=== PATIENT | male | born 1970 | race Caucasian/White ===

== ENCOUNTER 2020-08-20 01:15 | Inpatient (IN) | payer MEDICARE, MEDICAID ==
[2020-08-20] VITALS (7 sets, daily range): BP systolic 116–167; BP diastolic 53–87
[~2020-08-20] VITALS: Ht 182.9 cm; Wt 146.8 kg
[2020-08-20] MEDS ORDERED: ACETAMINOPHEN TAB 650MG DOSE (2X325MG) PO PRN (02:00)
[2020-08-20 04:33] LABS: BASO % 0.2 % (0.0-1.0); EOS # 0.2 10^3/uL (0.0-0.5); HEMATOCRIT 29.3 % (42.0-52.0); HEMOGLOBIN 9.5 g/dl (13.5-17.5); LYMPH % 5.8 % (24.0-44.0); MEAN CORPUSCULAR HGB CONC 32.4 g/dl (32.0-36.5); MEAN CORPUSCULAR VOLUME 98.7 fl (80.0-96.0); MONO # 1.9 10^3/uL (0.0-0.8); NEUTROPHILS # 13.9 10^3/uL (1.5-8.5); NEUTROPHILS % 81.4 % (36.0-66.0); PLATELET COUNT, AUTOMATED 148 10^3/uL (150-450); RED BLOOD COUNT 2.97 10^6/uL (4.30-6.10); WHITE BLOOD COUNT 17.1 10^3/uL (4.0-10.0)
[2020-08-20 04:45] LABS: TOTAL PROTEIN,RANDOM URINE 144.2 MG/DL (0.0-12.0)
[2020-08-20 04:48] LABS: INR 1.23; PROTHROMBIN TIME 15.8 SECONDS (12.5-14.3)
[2020-08-20 04:54] LABS: OSMOLALITY SERUM 296 MOSM/KG (275-295)
[2020-08-20] MEDS ORDERED: FERR32TA PO (05:20)
[2020-08-20] MEDS ORDERED: LISI-542 PO (05:20)
[2020-08-20] MEDS ORDERED: ZINC1TAB2 PO (05:20)
[2020-08-20] MEDS ORDERED: METF-954 PO (05:20)
[2020-08-20] MEDS ORDERED: SM P99TA PO (05:20)
[2020-08-20] MEDS ORDERED: TERA5CAP3 PO (05:20)
[2020-08-20 06:01] LABS: ALBUMIN 2.4 GM/DL (3.2-5.2); ALT/SGPT 20 U/L (12-78); BILIRUBIN,TOTAL 1.9 MG/DL (0.2-1.0); BLOOD UREA NITROGEN 41 MG/DL (7-18); CALCIUM LEVEL 7.6 MG/DL (8.5-10.1); CARBON DIOXIDE LEVEL 21 MEQ/L (21-32); CHLORIDE LEVEL 104 MEQ/L (98-107); CK-MB VALUE MASS 1.3 NG/ML (<3.6); CPK CREATINE PHOSPHOKINASE 56 U/L (39-308); CREATININE FOR GFR 2.39 MG/DL (0.70-1.30); GLOMERULAR FILTRATION RATE 30.7 (>56); GLUCOSE, FASTING 168 MG/DL (70-100); MB/CK RELATIVE INDEX 2.32 (< OR =4); NT-PRO BNP 405 PG/ML (<125); POTASSIUM SERUM 3.8 MEQ/L (3.5-5.1); SODIUM LEVEL 135 MEQ/L (136-145); TOTAL PROTEIN 6.2 GM/DL (6.4-8.2); TROPONIN I < 0.02 NG/ML (< 0.10)
--- NOTE | 2020-08-20 06:47 | REPVR ---
PROCEDURE INFORMATION: Exam: XR Chest, 1 View Exam date and time: 08/20/2020 5:41 AM Age: 50 years old Clinical indication: Other: Edema TECHNIQUE: Imaging protocol: XR of the chest Views: 1 view. COMPARISON: No relevant prior studies available. FINDINGS: Lungs: Mild bilateral perihilar reticulonodular opacities. Pleural space: Unremarkable. No pleural effusion. No pneumothorax. Heart/Mediastinum: Unremarkable. No cardiomegaly. Bones/joints: Degenerative changes right shoulder. IMPRESSION: Mild bilateral perihilar reticulonodular opacities. Electronically signed by: Bernard Marin On 08/20/2020 06:47:46 AM
--- NOTE | 2020-08-20 06:51 | REPVR ---
PROCEDURE INFORMATION: Exam: CT Abdomen And Pelvis Without Contrast Exam date and time: 08/20/2020 3:58 AM Age: 50 years old Clinical indication: Abdominal pain; Localized; Left; Additional info: Luq pain, ? L kidney hematoma TECHNIQUE: Imaging protocol: Computed tomography of the abdomen and pelvis without contrast. Radiation optimization: All CT scans at this facility use at least one of these dose optimization techniques: automated exposure control; mA and/or kV adjustment per patient size (includes targeted exams where dose is matched to clinical indication); or iterative reconstruction. COMPARISON: No relevant prior studies available. FINDINGS: Pleural space: Small left pleural effusion with adjacent compressive atelectasis. Liver: Cirrhosis and evidence of portal venous hypertension. Gallbladder and bile ducts: Normal. No calcified stones. No ductal dilation. Pancreas: Normal. No ductal dilation. Spleen: Mild splenomegaly. Adrenal glands: Normal. No mass. Kidneys and ureters: Large left subcapsular renal hematoma with blood extending into the perinephric fat. Stomach and bowel: Unremarkable. No obstruction. No mucosal thickening. Appendix: No evidence of appendicitis. Intraperitoneal space: Unremarkable. No free air. No significant fluid collection. Vasculature: Unremarkable. No abdominal aortic aneurysm. Lymph nodes: Unremarkable. No enlarged lymph nodes. Urinary bladder: Unremarkable as visualized. Reproductive: Unremarkable as visualized. Bones/joints: Severe osteoarthritis in the bilateral hips. Mild anterolisthesis L5 on S1 secondary to bilateral L5 pars interarticularis defects. Bilateral L4 pars interarticularis defects are also noted. Severe multilevel degenerative disease facet hypertrophy of the thoracolumbar spine. Stenosis of the spinal canal and neural foramina multiple levels most pronounced at L1-L2. Soft tissues: Unremarkable. IMPRESSION: Large left subcapsular renal hematoma with blood extending into the perinephric fat. Small left pleural effusion with adjacent compressive atelectasis. Cirrhosis and evidence of portal venous hypertension. Electronically signed by: Bernard Marin On 08/20/2020 06:52:25 AM
--- NOTE | 2020-08-20 06:59 | HPEPDOC ---
[facility] Medical History & Physical Date of Admission Aug 20, 2020 Date of Service: Aug 20, 2020 Attending Physician: FRANKI BONILLA MD History and Physical CHIEF COMPLAINT: Transfer from [facility] HISTORY OF PRESENT ILLNESS: Hilario Higuera is a 50 YO M with history of iron defi ciency anemia, T2DM who presented to [facility] this evening with abdominal pain, subjective fevers and fatigue. The patient states that his pain last Wednesday with chills and dry heaving. 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 He reports that he has had severe pain in his left flank radiating to his left upper quadrant just below his ribs. The pain has since subsided but he still feels fatigued and has chills. In addition, he has noticed increased lower extremity edema for several months now. The patient's workup at [facility] was concerning for leukocytosis at 17.9, hgb 9.6, hct 29.0. BUN/Cr 15/2.5 with unknown baseline D-dimer 3.56 Lactic acid 5.0 Troponins negative UA: positive nitrites, 500 protein, +leuk esterase Rapid strep positive At [facility] he was given IV Rocephin, 2L fluid bolus. A CT abd/pelvis was performed and was concerning for a subcapsular hematoma in the left kidney measuring 9.3 x 3 cm. He was transferred to [facility] for further workup. PAST MEDICAL HISTORY: 1. Iron deficiency anemia 2. Type 2 DM 3. BPH 4. Hypertension 5. Osteoarthritis PAST SURGICAL HISTORY: none SOCIAL HISTORY: Never smoker. Occasional alcohol use. No drug use. No recent travel FAMILY HISTORY: Mother had to have kidney removed for unspecified reasons, patient thinks it was due to cancer Sister with unspecified cancer ALLERGIES: Please see below. REVIEW OF SYSTEMS: CONSTITUTIONAL: + subjective fevers, chills, +fatigue HEENT: -vision/hearing changes CARDIOVASCULAR: - chest pain/palpitations RESPIRATORY: -SOB, -CONNORS GASTROINTESTINAL: +nausea, -vomiting, reports left upper quadrant and flank pain GENITOURINARY: -dysuria SKIN: -rashes MUSCULOSKELETAL: -+low back pain NEUROLOGICAL: -loss of sensation, numbness PSYCHIATRIC: -depression/anxiety ENDOCRINE: -hot/cold intolerance HEMATOLOGIC/LYMPHATIC: -no easy bruising HOME MEDICATIONS: Please see below. PHYSICAL EXAMINATION: PE: 167/87, HR 117, RR 22, Sat 97%RA, Temp 97.8F GENERAL APPEARANCE: morbidly obese, calm/cooperative, no acute distress, speaks in full sentences HEENT: moist mucus membranes, EOMI, PERRL, no thyromegaly CARDIOVASCULAR: 3/6 KASSANDRA in RUSB, radiates to apex. RRR, peripheral pulses intact, faint LUNGS: clear to auscultation bilaterally without any adventitious breath sounds appreciated ABDOMEN: obese, +BS, tender to deep palpation left upper quadrant below ribs, no masses/organomegaly MUSCULOSKELETAL: no joint swelling/effusions noted EXTREMITIES: 2+ pitting edema up to thighs bilaterally NEUROLOGICAL: no obvious focal deficits PSYCHIATRIC: AAOx3, normal mood/affect LABORATORY DATA: See below. IMAGING: (READ from [facility]) CT ABD/PELVIS: FINDINGS: The left kidney demonstrates a subcapsular hematoma measuring at least 9.3X3 centimeters. There is mild perinephric stranding CT ABD/PEL ordered and pending MICROBIOLOGY: Please see below. ASSESSMENT: This is a 50 YO M with history of HTN, T2DM who presented to [facility] with left upper quadrant and flank pain, subjective fevers, chills found to have acute kidney injury and hematoma on left kidney. He was transferred to [facility] for higher level of care. PLAN: 1. Sepsis: likely 2/2 urinary source concerning for pyelonephritis. - Perinephric stranding on CT abd/pelvis from [place] - Will start Zosyn for broad spectrum coverage (intra-abdominal) - Lactic acid 3.7, WBC 17.1 2. Subcapsular hematoma on left kidney: -CT abd/pel ordered and pending - Will trend H&H -Urology consulted; case discussed - will continue to follow hemoglobin trend Acute kidney injury: - Creatinine found to be 2.39. Unsure of his baseline -Patient received 2 L fluid boluses at outside hospital currently edematous up to the thighs will hold off on fluids at this time -Urine labs pending -Nephrology consulted; Appreciate recommendations Fluid overload - Possibly 2/2 CHF, Nephrotic syndrome? - Physical reveals gross fluid overload and prior imaging consistent with L pleural effusion; patient will likely need diuresis - BNP elevated - Will get CXR - Will get ECHO stat (Murmur appreciated) - Will likely need to provide diuresis; will discuss with nephrology Suspected Pyelonephritis: -Empiric antibiotics (see above) DM2: -HbA1c pending -Holding home Metformin, Lisinopril -SSI with hypoglycemic protocol for now BPH: -Continue home meds DVT: TEDS/SCDs, holding chemical ppx due to hematoma on kidney Laboratory Data Labs 24H Laboratory Tests 2 08/20/20 03:45: Home Medications Scheduled Ferrous Gluconate (Ferrous Gluconate) 324 Mg Tablet, 324 MG PO DAILY Lisinopril (Lisinopril) 5 Mg Tablet, 5 MG PO DAILY Metformin HCl (Metformin HCl) 850 Mg Tablet, 850 MG PO BID Potassium Gluconate (Potassium) 99 Mg Tablet, 595 MG PO DAILY Terazosin HCl (Terazosin HCl) 5 Mg Capsule, 5 MG PO QHS Zinc (Zinc) 50 Mg Tablet, 50 MG PO DAILY Allergies Coded Allergies: No Known Allergies (Verified Allergy, Unknown, 08/20/20) A-FIB/CHADSVASC A-FIB History Current/History of A-Fib/PAF?: No Current PO Anticoag Therapy: No GME ATTESTATION GME ATTESTATION My faculty preceptor for this patient encounter was physically present during the encounter and was fully available. All aspects of the patient interview, examination, medical decision making process, and medical care plan development were reviewed and approved by the faculty preceptor. The faculty preceptor is aware and concurs with the plan as stated in the body of this note and will attest to such by his/her cosignature. ATTENDING NOTE I, Franki Bonilla, have independently examined this patient and performed my own physical exam, as well as reviewed the documentation and edited where necessary. I have discussed in detail with the resident / student the findings and plan of treatment as documented by the resident / student and edited their note. I agree with their findings and treatment plan and have edited their documentation. I will continue to follow the patient during this hospital stay. CAITIE LUGO MD Aug 20, 2020 04:10 FRANKI BONILLA MD Aug 20, 2020 07:41
[2020-08-20] MEDS ORDERED: DEXTROSE 50% 50 ML SYRINGE IV PRN (07:00)
[2020-08-20] MEDS ORDERED: GLUCOSE 4GM CHEW TABLET PO PRN (07:00)
[2020-08-20] MEDS ORDERED: GLUCAGON INJ 1MG VIAL SC PRN (07:00)
--- NOTE | 2020-08-20 08:07 | SMCUROLCON ---
Urology Consultation General Date of Consultation 08/20/20 Reason For Consultation This patient is seen for Sepsis, Pyelonephritis. History of Present Illness The patient is a 50-year-old male with a past medical history for hypertension and diabetes. He states that he began having some abdominal pain fever and difficulty breathing about a week ago. When this became severe he presented to the [facility] and found to have a left subcapsular hematoma atelectasis hypertension which appears uncontrolled and diabetes. He was transferred to the medical service at [facility] and urology consult was called for assistance with the perinephric hematoma. Patient denies any trauma, falls, injuries or previous renal abnormalities. He says state that he was diagnosed with diabetes and hypertension about a month ago and started on medications. Before the medications, he was urinating hourly both day and night he states that he was voiding large amounts. After he was started on medications his urination improved and he now gets up twice a night and only voids a few times during the day. His medications apparently include terazosin and metformin. There is no family history of prostate or renal disease. Past Medical History Medical History Hypertension Diabetes Iron deficiency anemia BPH osteoarthritis Surgical Hstory No previous surgeries Social History Social History Patient has been on on disability for many years. He states his qualifying disability is slow learning. 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 * Smoker: non-smoker Alcohol: occationally Drugs: denies Medications Current Medications Current Medications Medications (Trade) Dose Ordered Sig/Mayelin Route PRN Reason Start Time Stop Time Status Last Admin Dose Admin Acetaminophen (Tylenol Tab) 650 mg Q4H PRN PO PAIN OR FEVER 08/20/20 02:00 Ceftriaxone Sodium 2 gm/ Dextrose 50 ml @ 100 mls/hr Q24H IV 08/20/20 09:00 08/20/20 07:21 DC Dextrose (Dextrose 50%) 25 ml ASDIRECTED PRN IV SEE LABEL COMMENTS 08/20/20 07:00 Ferrous Gluconate (Fergon) 324 mg DAILY PO 08/20/20 09:00 Furosemide (LASIX injection) 40 mg BID@09,17 IV 08/20/20 09:00 08/20/20 07:36 DC Glucagon (Glucagon) 1 mg ASDIRECTED PRN SC SEE LABEL COMMENTS 08/20/20 07:00 Glucose (Glucose) 16 GM ASDIRECTED PRN PO SEE LABEL COMMENTS 08/20/20 07:00 Home Med (Med Rec Complete!) ASDIRECTED XX 08/20/20 05:30 08/20/20 05:36 DC Insulin Human Lispro (HumaLOG INSULIN) SEE PROTOCOL TABLE AC SC 08/20/20 07:30 Insulin Human Lispro (HumaLOG INSULIN) SEE PROTOCOL TABLE QHS SC 08/20/20 21:00 Piperacillin Sod/ Tazobactam Sod 3.375 gm/Dextrose 50 ml @ 50 mls/hr Q6H IV 08/20/20 08:00 Terazosin HCl (Hytrin) 5 mg QHS PO 08/20/20 21:00 Allergies Allergies: Coded Allergies: No Known Allergies (Verified Allergy, Unknown, 08/20/20) Review of Systems General: Reports: Normal Appetite; Denies: Fatigue, Malaise Constitutional: Reports: Fever, Chills Eyes: Denies: Pain, Vision change ENT: Denies: Head Aches, Sore Throat, Epistaxis Skin: Denies: Rash, Lesions, Breakdown, Nail Changes Pulmonary: Denies: Dyspnea, Cough Genitourinary: Reports: Frequency, Other Symptoms (nocturia); Denies: Dysuria, Incontinence, Hematuria Hematologic: Denies: Bruising, Bleeding Excessively Musculoskeletal: Denies: Neck Pain, Back Pain Physical Examination General Exam: Cooperative, Mild Distress, Other (morbid obesity) EYE EXAM: PERRLA, Conjunctiva & lids normal, EOMI; No: Sclera icteric ENT EXAM: Atraumatic, Mucous membr. moist/pink, Pharynx Normal Neck Exam: Supple; No: JVD, thyromegaly Abdomen Exam: Normal Bowel Sounds, Soft; No: Tenderness, Hepatospenomegaly Male Exam exam cannot be performed at this time because the patient was having bedside ultrasound study performed. Vital Signs/I&O Vital Signs Date Time Temp Pulse Resp B/P (MAP) Pulse Ox O2 Delivery O2 Flow Rate FiO2 08/20/20 06:15 99.4 111 20 136/62 (86) 100 Room Air I&O- Last 24 Hours up to 6 AM 08/20/20 06:00 Intake Total 0 ml Output Total 0 ml Balance 0 ml Laboratory Data 24H Labs Laboratory Tests 2 08/20/20 03:45: Coronavirus (COVID-19)(PCR) NEGATIVE, Influenza Type A (RT-PCR) NEGATIVE, Influenza Type B (RT-PCR) NEGATIVE, Respiratory Syncytial Virus (PCR) NEGATIVE 08/20/20 04:02: Urine Random Osmolality 443L, Urine Random Creatinine 249.0, Urine Random Total Protein 144.2H, Urine Random Sodium 20 08/20/20 04:12: Immature Granulocyte % (Auto) 0.6, Neutrophils (%) (Auto) 81.4H, Lymphocytes (%) (Auto) 5.8L, Monocytes (%) (Auto) 11.0H, Eosinophils (%) (Auto) 1.0, Basophils (%) (Auto) 0.2, Neutrophils # (Auto) 13.9H, Lymphocytes # (Auto) 1.0L, Monocytes # (Auto) 1.9H, Eosinophils # (Auto) 0.2, Basophils # (Auto) 0.0, Nucleated Red Blood Cells % (auto) 0.0, Prothrombin Time 15.8H, Prothromb Time International Ratio 1.23, Anion Gap 10, Glomerular Filtration Rate 30.7L, Osmolality 296H, Lactic Acid Level 3.7*H, Calcium Level 7.6L, Magnesium Level 1.8, Total Bilirubin 1.9H, Aspartate Amino Transf (AST/SGOT) 20, Alanine Aminotransferase (ALT/SGPT) 20, Alkaline Phosphatase 111, Total Creatine Kinase 56, Creatine Kinase MB 1.3, Creatine Kinase MB Relative Index 2.32, Troponin I < 0.02, PD-Vpx-B-Type Natriuretic Peptide 405H, Total Protein 6.2L, Albumin 2.4L, Albumin/Globulin Ratio 0.6, Thyroid Stimulating Hormone (TSH) 1.200 CBC/BMP Laboratory Tests 08/20/20 04:12 Microbiology Microbiology 08/20/20 Blood Culture, Received Pending 08/20/20 Blood Culture, Received Pending Assessment 1. Subcapsular hematoma. By CT report this hematoma is 9 x 3 cm 2. BPH with nocturia 3. Uncontrolled hypertension Plan 1. Subcapsular hematoma will be monitored for now with periodic H&H and follow- up CT scans. It of course will be necessary to control his hypertension. Most of the time, subcapsular hematomas or trauma related which the patient denies. This leaves his uncontrolled hypertension is most likely factor. He does not appear to have any stones or other renal issues that may have contributed to his condition. Phimosis time, the subcapsular hematomas were resolved spontaneously. Blood will be transfused as necessary should the hematoma continued to expand. 2. BPH continue terazosin. PSA will be ordered and the area will be performed at a later visit. Time Spent on Consult: Time Spent / Consult (Minutes): 60 KAYLEIGH MARINO MD Aug 20, 2020 08:07
[2020-08-20 08:23] LABS: CORTISOL BASELINE 25.4 UG/DL (4.3-22.4)
[2020-08-20] MEDS: PIPERACILLIN/TAZOBACTAM SOD 3.375 GM in D5W MINI-BAG PLUS 50 ML IV SCH ×3 (08:32→19:46)
[2020-08-20] MEDS: HumaLOG INSULIN (NovoLOG) PER UNIT SC SCH ×4 (08:32→20:44)
[2020-08-20] MEDS: FERROUS GLUCONATE 324 MG TAB PO SCH (08:33)
[2020-08-20] MEDS ORDERED: FUROSEMIDE 40MG/4ML VIAL (J1940) IV SCH (09:00)
[2020-08-20] MEDS ORDERED: cefTRIAXone SOD 2 GM in D5W MINI-BAG PLUS 50 ML IV SCH (09:00)
[2020-08-20 09:57] LABS: HEMOGLOBIN A1c 7.9 %
[2020-08-20 12:28] LABS: BILIRUBIN,DIRECT 1.3 MG/DL (0.0-0.2)
[2020-08-20] MEDS: TERAZOSIN 5 MG CAP PO SCH (21:04)
[2020-08-21] VITALS (12 sets, daily range): BP systolic 132–179; BP diastolic 63–81
[2020-08-21 00:08] LABS: HEMATOCRIT 26.8 % (42.0-52.0); HEMOGLOBIN 8.6 g/dl (13.5-17.5)
[2020-08-21] MEDS: PIPERACILLIN/TAZOBACTAM SOD 3.375 GM in D5W MINI-BAG PLUS 50 ML IV SCH ×4 (01:27→20:48)
[2020-08-21 07:08] LABS: BASO % 0.3 % (0.0-1.0); EOS # 0.1 10^3/uL (0.0-0.5); HEMOGLOBIN 9.3 g/dl (13.5-17.5); LYMPH % 6.7 % (24.0-44.0); MEAN CORPUSCULAR HEMOGLOBIN 30.4 pg (27.0-33.0); MEAN CORPUSCULAR HGB CONC 32.1 g/dl (32.0-36.5); MEAN CORPUSCULAR VOLUME 94.8 fl (80.0-96.0); MONO # 1.9 10^3/uL (0.0-0.8); MONO % 13.2 % (0.0-5.0); NEUTROPHILS # 11.1 10^3/uL (1.5-8.5); NEUTROPHILS % 77.4 % (36.0-66.0); PLATELET COUNT, AUTOMATED 134 10^3/uL (150-450); RED BLOOD COUNT 3.06 10^6/uL (4.30-6.10); WHITE BLOOD COUNT 14.3 10^3/uL (4.0-10.0)
--- NOTE | 2020-08-21 07:19 | CR ---
CONSULTATION REQUESTING PHYSICIAN: Franki Bonilla MD REASON FOR CONSULTATION: Acute kidney injury. HISTORY OF PRESENT ILLNESS: The patient is previously unknown to me. He is a 50-year-old male with a past medical history of poor medical care. The patient tells me that he used to see Dr. Hawk for primary care but had not seen him in more than a decade. He recently established medical care with Dr. Olmedo because he was having frequency of urination. He was diagnosed both with type 2 diabetes and also with hypertension and he was started on lisinopril and metformin. He reports that he was feeling fine until this weekend when he developed pelvic pain with urination and also felt feverish and fatigued and nauseous. He went to his local emergency room in [place] where he was found to have leukocytosis, anemia, creatinine of 2.5 with baseline renal function that is unknown to me but I suspect his creatinine is likely better than 1.5 given the primary care recently started him on metformin within the past couple of months. He additionally had CT of the abdomen and pelvis that showed a subcapsular hematoma of the left kidney and the patient was transferred to [facility] for further evaluation. The patient seen and examined at the bedside. He reports his pain is presently well controlled and he denies any shortness of breath or persistent nausea or vomiting. PAST MEDICAL HISTORY: 1. Recently diagnosed with type 2 diabetes mellitus and hypertension. 2. BPH, 3. Osteoarthritis. 4. Iron deficiency anemia. 5. Imaging on this admission shows liver cirrhosis although the patient denies a known history of the same. 6. Degenerative disc disease. PAST SURGICAL HISTORY: None reported. SOCIAL HISTORY: He is a never smoker, reports occasional alcohol use, no drug use. He is disabled. ALLERGIES: No known drug allergies. HOME MEDICATIONS: 1. Metformin. 2. Lisinopril. 3. Ferrous gluconate. 4. Potassium gluconate. 5. Terazosin. 6. Zinc. FAMILY HISTORY: Reports a family history of malignancy. REVIEW OF SYSTEMS: Constitutional: Reports subjective fevers and fatigue. Eyes: Denies visual changes or tearing. ENT: Denies odynophagia or rhinorrhea. Cardiac: Denies chest pain or palpitations. Respiratory: Denies shortness of breath or cough. Gastrointestinal: Denies nausea, vomiting or diarrhea. Genitourinary: Reports dysuria. Reports BPH. Endocrine: Reports diabetes mellitus and denies thyroid disease. Abdomen: Reports iron deficiency anemia. Denies anticoagulant use. Musculoskeletal: Reports osteoarthritis. Denies gout. Neurologic: Denies seizure or syncope. Psychiatric: Denies a history of anxiety or depression. Skin: Denies any new rashes or ulcers. Remainder of review of systems is negative or as per HPI. PHYSICAL EXAMINATION: Vital signs: Temperature 99.7, pulse 104, respiratory rate 22, blood pressure 141/61, saturating 94% on room air. General: Patient is seen lying in bed, middle-aged male, well built in no apparent distress. HEENT: Extraocular muscles are intact. Pupils are round and reactive to light. Tongue is moist. Neck is supple. Jugular veins are not elevated. Heart sounds are tachycardic, S1, S2 and regular. There is 1+ leg edema. Lungs: Show symmetric air entry, no crackle or rale. Abdomen: Soft and obese and nontender to palpation. Extremities show no clubbing or cyanosis. There is 1+ leg edema. Neurologic: He is oriented x3, interactive and conversational. Psychiatric: Appropriate mood and affect. LABORATORY DATA: Sodium 135, potassium 3.8, bicarbonate 21, BUN 41, creatinine 2.3, A1c 7.9, hemoglobin 9.5, white count 17.1, platelets 148. Blood and urine cultures are pending. IMAGING STUDIES: CT, abdomen and pelvis shows large left subcapsular renal hematoma with blood extending intro the perinephric fat, small left pleural effusion, cirrhosis and evidence of portal venous hypertension. INPATIENT MEDICATIONS: 1. Zosyn 3.375 gm IV q.6 hourly. 2. Tylenol p.r.n. 3. Ferrous gluconate 324 mg p.o. daily. 4. Insulin. 5. Terazosin 5 mg p.o. q.h.s. PROBLEMS: 1. ANNABEL most likely superimposed on CKD stage 3. The patient's exact baseline renal function is not known to me. However, given that he was started on metformin and lisinopril as new prescriptions within the past couple of months, I feel his creatinine at baseline is probably is probably less than 1.5. Presently he has an acute kidney injury related to large left renal subcapsular hematoma with concomitant use of lisinopril and metformin. His nephrotoxics have been discontinued. His renal imaging is negative for any obstruction. I would not give him IV fluids at this as it may contribute to increase in blood pressures. However, he can have liberal oral hydration. Urology has already evaluated him for the subcapsular hematoma. 2. Large left renal subcapsular hematoma. The patient should have type and screen done and he should be on close hemoglobin and hematocrit monitoring. His blood pressures presently adequately controlled with systolic in the 110s to 130s. He is tolerating oral diet. He does not need IV fluids as it may cause rise in blood pressure which would be detrimental given his hematoma. 3. Proteinuria. I was asked to comment on the patient's proteinuria. At present with his acute hematoma and hematuria, now is not the best time for a proteinuria workup. He likely has some diabetic nephropathy underlying. He did not see a physician in more than ten years when he was subsequently diagnosed with diabetes. Further proteinuria workup can be done in the outpatient setting or once acute issues resolve. 4. UTI. The patient is on empiric broad-spectrum coverage per the primary team. He has leukocytosis. His urinalysis is suspicious. His blood and urine cultures are pending. 5. Hypervolemia. The patient has leg edema. An echo is pending. I would hold off on diuretic at present time in view of acute kidney injury related to large subcapsular hematoma of the left kidney along with lisinopril and metformin. Gentle diuretic can be started once renal function shows improvement. We will follow up echo results. Thank you for involving me in the care of Mr. Higuera. I will be happy to follow him along with you.
[2020-08-21 07:27] LABS: CALCIUM LEVEL 7.6 MG/DL (8.5-10.1); CREATININE FOR GFR 1.59 MG/DL (0.70-1.30); GLOMERULAR FILTRATION RATE 49.1 (>56); MAGNESIUM LEVEL 2.1 MG/DL (1.8-2.4); POTASSIUM SERUM 3.8 MEQ/L (3.5-5.1)
[2020-08-21 07:37] LABS: ALBUMIN 2.1 GM/DL (3.2-5.2); BILIRUBIN,DIRECT 1.3 MG/DL (0.0-0.2); TOTAL PROTEIN 6.3 GM/DL (6.4-8.2)
[2020-08-21] MEDS: HumaLOG INSULIN (NovoLOG) PER UNIT SC SCH ×4 (08:34→20:51)
[2020-08-21] MEDS: FERROUS GLUCONATE 324 MG TAB PO SCH (08:34)
--- NOTE | 2020-08-21 09:39 | ECHO ---
DATE OF PROCEDURE: 08/20/2020 Age: 50 Gender: Male Height: 182 cm Weight: 150 kg REFERRING PHYSICIAN: Sridevi Matias MD INDICATION: Sepsis. MEASUREMENTS: 2D Measurements: Left atrium 4.2 cm Left ventricle diastole 6.5 cm Intraventricular septum 1.28 cm Posterior wall 1.05 cm Aortic root 3.5 cm Proximal ascending aorta 3.7 cm Inferior vena cava 1.7 cm Doppler Measurements: No aortic stenosis No aortic regurgitation No mitral stenosis No mitral regurgitation No tricuspid regurgitation No pulmonic regurgitation Aortic valve velocity 218 cm/s LVOT velocity 159 cm/s LVOT VTI 29.6 cm Mitral E velocity 126 cm/s Mitral A velocity 113 cm/s Mitral deceleration time 180 msec Pulmonary artery acceleration time 120 msec MITRAL ANNULAR TISSUE DOPPLER E prime septal 11.4 cm/s, E prime lateral 13.2 cm/s DESCRIPTION: Rhythm was sinus tachycardia. This was a moderately technically difficult echocardiogram. This was a 2D, M-mode, color flow Doppler, and pulsed wave Doppler examination including mitral annular tissue Doppler. CONCLUSIONS: 1. No vegetations identified on any of the cardiac valves. 2. Mildly dilated left ventricle with mild eccentric left ventricular hypertrophy. Normal regional left ventricular (LV) wall motion and wall thickening. Normal left ventricular (LV) systolic function. Left ventricular ejection fraction (LVEF) of 70% by visual estimate. Normal left ventricular (LV) diastolic function. 3. Mild mitral annular calcification. No mitral regurgitation. 4. No pericardial effusion. 5. Moderately technically difficult echocardiogram. [facility]
--- NOTE | 2020-08-21 14:54 | IPNPDOC ---
Text Note Date of Service The patient was seen on 08/21/20. NOTE SUBJECTIVE: Patient was seen and examined this morning at bedside. He denies any back pain or trauma to his back. He states his legs have been swelling over the past few months, ever since he was recently diagnosed with diabetes mellitus. OBJECTIVE: VITAL SIGNS: See below GENERAL: Alert, comfortable, in no acute distress HEENT: Normocephalic, atraumatic, PERRLA, EOMI, moist mucous membranes NECK: Supple, trachea midline CARDIOVASCULAR: Regular rate and rhythm, normal S1 and S2. III/ systolic ejection murmur auscultated over the right upper sternal border. RESPIRATORY: Clear to auscultation bilaterally with equal air entry bilaterally. No wheezing, rhonchi, or rales. ABDOMEN: Soft, nontender, nondistended, bowel sounds present, no masses or hepatosplenomegaly appreciated EXTREMITIES: Bilateral lower extremity 2+ pitting edema up to the knees. Pulses 2+/4 in bilateral upper and lower extremities SKIN: [place], warm, dry NEUROLOGIC: Alert and oriented x3 to person, place and time. No focal deficits appreciated PSYCHIATRIC: Mood and affect appropriate ASSESSMENT/PLAN: 50 YO M with history of HTN, T2DM who presented to [facility] with left upper quadrant and flank pain, subjective fevers, chills found to have acute kidney injury and hematoma on left kidney transferred to [facility] for higher level of care with nephrology and urology consultations. # Subcapsular hematoma on left kidney -CT abd/pel ordered and pending - Will trend H&H -Urology consulted; case discussed - will continue to follow hemoglobin trend # Acute kidney injury -Creatinine trending down to 1.59 -FENa = 0.1%, likely prerenal etiology -Patient received 2 L fluid boluses at outside hospital currently edematous up to the thighs will hold off on fluids at this time -Nephrology consulted, appreciate recommendations # Sepsis likely 2/2 urinary source concerning for pyelonephritis - Perinephric stranding on CT abd/pelvis from [facility] - Continue abx coverage with IV zosyn day #2 - Lactic acid trended down to 1.7, WBC trending down - blood cultures x2 pending. urine culture pending # Lower extremity edema - Possibly 2/2 CHF vs nephrotic syndrome - Physical reveals gross fluid overload and prior imaging consistent with L pleural effusion; patient may need diuresis - BNP elevated - Obtain echocardiogram # New onset heart murmur - obtain echocardiogram as noted above # DM2 -HbA1c elevated at 7.9% -Holding home Metformin, Lisinopril due to ANNABEL -SSI with hypoglycemic protocol while inpatient # BPH - Continue home terazosin DVT: TEDS/SCDs, holding chemical ppx due to hematoma on kidney Disposition: pending clinical improvement, stabilization of H/H Attending attestation: Patient seen and examined independently. Agree with resident's note. VS,Fishbone, I+O VS, Fishbone, I+O Laboratory Tests 08/20/20 23:46 08/21/20 06:53 Vital Signs Date Time Temp Pulse Resp B/P (MAP) Pulse Ox O2 Delivery O2 Flow Rate FiO2 08/21/20 07:38 99.4 95 18 139/64 (89) 95 Room Air I&O- Last 24 Hours up to 6 AM 08/21/20 06:00 Intake Total 1698 ml Output Total 1300 ml Balance 398 ml TANJA BOND D.O. Aug 21, 2020 11:47 MARCIAL HATCH MD Aug 22, 2020 07:09
[2020-08-21 20:41] LABS: HEMATOCRIT 29.2 % (42.0-52.0); HEMOGLOBIN 9.7 g/dl (13.5-17.5); MEAN CORPUSCULAR HEMOGLOBIN 31.1 pg (27.0-33.0); MEAN CORPUSCULAR HGB CONC 33.2 g/dl (32.0-36.5); MEAN CORPUSCULAR VOLUME 93.6 fl (80.0-96.0); PLATELET COUNT, AUTOMATED 144 10^3/uL (150-450); RED BLOOD COUNT 3.12 10^6/uL (4.30-6.10)
[2020-08-21] MEDS: TERAZOSIN 5 MG CAP PO SCH (20:51)
--- NOTE | 2020-08-21 23:10 | IPN ---
NEPHROLOGY PROGRESS NOTE DATE: 08/21/2020 SUBJECTIVE: The patient is seen and examined this morning at the bedside. He feels great. He offers no complaints. He is not having any dysuria. He denies any hematuria. He denies any abdominal, pelvic or flank pain. He wants to go home. His hemoglobin dipped down to 8.6 and he received one unit of packed red blood cells overnight. His blood pressure remains well controlled. PHYSICAL EXAMINATION: VITAL SIGNS: Temperature 99.3, pulse 100, respiratory rate 18, blood pressure 143/71, saturating 96% on room air. INTAKE AND OUTPUT: Intake yesterday was 1640. Urine output was 1300. Weight in the bed scale today is not recorded. GENERAL APPEARANCE: The patient is seen lying in bed, obese male, awake, alert, oriented x3, in no apparent distress. HEENT: The extraocular muscles are intact. Tongue is moist. NECK: Supple. HEART: Regular, S1, S2. There is 1+ leg edema. LUNGS: Breath sounds are symmetric bilaterally. No crackle or rales. ABDOMEN: Obese, soft and nontender. There is no flank tenderness. NEUROLOGICAL: Oriented x3, interactive and conversational. MUSCULOSKELETAL: Power is 5/5 in all extremities. SKIN: Normal temperature and dry. LABORATORY STUDIES: White count 13.0, hemoglobin 9.7, platelet 144, sodium 135, potassium 3.8, BUN 33, creatinine 1.5, magnesium 2.1, albumin 2.1. Urine protein 2, creatinine ratio was about 0.6 grams. IMAGING: Echocardiogram done yesterday showed normal left ventricular systolic and diastolic function. INPATIENT MEDICATIONS: The patient continues on IV Zosyn, insulin, Terazosin and Ferrous Gluconate and Tylenol p.r.n. PROBLEMS: 1. Acute kidney injury, non oliguric, related to dante inhibitor and acute left renal subcapsular large hematoma and possibly also pyelonephritis - renal function is improving and he is not on any nephrotoxics. He has leg edema, and we are holding off on IV fluids for the same reason. He is tolerating oral intake without any issues. 2. UTI/pyelonephritis had perinephric stranding on outside CT abdomen and pelvis. Blood cultures were no growth for 24 hours. Urine culture is pending. He is on empiric Zosyn. His white count is downtrending and he is afebrile. 3. Leg edema echocardiogram showed normal left ventricular systolic and diastolic dysfunction. His spot urine protein creatinine ratio is very mild at only 0.6 grams which is far below the threshold for nephrotic range proteinuria. He likely has some degree of diabetic nephropathy underlying. I will start him on gentle diuretic for his edema. 4. Hypertension he is off of Lisinopril due to recent acute kidney injury we will start him on Hydrochlorothiazide. 5. Non insulin dependent diabetes mellitus would keep him off of Metformin at this time until renal function further recovers. 6. Subcapsular hematoma, large, on left kidney - received one unit packed red blood cells. Denies any pain. Hemoglobin and hematocrit are stable. Blood pressure is controlled.
[2020-08-22] VITALS: BP 137/63
[2020-08-22 02:02] LABS: HEMATOCRIT 29.2 % (42.0-52.0); HEMOGLOBIN 9.6 g/dl (13.5-17.5)
[2020-08-22] MEDS: PIPERACILLIN/TAZOBACTAM SOD 3.375 GM in D5W MINI-BAG PLUS 50 ML IV SCH ×3 (02:03→12:42)
[2020-08-22 04:00] VITALS: BP 144/81
[2020-08-22 06:12] LABS: BASO # 0.1 10^3/uL (0.0-0.2); BASO % 0.4 % (0.0-1.0); EOS # 0.2 10^3/uL (0.0-0.5); EOS % 1.3 % (0.0-3.0); HEMATOCRIT 29.2 % (42.0-52.0); HEMOGLOBIN 9.3 g/dl (13.5-17.5); LYMPH % 8.9 % (24.0-44.0); MEAN CORPUSCULAR HEMOGLOBIN 30.1 pg (27.0-33.0); MEAN CORPUSCULAR HGB CONC 31.8 g/dl (32.0-36.5); MEAN CORPUSCULAR VOLUME 94.5 fl (80.0-96.0); MONO # 1.9 10^3/uL (0.0-0.8); MONO % 16.7 % (0.0-5.0); NEUTROPHILS # 8.1 10^3/uL (1.5-8.5); NEUTROPHILS % 70.1 % (36.0-66.0); PLATELET COUNT, AUTOMATED 140 10^3/uL (150-450); RED BLOOD COUNT 3.09 10^6/uL (4.30-6.10); WHITE BLOOD COUNT 11.5 10^3/uL (4.0-10.0)
[2020-08-22 06:37] LABS: BLOOD UREA NITROGEN 23 MG/DL (7-18); CALCIUM LEVEL 7.8 MG/DL (8.5-10.1); CARBON DIOXIDE LEVEL 24 MEQ/L (21-32); CHLORIDE LEVEL 103 MEQ/L (98-107); CREATININE FOR GFR 1.21 MG/DL (0.70-1.30); GLOMERULAR FILTRATION RATE > 60.0 (>56); GLUCOSE, FASTING 186 MG/DL (70-100); MAGNESIUM LEVEL 2.3 MG/DL (1.8-2.4); POTASSIUM SERUM 3.7 MEQ/L (3.5-5.1); SODIUM LEVEL 135 MEQ/L (136-145)
[2020-08-22 07:57] VITALS: BP 148/68
[2020-08-22 08:24] LABS: ALT/SGPT 16 U/L (12-78); BILIRUBIN,DIRECT 1.3 MG/DL (0.0-0.2); BILIRUBIN,TOTAL 1.9 MG/DL (0.2-1.0); TOTAL PROTEIN 5.9 GM/DL (6.4-8.2)
[2020-08-22] MEDS ORDERED: hydroCHLOROthiazide 25 MG TAB PO SCH (09:00)
[2020-08-22] MEDS: HumaLOG INSULIN (NovoLOG) PER UNIT SC SCH ×2 (09:09→12:42)
[2020-08-22] MEDS: FERROUS GLUCONATE 324 MG TAB PO SCH (09:09)
[2020-08-22] MEDS ORDERED: HYDR25TAB PO (12:29)
[2020-08-22] MEDS ORDERED: SULF1TAB23 PO (13:05)
[2020-08-22 14:08] LABS: HEMATOCRIT 30.2 % (42.0-52.0)
--- NOTE | 2020-08-22 14:25 | DS.PDOC ---
Discharge Summary General Date of Admission Aug 20, 2020 at 03:23 Date of Discharge 08/22/2020 Attending Physician: MARCIAL HATCH MD Discharge Summary PROCEDURES PERFORMED DURING STAY: None. ADMITTING DIAGNOSES: 1. Subcapsular hematoma left kidney 2. Acute kidney injury 3. Sepsis 2/2 pyelonephritis 4. Lower extremity edema 5. New onset heart murmur 6. Diabetes mellitus type 2 7. BPH DISCHARGE DIAGNOSES: 1. Subcapsular hematoma left kidney 2. Acute kidney injury, resolved 3. UTI/pyelonephritis 4. Lower extremity edema 5. New onset heart murmur 6. Diabetes mellitus type 2 7. BPH COMPLICATIONS/CHIEF COMPLAINT: Sepsis, Pyelonephritis. HISTORY OF PRESENT ILLNESS: 50 year old male with history of iron deficiency anemia, T2DM who presented to [facility] with abdominal pain, subjective fevers and fatigue. The patient stated that his pain began last Wednesday, along with chills and dry heaving. 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 He reports that he has had severe pain in his left flank radiating to his left upper quadrant just below his ribs. The pain has since subsided but he still feels fatigued and has chills . In addition, he has noticed increased lower extremity edema for several months now. CT of the abdomen and pelvis revealed and subcapsular hematoma on the left kidney and the patient was transferred to [facility] for admission and evaluation by urology and nephrology. HOSPITAL COURSE: The patient was admitted to the hospital and will service. He was noted to have elevated white blood cell count and elevated lactic acid, turning for sepsis secondary to possible pyelonephritis with perinephric strandi ng seen on the ET abdomen and pelvis. He was started on IV Zosyn for broad- spectrum antibiotic coverage. Hemoglobin and hematocrit were trended during his admission. Subcapsular hematoma. In the evening on 08/20/2020, he required 1 unit blood transfusion due to a drop in his hemoglobin. After that point, his hemoglobin remained stable above 9.0. Urology was consulted for his subcapsular hematoma. They suggested conservative management as this will likely resolve on its own. He will follow up outpatient with urology after discharge. Nephrology was consulted for his acute kidney injury. His home nephrotoxic agents including metformin and lisinopril were held during his admission. He did require some additional medication for blood pressure control and was started on hydrochlorothiazide. During his admission, his kidney function improved and returned close to baseline prior to discharge. He was restarted on his home metformin at discharge but continued on the hydrochlorothiazide for blood pressure control instead of lisinopril. The patient's urine culture came back positive for staphylococcus aureus. He was discontinued from IV Zosyn to PO Bactrim for antibiotic coverage and discharged home to complete full antibiotic course. On admission to the hospital, the patient was also noted to have a heart murmur which he was apparently not aware of. An echocardiogram was ordered and the results are detailed below. He should follow-up with his primary care physician for any further workup or treatment. The patient was evaluated by physical therapy and occupational therapy prior to discharge home from the hospital. DISCHARGE MEDICATIONS: Please see below. ALLERGIES: Please see below. PHYSICAL EXAMINATION ON DISCHARGE: VITAL SIGNS: Please see below. GENERAL: Alert, comfortable, in no acute distress HEENT: Normocephalic, atraumatic, PERRLA, EOMI, moist mucous membranes NECK: Supple, trachea midline CARDIOVASCULAR: Regular rate and rhythm, normal S1 and S2. III/ systolic eject ion murmur auscultated over the right upper sternal border. RESPIRATORY: Clear to auscultation bilaterally with equal air entry bilaterally. No wheezing, rhonchi, or rales. ABDOMEN: Soft, nontender, nondistended, bowel sounds present, no masses or hepatosplenomegaly appreciated EXTREMITIES: Bilateral lower extremity 2+ pitting edema up to the knees. Pulses 2+/4 in bilateral upper and lower extremities SKIN: [place], warm, dry NEUROLOGIC: Alert and oriented x3 to person, place and time. No focal deficits appreciated PSYCHIATRIC: Mood and affect appropriate LABORATORY DATA: Please see below. IMAGING: (impressions per radiologist report) 1. CT abdomen/pelvis Large left subcapsular renal hematoma with blood extending into the perinephric fat. Small left pleural effusion with adjacent compressive atelectasis. Cirrhosis and evidence of portal venous hypertension. 2. CXR Mild bilateral perihilar reticulonodular opacities. ECHOCARDIOGRAM RESULTS: (per Dr. Gomez's report) 1. No vegetations identified on any of the cardiac valves. 2. Mildly dilated left ventricle with mild eccentric left ventricular hypertrophy. Normal regional left ventricular (LV) wall motion and wall thicken ing. Left ventricular ejection fraction (LVEF) of 70% by visual estimate. Normal left ventricular (LV)diastolic function. 3. Mild mitral annular calcification. No mitral regurgitation. 4. No pericardial effusion. 5. Moderately technically difficult echocardiogram. PROGNOSIS: Fair ACTIVITY: As tolerated DIET: Consistent carbohydrate DISCHARGE PLAN: Oral antibiotics for UTI, outpatient follow up for subcapsular hematoma and medical management of chronic conditions DISPOSITION: HOME DISCHARGE INSTRUCTIONS: 1. Follow-up with your PCP in 7-10 days 2. Follow up with urology and nephrology 3. Please take all medications as prescribed 4. Complete full course of antibiotics 5. If your symptoms return or your condition worsens, please call your PCP or return to the ED for further evaluation. ITEMS TO FOLLOWUP ON ON OUTPATIENT: 1. Subcapsular hematoma 2. Treatment of hypertension and diabetes mellitus 3. Echocardiogram results concerning your heart murmur DISCHARGE CONDITION: Stable. TIME SPENT ON DISCHARGE: Greater than 35 minutes. Vital Signs/I&Os Vital Signs Date Time Temp Pulse Resp B/P (MAP) Pulse Ox O2 Delivery O2 Flow Rate FiO2 08/22/20 07:57 98.9 96 20 148/68 (94) 93 Room Air I&O- Last 24 Hours up to 6 AM 08/22/20 06:00 Intake Total 980 ml Output Total 975 ml Balance 5 ml Laboratory Data Labs 24H Laboratory Tests 2 08/21/20 17:14: Bedside Glucose (Misc Panel) 177H 08/21/20 20:19: Nucleated Red Blood Cells % (auto) 0.0 08/21/20 20:37: Bedside Glucose (Misc Panel) 155H 08/22/20 05:33: Nucleated Red Blood Cells % (auto) 0.0, Immature Granulocyte % (Auto) 2.6, Neutrophils (%) (Auto) 70.1H, Lymphocytes (%) (Auto) 8.9L, Monocytes (%) (Auto) 16.7H, Eosinophils (%) (Auto) 1.3, Basophils (%) (Auto) 0.4, Neutrophils # (Auto) 8.1, Lymphocytes # (Auto) 1.0L, Monocytes # (Auto) 1.9H, Eosinophils # (Auto) 0.2, Basophils # (Auto) 0.1, Anion Gap 8, Glomerular Filtration Rate > 60.0, Calcium Level 7.8L, Magnesium Level 2.3, Total Bilirubin 1.9H, Direct B ilirubin 1.3H, Aspartate Amino Transf (AST/SGOT) 19, Alanine Aminotransferase (ALT/SGPT) 16, Alkaline Phosphatase 129H, Total Protein 5.9L, Albumin 2.0L, Albumin/Globulin Ratio 0.5 08/22/20 12:24: Bedside Glucose (Misc Panel) 160H CBC/BMP Laboratory Tests 08/21/20 20:19 08/22/20 01:54 08/22/20 05:33 FSBS Laboratory Tests Test 08/21/20 17:14 08/21/20 20:37 08/22/20 12:24 Range/Units Bedside Glucose (Misc Panel) 177 155 160 70-105 MG/DL Microbiology Microbiology 08/20/20 Blood Culture - Preliminary, Resulted No Growth after 48 hours. All Specime... 08/20/20 Blood Culture - Preliminary, Resulted No Growth after 48 hours. All Specime... 08/20/20 Urine Culture - Final, Complete Staphylococcus Aureus Discharge Medications Scheduled Ferrous Gluconate (Ferrous Gluconate) 324 Mg Tablet, 324 MG PO DAILY, (Reported) Hydrochlorothiazide (Hydrochlorothiazide) 25 Mg Tablet, 25 MG PO DAILY Metformin HCl (Metformin HCl) 850 Mg Tablet, 850 MG PO BID, (Reported) Sulfamethoxazole/Trimethoprim (Sulfamethoxazole-Tmp Ds Tablet) 800 Mg-160 Mg Tablet, 1 TAB PO BID Terazosin HCl (Terazosin HCl) 5 Mg Capsule, 5 MG PO QHS, (Reported) Zinc (Zinc) 50 Mg Tablet, 50 MG PO DAILY, (Reported) Allergies Coded Allergies: No Known Allergies (Verified Allergy, Unknown, 08/20/20) TANJA BOND D.O. Aug 22, 2020 14:24
--- NOTE | 2020-08-22 20:27 | IPN ---
PROGRESS NOTE DATE: 08/22/2020 SUBJECTIVE: Patient seen and examined today at the bedside. He denies any overnight events or complaints. Specifically denies any shortness of breath, dysuria, flank pain, or hematuria. His hemoglobin and hematocrit have been stable. His renal function has improved back toward baseline. He has not required any further blood transfusion. Temperature 98.9, pulse 96, respiratory rate 20, blood pressure 148/68, saturating 93%-96% on room air. Intake yesterday was 980. Urine output so far today was 2.1 liters. Weight in the bed scale today is 146.8 kg. GENERAL: Patient is seen lying in bed, middle-age male, obese in no apparent distress. Extraocular muscles are intact. Tongue is moist. Neck is supple. Jugular veins are not elevated. HEART: Sounds are regular, S1, S2. LUNGS: Clear to auscultation bilaterally. No crackle or rale. ABDOMEN: Soft, obese, and nontender. There is no flank tenderness. EXTREMITIES: Show 1+ edema bilaterally that comes up to the mid thigh. There is no clubbing or cyanosis. NEUROLOGIC: Oriented times three, interactive and conversational. LABORATORY DATA: White count 11.5, hemoglobin 10.0, platelets 140. Sodium 135, potassium 3.7, bicarbonate 24, BUN 23, creatinine 1.2, magnesium 2.3. Urine culture grew Staphylococcus aureus. INPATIENT MEDICATIONS: Reviewed by myself, and no changes as compared to yesterday. PROBLEMS: 1. Acute kidney injury (ANNABEL), superimposed on chronic kidney disease (CKD), stage III. Baseline renal function is likely creatinine in the low 1's, His renal function has recovered toward baseline. I would keep him off of angiotensin-converting enzyme (PRINCESS) inhibitor at present. He has leg edema, and I have switched him to hydrochlorothiazide 25 mg daily. He can followup in the nephrology office for further evaluation. 2. Left renal subcapsular large hematoma. His hemoglobin and hematocrit remain stable. He received 1 unit packed red blood cells the night of his admission. He has not required any further transfusion. He is not having any gross hematuria. His blood pressure is controlled. 3. Leg edema. His echocardiogram on this admission showed normal left ventricular systolic and diastolic function. I started him on hydrochlorothiazide in view of hypertension and leg edema. We will follow him outpatient for workup of the proteinuria and for fluid and diuretic management. 4. Proteinuria. Most likely it is related to diabetic nephropathy. His spot ratio was about 0.6 grams, which is mild. He will have further workup in the outpatient unit once these acute issues have resolved. His urine studies right now are also complicated by the presence of urinary tract infection (UTI). 5. Pyelonephritis. Urine culture with Staphylococcus aureus. He has received IV Zosyn inpatient, and he will be discharged to complete a course of oral antibiotics. DISPOSITION: Patient is stable for discharge from a nephrology point of view and needs to followup in the office.
== END 2020-08-22 16:06 | disposition home or self-care (01) | DRG 872 ==
LOC: M PCU 03:23
PROVIDERS: ADMIT Internal Medicine; ATTEND Internal Medicine
PROC: 30233N1 Transfusion of Nonautologous Red Blood Cells into Peripheral Vein, Percutaneous Approach (ICD-10-PCS; principal; 2020-08-21)
DX: A41.9 Sepsis, unspecified organism (principal); N10 Acute pyelonephritis; N17.9 Acute kidney failure, unspecified; D50.9 Iron deficiency anemia, unspecified; E11.22 Type 2 diabetes mellitus with diabetic chronic kidney disease; N40.1 Benign prostatic hyperplasia with lower urinary tract symptoms; I10 Essential (primary) hypertension; R01.1 Cardiac murmur, unspecified; N28.89 Other specified disorders of kidney and ureter; M79.81 Nontraumatic hematoma of soft tissue; B95.61 Methicillin susceptible Staphylococcus aureus infection as the cause of diseases classified elsewhere; N18.30 Chronic kidney disease, stage 3 unspecified; R35.1 Nocturia; M19.90 Unspecified osteoarthritis, unspecified site; E87.70 Fluid overload, unspecified; Z79.84 Long term (current) use of oral hypoglycemic drugs; Z79.899 Other long term (current) drug therapy; R60.0 Localized edema; Z20.828 Contact with and (suspected) exposure to other viral communicable diseases

== ENCOUNTER → 2020-09-02 | Outpatient (REF) | payer MEDICARE, MEDICAID ==
[~2020-09-02] MED LIST: FERR32TA PO; HYDR25TAB PO; LISI-542 PO; METF-954 PO; SM P99TA PO; SULF1TAB23 PO; TERA5CAP3 PO; ZINC1TAB2 PO
[2020-09-02 17:55] LABS: FREE T4 1.59 NG/DL (0.76-1.46); THYROID STIMULATING HORMONE 2.81 uIU/ML (0.358-3.740)
== END ==
LOC: M LAB REF 16:58
PROVIDERS: ATTEND Internal Medicine Nephrology
DX: R00.0 Tachycardia, unspecified (principal)

== ENCOUNTER 2020-09-20 23:35 | Inpatient (IN) | payer MEDICARE, MEDICAID ==
[~2020-09-20] VITALS: Ht 182.9 cm; Wt 126.9 kg
[~2020-09-20 23:35] MED LIST changes: +HYDR-3490 PO; -HYDR25TAB PO; -LISI-542 PO; +LISI-898 PO
[2020-09-21] VITALS (38 sets, daily range): BP systolic 99–131; BP diastolic 50–80
[2020-09-21 00:17] LABS: BASO # 0.1 10^3/uL (0.0-0.2); BASO % 0.3 % (0.0-1.0); EOS % 0.1 % (0.0-3.0); HEMATOCRIT 34.6 % (42.0-52.0); HEMOGLOBIN 10.5 g/dl (13.5-17.5); LYMPH # 1.6 10^3/uL (1.5-5.0); LYMPH % 5.2 % (24.0-44.0); MEAN CORPUSCULAR HEMOGLOBIN 30.1 pg (27.0-33.0); MEAN CORPUSCULAR HGB CONC 30.3 g/dl (32.0-36.5); MEAN CORPUSCULAR VOLUME 99.1 fl (80.0-96.0); MONO % 9.8 % (0.0-5.0); NEUTROPHILS # 25.8 10^3/uL (1.5-8.5); NEUTROPHILS % 82.5 % (36.0-66.0); PLATELET COUNT, AUTOMATED 243 10^3/uL (150-450); RED BLOOD COUNT 3.49 10^6/uL (4.30-6.10)
[2020-09-21 00:22] LABS: WHITE BLOOD COUNT 31.2 10^3/uL (4.0-10.0)
[2020-09-21 00:27] LABS: BLOOD UREA NITROGEN 22 MG/DL (7-18); CALCIUM LEVEL 8.9 MG/DL (8.5-10.1); CARBON DIOXIDE LEVEL 18 MEQ/L (21-32); CHLORIDE LEVEL 93 MEQ/L (98-107); CK-MB VALUE MASS < 1.0 NG/ML (<3.6); CPK CREATINE PHOSPHOKINASE 89 U/L (39-308); CREATININE FOR GFR 1.64 MG/DL (0.70-1.30); GLOMERULAR FILTRATION RATE 47.4 (>56); GLUCOSE, FASTING 376 MG/DL (70-100); MB/CK RELATIVE INDEX 1.12 (< OR =4); NT-PRO BNP 410 PG/ML (<125); POTASSIUM SERUM 4.8 MEQ/L (3.5-5.1); SODIUM LEVEL 126 MEQ/L (136-145); TROPONIN I < 0.02 NG/ML (< 0.10)
--- NOTE | 2020-09-21 00:38 | REPVR ---
PROCEDURE INFORMATION: Exam: XR Chest, 1 View Exam date and time: 09/21/2020 (12:16am) Age: 50 years old Clinical indication: SOB TECHNIQUE: Imaging protocol: XR of the chest Views: 1 view. COMPARISON: Portable CXR of 08/20/20 FINDINGS: Comparison is made with a portable CXR done on 08/20/20. Mediastinal shift to the left. Significant opacification of the left hemithorax -- probable large left pleural effusion and associated left lung atelectasis. Left-sided air bronchograms are seen. Some remaining aerated lung in the [place] area. The right lung remains clear. No pneumothorax is seen. IMPRESSION: Significant left lung opacification, with some aerated lung remaining in the [place] area, and some air bronchograms are present. Mediastinal shift to the left. The right lung remains clear. The left lung was well aerated 4 weeks ago. Electronically signed by: Grisel Huff On 09/21/2020 00:37:59 AM
[2020-09-21] MEDS ORDERED: POTA10CA32 PO (00:41)
[2020-09-21] MEDS ORDERED: FURO20TA2 PO (00:41)
[2020-09-21] MEDS ORDERED: METO1TAB32 PO (00:41)
[2020-09-21] MEDS ORDERED: KCL 20MEQ IN D5/NS 1000ML 1,000 ML IV SCH (01:11)
[2020-09-21] MEDS ORDERED: BISACODYL 10 MG SUPP PR PRN (01:15)
[2020-09-21] MEDS ORDERED: PERCOCET 5MG/325MG TAB PO PRN ×2 (01:15)
[2020-09-21] MEDS ORDERED: ONDANSETRON 4MG/2ML VIAL IV PRN (01:15)
[2020-09-21] MEDS ORDERED: ACETAMINOPHEN TAB 650MG DOSE (2X325MG) PO PRN (01:15)
[2020-09-21] MEDS ORDERED: NORCO, ANEXSIA 5/325MG TABLET (HYDROcodone/ACETAMINOPHEN) PO PRN (01:15)
[2020-09-21] MEDS ORDERED: CEFEPIME HCL 2 GM in D5W MINI-BAG PLUS 50 ML IV ONE (01:30)
[2020-09-21] MEDS ORDERED: NS 3,690 ML in IV 1 EA IV ONE (01:30)
[2020-09-21] MEDS ORDERED: LIDOCAINE 1% MDV 20ML VIAL As Ordered ONE ×2 (01:35→02:11)
[2020-09-21] MEDS ORDERED: MIDAZOLAM INJ 2MG/2ML VIAL (J2250 PER 1MG) As Ordered ONE (01:35)
[2020-09-21] MEDS ORDERED: SODIUM CHLORIDE HYPERTONIC 3% 15ML NEB SOL INH ONE (01:45)
--- NOTE | 2020-09-21 01:45 | REPVR ---
PROCEDURE INFORMATION: Exam: CT Chest Without Contrast; Diagnostic Exam date and time: 09/21/2020 12:35 AM Age: 50 years old Clinical indication: Condition or disease; Other: Effusion; Additional info: Left pleural effusion TECHNIQUE: Imaging protocol: Diagnostic computed tomography of the chest without contrast. Radiation optimization: All CT scans at this facility use at least one of these dose optimization techniques: automated exposure control; mA and/or kV adjustment per patient size (includes targeted exams where dose is matched to clinical indication); or iterative reconstruction. COMPARISON: CR Chest, 1 view 09/21/2020 12:15 AM FINDINGS: Mildly degraded by motion. Lungs: Mild dependent atelectasis at the right base. Pleural space: Very large left pleural effusion with compressive atelectasis of nearly entire left lung. Mild residual aeration in anterior left frontal lobe. Heart: Mild atherosclerotic disease of the coronary arteries. Aorta: Mild atherosclerotic disease of the thoracic aorta. Lymph nodes: Unremarkable. No enlarged lymph nodes. Bones/joints: Degenerative changes in the bilateral shoulders. Severe multilevel degenerative disease of the thoracic spine. Soft tissues: Unremarkable. IMPRESSION: Mildly degraded by motion. Very large left pleural effusion with compressive atelectasis of nearly entire left lung. Mild residual aeration in anterior left frontal lobe. Electronically signed by: Bernard aMrin On 09/21/2020 01:46:27 AM
--- NOTE | 2020-09-21 01:49 | REPVR ---
PROCEDURE INFORMATION: Exam: CT Abdomen And Pelvis Without Contrast Exam date and time: 09/21/2020 12:35 AM Age: 50 years old Clinical indication: Abdominal pain; Flank; Left; Additional info: Recent left renal hematoma TECHNIQUE: Imaging protocol: Computed tomography of the abdomen and pelvis without contrast. Radiation optimization: All CT scans at this facility use at least one of these dose optimization techniques: automated exposure control; mA and/or kV adjustment per patient size (includes targeted exams where dose is matched to clinical indication); or iterative reconstruction. COMPARISON: CT ABD PELVIS W/O CONTRAST 08/20/2020 6:00 AM FINDINGS: Liver: Liver contour nodularity with hypertrophy of the left hepatic lobe compatible with cirrhosis. Gallbladder and bile ducts: Normal. No calcified stones. No ductal dilation. Pancreas: Normal. No ductal dilation. Spleen: Mild splenomegaly. Adrenal glands: Normal. No mass. Kidneys and ureters: Evolving left subcapsular and perinephric hematoma. Stomach and bowel: Diverticulosis of colon. No evidence of acute diverticulitis. Appendix: No evidence of appendicitis. Intraperitoneal space: Small free fluid in the pelvis. Vasculature: Suggestion of gastrohepatic ligament and periesophageal varices. No abdominal aortic aneurysm. Lymph nodes: Unremarkable. No enlarged lymph nodes. Urinary bladder: Unremarkable as visualized. Reproductive: Unremarkable as visualized. 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 Multilevel degenerative disease and facet hypertrophy in the lower lumbar spine. Soft tissues: Fat containing left inguinal hernia. IMPRESSION: Evolving left subcapsular and perinephric hematoma. Cirrhosis and evidence of portal venous hypertension. Electronically signed by: Bernard Marin On 09/21/2020 01:50:08 AM
--- NOTE | 2020-09-21 02:20 | HPEPDOC ---
[facility] [place] Medical History & Physical Date of Admission Sep 21, 2020 Date of Service: Sep 21, 2020 History and Physical CHIEF COMPLAINT: diaphoresis, cough HISTORY OF PRESENT ILLNESS: 50-year-old male with history of HTN, DM2, CKD 3, cirrhosis? (patient denies excess drinking, possibly 2/2 ZIMMERMAN) and recently admitted for sepsis secondary to pyelonephritis and he was discharged on 08/22/20. Prior admission was complicated by a large left renal subcapsular hematoma which required 1 unit of packed red blood cells and was treated with conservative management. Today, the patient returns to the ED with a week-long complaint of diaphoresis, fevers, chills, shortness of breath and cough productive of clear sputum. On arrival, the patient was afebrile with a pulse 117, blood pressure 167/87 and pulse oximetry 97% on room air. CXR showed very large L lung opacification with minimal lung aeration and mediastinal shift to the L. CT chest showed a large L pleural effusion with compressive atelectasis. Pertinent labs: WBC 31.2. Hgb 10.5. Na 126. CO2 18. AG 15. Cr. 1.64. LA 10.4. Initial ABG ph 7.3, -9 base excess CO2 34.5. O2 120. Dr. Lynn was consulted from ER, with decision to place chest tube. ~2.5. L purulent fluid was drained. ABG improved 1 hour after chest tube placement, pH 7.36. pO2 9.5. bicard 21.2. CO2 38.1. Patient will be admitted for management of sepsis 2/2 nosocomial pneumonia with empyema. PAST MEDICAL HISTORY: Iron deficiency anemia Type 2 DM Liver Cirrhosis CKD 3 Portal hypertension BPH Hypertension Osteoarthritis SOCIAL HISTORY: Patient denies smoking Occasional alcohol use Patient denies illicit drug use FAMILY HISTORY: unspecified history of cancer in family ALLERGIES: Please see below. REVIEW OF SYSTEMS: CONSTITUTIONAL: Patient reports malaise, diaphoresis. HEENT: patient denies blurred vision, loss of vision, headache,. CARDIOVASCULAR: patient denies chest pain, palpitations. RESPIRATORY: Shortness of breath, cough productive of clear sputum GASTROINTESTINAL: patient denies abdominal pain, n/v/d, blood in stool. GENITOURINARY: patient denies dysuria, discharge. SKIN: patient denies rashes. MUSCULOSKELETAL: patient denies joint pain, neck pain. NEUROLOGICAL: patient denies focal weakness, numbness, seizures. PSYCHIATRIC: patient denies SI/HI. ENDOCRINE: patient denies polyuria, heat intolerance, cold intolerance. HEMATOLOGIC/LYMPHATIC: patient denies easy bruising. HOME MEDICATIONS: Please see below. PHYSICAL EXAMINATION: VITAL SIGNS: please see below General: NAD, comfortable HEENT: PERRLA, EOMI, sclerae clear Neck: supple, normal ROM, no JVD Respiratory: Absent breath sounds on the left chest. CVS: RRR, normal S1, S2, no murmurs Abdo: soft, no masses, no hepatosplenomegaly, BS+, no rebound tenderness Extremities: 1+ edema bilateral lower extremities MSK: no joint deformities, normal ROM Neuro: no focal neuro deficits, moving all 4 extremities, CN2-12 intact. Strength 5/5 in all 4 extremities. No nystagmus. Psych: calm, cooperative, AAO x 3 LABORATORY DATA: See below. IMAGING: CT abdo pelvis (09/21/20): Evolving left subcapsular and perinephric hematoma. Cirrhosis and evidence of portal venous hypertension. CT chest wo contrast (09/21/20): IMPRESSION: Mildly degraded by motion. Very large left pleural effusion with compressive atelectasis of nearly entire left lung. Mild residual aeration in anterior left frontal lobe. CXR (09/21/20): Significant left lung opacification, with some aerated lung remaining in the B[place] area, and some air bronchograms are present. Mediastinal shift to the left. The right lung remains clear. The left lung was well aerated 4 weeks ago. MICROBIOLOGY: Please see below. ASSESSMENT: 50-year-old male with history of HTN, DM2, CKD 3, liver cirrhosis and portal HTN, recently admitted for pyelonephritis with subcapsular hematoma, returns to ED with sepsis 2/2 likely hospital acquired L sided pneumonia with empyema. S/p l chest tube placement by Dr. Lynn, will be treated with broad spectrum antibiotics. Pending infectious workup. Hemodynamically stable. PLAN: # Severe Sepsis 2/2 L HAP pneumonia - WBC 31.2. RR 25. HR 125. - chest imaging showing large L lung empyema - s/p chest tube placement by Dr. Lynn - ABG improved, saturating > 95% on 4L NC - pleural fluid/empyema as well as blood cultures sent - follow up legionella, strep ag - given recent hospitalization, empiric treatment for HAP - vancomycin, cefepime - daily chest xrays #Lactic acidosis 2/2 severe sepsis - LA 10.8 - sepsis resuscitation protocol - s/p 2L NS - repeat LA pending #ANNABEL on CKD - baseline Cr ~1.2, now elevated to 1.64 in setting of sepsis, lactic acidosis - hx of recent L renal subcapsular large hematoma and pyelonephritis - IV NS resuscitation as part of sepsis protocol - monitor renal function - avoid nephrotoxins #Macrocytic anemia - Hgb 10.5, impropved from last admission in 08/22 - monitor for bleeding s/p chest tube #Leg edema - mild, 1+ - recent echo showed normal LV function - will hold off on diuresis in setting of septic shock #L renal subcapsular hematoma - evolving on CT 09/21/20 - seen by urology on 08/20/20 inpatient - thought to be likely 2/2 HTN, as no hx of trauma - conservative management, BP control - Hgb remains stable #HTN - hold home HCTZ, lasix due to ANNABEL, sepsis - takes metoprolol 25 mg daily, holding as labile BP #Liver cirrhosis with portal HTN - seen on CT imaging, patient denies hx of etoh abuse - ZIMMERMAN? - check liver US - INR 1.54 (previously 1.23 on 08/20) - check liver enzymes DVT ppx: SCDs, TEDs, heparin 12h Dispo: admission expected to last >2 midnights. Admitted to ICU. Vital Signs Vital Signs Date Time Temp Pulse Resp B/P (MAP) Pulse Ox O2 Delivery O2 Flow Rate FiO2 09/21/20 01:41 123 93 09/21/20 01:30 151/63 (92) 09/21/20 01:16 30 Room Air 09/20/20 23:53 4.0 09/20/20 23:48 99.9 Laboratory Data Labs 24H Laboratory Tests 2 09/20/20 23:47: Immature Granulocyte % (Auto) 2.1, Neutrophils (%) (Auto) 82.5H, Lymphocytes (%) (Auto) 5.2L, Monocytes (%) (Auto) 9.8H, Eosinophils (%) (Auto) 0.1, Basophils (%) (Auto) 0.3, Neutrophils # (Auto) 25.8H, Lymphocytes # (Auto) 1.6, Monocytes # (Auto) 3.0H, Eosinophils # (Auto) 0.0, Basophils # (Auto) 0.1, Nucleated Red Blood Cells % (auto) 0.0, Anion Gap 15, Glomerular Filtration Rate 47.4L, Calcium Level 8.9, Total Creatine Kinase 89, Creatine Kinase MB < 1.0, Creatine Kinase MB Relative Index 1.12, Troponin I < 0.02, WO-Bcj-[id number]-Type Natriuretic Peptide 410H 09/20/20 23:48: Lactic Acid Level 10.4*H 09/21/20 00:29: POC pH (Misc Panel) 7.314L, POC Base Excess (Misc Panel) -9.0L, POC Saturated Percent O2 (Misc) 98, POC pO2 (Misc Panel) 120.0H, POC pCO2 (Misc Panel) 34.5L, POC HCO3 (Misc Panel) 17.5L, POC Total CO2 (Misc Panel) 19.0L CBC/BMP Laboratory Tests 09/20/20 23:47 Microbiology Microbiology 09/21/20 Gram Stain, Received Pending 09/21/20 Sputum Culture, Received Pending 09/20/20 Respiratory Virus Panel (PCR) (JASKARAN) - Final, Complete 09/20/20 Blood Culture, Received Pending Home Medications Scheduled Dicloxacillin Sodium (Dicloxacillin Sodium) 250 Mg Capsule, 500 MG PO Q6H Docusate Sodium (Dok) 100 Mg Capsule, 100 MG PO BID Ferrous Gluconate (Ferrous Gluconate) 324 Mg Tablet, 324 MG PO DAILY Folic Acid (Folic Acid) 1 Mg Tablet, 1 MG PO DAILY Metformin HCl (Metformin HCl) 850 Mg Tablet, 850 MG PO BID Metoprolol Succinate (Metoprolol Succinate) 25 Mg Tab.er.24h, 25 MG PO DAILY Metoprolol Succinate (Metoprolol Succinate) 50 Mg Tab.er.24h, 50 MG PO DAILY Pantoprazole Sodium (Pantoprazole Sodium) 40 Mg Tablet.dr, 40 MG PO DAILY Potassium Chloride (Klor-Con M10) 10 Meq Tab.er.prt, 40 MEQ PO DAILY Spironolactone (Aldactone) 25 Mg Tablet, 25 MG PO QAM Terazosin HCl (Terazosin HCl) 5 Mg Capsule, 5 MG PO QHS Torsemide (Torsemide) 20 Mg Tablet, 20 MG PO DAILY Zinc (Zinc) 50 Mg Tablet, 50 MG PO DAILY Scheduled PRN Acetaminophen (Acetaminophen) 325 Mg Tablet, 650 MG PO Q6HP PRN for T > 101.5 or REA Bisacodyl (Bisacodyl) 10 Mg Supp.rect, 10 MG NM Q4HP PRN for CONSTIPATION Allergies Coded Allergies: No Known Allergies (Verified Allergy, Unknown, 09/21/20) A-FIB/CHADSVASC A-FIB History Current/History of A-Fib/PAF?: No Current PO Anticoag Therapy: No MAHIN VALENCIA MD Sep 21, 2020 02:20
--- NOTE | 2020-09-21 02:59 | REPVR ---
PROCEDURE INFORMATION: Exam: XR Chest, 1 View Exam date and time: 09/21/2020 2:41 AM Age: 50 years old Clinical indication: Device placement; Chest tube; Additional info: Post chest tube placement TECHNIQUE: Imaging protocol: XR of the chest Views: 1 view. COMPARISON: CT Chest without contrast 09/21/2020 1:03 AM FINDINGS: Tubes, catheters and devices: Interval placement left base chest tube with markedly decreased size of left pleural effusion and left lung re-expansion. Lungs: Bilateral perihilar opacities. Pleural space: Unremarkable. No pleural effusion. No pneumothorax. Heart/Mediastinum: Unremarkable. No cardiomegaly. Bones/joints: Degenerative changes in the right shoulder. IMPRESSION: Interval placement left base chest tube with markedly decreased size of left pleural effusion and left lung re-expansion. Electronically signed by: Bernard Marin On 09/21/2020 02:59:19 AM
[2020-09-21 03:05] LABS: PH BODY FLUID 7.515 UNITS (NOT ESTABLISHED); SOURCE, BODY FLUID pH PLEURAL
[2020-09-21 03:10] LABS: APPEARANCE, BODY FLUID CLOUDY (CLEAR); PLEURAL FL COLOR AMBER (COLORLESS); SOURCE, BODY FLUID PLEURAL
[2020-09-21] MEDS ORDERED: D5W/0.9% SODIUM CHLORIDE 1,000 ML IV SCH (03:15)
[2020-09-21] MEDS ORDERED: NS 1,000 ML IV ONE ×3 (03:15→06:30)
[2020-09-21 03:26] LABS: AMYLASE, BODY FLUID 31 U/L (NOT ESTABLISHED); CHOLESTEROL, BODY FLUID < 50 MG/DL (NOT ESTABLISHED); LDH, BODY FLUID 207 U/L (NOT ESTABLISHED); SOURCE, BODY FLUID ALBUMIN PLEURAL; SOURCE, BODY FLUID AMYLASE PLEURAL; SOURCE, BODY FLUID CHOL PLEURAL; SOURCE, BODY FLUID GLUCOSE PLEURAL; SOURCE, BODY FLUID LDH PLEURAL; SOURCE, BODY FLUID TOT PROTEIN PLEURAL; SOURCE, BODY FLUID TRIG PLEURAL; TOTAL PROTEIN, BODY FLUID 4.6 G/DL (NOT ESTABLISHED); TRIGLYCERIDE, BODY FLUID 46 MG/DL (NOT ESTABLISHED)
[2020-09-21] MEDS: CEFEPIME HCL 2 GM in D5W MINI-BAG PLUS 50 ML IV SCH ×3 (03:37→20:32)
[2020-09-21 03:44] LABS: ABG BASE EXCESS -3.8 (-2.0-2.0); ABG HCO3 21.2 MEQ/L (22.0-26.0); ABG O2 SATURATION 96.8 % (95.0-99.0); ABG PARTIAL PRESSURE CO2 38.1 mmHg (35.0-45.0); ABG PARTIAL PRESSURE O2 95.5 mmHg (75.0-100.0); ABG STANDARD HCO3 21.3 MEQ/L (22.0-26.0); ABG TOTAL CO2 22.4 MEQ/L (22.0-29.0); ABG pH (ARTERIAL) 7.363 UNITS (7.350-7.450)
[2020-09-21 03:47] LABS: INR 1.54; PROTHROMBIN TIME 18.8 SECONDS (12.5-14.3)
[2020-09-21 03:48] LABS: PARTIAL THROMBOPLASTIN TIME 35.5 SECONDS (24.2-38.5)
[2020-09-21] MEDS ORDERED: MIDAZOLAM INJ 2MG/2ML VIAL (J2250 PER 1MG) IV STA (03:51)
[2020-09-21] MEDS ORDERED: LIDOCAINE 1% MDV 20ML VIAL SC ONE (04:00)
[2020-09-21 04:04] LABS: ALBUMIN 1.6 GM/DL (3.2-5.2); ALT/SGPT 10 U/L (12-78); BILIRUBIN,TOTAL 1.4 MG/DL (0.2-1.0); BLOOD UREA NITROGEN 22 MG/DL (7-18); CALCIUM LEVEL 7.5 MG/DL (8.5-10.1); CARBON DIOXIDE LEVEL 24 MEQ/L (21-32); CHLORIDE LEVEL 98 MEQ/L (98-107); CREATININE FOR GFR 1.33 MG/DL (0.70-1.30); GLOMERULAR FILTRATION RATE > 60.0 (>56); GLUCOSE, FASTING 350 MG/DL (70-100); LDH LACTATE DEHYDROGENASE 184 U/L (87-241); POTASSIUM SERUM 4.4 MEQ/L (3.5-5.1); SODIUM LEVEL 131 MEQ/L (136-145); TOTAL PROTEIN 6.6 GM/DL (6.4-8.2)
[2020-09-21] MEDS ORDERED: GLUCOSE 4GM CHEW TABLET PO PRN (04:45)
[2020-09-21] MEDS ORDERED: GLUCAGON INJ 1MG VIAL SC PRN (04:45)
[2020-09-21] MEDS ORDERED: DEXTROSE 50% 50 ML SYRINGE IV PRN (04:45)
[2020-09-21] MEDS ORDERED: VANCOMYCIN HCL 1,000 MG, VIAL MATE ADAPTER 1 EACH in D5W 250 ML IV ONE (05:00)
[2020-09-21 05:39] LABS: HEMATOCRIT 28.9 % (42.0-52.0); LYMPH % 4.2 % (24.0-44.0); MEAN CORPUSCULAR HEMOGLOBIN 30.7 pg (27.0-33.0); MEAN CORPUSCULAR HGB CONC 31.1 g/dl (32.0-36.5); MEAN CORPUSCULAR VOLUME 98.6 fl (80.0-96.0); MONO # 1.4 10^3/uL (0.0-0.8); MONO % 6.3 % (0.0-5.0); NEUTROPHILS # 20.2 10^3/uL (1.5-8.5); NEUTROPHILS % 88.5 % (36.0-66.0); PLATELET COUNT, AUTOMATED 138 10^3/uL (150-450); RED BLOOD COUNT 2.93 10^6/uL (4.30-6.10); WHITE BLOOD COUNT 22.8 10^3/uL (4.0-10.0)
[2020-09-21 05:58] LABS: BLOOD UREA NITROGEN 21 MG/DL (7-18); CALCIUM LEVEL 7.4 MG/DL (8.5-10.1); CARBON DIOXIDE LEVEL 22 MEQ/L (21-32); CHLORIDE LEVEL 100 MEQ/L (98-107); CREATININE FOR GFR 1.27 MG/DL (0.70-1.30); GLOMERULAR FILTRATION RATE > 60.0 (>56); GLUCOSE, FASTING 346 MG/DL (70-100); POTASSIUM SERUM 4.6 MEQ/L (3.5-5.1); SODIUM LEVEL 132 MEQ/L (136-145)
--- NOTE | 2020-09-21 07:46 | ECGEPIP ---
[facility] - ED Test Date: 2020-09-20 Pat Name: BUFFY MCCAIN Department: Room: [place] [address] Gender: Male [employer] Operator: KARINA : 1970 Requested By: Xu Joseph Order Number: [id number] Reading MD: Xu Berrios Measurements Intervals [place] Rate: 137 P: 42 TN: 146 QRS: 13 QRSD: 94 T: 69 QT: 291 QTc: 440 Interpretive Statements SINUS TACHYCARDIA NONSPECIFIC ST & T-WAVE ABNORMALITY NO PRIORS FOR COMPARISON Electronically Signed on 09-21-2020 7:46:16 EST by Xu Berrios
[2020-09-21] MEDS: LEVALBUTEROL 1.25 MG/0.5 ML CONCENTRATE NEB NEB SCH ×2 (08:34→14:00)
[2020-09-21] MEDS: VANCOMYCIN HCL 1,000 MG, VIAL MATE ADAPTER 1 EACH in D5W 250 ML IV SCH ×2 (08:40→18:10)
[2020-09-21] MEDS: MOM 30ML SUSPENSION UDC PO SCH (08:43)
[2020-09-21] MEDS: PANTOPRAZOLE 40MG TAB (PROTONIX) PO SCH (08:43)
[2020-09-21] MEDS: HEPARIN SOD (PORCINE) 5000UNITS/ML 1ML VIAL/SYRINGE SC SCH ×2 (08:43→20:33)
[2020-09-21] MEDS: POTASSIUM CHLORIDE 10 MEQ SR TABLET PO SCH (08:43)
[2020-09-21] MEDS: DOCUSATE SODIUM 100MG CAPSULE PO SCH ×2 (08:43→20:32)
[2020-09-21] MEDS: HumaLOG INSULIN (NovoLOG) PER UNIT SC SCH ×4 (08:44→20:26)
[2020-09-21] MEDS ORDERED: LEVEMIR (INSULIN DETEMIR) 1 UNITS/0.01ML SC SCH (09:00)
[2020-09-21 09:41] LABS: BLOOD UREA NITROGEN 22 MG/DL (7-18); CARBON DIOXIDE LEVEL 26 MEQ/L (21-32); CHLORIDE LEVEL 99 MEQ/L (98-107); CREATININE FOR GFR 1.19 MG/DL (0.70-1.30); GLOMERULAR FILTRATION RATE > 60.0 (>56); GLUCOSE, FASTING 377 MG/DL (70-100); POTASSIUM SERUM 4.4 MEQ/L (3.5-5.1); SODIUM LEVEL 129 MEQ/L (136-145)
--- NOTE | 2020-09-21 11:18 | REP ---
INDICATION: pleural effusion COMPARISON: 09/21/2020 at 2:31 a.m. TECHNIQUE: PA and lateral. FINDINGS: Increasing opacities involving the left hemithorax in comparison with most recent prior examination. Chest tube at the left base remains stable and underlying pleural fluid is noted. Right hemithorax is clear. IMPRESSION: Increasing areas of opacity involving the left hemithorax as compared with most recent prior examination. Findings are suspicious for re-expansion pulmonary edema. <Electronically signed by Black Johns > 09/21/20 [id number]
--- NOTE | 2020-09-21 12:08 | RO ---
OPERATIVE NOTE DATE OF OPERATION: 09/21/2020 PREOPERATIVE DIAGNOSIS: Left pleural effusion. POSTOPERATIVE DIAGNOSIS: Left pleural effusion. SURGEON: Toño Lynn M.D. PROCEDURE: Insertion of left lateral chest tube with moderate sedation. DESCRIPTION OF PROCEDURE: Under satisfactory monitored sedation eventually achieved with 4 mg of Versed, the patient was prepped and draped in the usual sterile fashion. The patient is quite obese. The skin, subcutaneous tissue, and intercostal muscles were infiltrated with 1% Lidocaine. Incision was made and tunnel was created to the chest. A #24 chest tube was placed and 2400 mL of cloudy fluid was eluded from the chest. This was sent for the requisite studies of cytologies, hematologies, chemistries, and bacteriologies. Chest tube was secured to the chest wall with a #2 Tevdek suture and connected to the Pleur-Evac. The patient tolerated the procedure well and a chest x-ray is pending.
--- NOTE | 2020-09-21 17:19 | IPNPDOC ---
Text Note Date of Service The patient was seen on 09/21/20. NOTE Subjective: Patient stated that he feels better today, his breathing markedly improved. Objective: GENERAL APPEARANCE: Obese male HEENT: no scleral icterus, no JVD, EOMI CARDIOVASCULAR: S1S2 LUNGS: Chest place in place, coarse lung sounds at the left lung base ABDOMEN: soft & not tender w palpitation MUSCULOSKELETAL: +2 edema bilaterally lower extremities INTEGUMENT: no generalized pallor NEUROLOGICAL: cranial nerve function from 2-12 intact intact, follows commands, speech not dysarthric ASSESSMENT: 50-year-old male with history of HTN, DM2, CKD 3, liver cirrhosis and portal HTN, recently admitted for pyelonephritis with subcapsular hematoma, returns to ED with sepsis 2/2 likely hospital acquired L sided pneumonia with empyema. S/p l chest tube placement by thoracic surgeon. Sepsis Secondary to secondary to HAP Pleural fluid showed 6500 leukocytes, according to Light's criteria pleural fluid positive for exudate Continue broad-spectrum antibiotics with vancomycin IV, and cefepime IV Await pleural culture, sputum culture Patient has increased lower extremity edema. IV fluids stopped Chest x-ray showed Increasing areas of opacity involving the left hemithorax as compared with most recent prior examination. Findings are suspicious for re-expansion pulmonary edema. Chest tube was placed on 09/21/19 HAP Await pleural culture, sputum culture Continue incentive spirometry PT/OT Lactic acidosis Repeated lactic acid 3.8 Secondary to sepsis and hypoperfusion Continue to monitor ANNABEL Resolved Normocytic anemia Multifactorial. Patient has liver cirrhosis and anemia of chronic diseases We'll check iron study B12 and folate and stool for occult blood L renal subcapsular hematoma evolving on CT 09/21/20 seen by urology on 08/20/20 inpatient thought to be likely 2/2 HTN, as no hx of trauma Hypertension Patient hypotensive secondary to sepsis Antihypertensive medications on hold Liver cirrhosis with portal HTN Most likely secondary to hepatic steatosis Follow-up with GI team in the outpatient settings Type 2 diabetes Diabetes diet Insulin sliding scale Detemir 5mg BID I stopped D5 fluid which was running overnight VS,Fishbone, I+O VS, Fishbone, I+O Laboratory Tests 09/20/20 23:47 09/21/20 03:28 09/21/20 05:07 09/21/20 09:06 Vital Signs Date Time Temp Pulse Resp B/P (MAP) Pulse Ox O2 Delivery O2 Flow Rate FiO2 09/21/20 13:00 101 102/63 (76) 92 Room Air 09/21/20 12:00 96.3 22 09/21/20 10:00 2.0 I&O- Last 24 Hours up to 6 AM 09/21/20 06:00 Intake Total 2770 ml Output Total 740 ml Balance 2030 ml ANNIE LAGUERRE DO Sep 21, 2020 17:19
[2020-09-21] MEDS: LEVALBUTEROL 1.25 MG/0.5 ML CONCENTRATE NEB NEB PRN (20:11)
[2020-09-21] MEDS: TERAZOSIN 5 MG CAP PO SCH (20:32)
[2020-09-21] MEDS: LEVEMIR (INSULIN DETEMIR) 1 UNITS/0.01ML SC SCH (20:33)
[2020-09-22] VITALS (17 sets, daily range): BP systolic 99–127; BP diastolic 50–61
[2020-09-22] MEDS: VANCOMYCIN HCL 1,000 MG, VIAL MATE ADAPTER 1 EACH in D5W 250 ML IV SCH ×4 (00:14→18:10)
[2020-09-22] MEDS: CEFEPIME HCL 2 GM in D5W MINI-BAG PLUS 50 ML IV SCH ×3 (03:36→21:09)
[2020-09-22 06:12] LABS: ABG HCO3 21.7 MEQ/L (22.0-26.0); ABG O2 SATURATION 96.7 % (95.0-99.0); ABG PARTIAL PRESSURE O2 85.8 mmHg (75.0-100.0); ABG STANDARD HCO3 22.8 MEQ/L (22.0-26.0); ABG TOTAL CO2 22.7 MEQ/L (22.0-29.0); ABG pH (ARTERIAL) 7.435 UNITS (7.350-7.450)
[2020-09-22] MEDS: LEVALBUTEROL 1.25 MG/0.5 ML CONCENTRATE NEB NEB PRN (07:16)
[2020-09-22 07:21] LABS: BASO % 0.2 % (0.0-1.0); EOS % 0.1 % (0.0-3.0); HEMATOCRIT 29.6 % (42.0-52.0); HEMOGLOBIN 9.2 g/dl (13.5-17.5); LYMPH # 1.1 10^3/uL (1.5-5.0); LYMPH % 6.3 % (24.0-44.0); MEAN CORPUSCULAR HEMOGLOBIN 30.2 pg (27.0-33.0); MEAN CORPUSCULAR HGB CONC 31.1 g/dl (32.0-36.5); MONO # 1.3 10^3/uL (0.0-0.8); MONO % 7.6 % (0.0-5.0); NEUTROPHILS # 14.4 10^3/uL (1.5-8.5); NEUTROPHILS % 85.2 % (36.0-66.0); PLATELET COUNT, AUTOMATED 130 10^3/uL (150-450); RED BLOOD COUNT 3.05 10^6/uL (4.30-6.10); WHITE BLOOD COUNT 16.9 10^3/uL (4.0-10.0)
[2020-09-22] MEDS: HumaLOG INSULIN (NovoLOG) PER UNIT SC SCH ×4 (07:30→21:00)
[2020-09-22 07:51] LABS: BLOOD UREA NITROGEN 18 MG/DL (7-18); CALCIUM LEVEL 7.7 MG/DL (8.5-10.1); CARBON DIOXIDE LEVEL 25 MEQ/L (21-32); CHLORIDE LEVEL 100 MEQ/L (98-107); CREATININE FOR GFR 1.03 MG/DL (0.70-1.30); GLOMERULAR FILTRATION RATE > 60.0 (>56); GLUCOSE, FASTING 194 MG/DL (70-100); POTASSIUM SERUM 4.3 MEQ/L (3.5-5.1); SODIUM LEVEL 131 MEQ/L (136-145)
--- NOTE | 2020-09-22 08:47 | REP ---
INDICATION: pleural effusion COMPARISON: 09/21/2020 TECHNIQUE: AP and lateral FINDINGS: Chest tube at the left base remains stable position. Diffuse opacities throughout the left hemithorax with small amount of residual pleural fluid again noted and similar to prior examination. The right hemithorax is clear. Mediastinum and cardiac silhouette are normal position and appearance. Skeletal structures are intact. IMPRESSION: Diffuse opacities and small amount of residual pleural fluid involving the left hemithorax. <Electronically signed by Black Johns > 09/22/20 [id number]
[2020-09-22] MEDS: POTASSIUM CHLORIDE 10 MEQ SR TABLET PO SCH (08:56)
[2020-09-22] MEDS: HEPARIN SOD (PORCINE) 5000UNITS/ML 1ML VIAL/SYRINGE SC SCH (08:56)
[2020-09-22] MEDS: PANTOPRAZOLE 40MG TAB (PROTONIX) PO SCH (08:56)
[2020-09-22] MEDS: LEVEMIR (INSULIN DETEMIR) 1 UNITS/0.01ML SC SCH ×2 (08:56→21:22)
[2020-09-22] MEDS: DOCUSATE SODIUM 100MG CAPSULE PO SCH ×2 (08:56→21:09)
[2020-09-22] MEDS: MOM 30ML SUSPENSION UDC PO SCH (08:56)
[2020-09-22] MEDS ORDERED: METOPROLOL TART 25 MG TABLET PO SCH (09:00)
[2020-09-22] MEDS ORDERED: LORazepam 2 MG TAB PO PRN (09:45)
[2020-09-22] MEDS: THIAMINE 100 MG TAB PO SCH ×2 (10:09→21:09)
[2020-09-22] MEDS: FOLIC ACID 1 MG TAB PO SCH (10:09)
[2020-09-22] MEDS: MULTIVITAMINS/MINERALS THERAP 1 TAB PO SCH (10:11)
--- NOTE | 2020-09-22 11:41 | REP ---
INDICATION: ?DVT COMPARISON: None. TECHNIQUE: Looney scale and color Doppler evaluation bilateral lower extremities using linear high frequency transducer. FINDINGS: Ultrasound examination of the right and left lower extremity deep venous structures from the common femoral vein to the popliteal vein demonstrates normal compressibility flow and wave patterns in response to respiration and augmentation. There is no evidence for deep venous thrombosis. IMPRESSION: No evidence for deep venous thrombosis. <Electronically signed by Black Johns > 09/22/20 [id number]
--- NOTE | 2020-09-22 11:55 | REP ---
INDICATION: status of pleural effusion, underlying lung COMPARISON: None TECHNIQUE: Axial noncontrast images from the thoracic inlet to the upper abdomen with coronal and sagittal reformations. This CT examination was performed using the following dose reduction techniques: Automated exposure control, adjustment of mA and/or kv according to the patient's size, and use of iterative reconstruction technique. FINDINGS: Chest tube in stable position extends to the posterobasilar pleural space and there is relatively small amount of residual scattered fluid and gas along with moderate atelectasis and consolidations involving the aerated left lobes. Right hemithorax is essentially clear. Mediastinum is stable. No pericardial effusion. IMPRESSION: 1. Left-sided pleural effusion considerably decreased with only small amount of residual pleural fluid and scattered gas. Diffuse atelectasis and parenchymal opacities involving the aerated left lung kumar. <Electronically signed by Black Johns > 09/22/20 [id number]
[2020-09-22] MEDS: NYSTATIN 500,000 U/5 ML SUSP UDC SS SCH ×4 (12:37→21:09)
--- NOTE | 2020-09-22 13:54 | IPNPDOC ---
Text Note Date of Service The patient was seen on 09/22/20. NOTE Subjective: No any acute events overnight. Patient was tachycardic in the mor odalis with heart rate around 120, sinus rhythm Objective: GENERAL APPEARANCE: Obese male HEENT: no scleral icterus, no JVD, EOMI CARDIOVASCULAR: S1S2 LUNGS: Chest place in place, coarse lung sounds at the left lung base ABDOMEN: soft & not tender w palpitation MUSCULOSKELETAL: +2 edema bilaterally lower extremities INTEGUMENT: no generalized pallor NEUROLOGICAL: cranial nerve function from 2-12 intact intact, follows commands, speech not dysarthric ASSESSMENT: 50-year-old male with history of HTN, DM2, CKD 3, liver cirrhosis and portal HTN, recently admitted for pyelonephritis with subcapsular hematoma, returns to ED with sepsis 2/2 likely hospital acquired L sided pneumonia with empyema. S/p l chest tube placement by thoracic surgeon. Sepsis Secondary to secondary to HAP Pleural fluid showed 6500 leukocytes, according to Light's criteria pleural fluid positive for exudate Continue broad-spectrum antibiotics with vancomycin IV, and cefepime IV pleural culture positive for staph aureus, sputum culture Patient has increased lower extremity edema. IV fluids stopped on 1 Chest x-ray showed Increasing areas of opacity involving the left hemithorax as compared with most recent prior examination. Findings are suspicious for re-expansion pulmonary edema. Chest tube was placed on 09/21/[address] on 09/22/20 showed left-sided pleural effusion considerably decreased with only small amount of residual pleural fluid and scattered gas. Diffuse atelectasis and parenchymal opacities involving the aerated left lung kumar Tachycardia Most likely secondary continue to sepsis. There is possibility for alcohol withdrawal, patient refused Hx of daily drinking but he had slight macrocytosis. AST/ALT ratio 2:1 suspicion for ETOH abuse There is also possibility for rebound tachycardia patient was not on the beta blockers for 48 hours due to hypotension CIWA Continue to monitor Doppler ultrasound negative for DVT HAP Await sputum culture Continue incentive spirometry PT/OT Lactic acidosis Continue to monitor ANNABEL Resolved Normocytic anemia Multifactorial. Patient has liver cirrhosis and anemia of chronic diseases We'll check iron study B12 and folate and stool for occult blood L renal subcapsular hematoma evolving on CT 09/21/20 seen by urology on 08/20/20 inpatient thought to be likely 2/2 HTN, as no hx of trauma Hypertension Blood pressures under control Continue home cardioprotective medications Liver cirrhosis with portal HTN Most likely secondary to hepatic steatosis or ETOH abuse Follow-up with GI team in the outpatient settings Type 2 diabetes Diabetes diet Insulin sliding scale Detemir 7 mg BID VS,Fishbone, I+O VS, Fishbone, I+O Laboratory Tests 09/22/20 07:13 Vital Signs Date Time Temp Pulse Resp B/P (MAP) Pulse Ox O2 Delivery O2 Flow Rate FiO2 09/22/20 12:00 99.3 99 22 115/56 (75) 94 Room Air 09/22/20 08:00 2.0 I&O- Last 24 Hours up to 6 AM 09/22/20 06:00 Intake Total 4430 ml Output Total 4715 ml Balance -285 ml ANNIE LAGUERRE DO Sep 22, 2020 13:54
[2020-09-22] MEDS ORDERED: ALTEPLASE 2MG/2ML VIAL XX ONE (14:15)
[2020-09-22] MEDS: METOPROLOL TART 25 MG TABLET PO SCH ×2 (16:00→21:09)
--- NOTE | 2020-09-22 16:15 | CR ---
CONSULTATION DATE: 09/21/2020 Patient seen at the request of the emergency room and the hospitalist service for shortness of breath and a pleural effusion and leukocytosis. HISTORY OF PRESENT ILLNESS: Patient is a 50-year-old white male who was recently admitted to this hospital the beginning of August with a subcapsular hematoma of the left kidney of unknown cause. He denied trauma at the time. He was eventually discharged after transfusion of 1 unit of cells. His present story starts about a week ago, when he started to feel increasingly short of breath. Accompanying that shortness of breath was the inability to lie flat in his bed. The shortness of breath has become worse and worse until tonight. He could hardly breathe, even at rest, and so he could not lie down. He has had a cough with white sputum production. He denies fever or chills, but he has had sweats. He does feel hot, however. He does not complain of any chest pain and certainly no pleuritic chest pain and no anginal-type chest pain. There is no dysphagia, although his appetite is markedly decreased, and he states that he has lost 41 pounds since his discharge from the hospital last month because of lack of appetite. MEDICAL HISTORY: 1. Diabetes. 2. Benign prostatic hypertrophy. 3. Hypertension. 4. Osteoarthritis. SURGICAL HISTORY: None. HOME MEDICATIONS: - ferrous gluconate 324 mg daily - Lasix 20 mg daily - hydrochlorothiazide 25 mg daily - metformin 850 mg twice a day - metoprolol 25 mg daily - potassium chloride 10 mg daily - Bactrim 800/160 mg twice a day - terazosin 5 mg every night - zinc 50 mg daily TRAVEL HISTORY: No travel outside [facility]. OCCUPATIONAL HISTORY: Has never worked. Has been disabled since his teenage years, when he states for the reason that he was "slow at school." EXPOSURES: No exposures to tuberculosis. He has two dogs at home, miniature [place] poodles. FAMILY HISTORY: Mother of a stroke. Father of some type of cancer. HABITS: Does not smoke. Drinks about 12 beers a month, sometimes in spurts when he visits his friend. No illicit drugs. ALLERGIES: None. REVIEW OF SYSTEMS: CONSTITUTIONAL: See history of present illness (HPI). With sweats without fever or chills. He has the above 41-pound weight over the last month. EYES: Without diplopia. Without prior jaundice. Without transient monocular blindness. MOUTH: Has his own teeth. RESPIRATORY: See HPI. CARDIAC: Without myocardial infarctions. Without intermittent claudication. Does have leg edema, which has been supposedly a longstanding problem and is not a new problem over the last week. He states he does have a heart murmur since a child. GASTROINTESTINAL: Without nausea, vomiting, diarrhea, or constipation. No hematochezia, abdominal pain, hematemesis, or prior jaundice. GENITOURINARY: Without hematuria or dysuria. Has the above history of a subcapsular hematoma of unknown origin since last August. ENDOCRINE: With diabetes. Without thyroid disease. NEUROLOGIC: Without paresthesias, paralyses, prior seizures, or strokes. PSYCHIATRIC: Without pathological anxiety, depression, or psychoses. PHYSICAL EXAMINATION: An obese, well-developed white male in moderate distress with shortness of breath at rest. Vital signs: Temperature is 99.9 with a heart rate of 124 in a sinus rhythm, respiratory rate of 22-28 without the use of accessory muscles, who is 94% saturated on 4 liters nasal cannula and whose blood pressure is 151/63. Head normocephalic. Eyes: Pupils equal, round, and reactive to light. Extraocular movements are intact. Sclerae are anicteric. Nose without deformity. Mouth shows the mucous membranes to be pink and dry. Teeth are in fairly good repair. There is no thrush. Lips and commissures are without lesions. Neck is supple. There is no jugular venous distention. No subcutaneous emphysema. Trachea is midline. There is no lymphadenopathy or thyromegaly that I can appreciate through his obesity. He has 2+ carotid upstrokes. No bruits. Lungs show markedly decreased breath sounds on the left side with E-to-A egophony and bronchophony in the mid and lower lung kumar. Percussion note is dull throughout the left chest. Right side shows normal vesicular sounds without wheezes, rhonchi, or rales with a full percussion note. Cardiac shows normal S1, S2. I cannot feel his point of maximal impulse (PMI). He is going so fast that I really do not appreciate a murmur at this point in time. I cannot feel his PMI through his obesity. Abdomen is soft and nontender. Bowel sounds are positive. There is no hepatomegaly that I can appreciate. There is no costovertebral angle (CVA) tenderness. Bowel sounds are positive. Extremities show 2+ pretibial edema. No calf tenderness. No differential swelling of the upper extremities. Skin is warm, dry, and perfused without cyanosis or mottling, including that of the nailbeds. He does look pale. Neurologic shows II-XII intact. Normal gross motor, gross sensation intact. Gait is not tested. Psychiatric shows him to be awake, alert, and oriented times three with appropriate mood and affect and conversational. His white count is 31.2 thousand with a hemoglobin and hematocrit of 10.5 and 34.6. Platelet count is 243. Differential shows 82% neutrophils, 5% lymphocytes, 9% monocytes. There are no immature forms. No toxic granulations. Chemistries show a sodium 126 with a chloride of 93 and a total CO2 of 18. BUN and creatinine are 22 and 1.64. It should be noted that on discharge on August 22, his creatinine had normalized to 1.21. Glucose is 376. There is no total protein or albumin. Troponin is less than 0.02. His blood gases show a pH of 7.31, a pO2 of 120, and a pCO2 of 34 but with a base excess of -9. His lactic acid is 10.4. He is COVID negative. The blood gases in some ways do not make a lot of sense. My initial impression was this could be a compensated metabolic acidosis, but his CO2 should be lower for his measures pH. I will repeat the blood gases. His chest x-ray shows complete opacification of the left hemithorax. There is no volume loss on the left side. I suspect it represents a pleural effusion. Chest CT confirms that he has a large pleural effusion with diffuse compression of the entire left lung. I do not see any mediastinal lymphadenopathy. Notable that his right lung shows some emphysematous changes, even in the presence of not having been a smoker. His adrenals have a normal configuration,. The left kidney still shows the hematoma and also obliteration of the arturo, but it is better than it was in August. Pancreas is in normal configuration, and I see no liver lesions. There does look to be a small amount of ascites underneath the diaphragm. I may be seeing motion artifact in and around the spleen, however. IMPRESSION: 1. Large pleural effusion, probably at least a parapneumonic effusion, if not an empyema. 2. Left-sided pneumonia. 3. Sepsis. 4. Renal insufficiency. 5. Renal subcapsular hematoma. 6. Diabetes. 7. Hypertension. PLAN AND DISCUSSION: I have discussed his blood gases as above. I will repeat them. If the base excess is correct, he has a metabolic acidosis, which is compensated. It may be secondary to his renal failure or sepsis. Certainly his lactic acid is increased. I suspect the pleural effusion is an empyema or at least a parapneumonic effusion. I will place a chest tube and watch him very carefully for postexpansion pulmonary edema, as his entire left lung is pancaked against the mediastinum. I will send the specimens for all the requisite studies, including hematology, cytologies, bacteriology, and chemistries. I will obtain a critical care panel to measure his liver functions and albumin along with total protein. He will need continued hydration. I will take the potassium out of the intravenous (IV) for now. I have discussed the case with the hospitalist, Dr. Crowell.
[2020-09-22] MEDS: TERAZOSIN 5 MG CAP PO SCH (21:10)
--- NOTE | 2020-09-22 23:25 | ECGEPIP ---
[facility] Test Date: 2020-09-22 Pat Name: BUFFY MCCAIN Department: Room: [place] [address] Gender: Male City [employer]rier: SYBIL : 1970 Requested By: ANNIE LAGUERRE Order Number: [id number] Reading MD: Aman Ko Measurements Intervals [place] Rate: 122 P: 42 VT: 160 QRS: 3 QRSD: 93 T: -3 QT: 288 QTc: 411 Interpretive Statements SINUS TACHYCARDIA NONSPECIFIC T-WAVE ABNORMALITY ABNORMAL RHYTHM ECG Last tracing on 09/20/20, 23:42. Heart rate is now faster Electronically Signed on 09-22-2020 23:25:32 EST by Aman Ko
[2020-09-23] VITALS (15 sets, daily range): BP systolic 94–142; BP diastolic 46–65
[2020-09-23] MEDS: VANCOMYCIN HCL 1,000 MG, VIAL MATE ADAPTER 1 EACH in D5W 250 ML IV SCH (02:12)
[2020-09-23] MEDS: CEFEPIME HCL 2 GM in D5W MINI-BAG PLUS 50 ML IV SCH ×2 (03:47→12:21)
[2020-09-23 06:46] LABS: BASO % 0.2 % (0.0-1.0); EOS # 0.1 10^3/uL (0.0-0.5); EOS % 0.5 % (0.0-3.0); HEMATOCRIT 28.4 % (42.0-52.0); HEMOGLOBIN 8.9 g/dl (13.5-17.5); LYMPH # 1.4 10^3/uL (1.5-5.0); LYMPH % 8.8 % (24.0-44.0); MEAN CORPUSCULAR HEMOGLOBIN 30.7 pg (27.0-33.0); MEAN CORPUSCULAR HGB CONC 31.3 g/dl (32.0-36.5); MEAN CORPUSCULAR VOLUME 97.9 fl (80.0-96.0); MONO # 1.4 10^3/uL (0.0-0.8); MONO % 9.2 % (0.0-5.0); NEUTROPHILS # 12.3 10^3/uL (1.5-8.5); NEUTROPHILS % 80.6 % (36.0-66.0); PLATELET COUNT, AUTOMATED 135 10^3/uL (150-450); WHITE BLOOD COUNT 15.3 10^3/uL (4.0-10.0)
[2020-09-23 07:13] LABS: BLOOD UREA NITROGEN 21 MG/DL (7-18); CARBON DIOXIDE LEVEL 24 MEQ/L (21-32); CHLORIDE LEVEL 98 MEQ/L (98-107); CREATININE FOR GFR 1.05 MG/DL (0.70-1.30); GLOMERULAR FILTRATION RATE > 60.0 (>56); GLUCOSE, FASTING 178 MG/DL (70-100); POTASSIUM SERUM 4.2 MEQ/L (3.5-5.1); SODIUM LEVEL 129 MEQ/L (136-145)
[2020-09-23] MEDS: HumaLOG INSULIN (NovoLOG) PER UNIT SC SCH ×4 (07:30→21:00)
--- NOTE | 2020-09-23 07:33 | IPN ---
PROGRESS NOTE DATE: 09/22/2020 SUBJECTIVE: Mr. Higuera is sitting up comfortably and breathing a lot better than he was compared to when he was admitted to the hospital. His pain is being well-controlled at the chest tube insertion site. OBJECTIVE: VITAL SIGNS: Show a T-max of 99.8 with a heart rate that ranges between 99 and 126 in sinus rhythm. Respiratory rate of 18 to 24 without the use of accessory muscles who is 92% to 96% saturated 2 liters nasal cannula and whose blood pressure is ranging between 115/56 to 127/60. INTAKE AND OUTPUT: Over the past 24 hours has been recorded as 6340 in and 5020 out for a positivity of 1320 mL. He has put out 3695 mL in the chest tube, including the initial drainage of 2400 mL. In the past 12 hours, he has only put out 85 mL. His weight today is 125.2 kg compared to 124.6 kg yesterday. RESPIRATORY: His lungs show rales and rhonchi with decreased sounds in the left lower hemithorax. Percussion note is dull in the left hemithorax as far as I can tell through his obesity. The left lung shows scattered rales and rhonchi, which clear with coughing. Percussion note is full the diaphragm on the right side. CARDIAC: Without murmurs, clicks, gallops, or rubs. I cannot feel his PMI. S1 and S2 are normal. ABDOMEN: Soft and nontender, but obese. Bowel sounds are positive. EXTREMITIES: Show 1 to 2+ pretibial edema, more on the left than on the right. No calf tenderness. No differential swelling of the upper extremities. SKIN: Warm, dry, and perfused without cyanosis or mottling, including that of the nail beds and knees. NECK: Supple. There is no jugular venous distention. No subcutaneous emphysema. Trachea is midline. MOUTH: Shows the mucous membranes to be pink and moist. Lips and gums without lesions. There is thrush. EYES: Show his pupils equal and reactive. Extraocular movements are intact. Sclerae nonicteric. NEUROLOGIC: Shows II through XII intact. Normal gross motor, gross sensation intact. Gait is not tested. PSYCHIATRIC: Shows him to be awake, alert, and oriented x3 with appropriate mood and affect and conversational. DIAGNOSTIC STUDIES: His white count is 16.9 down from 31.2 on admission. Hemoglobin and hematocrit is 9.2 and 29.6 respectively. Platelet count is 130,000 and stable. Differential shows 85% neutrophils, 6% lymphocytes, and 7% monocytes. There are no immature forms and no toxic granulations. His electrolytes show a sodium of 131 with potassium of 4.3. BUN and creatinine are 8 and 1.03 with a glucose of 194 and a calcium of 7.7. His pleural fluid was returned with a pH of 7.51, glucose of 272, and LDH of 207 with 6400 white cells 80% of which were neutrophils and 20% were mononuclears. His corresponding LDH in his serum was 184. This, therefore, looks to be an exudative neutrophilic pleural effusion most likely at least a parapneumonic effusion. Microbiology shows him to be growing Staph aureus in the pleural fluid. Many gram positive gram-positive cocci, gram-positive rods, and gram-negative rods in his sputum. This is felt to be a poor specimen and culture was not undertaken. We can only assume, therefore, that the pleural fluid is consistent with a Staph aureus pneumonia. He continues on vancomycin and Cefepime as his antibiotics. I do think we have to assume that this was a nosocomial pneumonia as he was in the hospital within the month prior to this admission. I do not see a urinalysis undertaken and I will order that, as he had a subcapsular hematoma and his left kidney looks to be edematous with a very compressed calyx. His chest x-ray shows diffuse infiltrative process throughout the left lung. His costophrenic angle is obscured. I did obtain a CT scan of his chest. He still has residual fluid within the chest for which he will need a tPA pleurolysis. There is a space where his lung may be entrapped at the upper extent of the hemithorax. Chest tube was inferior and in good position for an inferior pleural effusion. IMPRESSION: 1. Left-sided pneumonia. 2. Parapneumonic effusion/empyema left side. 3. Sepsis, improving. 4. Renal insufficiency, improved and now normalized. 5. Subcapsular renal hematoma with compressed calyx. PLAN AND DISCUSSION: I will undertake a tPA pleurolysis of him in order to clear out the remainder of his fluid. His lung may be entrapped in the upper extent of the hemithorax. He is now on vancomycin and Cefepime as his antibiotics. As noted before, I think that we need to consider this nosocomial pneumonia.
--- NOTE | 2020-09-23 07:39 | RO ---
OPERATIVE NOTE DATE OF OPERATION: 09/22/2020 PREPROCEDURE DIAGNOSIS: Loculated pleural effusion, left side. PREPROCEDURE DIAGNOSIS: Loculated pleural effusion, left side. SURGEON: Toño Lynn M.D. PROCEDURE: TPA pleurolysis. DESCRIPTION OF PROCEDURE: Chest tube was disconnected from the Pleur-Evac and clamped. The end was prepped with Betadine and 6 mg of tPA in 100 mL of normal saline was instilled into the chest. The chest tube was reclamped. The patient was then turned from side to side to distribute the tPA and then placed in Trendelenburg for 15 minutes to further distribute the tPA superiorly. The patient tolerated the procedure well, and the tube will be unclamped in four hours.
--- NOTE | 2020-09-23 08:25 | REP ---
INDICATION: pleural effusion COMPARISON: 09/22/2020 TECHNIQUE: PA and lateral. FINDINGS: Chest tube at the left base remains stable. Mild pleural thickening possibly representing small amount of residual pleural fluid remains unchanged. Opacities involving the left hemithorax are again noted and unchanged although lung volumes are increased suggesting improved aeration. No new acute process appreciated. Right hemithorax is clear. Mediastinum and cardiac silhouette normal/stable. IMPRESSION: Continued pleuroparenchymal changes to the left hemithorax essentially unchanged although increased lung volumes suggest improved aeration. <Electronically signed by Black Johns > 09/23/20 [id number]
[2020-09-23] MEDS: FOLIC ACID 1 MG TAB PO SCH (08:45)
[2020-09-23] MEDS: DOCUSATE SODIUM 100MG CAPSULE PO SCH ×2 (08:45→21:17)
[2020-09-23] MEDS: METOPROLOL TART 25 MG TABLET PO SCH ×3 (08:47→21:17)
[2020-09-23] MEDS: POTASSIUM CHLORIDE 10 MEQ SR TABLET PO SCH (08:47)
[2020-09-23] MEDS: PANTOPRAZOLE 40MG TAB (PROTONIX) PO SCH (08:47)
[2020-09-23] MEDS: MOM 30ML SUSPENSION UDC PO SCH (08:47)
[2020-09-23] MEDS: NYSTATIN 500,000 U/5 ML SUSP UDC SS SCH ×4 (08:47→21:16)
[2020-09-23] MEDS: THIAMINE 100 MG TAB PO SCH ×2 (08:47→21:16)
[2020-09-23] MEDS: ENOXAPARIN 40MG/0.4ML SYRINGE (J1650 PER 10MG) SC SCH (08:48)
[2020-09-23] MEDS: MULTIVITAMINS/MINERALS THERAP 1 TAB PO SCH (08:48)
[2020-09-23] MEDS: LEVEMIR (INSULIN DETEMIR) 1 UNITS/0.01ML SC SCH ×2 (08:48→21:18)
--- NOTE | 2020-09-23 12:09 | IPN ---
PROGRESS NOTE DATE: 09/23/2020 SUBJECTIVE: Mr. Higuera is sitting up comfortably in a chair. He had a good result from the tPA pleurolysis yesterday draining over 1000 mL from the chest tube. OBJECTIVE: VITAL SIGNS: Show a T-max of 97.8 with a heart rate that ranges between 94 and 106 in sinus rhythm. Respiratory rate of 18 to 20 without the use of accessory muscles who is 87% to 93% saturated on room air. His blood pressure is ranging between 142/65 to 94/51. INTAKE AND OUTPUT: Over the past 24 hours has been recorded as 3300 in and 2295 out for a positivity of 1000 mL. He has put out 1275 mL in urine output and 1020 mL from the chest tube. He weighs 126.7 kg today compared to 125.2 kg yesterday. RESPIRATORY: His lungs show crackles on either side during both inspiration and expiration. Percussion notes are full to the diaphragm as far as I can tell through his obesity. The crackles are more pronounced on the left side than the right side and are heard more through inspiration on the left side. CARDIAC: Shows a 2-3/6 systolic ejection murmur heard best at the left upper sternal border. I cannot feel his PMI. S1 and S2 are normal. ABDOMEN: Soft and nontender. Bowel sounds are positive that are, however, hypoactive. There is no hepatomegaly that I can feel through his obesity and there is no CVA tenderness. EXTREMITIES: Show 1+ pretibial edema. No calf tenderness. No differential swelling of the upper extremities. SKIN: Warm, dry, and perfused without cyanosis or mottling, including that of the nail beds and knees. NECK: Supple. There is no jugular venous distention. No subcutaneous emphysema. Trachea is midline. MOUTH: Shows his mucous membranes to be pink and moist. Lips and gums without lesions and no thrush. EYES: Show his pupils equal and reactive. Extraocular movements are intact. Sclerae nonicteric. NEUROLOGIC: Shows II through XII intact. Normal gross motor, gross sensation intact. Gait is not tested. PSYCHIATRIC: Shows him to be awake, alert, and oriented x3 with appropriate mood and affect and conversational. DIAGNOSTIC STUDIES: His white count today is 15.3 down from 16.9 yesterday and 31.2 on admission. Hemoglobin and hematocrit are 8.9 and 28.4 respectively. Platelet count is 135,000 and stable. Differential shows 80% neutrophils, 8% lymphocytes, and 9% monocytes. There are no immature forms and no toxic granulations. Electrolytes today show a sodium of 129 with a potassium of 4.2. BUN and creatinine are 21 and 1.05, essentially unchanged from yesterday, with a glucose of 178 and a calcium of 8.0. His lactic acid yesterday was still 3.1 at 5 o'clock in the afternoon. I discussed his pleural fluid yesterday being neutrophilic and exudative. Microbiology shows him to be growing Staph aureus from the pleural fluid. His chest x-ray today shows some pleural thickening on the left lateral hemithorax. Otherwise, the lungs fully expand to the chest wall. Chest tube is in good place inferiorly. There looks to be an air fluid level in the left upper hemithorax. This probably corresponds to the air level seen posteriorly in the cupula. I am not sure whether that is a bullous or whether it is just residual air with the lung entrapped. I will repeat a CT scan in the next 24-48 hours. IMPRESSION: 1. Left-sided pneumonia. 2. Parapneumonic effusion and empyema left side, improved with tPA pleurolysis. 3. Sepsis, improving. 4. Renal insufficiency, improved and now normalized. 5. Subcapsular renal hematoma with compressed calyx. PLAN AND DISCUSSION: I will keep his chest tube on suction today. He is on antibiotics consisting of Cefepime. The vancomycin has been discontinued. His Staphylococcus aureus is sensitive to everything except penicillin-G. We will continue his lung expansion therapy.
[2020-09-23] MEDS: FUROSEMIDE 20MG/2ML VIAL (J1940) IV SCH ×2 (12:21→21:18)
[2020-09-23] MEDS ORDERED: VANCOMYCIN INTERMITTENT/PULSE DOSING BY CLINICAL PHARMACIST PER DOSING PROTOCOL XX SCH (14:45)
--- NOTE | 2020-09-23 16:48 | IPNPDOC ---
Text Note Date of Service The patient was seen on 09/23/20. NOTE Subjective: No any acute events overnight. Patient denied fever, chills, nausea, vomiting, palpitations, diarrhea Objective: GENERAL APPEARANCE: Obese male HEENT: no scleral icterus, no JVD, EOMI CARDIOVASCULAR: S1S2 LUNGS: Chest place in place, coarse lung sounds at the left lung base ABDOMEN: soft & not tender w palpitation MUSCULOSKELETAL: +3 edema bilaterally lower extremities INTEGUMENT: no generalized pallor NEUROLOGICAL: cranial nerve function from 2-12 intact intact, follows commands, speech not dysarthric ASSESSMENT: 50-year-old male with history of HTN, DM2, CKD 3, liver cirrhosis and portal HTN, recently admitted for pyelonephritis with subcapsular hematoma, returns to ED with sepsis 2/2 likely hospital acquired L sided pneumonia with empyema. S/p l chest tube placement by thoracic surgeon. Sepsis Secondary to secondary to HAP Pleural fluid showed 6500 leukocytes, according to Light's criteria pleural fluid positive for exudate Chest tube was placed on 09/21/19 Patient received treatment with vancomycin IV, and cefepime IV Pleural culture positive for MSSA, Nafcillin IV started Patient has increased lower extremity edema. Started Lasix 20 mg IV 3 times a day Repeated CT on 09/22/20 showed left-sided pleural effusion considerably decreased with only small amount of residual pleural fluid and scattered gas. Diffuse atelectasis and parenchymal opacities involving the aerated left lung kumar X-ray today showed Continued pleuroparenchymal changes to the left hemithorax essentially unchanged although increased lung volumes suggest improved aeration. Tachycardia Resolved Continue beta blockers Most likely secondary continue to sepsis. There is possibility for alcohol withdrawal, patient refused Hx of daily drinking but he had slight macrocytosis. AST/ALT ratio 2:1 suspicion for ETOH abuse There is also possibility for rebound tachycardia patient was not on the beta blockers for 48 hours due to hypotension CIWA Continue to monitor Doppler ultrasound negative for DVT HAP Continue incentive spirometry PT/OT Lactic acidosis Continue to monitor ANNABEL Resolved Normocytic anemia Multifactorial. Patient has liver cirrhosis and anemia of chronic diseases We'll check iron study B12 and folate and stool for occult blood L renal subcapsular hematoma evolving on CT 09/21/20 seen by urology on 08/20/20 inpatient thought to be likely 2/2 HTN, as no hx of trauma Hypertension Blood pressures under control Continue home cardioprotective medications Liver cirrhosis with portal HTN Most likely secondary to hepatic steatosis or ETOH abuse Follow-up with GI team in the outpatient settings Type 2 diabetes Diabetes diet Insulin sliding scale Detemir 7 mg BID VS,Fishbone, I+O VS, Fishbone, I+O Laboratory Tests 09/23/20 06:02 Vital Signs Date Time Temp Pulse Resp B/P (MAP) Pulse Ox O2 Delivery O2 Flow Rate FiO2 09/23/20 16:00 99.2 101 16 96/46 (63) 94 Room Air 09/22/20 08:00 2.0 I&O- Last 24 Hours up to 6 AM 09/23/20 06:00 Intake Total 3260 ml Output Total 2235 ml Balance 1025 ml ANNIE LAGUERRE DO Sep 23, 2020 16:48
[2020-09-23] MEDS: NAFCILLIN SOD 2 GM in D5W MINI-BAG PLUS 50 ML IV SCH ×2 (17:16→21:19)
[2020-09-23] MEDS: TERAZOSIN 5 MG CAP PO SCH (21:16)
[2020-09-23 21:48] LABS: APPEARANCE, URINE CLEAR (CLEAR); BACTERIA, URINE AUTO NEGATIVE (NEGATIVE); BILIRUBIN, URINE AUTO NEGATIVE (NEGATIVE); BLOOD, URINE BLOOD 3+ (NEGATIVE); COLOR, URINE YELLOW (YELLOW); GLUCOSE, URINE (UA) AUTO NEGATIVE (NEGATIVE); KETONE, URINE AUTO NEGATIVE (NEGATIVE); LEUKOCYTE ESTERASE, URINE AUTO 1+ (NEGATIVE); NITRITE, URINE AUTO NEGATIVE (NEGATIVE); PROTEIN, URINE AUTO 1+ mg/dL (NEGATIVE); RBC, URINE AUTO 35 /HPF (0-3); SPECIFIC GRAVITY URINE AUTO 1.013 (1.002-1.035); SQUAMOUS EPITHELIAL CELL UR AU 0 /HPF (0-6); UROBILINOGEN, URINE AUTO 0.2 mg/dL (0.0-2.0); WBC, URINE AUTO 18 /HPF (0-3)
[2020-09-24] VITALS (9 sets, daily range): BP systolic 100–136; BP diastolic 48–63
[2020-09-24] MEDS: NAFCILLIN SOD 2 GM in D5W MINI-BAG PLUS 50 ML IV SCH ×6 (01:02→20:37)
[2020-09-24] MEDS: FUROSEMIDE 20MG/2ML VIAL (J1940) IV SCH ×3 (04:15→20:37)
[2020-09-24 06:03] LABS: BASO % 0.2 % (0.0-1.0); EOS # 0.1 10^3/uL (0.0-0.5); EOS % 0.5 % (0.0-3.0); HEMATOCRIT 27.4 % (42.0-52.0); HEMOGLOBIN 8.5 g/dl (13.5-17.5); LYMPH # 1.2 10^3/uL (1.5-5.0); LYMPH % 8.7 % (24.0-44.0); MEAN CORPUSCULAR HEMOGLOBIN 29.6 pg (27.0-33.0); MEAN CORPUSCULAR VOLUME 95.5 fl (80.0-96.0); MONO # 1.3 10^3/uL (0.0-0.8); MONO % 9.6 % (0.0-5.0); NEUTROPHILS # 10.6 10^3/uL (1.5-8.5); NEUTROPHILS % 79.7 % (36.0-66.0); PLATELET COUNT, AUTOMATED 118 10^3/uL (150-450); RED BLOOD COUNT 2.87 10^6/uL (4.30-6.10); WHITE BLOOD COUNT 13.3 10^3/uL (4.0-10.0)
[2020-09-24 06:25] LABS: BLOOD UREA NITROGEN 25 MG/DL (7-18); CALCIUM LEVEL 7.7 MG/DL (8.5-10.1); CARBON DIOXIDE LEVEL 26 MEQ/L (21-32); CHLORIDE LEVEL 99 MEQ/L (98-107); CREATININE FOR GFR 1.25 MG/DL (0.70-1.30); ERYTHROCYTE SEDIMENTATION RATE 66 mm/hr (0-20); GLOMERULAR FILTRATION RATE > 60.0 (>56); GLUCOSE, FASTING 154 MG/DL (70-100); POTASSIUM SERUM 3.8 MEQ/L (3.5-5.1); SODIUM LEVEL 129 MEQ/L (136-145)
--- NOTE | 2020-09-24 08:12 | REP ---
INDICATION: pleural effusion COMPARISON: 09/23/2020 TECHNIQUE: PA and lateral. FINDINGS: Chest tube at the left base remains stable as do left-sided pleuroparenchymal changes including air-fluid level, pleural thickening, and underlying areas of opacity/atelectasis. Right hemithorax is clear. Mediastinum and cardiac silhouette are stable and within normal limits. Skeletal structures are intact. IMPRESSION: No significant change to the left-sided pleuroparenchymal findings. No new acute process appreciated. <Electronically signed by Black Johns > 09/24/20 [id number]
[2020-09-24] MEDS: HumaLOG INSULIN (NovoLOG) PER UNIT SC SCH ×4 (08:59→20:38)
[2020-09-24] MEDS: ENOXAPARIN 40MG/0.4ML SYRINGE (J1650 PER 10MG) SC SCH (08:59)
[2020-09-24] MEDS: THIAMINE 100 MG TAB PO SCH ×2 (09:00→20:39)
[2020-09-24] MEDS: NYSTATIN 500,000 U/5 ML SUSP UDC SS SCH ×4 (09:00→20:39)
[2020-09-24] MEDS: MOM 30ML SUSPENSION UDC PO SCH (09:00)
[2020-09-24] MEDS: DOCUSATE SODIUM 100MG CAPSULE PO SCH ×2 (09:00→20:39)
[2020-09-24] MEDS: MULTIVITAMINS/MINERALS THERAP 1 TAB PO SCH (09:00)
[2020-09-24] MEDS: LEVEMIR (INSULIN DETEMIR) 1 UNITS/0.01ML SC SCH ×2 (09:00→20:39)
[2020-09-24] MEDS: POTASSIUM CHLORIDE 10 MEQ SR TABLET PO SCH (09:01)
[2020-09-24] MEDS: FOLIC ACID 1 MG TAB PO SCH (09:01)
[2020-09-24] MEDS: METOPROLOL TART 25 MG TABLET PO SCH ×3 (09:01→20:39)
[2020-09-24] MEDS: PANTOPRAZOLE 40MG TAB (PROTONIX) PO SCH (09:01)
[2020-09-24 09:25] LABS: HEPATITIS B SURFACE ANTIBODY NEGATIVE (POSITIVE); HEPATITIS B SURFACE ANTIGEN NEGATIVE (NEGATIVE); HEPATITIS C VIRUS ABY INDEX 0.3 INDEX (<0.8); HIV 1&2 SCREEN CENTAUR NEGATIVE (NEGATIVE)
[2020-09-24] MEDS ORDERED: MIRALAX *UNIT DOSE* 17GM PACKET PO PRN (10:00)
--- NOTE | 2020-09-24 10:46 | CR ---
CONSULTATION DATE: 2020 REASON FOR CONSULTATION: I was asked to consult by hospitalist for evaluation of empyema, left lung. HISTORY OF PRESENT ILLNESS: Mr. Higuera is a 50-year-old, morbidly obese gentleman with a history of hypertension, diabetes, chronic kidney disease and cirrhosis who recently was hospitalized on 08/22 with a perinephric hematoma and pyelonephritis with urine culture positive for MSSA. The patient was hospitalized for 72 hours. His creatinine was 2.39 on admission, decreased to 1.2 on discharge and he was discharged on Bactrim DS b.i.d. The patient did better for about a week and then started having increasing shortness of breath, productive cough, clear sputum with no hemoptysis. He had some fever, chills and diaphoresis. In the ER, he was afebrile. Pulse was 117, O2 sat 97% on room air but he had a very large left pleural effusion with minimal lung aeration and mediastinal shift to the left. He had compressive atelectasis. Dr. Lynn was consulted. He had a chest tube placed. About 2.5 liters of purulent fluid was drained. He then had TPA the next day and another liter was drained as well. The culture grew MSSA. The patient had been on IV vancomycin and cefepime. PAST MEDICAL HISTORY: Significant for iron deficiency anemia, type 2 diabetes, liver cirrhosis, probably alcoholic related. He drinks at least 12 beers a day up until a month ago when he was recently hospitalized. Chronic kidney disease, portal hypertension, benign prostatic hypertrophy, hypertension, osteoarthritis. SOCIAL HISTORY: He denies smoking. He did drink 12-packs of beer up until a month ago and he continues to drink but not as frequently. He denies illicit drug use. He lives with his girlfriend. He has a 19-year-old daughter. FAMILY HISTORY: Cancer. REVIEW OF SYSTEMS: He reports malaise, diaphoresis, no nausea, vomiting or diarrhea. Cough is productive mostly of clear phlegm. He had some shortness of breath which is markedly improved. He has joint pains, chronic back and knees. ALLERGIES: No known drug allergies. MEDICATIONS: 1. Vancomycin 1 gm IV q.8 hours. 2. Cefepime 2 gm IV q.8 hours. 3. Tylenol p.r.n. 4. Hydrocodone p.r.n. 5. Zofran p.r.n. 6. Albuterol p.r.n. 7. Colace 100 mg p.o. b.i.d. 8. Folic acid 1 mg p.o. daily. 9. Multivitamin one tablet p.o. daily. 10. Nystatin swish and swallow 5 mL q.i.d. 11. Insulin Levemir 7 units subcu b.i.d. 12. Lovenox 40 mg subcu daily. 13. Furosemide 20 mg IV q.8 hours. LABORATORY DATA: White count was 31.2 on admission, down to 15.3, hemoglobin 8.9, hematocrit 28.4, platelets 135, 80% neutrophils, 8% lymphocytes, 9% monocytes. Sodium 129, potassium 4.2, chloride 98, bicarb 24, BUN 21, creatinine 1.05, glucose 178, lactic acid 3.1, calcium 8. MRSA screen negative. Urine Legionnaire antigen, pneumococcal antigen pending. Pleural fluid with a pH of 7.5, 6488 white cells, 79% PMNs, glucose 272. Culture was positive for MSSA. Blood cultures, two sets were negative. IMPRESSION: A 50-year-old gentleman with a history of a perinephric hematoma who was admitted with a left-sided empyema that was drained at least four liters total drainage with positive culture for MSSA. He is feeling much better on IV antibiotics which will be switched to IV Nafcillin. My concern is he still has CT abdomen evidence of evolving left subcapsular and perinephric hematoma which could have been the source of this infection. He also has evidence of alcoholic cirrhosis with portal venous hypertension. The patient is not aware of that diagnosis and I did discuss with him his alcohol use that needs to be completely discontinued. Follow-up chest x-ray done today showed continued parenchymal changes to the left hemithorax, essentially unchanged with increased lung volumes. Right hemithorax is clean. PLAN: We will discuss with Dr. Villareal findings on CT of abdomen and pelvis whether the perinephric abscess needs also to be drained. Discontinue IV vancomycin and cefepime, switch to nafcillin 2 gm IV q.4 hours. The patient has alcoholic cirrhosis and was advised to completely stop drinking alcohol. He will need monitoring for liver cirrhosis, endoscopy, alpha fetoprotein and every six month ultrasounds. [facility]
--- NOTE | 2020-09-24 13:36 | IPNPDOC ---
Text Note Date of Service The patient was seen on 09/24/20. NOTE Subjective: No any acute events overnight. Patient stated that he feels better and breathing improved Objective: GENERAL APPEARANCE: Obese male HEENT: no scleral icterus, no JVD, EOMI CARDIOVASCULAR: S1S2 LUNGS: Chest place in place, mildly coarse lung sounds at the left lung base ABDOMEN: soft & not tender w palpitation MUSCULOSKELETAL: +3 edema bilaterally lower extremities INTEGUMENT: no generalized pallor NEUROLOGICAL: cranial nerve function from 2-12 intact intact, follows commands, speech not dysarthric ASSESSMENT: 50-year-old male with history of HTN, DM2, CKD 3, liver cirrhosis and portal HTN, recently admitted for pyelonephritis with subcapsular hematoma, returns to ED with sepsis 2/2 likely hospital acquired L sided pneumonia with empyema. S/p l chest tube placement by thoracic surgeon. Sepsis Improved Secondary to secondary to HAP Pleural fluid showed 6500 leukocytes, according to Light's criteria pleural fluid positive for exudate Chest tube was placed on 09/21/19 Patient received treatment with vancomycin IV, and cefepime IV Pleural culture positive for MSSA, Nafcillin IV started Patient has increased lower extremity edema. Lasix 40 mg twice a day Repeated CT on 09/22/20 showed left-sided pleural effusion considerably decreased with only small amount of residual pleural fluid and scattered gas. Diffuse atelectasis and parenchymal opacities involving the aerated left lung kumar X-ray showed Continued pleuroparenchymal changes to the left hemithorax essentially unchanged although increased lung volumes suggest improved aeration. TPA infusion was done on 09/23/19 Echo ordered Tachycardia Improved Continue beta blockers Continue to monitor Doppler ultrasound negative for DVT Pt on CIWA protocol HAP Continue incentive spirometry PT/OT Lactic acidosis Continue to monitor ANNABEL Resolved Normocytic anemia Multifactorial. Patient has liver cirrhosis and anemia of chronic diseases B12 wnl folate decreased. Will give folate supplementation will check stool for occult blood L renal subcapsular hematoma evolving on CT 09/21/20 There is concern for abscess. I discussed it with Dr. Sanchez, it can be source of infection. We will reviewed CT with Dr. Villareal. Most likely patient will need drain placement for possibly infected subscapular left kidney hematoma Hypertension Blood pressures under control Continue home cardioprotective medications Liver cirrhosis with portal HTN Most likely secondary to hepatic steatosis or ETOH abuse Follow-up with GI team in the outpatient settings Patient denied history of alcohol abuse, however AST/ALT 2:1 Type 2 diabetes Diabetes diet Insulin sliding scale Detemir 7 mg BID VS,Fishbone, I+O VS, Fishbone, I+O Laboratory Tests 09/24/20 05:38 Vital Signs Date Time Temp Pulse Resp B/P (MAP) Pulse Ox O2 Delivery O2 Flow Rate FiO2 09/24/20 13:00 96 Room Air 09/24/20 12:38 98.9 17 109/53 (71) 96 09/22/20 08:00 2.0 I&O- Last 24 Hours up to 6 AM 09/24/20 06:00 Intake Total 1510 ml Output Total 2320 ml Balance -810 ml ANNIE LAGUERRE DO Sep 24, 2020 13:35
[2020-09-24] MEDS ORDERED: SODIUM BICARBONATE 8.4% INJ 50MEQ 50 ML VIAL As Ordered ONE (14:22)
[2020-09-24] MEDS ORDERED: LIDOCAINE 1% MDV 20ML VIAL As Ordered ONE (14:23)
--- NOTE | 2020-09-24 15:46 | IPN ---
PROGRESS NOTE DATE: 09/24/2020 Mr. Higuera is sitting comfortably up in a chair today. He is breathing well. His chest x-ray still shows an air-fluid level. Please see discussion below. His vital signs show a maximum temperature of 99.8 with a heart rate that ranges between 63-105 in a sinus rhythm, respiratory rate of 17-22 without the use of accessory muscles, who is 93%-96% saturated on room air, and whose blood pressure is ranging between 103/57 to 110/58. His intake and output for the past 24 hours has been recorded as 2089 in and 2044 out, for near equality. He has put out 750 mL in urine and 295 mL from the chest tube. There is no air leak. His weight today is 125/7 kg compared to 126.7 kg yesterday. PHYSICAL EXAMINATION: His left lung shows coarse rales and crackles throughout the entire respiratory cycle, particularly with inspiration. Percussion note is full to the diaphragm. Left side shows some fine crackles at the very end of inspiration. Percussion note is full to the diaphragm on the right side. Cardiac exam shows a 2-3 over 6 systolic ejection murmur, heard best at the left upper sternal border. I cannot feel his point of maximal impulse (PMI). S1 and S2 are normal. Abdomen is soft and nontender but obese. Bowel sounds are positive. There is no hepatomegaly that I can feel through his obesity, and there is no costovertebral angle (CVA) tenderness. Extremities still show 1+ pretibial edema. No calf tenderness, no differential swelling of the upper extremities. Skin is warm, dry, and perfused without cyanosis or mottling, including that of the nailbeds and knees. Neck is supple. There is no jugular venous distention. No subcutaneous emphysema. Trachea is midline. Mouth shows the mucous membranes to be pink and moist. Lips and commissures without lesions. His thrush has all but disappeared. Eyes show his pupils to be equal and reactive. Extraocular motion intact. Sclerae anicteric. Neurologic shows II-XII intact. Normal gross motor, gross sensation intact. Gait is not tested. Psychiatric shows him to be awake, alert, and oriented times three with appropriate mood and affect and conversational. His white count today is down to 13.3 from his admission white count of 31.2. Hemoglobin and hematocrit are 8.5 and 27.4, essentially unchanged from yesterday with a platelet count of 118. That is showing it trending downward but still fairly stable. Differential shows 79% neutrophils, 8% lymphocytes, 9% monocytes. There are no immature forms or toxic granulations. His electrolytes today show a sodium of 129 with a potassium of 3.8. BUN and creatinine are 25 and 1.25, respectively, with a glucose of 154. Calcium is 7.7. His chest x-ray still shows the air-fluid level in the left upper hemithorax along with diffuse infiltrates throughout the entire left lung. He has been changed to nafcillin intravenous (IV) to cover Staphylococcus aureus, which is sensitive to everything except penicillin G. He is receiving Lasix 40 mg twice a day. I suspect that is the origin of his hyponatremia. IMPRESSION: 1. Left-sided pneumonia. 2. Parapneumonic effusion and empyema, left side, improving with tPA with pleurolysis. 3. Continued air-space and loculation, left upper hemithorax. 4. Renal insufficiency, improving and now normalized. 5. Subcapsular renal hematoma with compressed arturo. 6. Hyponatremia. PLAN AND DISCUSSION: I am asking x-ray to place a pigtail catheter within the airspace. If any fluid specimens obtained, I have asked them to be sent off for culture and sensitivities. I am hoping that by evacuating the airspace the lung will re-expand. It may very well be entrapped, however. He does have some residual fluid along the lateral chest wall, which is leftover from the tPA pleurolysis. I may very well do another tPA pleurolysis superiorly and allow the tPA to trickle down along the lateral chest wall into the diaphragm, trying to get the lung to re-expand.
--- NOTE | 2020-09-24 17:08 | REP ---
INDICATION: POST THORA, 2 VIEW. COMPARISON: Radiographs 7:50 a.m.. TECHNIQUE: PA and lateral views performed. FINDINGS: There is placement of a pigtail drainage catheter into an air-fluid collection in the left upper hemithorax. Pleural and parenchymal opacities inferiorly on the left are unchanged. There is a left chest tube inferiorly. Right lung appears unchanged. Heart mediastinum are unchanged. IMPRESSION: Placement of pigtail drainage catheter left superior hemithorax. <Electronically signed by Andrey Looney > 09/24/20 [id number]
--- NOTE | 2020-09-24 18:39 | REP ---
INDICATION: left upper hemithorax air pocket, to pleurvac-20 see spec or. COMPARISON: None. TECHNIQUE: The procedure is performed by Kathrine Dueñas [facility], under the direct supervision of Dr. Looney. The risks and benefits of the procedure were explained to the patient and informed consent was obtained both orally and written. Directly prior to the start of the procedure, a formal timeout was done in the exam room. The posterior left lung zone air pocket was localized using CT guidance. Skin was prepped and draped in the usual sterile fashion. A total of 11 ml of buffered lidocaine was used as a local anesthetic. FINDINGS: Using CT guidance an 8 [place] pigtail catheter was inserted and advanced into the posterior left lung zone air pocket. It was felt that this initial tube was not in adequate placement so another 8 [place] pigtail catheter was inserted and advanced into the posterior left lung zone air pocket. This pigtail catheter was hooked up to a pleura vac, sutured in place and a sterile dressing was applied. CT images obtained directly after the biopsy show no evidence of pneumothorax and adequate tube placement. The patient was then discharged back to the unit. IMPRESSION: Eight [place] pigtail catheter placement into posterior left lung zone air pocket. <Electronically signed by Kathrine Dueñas > 09/24/20 1700 <Electronically signed by Andrey Looney > 09/24/20 2228
[2020-09-24] MEDS: TERAZOSIN 5 MG CAP PO SCH (20:39)
[2020-09-25] VITALS: BP 127/61
[2020-09-25] MEDS: NAFCILLIN SOD 2 GM in D5W MINI-BAG PLUS 50 ML IV SCH ×6 (01:34→21:42)
[2020-09-25 04:00] VITALS: BP 141/63
[2020-09-25 04:06] LABS: HEPATITIS A IgG TOTAL Positive (Negative); HEPATITIS B CORE ANTIBODY IGG Negative (Negative)
[2020-09-25 05:26] LABS: BASO % 0.2 % (0.0-1.0); EOS # 0.1 10^3/uL (0.0-0.5); EOS % 0.8 % (0.0-3.0); HEMATOCRIT 27.9 % (42.0-52.0); HEMOGLOBIN 8.6 g/dl (13.5-17.5); LYMPH # 1.4 10^3/uL (1.5-5.0); LYMPH % 9.9 % (24.0-44.0); MEAN CORPUSCULAR HEMOGLOBIN 29.9 pg (27.0-33.0); MEAN CORPUSCULAR HGB CONC 30.8 g/dl (32.0-36.5); MEAN CORPUSCULAR VOLUME 96.9 fl (80.0-96.0); MONO # 1.5 10^3/uL (0.0-0.8); MONO % 10.5 % (0.0-5.0); NEUTROPHILS # 10.9 10^3/uL (1.5-8.5); PLATELET COUNT, AUTOMATED 123 10^3/uL (150-450); RED BLOOD COUNT 2.88 10^6/uL (4.30-6.10)
[2020-09-25 05:50] LABS: BLOOD UREA NITROGEN 23 MG/DL (7-18); CALCIUM LEVEL 7.3 MG/DL (8.5-10.1); CARBON DIOXIDE LEVEL 28 MEQ/L (21-32); CHLORIDE LEVEL 97 MEQ/L (98-107); CREATININE FOR GFR 1.24 MG/DL (0.70-1.30); GLOMERULAR FILTRATION RATE > 60.0 (>56); GLUCOSE, FASTING 153 MG/DL (70-100); POTASSIUM SERUM 3.2 MEQ/L (3.5-5.1); SODIUM LEVEL 131 MEQ/L (136-145)
--- NOTE | 2020-09-25 07:56 | REP ---
INDICATION: pleural effusion COMPARISON: 09/24/2020 TECHNIQUE: PA and lateral. FINDINGS: Mediastinum and cardiac silhouette stable. Right hemithorax is clear. Left hemithorax demonstrates stable chest tube at the left base and pigtail catheter in the upper hemithorax with relatively stable underlying pleuroparenchymal changes. No obvious new acute process identified IMPRESSION: Stable chest x-ray with stable left pleuroparenchymal changes. No new acute process appreciated. <Electronically signed by Black Johns > 09/25/20 0751
[2020-09-25 08:19] VITALS: BP 123/58
--- NOTE | 2020-09-25 09:01 | IPN ---
PROGRESS NOTE DATE: 09/24/2020 Hilario seems to be doing fairly well, he is laying in bed, he has no complaint, he is having dinner. His chest x-ray showed an air fluid level and he had a pigtail placed in the air fluid level. He has no fever or chills, no nausea, vomiting, or diarrhea. Appetite is good. Temperature is 97.9, pulse 98, respirations 17, blood pressure 136/63, oxygen saturation 95% on room air. Heart: Normal S1, S2 with a systolic ejection murmur 2/6 at the right upper sternal border. Abdomen: Morbidly obese, soft, nontender. Lungs: Diminished breath sounds at the left side, long term up, right is clear. Extremities: +1 pitting edema bilaterally with multiple petechiae especially at the pressure elastic band of the stockings. LABORATORY DATA: White count 13.3, down from 31.2, hemoglobin 8.5, hematocrit 27.4, platelets 118. Alphafetoprotein was less than 1.3. Hepatitis B, hepatitis C, HIV negative. Patient was advised about those results. I have reviewed CT of abdomen and chest with Dr. Looney. Dr. Looney does not feel that the perinephric hematoma is infected at this time or could be drained and therefore we will not drain the collection there. He does not have any costovertebral angle (CVA) tenderness or urinary symptoms at this time. IMPRESSION: 1. Left lung pneumonia with empyema with culture positive for methicillin-sensitive Staphylococcus aureus (MSSA). On IV nafcillin 2 grams every 4 hours. 2. Alcoholic liver cirrhosis with negative hepatitis B, C and HIV. Normal alphafetoprotein. Patient has evidenced of portal hypertension. He will need followup with hepatology and need an EGD. The patient was advised about this finding and was told that he could not touch alcohol ever again. 3. Perinephric hematoma with previous hospitalization culture positive for methicillin-sensitive Staphylococcus aureus (MSSA). Dr. Looney did not feel this was infected or needed drainage. PLAN: Continue with IV nafcillin 2 grams every 4 hours for Staphylococcus aureus empyema. He will be scheduled for a EDUARD for workup of Staphylococcus aureus infection and heart murmur. He had an echocardiogram done on his previous admission on 08/20/2020 which was very poor technically and difficult to evaluate and therefore EDUARD will be scheduled.
[2020-09-25] MEDS: FOLIC ACID 1 MG TAB PO SCH (09:17)
[2020-09-25] MEDS: HumaLOG INSULIN (NovoLOG) PER UNIT SC SCH ×4 (09:17→21:00)
[2020-09-25] MEDS: POTASSIUM CHLORIDE 10 MEQ SR TABLET PO SCH (09:18)
[2020-09-25] MEDS: LEVEMIR (INSULIN DETEMIR) 1 UNITS/0.01ML SC SCH ×2 (09:18→21:40)
[2020-09-25] MEDS: NYSTATIN 500,000 U/5 ML SUSP UDC SS SCH ×4 (09:19→21:41)
[2020-09-25] MEDS: METOPROLOL TART 25 MG TABLET PO SCH ×3 (09:19→21:41)
[2020-09-25] MEDS: PANTOPRAZOLE 40MG TAB (PROTONIX) PO SCH (09:19)
[2020-09-25] MEDS: MULTIVITAMINS/MINERALS THERAP 1 TAB PO SCH (09:19)
[2020-09-25] MEDS: DOCUSATE SODIUM 100MG CAPSULE PO SCH ×2 (09:19→21:40)
[2020-09-25] MEDS: ENOXAPARIN 40MG/0.4ML SYRINGE (J1650 PER 10MG) SC SCH (09:20)
[2020-09-25] MEDS: MOM 30ML SUSPENSION UDC PO SCH (09:20)
[2020-09-25] MEDS: FUROSEMIDE 20MG/2ML VIAL (J1940) IV SCH ×2 (09:20→21:41)
[2020-09-25] MEDS ORDERED: SLF 3 ML SYR IV PRN (10:00)
[2020-09-25] MEDS ORDERED: ALTEPLASE 2MG/2ML VIAL XX ONE (10:15)
--- NOTE | 2020-09-25 11:41 | IPNPDOC ---
Text Note Date of Service The patient was seen on 09/25/20. NOTE Subjective: No any acute events overnight. Patient stated that he is doing be tter today Objective: GENERAL APPEARANCE: Obese male HEENT: no scleral icterus, no JVD, EOMI CARDIOVASCULAR: S1S2 LUNGS: Chest place in place, mildly coarse lung sounds at the left lung base ABDOMEN: soft & not tender w palpitation MUSCULOSKELETAL: +3 edema bilaterally lower extremities INTEGUMENT: no generalized pallor NEUROLOGICAL: cranial nerve function from 2-12 intact intact, follows commands, speech not dysarthric ASSESSMENT: 50-year-old male with history of HTN, DM2, CKD 3, liver cirrhosis and portal HTN, recently admitted for pyelonephritis with subcapsular hematoma, returns to ED with sepsis 2/2 likely hospital acquired L sided pneumonia with empyema. S/p l chest tube placement by thoracic surgeon. Sepsis Improved Secondary to secondary to HAP Pleural fluid showed 6500 leukocytes, according to Light's criteria pleural fluid positive for exudate Chest tube was placed on 09/21/19 Patient received treatment with vancomycin IV, and cefepime IV Pleural culture positive for MSSA, Nafcillin IV started Patient has increased lower extremity edema. Lasix 40 mg twice a day Repeated CT on 09/22/20 showed left-sided pleural effusion considerably decreased with only small amount of residual pleural fluid and scattered gas. Diffuse atelectasis and parenchymal opacities involving the aerated left lung kumar X-ray showed Continued pleuroparenchymal changes to the left hemithorax e ssentially unchanged although increased lung volumes suggest improved aeration. TPA infusion was done on 09/23/[address] Sanchez echo and she recommended EDUARD because previous TTE was with poor quality X-ray shows 0n 09/25/20 Stable chest x-ray with stable left pleuroparenchymal changes. No new acute process appreciated. Tachycardia Improved Continue beta blockers Continue to monitor Doppler ultrasound negative for DVT Pt on CIWA protocol HAP Continue incentive spirometry PT/OT Lactic acidosis Continue to monitor ANNABEL Resolved Normocytic anemia Multifactorial. Patient has liver cirrhosis and anemia of chronic diseases B12 wnl folate decreased. Will give folate supplementation will check stool for occult blood L renal subcapsular hematoma evolving on CT 09/21/20 There is concern for abscess. I discussed it with Dr. Sanchez, it can be source of infection. We will reviewed CT with Dr. Villareal. Most likely patient will need drain placement for possibly infected subscapular left kidney hematoma Hypertension Blood pressures under control Continue home cardioprotective medications Liver cirrhosis with portal HTN Most likely secondary to hepatic steatosis or ETOH abuse Follow-up with GI team in the outpatient settings Patient denied history of alcohol abuse, however AST/ALT 2:1 Type 2 diabetes Diabetes diet Insulin sliding scale Detemir 7 mg BID Constipation MiraLAX Magnesium citrate trial VS,Fishbone, I+O VS, Fishbone, I+O Laboratory Tests 09/25/20 05:12 Vital Signs Date Time Temp Pulse Resp B/P (MAP) Pulse Ox O2 Delivery O2 Flow Rate FiO2 09/25/20 09:19 100 123/58 09/25/20 08:19 97.9 20 95 Room Air 09/22/20 08:00 2.0 I&O- Last 24 Hours up to 6 AM 09/25/20 06:00 Intake Total 1250 ml Output Total 3632 ml Balance -2382 ml ANNIE LAGUERRE DO Sep 25, 2020 11:41
[2020-09-25] MEDS ORDERED: MAGNESIUM CITRATE 300 ML BTL PO ONE (11:45)
[2020-09-25 12:00] VITALS: BP 108/54
--- NOTE | 2020-09-25 12:02 | IPN ---
PROGRESS NOTE DATE: 09/25/2020 SUBJECTIVE: Mr. Higuera is sitting up comfortably after his pigtail catheter placement yesterday in the upper left hemithorax. He is not complaining of pain. OBJECTIVE: VITAL SIGNS: Show a T-max of 98.4 with a heart rate that ranges between 88 and 100 in sinus rhythm. Respiratory rate of 18 to 20 without the use of accessory muscles. He was 93% to 95% saturated on room air and whose blood pressure is ranging between 123/58 to 141/63. INTAKE AND OUTPUT: Over the past 24 hours has been recorded as 1490 in and 3387 out for a negativity for 1900 mL. He has put out 3200 mL in urine and 180 mL from the chest tubes. Of that, 152 was from the lower lateral chest tube and 35 is from the pigtail catheter placed yesterday. RESPIRATORY: His lungs still show some decreased breath sounds on the left side with respiratory rales during mid inspiration. Right lung shows normal vesicular sounds. His percussion notes are full to the diaphragm. CARDIAC: Shows a 2/6 systolic murmur heard best at the left upper sternal border. I cannot feel his PMI. S1, S2 are normal. ABDOMEN: Soft and nontender. Bowel sounds are positive. There is no hepatomegaly. No CVA tenderness. EXTREMITIES: Show 1 to 2+ pretibial edema. There is no calf tenderness and no differential swelling of the upper extremities. SKIN: Warm, dry, and perfused without cyanosis or mottling, including that of the nail beds and knees. NECK: Supple. There is no jugular venous distention. No subcutaneous emphysema. Trachea is midline. MOUTH: Shows his mucous membranes to be pink and moist. Lips and gums without lesions. Thrush has resolved. EYES: Show his pupils equal and reactive. Extraocular movements are intact. Sclerae nonicteric. NEUROLOGIC: Shows II through XII intact. Normal gross motor, gross sensation intact. Gait is not tested. PSYCHIATRIC: Shows him to be awake, alert, and oriented x3 with appropriate mood and affect and conversational. LABORATORY DATA: His white count is marginally up to 14,000 from 13.3 yesterday. Platelet count is 123,000 and stable. Hemoglobin and hematocrit are 8.6 and 27.9, unchanged from yesterday. Difficulty shows 78% neutrophils, 9% lymphocytes, and 10% monocytes. There are no immature forms and no toxic granulations. His electrolytes show a sodium of 131, which is improved from his last two sodium levels of 129. Potassium is 3.2 with a total CO2 of 28. BUN and creatinine are 23 and 1.24, unchanged from yesterday. Glucose is 153 and calcium 7.3. IMAGING: His chest x-ray today shows his lungs fully expand to the chest wall. There is no longer the air fluid level that we saw. Both the chest tube and the pigtail catheter are in good place. I do not see an air fluid level on the lateral either. He does still have a diffuse infiltrative pattern in the left lung. I can just about see his costophrenic. Diaphragm is visible and I do not think there is any underlying consolidation. IMPRESSION: 1. Left-sided pneumonia. 2. parapneumonic effusion and empyema left side, improved with tPA and pleurolysis and inferiorly. 3. Airspace and loculation, resolved with a pigtail catheter. 4. Renal insufficiency, improving and now normalizing. 5. Subcapsular renal hematoma with compressed calyx. 6. Hyponatremia. 7. Hypokalemia probably secondary to diuresis. PLAN AND DISCUSSION: I will do a tPA pleurolysis to the upper pigtail catheter. I will let that trickle down the lateral chest wall to hopefully relieve the remainder of the fluid within the chest as seen on CT scan a couple of days ago. His echocardiogram done at the end of last year 08/20/2020, did not show any valvular disease. He had a normal EF of 70%. Considering that Doppler interrogation did not show any valvular disease, I would repeat the echocardiogram. I do note that his pulmonary artery acceleration time was 120 msec, which points to pulmonary hypertension. Microbiology from the little bit of fluid obtained yesterday did not show any organism or gram stain. I would continue the same antibiotics for his Staphylococcus aureus, which now consists of nafcillin. TERRELLD
[2020-09-25] MEDS: SLF 3 ML SYR IV SCH ×2 (12:54→21:42)
[2020-09-25 16:00] VITALS: BP 109/53
[2020-09-25 17:12] LABS: BODY FLUID CULTURE Not indicated. (.); LEGIONELLA ANTIGEN URINE Negative (Negative); ORGANISM ID Not indicated. (.); SPECIMEN SOURCE Urine (.); URINE STREP PNEUMONIAE ANTIGEN Negative (Negative)
[2020-09-25 20:00] VITALS: BP 116/60
[2020-09-25] MEDS: TERAZOSIN 5 MG CAP PO SCH (21:40)
[2020-09-26] VITALS: BP 120/57
[2020-09-26] MEDS: NAFCILLIN SOD 2 GM in D5W MINI-BAG PLUS 50 ML IV SCH ×6 (00:27→21:59)
[2020-09-26 04:00] VITALS: BP 115/54
[2020-09-26 05:03] LABS: BASO % 0.3 % (0.0-1.0); EOS # 0.1 10^3/uL (0.0-0.5); EOS % 0.8 % (0.0-3.0); HEMATOCRIT 27.3 % (42.0-52.0); HEMOGLOBIN 8.6 g/dl (13.5-17.5); LYMPH # 1.1 10^3/uL (1.5-5.0); MEAN CORPUSCULAR HEMOGLOBIN 29.8 pg (27.0-33.0); MEAN CORPUSCULAR HGB CONC 31.5 g/dl (32.0-36.5); MEAN CORPUSCULAR VOLUME 94.5 fl (80.0-96.0); MONO # 1.2 10^3/uL (0.0-0.8); MONO % 9.8 % (0.0-5.0); NEUTROPHILS % 79.3 % (36.0-66.0); PLATELET COUNT, AUTOMATED 124 10^3/uL (150-450); RED BLOOD COUNT 2.89 10^6/uL (4.30-6.10); WHITE BLOOD COUNT 12.6 10^3/uL (4.0-10.0)
[2020-09-26] MEDS: SLF 3 ML SYR IV SCH ×3 (05:04→22:00)
[2020-09-26 05:32] LABS: BLOOD UREA NITROGEN 24 MG/DL (7-18); CALCIUM LEVEL 7.5 MG/DL (8.5-10.1); CARBON DIOXIDE LEVEL 31 MEQ/L (21-32); CHLORIDE LEVEL 95 MEQ/L (98-107); GLOMERULAR FILTRATION RATE > 60.0 (>56); GLUCOSE, FASTING 164 MG/DL (70-100); SODIUM LEVEL 131 MEQ/L (136-145)
[2020-09-26 08:00] VITALS: BP 140/65
[2020-09-26] MEDS: NYSTATIN 500,000 U/5 ML SUSP UDC SS SCH ×4 (08:34→21:52)
[2020-09-26] MEDS: MOM 30ML SUSPENSION UDC PO SCH (08:34)
[2020-09-26] MEDS: FOLIC ACID 1 MG TAB PO SCH (08:34)
[2020-09-26] MEDS: POTASSIUM CHLORIDE 10 MEQ SR TABLET PO SCH (08:35)
[2020-09-26] MEDS: PANTOPRAZOLE 40MG TAB (PROTONIX) PO SCH (08:35)
[2020-09-26] MEDS: MULTIVITAMINS/MINERALS THERAP 1 TAB PO SCH (08:35)
[2020-09-26] MEDS: DOCUSATE SODIUM 100MG CAPSULE PO SCH ×2 (08:36→21:53)
[2020-09-26] MEDS: METOPROLOL TART 25 MG TABLET PO SCH ×3 (08:36→21:53)
[2020-09-26] MEDS: FUROSEMIDE 20MG/2ML VIAL (J1940) IV SCH ×2 (08:36→21:52)
[2020-09-26] MEDS: ENOXAPARIN 40MG/0.4ML SYRINGE (J1650 PER 10MG) SC SCH (08:39)
[2020-09-26] MEDS: LEVEMIR (INSULIN DETEMIR) 1 UNITS/0.01ML SC SCH ×2 (08:39→21:53)
[2020-09-26] MEDS: HumaLOG INSULIN (NovoLOG) PER UNIT SC SCH ×4 (08:41→20:41)
[2020-09-26] MEDS ORDERED: FLEET ENEMA PR ONE (11:00)
--- NOTE | 2020-09-26 11:46 | REP ---
INDICATION: pleural effusion COMPARISON: 09/25/2020. TECHNIQUE: PA/Lateral FINDINGS: Diffuse parenchymal opacities on the left are unchanged. There is mild pleural based density unchanged. Superior left pigtail catheter is unchanged in position. A left chest tube is again noted inferiorly. There is no pneumothorax. Heart mediastinum are unchanged. Right lung remains clear. IMPRESSION: Stable exam. <Electronically signed by Andrey Looney > 09/26/20 1142
[2020-09-26 12:00] VITALS: BP 128/58
--- NOTE | 2020-09-26 13:12 | IPNPDOC ---
Text Note Date of Service The patient was seen on 09/26/20. NOTE Objective: No any acute events overnight. Patient denied fever, chills, nausea, or dysuria. Patient continues to have constipation Objective: GENERAL APPEARANCE: Obese male HEENT: no scleral icterus, no JVD, EOMI CARDIOVASCULAR: S1S2 LUNGS: Chest place in place, mildly coarse lung sounds at the left lung base ABDOMEN: soft & not tender w palpitation MUSCULOSKELETAL: +3 edema bilaterally lower extremities INTEGUMENT: no generalized pallor NEUROLOGICAL: cranial nerve function from 2-12 intact intact, follows commands, speech not dysarthric ASSESSMENT: 50-year-old male with history of HTN, DM2, CKD 3, liver cirrhosis and portal HTN, recently admitted for pyelonephritis with subcapsular hematoma, returns to ED with sepsis 2/2 likely hospital acquired L sided pneumonia with empyema. S/p l chest tube placement by thoracic surgeon. Sepsis Improved Secondary to secondary to HAP Pleural fluid showed 6500 leukocytes, according to Light's criteria pleural fl uid positive for exudate Chest tube was placed on 09/21/19 Patient received treatment with vancomycin IV, and cefepime IV Pleural culture positive for MSSA, Nafcillin IV started Patient has increased lower extremity edema. Lasix 40 mg twice a day Repeated CT on 09/22/20 showed left-sided pleural effusion considerably decreased with only small amount of residual pleural fluid and scattered gas. Diffuse atelectasis and parenchymal opacities involving the aerated left lung kumar X-ray showed Continued pleuroparenchymal changes to the left hemithorax essentially unchanged although increased lung volumes suggest improved aeration. TPA infusion was done on 09/23/[address] Sanchez echo and she recommended EDUARD because previous TTE was with poor quality X-ray shows 0n 09/25/20 Stable chest x-ray with stable left pleuroparenchymal changes. No new acute process appreciated. EDUARD will be done today Tachycardia Improved Continue beta blockers Continue to monitor Doppler ultrasound negative for DVT Pt on CIWA protocol HAP Continue incentive spirometry PT/OT Lactic acidosis Continue to monitor ANNABEL Resolved Normocytic anemia Multifactorial. Patient has liver cirrhosis and anemia of chronic diseases B12 wnl folate decreased. folate supplementation check stool for occult blood ordered L renal subcapsular hematoma evolving on CT 09/21/20 I discussed it with Dr. Sanchez, and she previously discussed with radiologist Dr Way, unlikely its infected hematoma. Hypertension Blood pressures under control Continue home cardioprotective medications Liver cirrhosis with portal HTN Most likely secondary to hepatic steatosis or ETOH abuse Follow-up with GI team in the outpatient settings Patient denied history of alcohol abuse, however AST/ALT 2:1 Type 2 diabetes Diabetes diet Insulin sliding scale Detemir 7 mg BID Constipation MiraLAX Magnesium citrate trial Enema today VS,Fishbone, I+O VS, Fishbone, I+O Laboratory Tests 09/26/20 04:43 Vital Signs Date Time Temp Pulse Resp B/P (MAP) Pulse Ox O2 Delivery O2 Flow Rate FiO2 09/26/20 12:00 99.6 87 18 128/58 (81) 95 Room Air 09/22/20 08:00 2.0 I&O- Last 24 Hours up to 6 AM 09/26/20 06:00 Intake Total 1970 ml Output Total 3271 ml Balance -1301 ml ANNIE LAGUERRE DO Sep 26, 2020 13:12
[2020-09-26] MEDS ORDERED: BISACODYL 10 MG SUPP PR PRN (13:45)
[2020-09-26] MEDS ORDERED: POTASSIUM CHLORIDE 10 MEQ SR TABLET PO ONE (14:00)
--- NOTE | 2020-09-26 14:43 | IPN ---
PROGRESS NOTE DATE: 09/26/2020 SUBJECTIVE: I was asked by Dr. Daniel Baldwin to perform transesophageal echocardiogram on the patient. He is a 50-year-old man with a history of alcohol abuse and liver cirrhosis who presented with a left sided pneumonia and empyema due to MSSA. He had an echocardiogram during his prior admission in August that did not reveal any valvular disease but it was felt to be a limited study and now he has murmur on physical examination. Consequently, there is suspicion for endocarditis. I met with the patient and I explained the rationale for the procedure and he did sign appropriate consent. The procedure is tentatively scheduled for later this afternoon. In the interim, he has a follow up chest x-ray. He still has a chest tube in his left chest. ARIANNE
--- NOTE | 2020-09-26 14:43 | RO ---
OPERATIVE NOTE DATE OF OPERATION: 09/25/2020 PREOPERATIVE DIAGNOSIS: Loculated pleural effusion left upper hemithorax. POSTOPERATIVE DIAGNOSIS: Loculated pleural effusion left upper hemithorax. SURGEON: Toño Lynn M.D. PROCEDURE: TPA pleurolysis. DESCRIPTION OF PROCEDURE: A pigtail catheter had been placed to the cupula of the chest yesterday. 6 mg of tPA was then instilled into the chest in 50 mL of normal saline. The patient was turned from side to side. Chest tube was clamped and it will be unclamped in four hours. The patient tolerated the procedure well.
[2020-09-26 16:00] VITALS: BP 144/66
[2020-09-26] MEDS ORDERED: LABETALOL 100MG/20ML VIAL IV STA (16:54)
--- NOTE | 2020-09-26 16:58 | IPN ---
PROGRESS NOTE DATE: 09/26/2020 Mr. Higuera has done well after a tPA pleurolysis yesterday. His chest x-ray continues to clear. His vital signs show a maximum temperature of 99.6 with a heart rate that ranges between 78-96 in a sinus rhythm, respiratory rate of 16-18 without the use of accessory muscles, who is 92%-95% saturated on room air. Blood pressure is ranging between 140/65 to 115/54. His intake and output for the past 24 hours has been recorded as 1870 in and 3291 out for a negative of 1400 mL. He has put out nearly 3000 mL in urine output. The upper posterior tube into the air pocket in the cupula has put out 101 mL, and the left lower chest tube has put out 265 mL after the tPA pleurolysis. Weight today is 125.3 kg compared to 125 kg yesterday. PHYSICAL EXAMINATION: He has rales and rhonchi, most of which is cleared with coughing on the left side. Right side shows nearly normal vesicular sounds with occasional scattered rhonchi. Percussion notes are full to the diaphragm. Cardiac exam shows the 2-3 systolic ejection murmur at the left and right upper sternal borders. I cannot feel his point of maximal impulse (PMI). S1 and S2 are normal. Abdomen is soft and nontender. Bowel sounds are positive. I cannot appreciate hepatomegaly through his obesity. There is no costovertebral angle (CVA) tenderness. Extremities still show 2-3+ pretibial edema, no calf tenderness, no differential swelling of the upper extremities. Skin is warm, dry, and perfused without cyanosis or mottling, including that of the nailbeds and knees. Neck is supple. There is no jugular venous distention. No subcutaneous emphysema. Trachea is midline. Mouth shows the mucous membranes to be pink and moist. Lips and commissures without lesions. No thrush. Eyes show his pupils to be equal and reactive. Extraocular motion intact. Sclerae anicteric. Neurologic shows II-XII intact. Normal gross motor, gross sensation intact. Gait is not tested. Psychiatric shows him to be awake, alert, and oriented times three with appropriate mood and affect and conversational. His white count today continues to decrease to 12.6 with a hemoglobin and hematocrit of 8.6 and 27.3, unchanged from yesterday, with a platelet count of 124 and stable. Differential shows 79% neutrophils, 9% lymphocytes, 9% monocytes. There are no immature toxic forms or toxic granulations. His electrolytes show sodium 131 with a potassium of 3.0. BUN and creatinine are 24 and 1.20, respectively, with a glucose of 164 and calcium of 7.5. His chest x-ray shows his lungs fully expanded to the chest wall with clearing of the left upper hemithorax. There is no longer an air-fluid level. His left costophrenic angle is still blunted. Microbiology from yesterday is unavailable. There were no organisms seen, however. IMPRESSION: 1. Left-sided pneumonia. 2. Parapneumonic effusion and empyema, left side, improved with tPA pleurolysis inferiorly. 3. Air-space loculations resolved with a pigtail catheter and further tPA pleurolysis. 4. Renal insufficiency, improving. 5. Subcapsular renal hematoma with compressed arturo. 6. Hyponatremia. 7. Hypokalemia, probably secondary to diuresis. PLAN AND DISCUSSION: I am pleased that he is clearing his left chest. I will obtain a CT scan on him, most likely tomorrow or the next day, to ascertain the status of the remaining pleural fluid. He is draining less and less from the pleural tubes, and I will take them shortly. He is undergoing a transesophageal echocardiogram (EDUARD) for potential endocarditis because of his murmur.
[2020-09-26] MEDS ORDERED: MIDAZOLAM INJ 2MG/2ML VIAL (J2250 PER 1MG) As Ordered ONE (18:10)
[2020-09-26] MEDS ORDERED: propofoL 500 MG/50 ML VIAL As Ordered ONE (18:10)
[2020-09-26] MEDS ORDERED: LIDOCAINE 2% 100MG/5ML SDV (FOR ANES.) As Ordered ONE (18:10)
[2020-09-26] MEDS ORDERED: fentaNYL 100 MCG/2 ML INJECTION (J3010) As Ordered ONE (18:11)
[2020-09-26] MEDS ORDERED: LIDOCAINE VISCOUS 2% SOLN 15ML UDC As Ordered ONE (18:17)
[2020-09-26] MEDS ORDERED: CETACAINE SPRAY 5GM As Ordered ONE (18:17)
[2020-09-26] MEDS ORDERED: ONDANSETRON 4MG/2ML VIAL IV PRN (19:45)
[2020-09-26] MEDS ORDERED: LR 1,000 ML IV SCH (19:45)
[2020-09-26 20:00] VITALS: BP 131/63
[2020-09-26] MEDS: TERAZOSIN 5 MG CAP PO SCH (21:59)
[2020-09-27] VITALS: BP 115/56
[2020-09-27] MEDS: NAFCILLIN SOD 2 GM in D5W MINI-BAG PLUS 50 ML IV SCH ×6 (00:12→21:23)
[2020-09-27 04:00] VITALS: BP 106/51
[2020-09-27] MEDS: SLF 3 ML SYR IV SCH ×3 (04:25→21:24)
[2020-09-27 05:31] LABS: BASO % 0.2 % (0.0-1.0); EOS # 0.1 10^3/uL (0.0-0.5); EOS % 0.8 % (0.0-3.0); HEMATOCRIT 26.3 % (42.0-52.0); HEMOGLOBIN 8.3 g/dl (13.5-17.5); LYMPH # 1.1 10^3/uL (1.5-5.0); LYMPH % 10.5 % (24.0-44.0); MEAN CORPUSCULAR HEMOGLOBIN 30.1 pg (27.0-33.0); MEAN CORPUSCULAR HGB CONC 31.6 g/dl (32.0-36.5); MEAN CORPUSCULAR VOLUME 95.3 fl (80.0-96.0); MONO # 1.1 10^3/uL (0.0-0.8); MONO % 10.2 % (0.0-5.0); NEUTROPHILS # 8.3 10^3/uL (1.5-8.5); NEUTROPHILS % 77.5 % (36.0-66.0); PLATELET COUNT, AUTOMATED 129 10^3/uL (150-450); RED BLOOD COUNT 2.76 10^6/uL (4.30-6.10); WHITE BLOOD COUNT 10.7 10^3/uL (4.0-10.0)
[2020-09-27 05:58] LABS: BLOOD UREA NITROGEN 21 MG/DL (7-18); CALCIUM LEVEL 7.2 MG/DL (8.5-10.1); CARBON DIOXIDE LEVEL 33 MEQ/L (21-32); CHLORIDE LEVEL 93 MEQ/L (98-107); CREATININE FOR GFR 1.31 MG/DL (0.70-1.30); GLOMERULAR FILTRATION RATE > 60.0 (>56); GLUCOSE, FASTING 225 MG/DL (70-100); POTASSIUM SERUM 3.3 MEQ/L (3.5-5.1); SODIUM LEVEL 132 MEQ/L (136-145)
[2020-09-27 08:00] VITALS: BP 146/64
--- NOTE | 2020-09-27 08:37 | REP ---
INDICATION: pleural effusion COMPARISON: 09/26/2020 TECHNIQUE: PA and lateral. FINDINGS: Stable left-sided chest tubes. Stable left-sided pleuroparenchymal changes. Right hemithorax is well aerated and clear. Mediastinum and cardiac silhouette are normal. IMPRESSION: No change from prior examination. <Electronically signed by Black Johns > 09/27/20 0876
[2020-09-27] MEDS: LEVEMIR (INSULIN DETEMIR) 1 UNITS/0.01ML SC SCH ×2 (09:00→21:23)
[2020-09-27] MEDS: ENOXAPARIN 40MG/0.4ML SYRINGE (J1650 PER 10MG) SC SCH (09:59)
[2020-09-27] MEDS: MOM 30ML SUSPENSION UDC PO SCH (10:00)
[2020-09-27] MEDS: HumaLOG INSULIN (NovoLOG) PER UNIT SC SCH ×4 (10:00→21:00)
[2020-09-27] MEDS: FOLIC ACID 1 MG TAB PO SCH (10:00)
[2020-09-27] MEDS: NYSTATIN 500,000 U/5 ML SUSP UDC SS SCH ×4 (10:00→21:24)
[2020-09-27] MEDS: POTASSIUM CHLORIDE 10 MEQ SR TABLET PO SCH (10:00)
[2020-09-27] MEDS: DOCUSATE SODIUM 100MG CAPSULE PO SCH ×2 (10:01→21:24)
[2020-09-27] MEDS: METOPROLOL TART 25 MG TABLET PO SCH ×3 (10:01→21:23)
[2020-09-27] MEDS: MULTIVITAMINS/MINERALS THERAP 1 TAB PO SCH (10:01)
[2020-09-27] MEDS: PANTOPRAZOLE 40MG TAB (PROTONIX) PO SCH (10:01)
--- NOTE | 2020-09-27 11:26 | REP ---
INDICATION: status of pleural effusion. COMPARISON: None. TECHNIQUE: CT chest performed without the use of intravenous contrast. Sagittal and coronal reconstruction images are performed. FINDINGS: Lungs: Pigtail drainage catheter is again seen in the posterior left hemithorax superiorly. Previously noted air/fluid collection at that location appears to have essentially resolved. Mild streaky and patchy parenchymal opacities are visualized in the left lung and have significantly improved. Mediastinum: No gross adenopathy. Linda: No gross adenopathy. Axilla: No gross adenopathy. Pleura: There is an inferior left chest tube with a small amount of pleural air and no significant pleural fluid. Heart: Not enlarged. Thoracic aorta: No aneurysm. Upper abdominal structures: There is mild perihepatic fluid. Fluid is again seen in the left subdiaphragmatic region posteriorly. Visualized osseous structures: There are degenerative changes of the spine without compression deformity. IMPRESSION: Left superior pigtail drainage catheter and inferior chest tube. No significant pleural fluid. Previously noted air/fluid collection in the superior left hemithorax has resolved. Significant improvement of left lung parenchymal opacities with mild scattered residual. Small amount of pleural air adjacent to the left chest tube. <Electronically signed by Andrey Looney > 09/27/20 1129
[2020-09-27 12:00] VITALS: BP 132/65
--- NOTE | 2020-09-27 13:26 | IPNPDOC ---
Text Note Date of Service The patient was seen on 09/27/20. NOTE Objective: No any acute events overnight. Patient had bowel movement overnight Objective: GENERAL APPEARANCE: Obese male HEENT: no scleral icterus, no JVD, EOMI CARDIOVASCULAR: S1S2 LUNGS: Chest place in place, mildly coarse lung sounds at the left lung base ABDOMEN: soft & not tender w palpitation MUSCULOSKELETAL: +3 edema bilaterally lower extremities INTEGUMENT: no generalized pallor NEUROLOGICAL: cranial nerve function from 2-12 intact intact, follows commands, speech not dysarthric ASSESSMENT: 50-year-old male with history of HTN, DM2, CKD 3, liver cirrhosis and portal HTN, recently admitted for pyelonephritis with subcapsular hematoma, returns to ED with sepsis 2/2 likely hospital acquired L sided pneumonia with empyema. S/p l chest tube placement by thoracic surgeon. Sepsis Improved Secondary to secondary to HAP Pleural fluid showed 6500 leukocytes, according to Light's criteria pleural fluid positive for exudate Chest tube was placed on 09/21/19 Patient received treatment with vancomycin IV, and cefepime IV Pleural culture positive for MSSA, Nafcillin IV started Patient has increased lower extremity edema. Lasix 40 mg twice a day Repeated CT on 09/22/20 showed left-sided pleural effusion considerably decreased with only small amount of residual pleural fluid and scattered gas. Diffuse atelectasis and parenchymal opacities involving the aerated left lung kumar X-ray showed Continued pleuroparenchymal changes to the left hemithorax essentially unchanged although increased lung volumes suggest improved aeration. TPA infusion was done on 09/23/[address] Daniel rasmussen and she recommended EDUARD because previous TTE was with poor quality X-ray shows 0n 09/25/20 Stable chest x-ray with stable left pleuroparenchymal changes. No new acute process appreciated. EDUARD was done on 09/26/20 and it was negative for valves vegetations CT on 09/26/20 showed Left superior pigtail drainage catheter and inferior chest tube. No significant pleural fluid. ANNABEL Kidney function worsened today Lasix on hold Tachycardia Improved Continue beta blockers Continue to monitor Doppler ultrasound negative for DVT Pt on CIWA protocol HAP Continue incentive spirometry PT/OT Lactic acidosis Continue to monitor ANNABLE Resolved Normocytic anemia Multifactorial. Patient has liver cirrhosis and anemia of chronic diseases B12 wnl folate decreased. folate supplementation check stool for occult blood ordered L renal subcapsular hematoma evolving on CT 09/21/20 I discussed it with Dr. Sanchez, and she previously discussed with radiologist Dr Villareal, unlikely its infected hematoma. Hypertension Blood pressures under control Continue home cardioprotective medications Liver cirrhosis with portal HTN Most likely secondary to hepatic steatosis or ETOH abuse Follow-up with GI team in the outpatient settings Patient denied history of alcohol abuse, however AST/ALT 2:1 Type 2 diabetes Diabetes diet Insulin sliding scale Detemir 7 mg BID Constipation resolved VS,Fishbone, I+O VS, Fishbone, I+O Laboratory Tests 09/27/20 04:38 Vital Signs Date Time Temp Pulse Resp B/P (MAP) Pulse Ox O2 Delivery O2 Flow Rate FiO2 09/27/20 12:00 98.6 83 18 132/65 (87) 96 Room Air 09/22/20 08:00 2.0 I&O- Last 24 Hours up to 6 AM 09/27/20 06:00 Intake Total 480 ml Output Total 2025 ml Balance -1545 ml ANNIE LAGUERRE DO Sep 27, 2020 13:26
--- NOTE | 2020-09-27 13:33 | IPN ---
PROGRESS NOTE DATE: 09/27/2020 Mr. Higuera is doing quite well today. He is again sitting up comfortably and breathing comfortably. His chest tubes have drained out just a little bit too much to remove them today. I want to make sure that they are indeed going in the right direction. His vital signs show a maximum temperature of 98.6 with a heart rate that ranges between 80-99 in a sinus rhythm, respiratory rate of 16-20 without the use of accessory muscles who is 93%-96% saturated on room air and whose blood pressure is ranging between 106/51 to 146/64. His intake and output for the past 24 hours has been recorded as 580 in and 2450 out for a negative of 1870 mL. He has only taken in 40 mL of oral intake. Urine output has been 2200 mL, and his chest tube output total is 250 mL with 130 mL coming out the upper pigtail catheter and 120 coming from the inferior chest tube. PHYSICAL EXAMINATION: He has now equal breath sounds on either side. There is still some coarse rhonchi and rales, most of which would clear with coughing, Percussion note is full to the diaphragm. Cardiac exam shows the 2-3 over 6 systolic ejection murmur at the right upper and left upper sternal borders. I cannot feel his point of maximal impulse (PMI). S1 and S2 are normal. Abdomen is soft and nontender. Bowel sounds are positive. I cannot appreciate hepatomegaly through his obesity. There is no costovertebral angle (CVA) tenderness. Extremities show 3+ pretibial edema, no calf tenderness, no differential swelling of the upper extremities. Skin is warm, dry, and perfused without cyanosis or mottling, including that of the nailbeds and knees. Neck is supple. There is no jugular venous distention. No subcutaneous emphysema. Trachea is midline. Mouth shows the mucous membranes to be pink and moist. Lips and commissures without lesions. Thrush has resolved. Eyes show his pupils to be equal and reactive. Extraocular motion intact. Sclerae anicteric. Neurologic shows II-XII intact. Normal gross motor, gross sensation intact. Gait is not tested. Psychiatric shows him to be awake, alert, and oriented times three with appropriate mood and affect and conversational. His white count today is down to 10.7 with a hemoglobin and hematocrit of 8.3 and 26.3, essentially unchanged from yesterday, with a platelet count of 129 and stable. Differential shows 77% neutrophils, 10% lymphocytes, 10% monocytes. There are no immature forms or toxic granulations. His chemistries today show sodium 132 with a potassium 3.3. BUN and creatinine, however, are up to 21 and 1.31, probably secondary to diuresis. Glucose is 225 with a calcium of 7.2. His chest x-ray today shows his lungs fully expanded to the chest wall. He still has a diffuse infiltrative pattern, but it is improving. There is still some volume loss in the left lung. I see no overt infiltrates on the lateral film posteriorly. I did obtain a CT scan of him today. The pleural effusion has all but disappeared and well drained. There are no loculations left, including the cupula of the upper hemithorax. He has infiltrates in the left upper lobe. IMPRESSION: 1. Left-sided pneumonia, probably left upper lobe now. 2. Parapneumonic effusion/empyema, left side, improved and resolved with tPA pleurolysis. 3. Air-space loculations, resolved with a pigtail catheter and further tPA pleurolysis. 4. Renal insufficiency, returning probably secondary to diuresis. 5. Subcapsular renal hematoma with compressed arturo. 6. Hyponatremia. 7. Hypokalemia, both secondary to diuresis. PLAN AND DISCUSSION: I will plan to remove is chest catheter and chest tubes tomorrow. That portion of his kidneys that are visualized on the CT scan still shows a compressed arturo on the left side. He underwent a transesophageal echocardiogram (EDUARD) yesterday, of which I do not yet have the results.
[2020-09-27 16:00] VITALS: BP 140/67
--- NOTE | 2020-09-27 18:09 | IPN ---
INFECTIOUS DISEASE PROGRESS NOTE DATE: 09/27/2020 SUBJECTIVE: Mr. Higuera is doing well. He is sitting in his bed comfortably. Chest tubes are draining with no problems. His appetite is fair. He has some lower extremity edema that is worsening. PHYSICAL EXAMINATION: HEART: Normal S1, S2, with a systolic ejection murmur right upper sternal border, 2/6. LUNGS: Diminished breath sounds on the left side with some rhonchi and a few rales at the bases. chest tube and pig tail draing serosanguinous fluid ABDOMEN: Markedly obese, soft, nontender. EXTREMITIES: +3 pretibial edema. No calf tenderness. No cyanosis. SKIN: No rashes. NECK: Supple, no jugular venous distention. LABORATORY STUDIES: White count 10.7, hemoglobin 8.3, hematocrit 26.3, platelet count 129, 77% neutrophils, 10% lymphocytes, 10% monocytes. Sodium 132, potassium 3.3, chloride 93, bicarbonate 33, BUN 21, creatinine 1.31, glucose 225, calcium 7.2. IMPRESSION: 1. MSSA Left sided pneumonia with empyema, status post chest tube, on TPA, doing better on IV Nafcillin 2 gm Q4 hours. 2. Renal insufficieny due to diuresis. 3. Subcapsular renal hematoma with previous culture positive for MSSA asymptomatic. Does not need drainage reviewed with radiology. PLAN: 1. Continue with IV Nafcillin. 2. CBC CRP ESR tomorrow and if EDUARD negative, Nafcillin can be switched to Dicloxacillin 500 mg p.o. four times daily. MTDD
[2020-09-27 20:00] VITALS: BP 131/79
[2020-09-27] MEDS: TERAZOSIN 5 MG CAP PO SCH (21:24)
[2020-09-28] VITALS: BP 112/52
[2020-09-28] MEDS: NAFCILLIN SOD 2 GM in D5W MINI-BAG PLUS 50 ML IV SCH ×6 (01:10→20:43)
[2020-09-28 04:00] VITALS: BP 117/56
[2020-09-28] MEDS: SLF 3 ML SYR IV SCH ×3 (05:00→21:13)
[2020-09-28 05:33] LABS: BASO % 0.2 % (0.0-1.0); EOS # 0.1 10^3/uL (0.0-0.5); EOS % 0.7 % (0.0-3.0); HEMATOCRIT 26.4 % (42.0-52.0); HEMOGLOBIN 8.5 g/dl (13.5-17.5); LYMPH # 1.5 10^3/uL (1.5-5.0); MEAN CORPUSCULAR HEMOGLOBIN 30.1 pg (27.0-33.0); MEAN CORPUSCULAR HGB CONC 32.2 g/dl (32.0-36.5); MEAN CORPUSCULAR VOLUME 93.6 fl (80.0-96.0); MONO # 1.1 10^3/uL (0.0-0.8); MONO % 8.9 % (0.0-5.0); NEUTROPHILS # 9.9 10^3/uL (1.5-8.5); NEUTROPHILS % 77.3 % (36.0-66.0); PLATELET COUNT, AUTOMATED 127 10^3/uL (150-450); RED BLOOD COUNT 2.82 10^6/uL (4.30-6.10); WHITE BLOOD COUNT 12.8 10^3/uL (4.0-10.0)
[2020-09-28 06:08] LABS: ALBUMIN 1.3 GM/DL (3.2-5.2); ALT/SGPT 12 U/L (12-78); BILIRUBIN,TOTAL 2.2 MG/DL (0.2-1.0); BLOOD UREA NITROGEN 20 MG/DL (7-18); CALCIUM LEVEL 7.7 MG/DL (8.5-10.1); CARBON DIOXIDE LEVEL 31 MEQ/L (21-32); CHLORIDE LEVEL 94 MEQ/L (98-107); CREATININE FOR GFR 1.16 MG/DL (0.70-1.30); GLOMERULAR FILTRATION RATE > 60.0 (>56); GLUCOSE, FASTING 194 MG/DL (70-100); MAGNESIUM LEVEL 2.6 MG/DL (1.8-2.4); POTASSIUM SERUM 3.6 MEQ/L (3.5-5.1); SODIUM LEVEL 129 MEQ/L (136-145); TOTAL PROTEIN 6.5 GM/DL (6.4-8.2)
[2020-09-28] MEDS: HumaLOG INSULIN (NovoLOG) PER UNIT SC SCH ×4 (07:30→21:00)
[2020-09-28 08:00] VITALS: BP 127/60
[2020-09-28] MEDS: ENOXAPARIN 40MG/0.4ML SYRINGE (J1650 PER 10MG) SC SCH (09:17)
[2020-09-28] MEDS: DOCUSATE SODIUM 100MG CAPSULE PO SCH ×2 (09:18→20:42)
[2020-09-28] MEDS: NYSTATIN 500,000 U/5 ML SUSP UDC SS SCH ×4 (09:18→20:42)
[2020-09-28] MEDS: MULTIVITAMINS/MINERALS THERAP 1 TAB PO SCH (09:18)
[2020-09-28] MEDS: LEVEMIR (INSULIN DETEMIR) 1 UNITS/0.01ML SC SCH ×2 (09:18→20:41)
[2020-09-28] MEDS: MOM 30ML SUSPENSION UDC PO SCH (09:18)
[2020-09-28] MEDS: PANTOPRAZOLE 40MG TAB (PROTONIX) PO SCH (09:19)
[2020-09-28] MEDS: FOLIC ACID 1 MG TAB PO SCH (09:19)
[2020-09-28] MEDS: POTASSIUM CHLORIDE 10 MEQ SR TABLET PO SCH (09:19)
[2020-09-28] MEDS: METOPROLOL TART 25 MG TABLET PO SCH ×3 (09:20→20:42)
[2020-09-28] MEDS: FUROSEMIDE 20MG/2ML VIAL (J1940) IV SCH ×2 (09:27→20:42)
--- NOTE | 2020-09-28 09:32 | REP ---
INDICATION: pleural effusion COMPARISON: 09/27/2020. TECHNIQUE: PA/Lateral FINDINGS: Left upper hemithorax pigtail drainage catheter is unchanged in position. Chest tube is again noted inferiorly in the left hemithorax. Mild scattered parenchymal opacities throughout the left lung are stable. Right lung remains clear. Heart mediastinum are unremarkable and unchanged. IMPRESSION: Stable exam. <Electronically signed by Andrey Looney > 09/28/20 0929
[2020-09-28 10:25] LABS: ERYTHROCYTE SEDIMENTATION RATE 73 mm/hr (0-20)
[2020-09-28 12:00] VITALS: BP 126/58
--- NOTE | 2020-09-28 12:40 | IPN ---
PROGRESS NOTE DATE: 09/28/2020 Mr. Higuera is feeling fairly well today. His pain is being well controlled at the chest tube insertion sites. His vital signs show a maximum temperature of 99.0 with a heart rate that ranges between 91-86 in a sinus rhythm, respiratory rate of 18-20 without the use of accessory muscles, who is 93%-96% saturated on room air , and whose blood pressure is ranging between 112/52 to 127/60. His intake and output for the past 24 hours has been recorded as 1070 in and 2502 out, for a negativity of 1432 mL. He has put out 77 mL from the posterior-superior chest catheter and nothing from the inferior chest tube. He weighs 127 kg today compared to 125.7 kg yesterday. PHYSICAL EXAMINATION: He still has some inspiratory rales on the left side. These do not all clear with coughing. His right side shows normal vesicular sounds. His percussion note is full to the diaphragm on either side as far as I can tell through his obesity. Cardiac exam shows the same 2-3 systolic murmur, heard best at the left upper and right upper sternal borders. I cannot feel his point of maximal impulse (PMI). S1 and S2 are normal. Abdomen is soft and nontender. Bowel sounds are positive. There is no hepatomegaly that I can feel through his obesity. There no costovertebral angle (CVA) tenderness. Extremities show still 2-3+ pretibial edema, more on the left than the right. There is no calf tenderness, no differential swelling of the upper extremities. Skin is warm, dry, and perfused without cyanosis or mottling, including that of the nailbeds and knees. Neck is supple. There is no jugular venous distention. No subcutaneous emphysema. Trachea is midline. Mouth shows the mucous membranes to be pink and moist. Lips and commissures without lesions. No thrush. Eyes show his pupils to be equal and reactive. Extraocular motion intact. Sclerae anicteric. Neurologic shows II-XII intact. Normal gross motor, gross sensation intact. Gait is not tested. Psychiatric shows him to be awake, alert, and oriented times three with appropriate mood and affect and conversational. His white count today is slightly up to 12.8 from 10.7 yesterday. Platelet count is 127 and stable, and hemoglobin and hematocrit are 8.5 and 26.4, unchanged from yesterday. His electrolytes show sodium 129 with a potassium 3.6. BUN and creatinine are improved to 20 and 1.16. Glucose is 194 with a calcium of 7.7 and an albumin of 1.3. He still continues on nafcillin. His chest x-ray shows his lungs full expanded to the chest wall with the chest catheter and chest tube in good place. There is still the diffuse infiltrative haze throughout the left side, but I can clearly see the diaphragm, heart border with only slight blunting of the left costophrenic angle. IMPRESSION: 1. Left-sided pneumonia, probably left upper lobe. 2. Parapneumonic effusion/empyema, left side, improved and resolved with tPA pleurolyses. 3. Air-space loculations, resolved with a pigtail catheter and further tPA pleurolyses. 4. Renal insufficiency, normalizing, probably secondary to diuresis. 5. Subcapsular renal hematoma with compression of the arturo. 6. Hyponatremia. 7. Hypokalemia, resolved, secondary to diuresis. PLAN AND DISCUSSION: I will remove his chest tubes today. From my perspective, I see no reason why he cannot go home tomorrow on oral antibiotics to treat his Staphylococcus aureus, sensitive to everything except penicillin G.
--- NOTE | 2020-09-28 12:48 | IPNPDOC ---
Text Note Date of Service The patient was seen on 09/28/20. NOTE Objective: No any acute events overnight. Chest tube was removed. Objective: GENERAL APPEARANCE: Obese male HEENT: no scleral icterus, no JVD, EOMI CARDIOVASCULAR: S1S2 LUNGS: Chest place in place, mildly coarse lung sounds at the left lung base ABDOMEN: soft & not tender w palpitation MUSCULOSKELETAL: +3 edema bilaterally lower extremities INTEGUMENT: no generalized pallor NEUROLOGICAL: cranial nerve function from 2-12 intact intact, follows commands, speech not dysarthric ASSESSMENT: 50-year-old male with history of HTN, DM2, CKD 3, liver cirrhosis and portal HTN, recently admitted for pyelonephritis with subcapsular hematoma, returns to ED with sepsis 2/2 likely hospital acquired L sided pneumonia with empyema. S/p l chest tube placement by thoracic surgeon. Sepsis Improved Secondary to secondary to HAP Pleural fluid showed 6500 leukocytes, according to Light's criteria pleural fluid positive for exudate Chest tube was placed on 09/21/19 Patient received treatment with vancomycin IV, and cefepime IV Pleural culture positive for MSSA, Nafcillin IV started Patient has increased lower extremity edema. Lasix 40 mg twice a day Repeated CT on 09/22/20 showed left-sided pleural effusion considerably decreased with only small amount of residual pleural fluid and scattered gas. Diffuse atelectasis and parenchymal opacities involving the aerated left lung kumar X-ray showed Continued pleuroparenchymal changes to the left hemithorax essentially unchanged although increased lung volumes suggest improved aeration. TPA infusion was done on 09/23/[address] Daniel rasmussen and she recommended EDUARD because previous TTE was with poor quality X-ray shows 0n 09/25/20 Stable chest x-ray with stable left pleuroparenchymal changes. No new acute process appreciated. EDUARD was done on 09/26/20 and it was negative for valves vegetations CT on 09/26/20 showed Left superior pigtail drainage catheter and inferior chest tube. No significant pleural fluid. Chest tube was removed on 09/28/20 ANNABEL Resolved Tachycardia Improved Continue beta blockers Continue to monitor Doppler ultrasound negative for DVT Pt on CIWA protocol HAP Continue incentive spirometry PT/OT Lactic acidosis Continue to monitor ANNABEL Resolved Normocytic anemia Multifactorial. Patient has liver cirrhosis and anemia of chronic diseases B12 wnl folate decreased. folate supplementation check stool for occult blood ordered L renal subcapsular hematoma evolving on CT 09/21/20 I discussed it with Dr. Sanchez, and she previously discussed with radiologist Dr Villareal, unlikely its infected hematoma. Hypertension Blood pressures under control Continue home cardioprotective medications Liver cirrhosis with portal HTN Most likely secondary to hepatic steatosis or ETOH abuse Follow-up with GI team in the outpatient settings Patient denied history of alcohol abuse, however AST/ALT 2:1 Type 2 diabetes Diabetes diet Insulin sliding scale Detemir 7 mg BID Constipation resolved VS,Fishbone, I+O VS, Fishbone, I+O Laboratory Tests 09/28/20 05:05 Vital Signs Date Time Temp Pulse Resp B/P (MAP) Pulse Ox O2 Delivery O2 Flow Rate FiO2 09/28/20 09:20 91 127/60 09/28/20 08:00 98.5 20 95 Room Air 09/22/20 08:00 2.0 I&O- Last 24 Hours up to 6 AM 09/28/20 05:59 Intake Total 1870 ml Output Total 2312 ml Balance -442 ml ANNIE LAGUERRE DO Sep 28, 2020 12:48
[2020-09-28 16:00] VITALS: BP 124/56
[2020-09-28 20:00] VITALS: BP 111/57
[2020-09-28] MEDS: TERAZOSIN 5 MG CAP PO SCH (20:42)
[2020-09-29] VITALS: BP 113/56
[2020-09-29] MEDS: NAFCILLIN SOD 2 GM in D5W MINI-BAG PLUS 50 ML IV SCH ×2 (00:39→04:18)
[2020-09-29 04:00] VITALS: BP 110/56
[2020-09-29] MEDS: SLF 3 ML SYR IV SCH (05:19)
[2020-09-29 06:12] LABS: BASO # 0.1 10^3/uL (0.0-0.2); BASO % 0.5 % (0.0-1.0); EOS # 0.1 10^3/uL (0.0-0.5); EOS % 0.7 % (0.0-3.0); HEMATOCRIT 25.5 % (42.0-52.0); HEMOGLOBIN 8.1 g/dl (13.5-17.5); LYMPH # 1.2 10^3/uL (1.5-5.0); LYMPH % 10.4 % (24.0-44.0); MEAN CORPUSCULAR HEMOGLOBIN 29.6 pg (27.0-33.0); MEAN CORPUSCULAR HGB CONC 31.8 g/dl (32.0-36.5); MEAN CORPUSCULAR VOLUME 93.1 fl (80.0-96.0); MONO % 8.2 % (0.0-5.0); NEUTROPHILS # 9.2 10^3/uL (1.5-8.5); PLATELET COUNT, AUTOMATED 131 10^3/uL (150-450); RED BLOOD COUNT 2.74 10^6/uL (4.30-6.10); WHITE BLOOD COUNT 11.6 10^3/uL (4.0-10.0)
[2020-09-29 06:35] LABS: ALBUMIN 1.3 GM/DL (3.2-5.2); ALT/SGPT 12 U/L (12-78); BILIRUBIN,TOTAL 2.3 MG/DL (0.2-1.0); BLOOD UREA NITROGEN 20 MG/DL (7-18); CALCIUM LEVEL 7.8 MG/DL (8.5-10.1); CARBON DIOXIDE LEVEL 32 MEQ/L (21-32); CHLORIDE LEVEL 93 MEQ/L (98-107); CREATININE FOR GFR 1.33 MG/DL (0.70-1.30); GLOMERULAR FILTRATION RATE > 60.0 (>56); GLUCOSE, FASTING 183 MG/DL (70-100); MAGNESIUM LEVEL 2.3 MG/DL (1.8-2.4); POTASSIUM SERUM 3.4 MEQ/L (3.5-5.1); SODIUM LEVEL 129 MEQ/L (136-145); TOTAL PROTEIN 6.3 GM/DL (6.4-8.2)
[2020-09-29] MEDS ORDERED: POTASSIUM CHLORIDE 10 MEQ SR TABLET PO ONE (08:00)
[2020-09-29] MEDS: NYSTATIN 500,000 U/5 ML SUSP UDC SS SCH (09:25)
[2020-09-29] MEDS: MOM 30ML SUSPENSION UDC PO SCH (09:25)
[2020-09-29] MEDS: LEVEMIR (INSULIN DETEMIR) 1 UNITS/0.01ML SC SCH (09:25)
[2020-09-29] MEDS: HumaLOG INSULIN (NovoLOG) PER UNIT SC SCH (09:26)
[2020-09-29] MEDS: ENOXAPARIN 40MG/0.4ML SYRINGE (J1650 PER 10MG) SC SCH (09:27)
[2020-09-29] MEDS: FUROSEMIDE 20MG/2ML VIAL (J1940) IV SCH (09:27)
[2020-09-29] MEDS: FOLIC ACID 1 MG TAB PO SCH (09:28)
[2020-09-29] MEDS: PANTOPRAZOLE 40MG TAB (PROTONIX) PO SCH (09:28)
[2020-09-29] MEDS: POTASSIUM CHLORIDE 10 MEQ SR TABLET PO SCH (09:28)
[2020-09-29 09:29] VITALS: BP 129/58
[2020-09-29] MEDS: METOPROLOL TART 25 MG TABLET PO SCH (09:29)
[2020-09-29] MEDS: MULTIVITAMINS/MINERALS THERAP 1 TAB PO SCH (09:29)
[2020-09-29] MEDS: DOCUSATE SODIUM 100MG CAPSULE PO SCH (09:29)
--- NOTE | 2020-09-29 09:33 | REP ---
INDICATION: pleural effusion COMPARISON: 09/28/2020. TECHNIQUE: PA/Lateral FINDINGS: The left pigtail drainage tube and chest tube have both been removed. There is no pneumothorax. Diffuse left lung opacities are unchanged. Right lung remains clear. The heart is normal in size. The mediastinal silhouette is unchanged. IMPRESSION: Removal of left pigtail catheter and chest tube. Otherwise stable exam. <Electronically signed by Andrey Looney > 09/29/20 0935
[2020-09-29 10:00] VITALS: BP 129/58
[2020-09-29] MEDS ORDERED: DICL25CA PO (10:45)
[2020-09-29] MEDS ORDERED: DOK1CAP7 PO (10:45)
[2020-09-29] MEDS ORDERED: BISA10SU PR (10:45)
[2020-09-29] MEDS ORDERED: KLOR10TA76 PO (10:45)
[2020-09-29] MEDS ORDERED: METO1TAB7 PO (10:45)
[2020-09-29] MEDS ORDERED: PANT40TA29 PO (10:45)
[2020-09-29] MEDS ORDERED: ALDA25TA2 PO (10:45)
[2020-09-29] MEDS ORDERED: ACET1TAB55 PO (10:45)
[2020-09-29] MEDS ORDERED: FOLI1TAB11 PO (10:45)
[2020-09-29] MEDS ORDERED: TORS20TA2 PO (10:45)
--- NOTE | 2020-09-29 11:57 | DS.PDOC ---
Discharge Summary General Date of Admission Sep 21, 2020 at 01:11 Date of Discharge 09/29/20 Discharge Summary PROCEDURES PERFORMED DURING STAY: [None]. ADMITTING DIAGNOSES: Sepsis ANNABEL Tachycardia HAP Lactic acidosis Normocytic anemia L renal subcapsular hematoma Liver cirrhosis with portal HTN Hypertension Type 2 diabetes Constipation DISCHARGE DIAGNOSES: Sepsis ANNABEL Tachycardia HAP Lactic acidosis Normocytic anemia L renal subcapsular hematoma Liver cirrhosis with portal HTN Hypertension Type 2 diabetes Constipation COMPLICATIONS/CHIEF COMPLAINT: Pleural Effusion, Septicemia. HISTORY OF PRESENT ILLNESS: 50-year-old male with history of HTN, DM2, CKD 3, liver cirrhosis and portal HTN, recently admitted for pyelonephritis with subca psular hematoma, returns to ED with sepsis 2/2 likely hospital acquired L sided pneumonia with empyema. S/p l chest tube placement by thoracic surgeon. HOSPITAL COURSE: During hospital stay following issue addressed Sepsis Secondary to secondary to HAP Pleural fluid showed 6500 leukocytes, according to Light's criteria pleural fluid positive for exudate Chest tube was placed on 09/21/19 Patient received treatment with vancomycin IV, and cefepime IV Pleural culture positive for MSSA, Nafcillin IV started Patient has increased lower extremity edema. Lasix 40 mg twice a day Repeated CT on 09/22/20 showed left-sided pleural effusion considerably decreased with only small amount of residual pleural fluid and scattered gas. Diffuse atelectasis and parenchymal opacities involving the aerated left lung kumar X-ray showed Continued pleuroparenchymal changes to the left hemithorax essentially unchanged although increased lung volumes suggest improved aeration. TPA infusion was done on 09/23/[address] Daniel rasmussen and she recommended EDUARD because previous TTE was with poor quality X-ray shows 0n 09/25/20 Stable chest x-ray with stable left pleuroparenchymal changes. No new acute process appreciated. EDUARD was done on 09/26/20 and it was negative for valves vegetations CT on 09/26/20 showed Left superior pigtail drainage catheter and inferior chest tube. No significant pleural fluid. Chest tube was removed on 09/28/20 ANNABEL Resolved Tachycardia Improved Continue beta blockers Continue to monitor Doppler ultrasound negative for DVT Pt on CIWA protocol HAP Continue incentive spirometry PT/OT Lactic acidosis Continue to monitor ANNABEL Resolved Normocytic anemia Multifactorial. Patient has liver cirrhosis and anemia of chronic diseases B12 wnl folate decreased. folate supplementation L renal subcapsular hematoma evolving on CT 09/21/20 I discussed it with Dr. Sanchez, and she previously discussed with radiologist Dr Villareal, unlikely its infected hematoma. Hypertension Blood pressures under control Continue home cardioprotective medications Liver cirrhosis with portal HTN Most likely secondary to hepatic steatosis or ETOH abuse Follow-up with GI team in the outpatient settings Patient denied history of alcohol abuse, however AST/ALT 2:1 Type 2 diabetes Diabetes diet Insulin sliding scale Detemir 7 mg BID Constipation resolved DISCHARGE MEDICATIONS: Please see below. ALLERGIES: Please see below. PHYSICAL EXAMINATION ON DISCHARGE: VITAL SIGNS: Please see below. GENERAL APPEARANCE: Obese male HEENT: no scleral icterus, no JVD, EOMI CARDIOVASCULAR: S1S2 LUNGS: Chest place in place, mildly coarse lung sounds at the left lung base ABDOMEN: soft & not tender w palpitation MUSCULOSKELETAL: +3 edema bilaterally lower extremities INTEGUMENT: no generalized pallor NEUROLOGICAL: cranial nerve function from 2-12 intact intact, follows commands, speech not dysarthric LABORATORY DATA: Please see below. IMAGING: [facility] NAME: BUFFY MCCAIN DATE OF : 1970 BUSINESS NUMBER: [id number] AGE: 50 SEX: M REPORT #: [id number] ROOM: [facility] TECHNOLOGIST: CAREN DOCTOR: Xu Berrios M.D. Ordered for Date&Time: 09/21/20 0035 cc: [~ rep ct ivnm] Service Date&Time: This report is in Signed status. Interpretation performed by [facility]. Thank you for having your radiology procedures performed at [facility] RADIOLOGY REPORT Date&Time printed: [~ rep prt dt last] [~ rep prt tm last] Page 2 of 2 [place] [id number] RADIOLOGY REPORT This report is in Signed status. Interpretation performed by [facility]. Thank you for having your radiology procedures performed at [facility] RADIOLOGY REPORT Date&Time printed: [~ rep prt dt last] [~ rep prt tm last] Page 1 of 1 PROCEDURE INFORMATION: Exam: CT Chest Without Contrast; Diagnostic Exam date and time: 09/21/2020 12:35 AM Age: 50 years old Clinical indication: Condition or disease; Other: Effusion; Additional info: Left pleural effusion TECHNIQUE: Imaging protocol: Diagnostic computed tomography of the chest without contrast. Radiation optimization: All CT scans at this facility use at least one of these dose optimization techniques: automated exposure control; mA and/or kV adjustment per patient size (includes targeted exams where dose is matched to clinical indication); or iterative reconstruction. COMPARISON: CR Chest, 1 view 09/21/2020 12:15 AM FINDINGS: Mildly degraded by motion. Lungs: Mild dependent atelectasis at the right base. Pleural space: Very large left pleural effusion with compressive atelectasis of nearly entire left lung. Mild residual aeration in anterior left frontal lobe. Heart: Mild atherosclerotic disease of the coronary arteries. Aorta: Mild atherosclerotic disease of the thoracic aorta. Lymph nodes: Unremarkable. No enlarged lymph nodes. Bones/joints: Degenerative changes in the bilateral shoulders. Severe multilevel degenerative disease of the thoracic spine. Soft tissues: Unremarkable. IMPRESSION: Mildly degraded by motion. Very large left pleural effusion with compressive atelectasis of nearly entire left lung. Mild residual aeration in anterior left frontal lobe. Electronically signed by: Katey Franklin On 09/21/2020 01:46:27 AM DD: KATEY FRANKLIN MD 09/21/20 0035 DT: ALBIN 09/21/20 0146 DS: TOYA 09/21/20 0146 [~ rep ct labl] PROGNOSIS: Fair ACTIVITY: [As tolerated]. DIET: Cardiac DISCHARGE INSTRUCTIONS: Follow-up with PCP in 3-5 days, follow-up with ID in 1 week, follow-up with reliner in 2 weeks Stop drinking alcohol DISCHARGE CONDITION: [Stable]. TIME SPENT ON DISCHARGE: Greater than 40 minutes. Vital Signs/I&Os Vital Signs Date Time Temp Pulse Resp B/P (MAP) Pulse Ox O2 Delivery O2 Flow Rate FiO2 09/29/20 10:00 98.2 94 18 129/58 (81) 93 Room Air I&O- Last 24 Hours up to 6 AM 09/29/20 06:00 Intake Total 1100 ml Output Total 1650 ml Balance -550 ml Laboratory Data Labs 24H Laboratory Tests 2 09/28/20 12:20: Bedside Glucose (Misc Panel) 226H 09/28/20 17:12: Bedside Glucose (Misc Panel) 240H 09/28/20 20:40: Bedside Glucose (Misc Panel) 240H 09/29/20 05:45: Immature Granulocyte % (Auto) 1.2, Neutrophils (%) (Auto) 79.0H, Lymphocytes (%) (Auto) 10.4L, Monocytes (%) (Auto) 8.2H, Eosinophils (%) (Auto) 0.7, Basophils (%) (Auto) 0.5, Neutrophils # (Auto) 9.2H, Lymphocytes # (Auto) 1.2L, Monocytes # (Auto) 1.0H, Eosinophils # (Auto) 0.1, Basophils # (Auto) 0.1, Nucleated Red Blood Cells % (auto) 0.0, Anion Gap 4L, Glomerular Filtration Rate > 60.0, Calcium Level 7.8L, Magnesium Level 2.3, Total Bilirubin 2.3H, Aspartate Amino Transf (AST/SGOT) 21, Alanine Aminotransferase (ALT/SGPT) 12, Alkaline Phosphatase 95, Total Protein 6.3L, Albumin 1.3L, Albumin/Globulin Ratio 0.3 CBC/BMP Laboratory Tests 09/29/20 05:45 FSBS Laboratory Tests Test 09/28/20 12:20 09/28/20 17:12 09/28/20 20:40 Range/Units Bedside Glucose (Misc Panel) 226 240 240 70-105 MG/DL Microbiology Microbiology 09/24/20 Acid Fast Stain, Received Pending 09/24/20 Mycobacterial Culture, Received Pending 09/24/20 Fungal Smear, Received Pending 09/24/20 Fungal Culture, Received Pending 09/24/20 Gram Stain - Final, Complete 09/24/20 Anaerobic Culture - Final, Complete 09/24/20 Body Fluid Culture - Final, Complete 09/21/20 Blood Culture - Final, Complete NO GROWTH AFTER 5 DAYS 09/21/20 Acid Fast Stain, Received Pending 09/21/20 Mycobacterial Culture, Received Pending 09/21/20 Fungal Smear, Received Pending 09/21/20 Fungal Culture, Received Pending 09/21/20 Gram Stain - Final, Complete 09/21/20 Anaerobic Culture - Final, Complete 09/21/20 Body Fluid Culture - Final, Complete Staphylococcus Aureus 09/21/20 Gram Stain - Final, Complete 09/21/20 Sputum Culture - Final, Complete 09/20/20 Respiratory Virus Panel (PCR) (JASKARAN) - Final, Complete 09/20/20 Blood Culture - Final, Complete NO GROWTH AFTER 5 DAYS Discharge Medications Scheduled Dicloxacillin Sodium (Dicloxacillin Sodium) 250 Mg Capsule, 500 MG PO Q6H Docusate Sodium (Dok) 100 Mg Capsule, 100 MG PO BID Ferrous Gluconate (Ferrous Gluconate) 324 Mg Tablet, 324 MG PO DAILY, (Reported) Folic Acid (Folic Acid) 1 Mg Tablet, 1 MG PO DAILY Metformin HCl (Metformin HCl) 850 Mg Tablet, 850 MG PO BID, (Reported) Metoprolol Succinate (Metoprolol Succinate) 25 Mg Tab.er.24h, 25 MG PO DAILY, (Reported) Metoprolol Succinate (Metoprolol Succinate) 50 Mg Tab.er.24h, 50 MG PO DAILY Pantoprazole Sodium (Pantoprazole Sodium) 40 Mg Tablet.dr, 40 MG PO DAILY Potassium Chloride (Klor-Con M10) 10 Meq Tab.er.prt, 40 MEQ PO DAILY Spironolactone (Aldactone) 25 Mg Tablet, 25 MG PO QAM Terazosin HCl (Terazosin HCl) 5 Mg Capsule, 5 MG PO QHS, (Reported) Torsemide (Torsemide) 20 Mg Tablet, 20 MG PO DAILY Zinc (Zinc) 50 Mg Tablet, 50 MG PO DAILY, (Reported) Scheduled PRN Acetaminophen (Acetaminophen) 325 Mg Tablet, 650 MG PO Q6HP PRN for T > 101.5 or REA Bisacodyl (Bisacodyl) 10 Mg Supp.rect, 10 MG ID Q4HP PRN for CONSTIPATION Allergies Coded Allergies: No Known Allergies (Verified Allergy, Unknown, 09/21/20) ANNIE LAGUERRE DO Sep 29, 2020 11:57
[2020-09-29] MEDS ORDERED: DICLOXACILLIN 250 MG CAP PO SCH (12:00)
[2020-09-29] MEDS ORDERED: SPIRONOLACTONE 25 MG TAB PO SCH (13:00)
--- NOTE | 2020-09-30 08:39 | IPN ---
PROGRESS NOTE DATE: 09/29/2020 SUBJECTIVE: Mr. Higuera is doing quite well today. His chest tubes were removed yesterday. He is breathing well. He still has difficulty coming to a sitting position in the bed and needing help to do so. He has been working with physical therapy. OBJECTIVE: VITAL SIGNS: Show a T-max of 98.9 with a heart rate that ranges between 85 and 95 in sinus rhythm. Respiratory rate that is a constant 18 who was 93% to 94% saturated on room air. His blood pressure is ranging between 110/56 to 129/59. INTAKE AND OUTPUT: Over the past 24 hours has been recorded as 1800 in and 1602 out for a positivity of 200 mL. His weight today is 126.9 kg compared to 127 kg yesterday. RESPIRATORY: He still has some inspiratory rales of the left lower base. Percussion notes are full to the diaphragm as far as I an tell through his obesity. There are no wheezes, rhonchi, or rubs. CARDIAC: Shows the same 2-3/6 systolic ejection murmur at the left upper sternal border. I cannot feel his PMI. S1 and S2 are normal. ABDOMEN: Soft and nontender. Bowel sounds are positive. There is no hepatomegaly. No CVA tenderness. EXTREMITIES: Show 3+ pretibial edema. No calf tenderness. No differential swelling of the upper extremities. SKIN: Warm, dry, and perfused without cyanosis or mottling, including that of the nail beds and knees. NECK: Supple. There is no jugular venous distention. No subcutaneous emphysema. Trachea is midline. MOUTH: Shows the mucous membranes to be pink and moist. Lips and gums without lesions and no thrush. EYES: Show his pupils equal and reactive. Extraocular movements are intact. Sclerae nonicteric. NEUROLOGIC: Shows II through XII intact. Normal gross motor, gross sensation intact. Gait is not tested. PSYCHIATRIC: Shows him to be awake, alert, and oriented x3 with appropriate mood and affect and conversational. LABORATORY DATA: His white count today is 11.6 down from 12.8 yesterday. Hemoglobin and hematocrit are at 8.1 and 28.5, essentially unchanged from yesterday with a platelet count of 131,000 and stable. Differential shows 79% neutrophils, 10% lymphocytes, and 8% monocytes. There are no immature forms and no toxic granulations. His electrolytes show a sodium of 129 with a potassium of 3.4. BUN and creatinine are 20 and 1.33 up again probably secondary to diuresis. Glucose is 183 with a calcium of 7.8 and an albumin of 1.3. AST and ALT are normal; however, his total bilirubin is 2.3. IMAGING: Chest x-ray today shows his lungs fully expand to the chest wall. Costophrenic angle is sharp. He still has various infiltrates throughout the left lung, particularly in the upper lobe. There is just an ever so mild blunting of the left costophrenic angle. Chest tubes are out. IMPRESSION: 1. Left-sided pneumonia probably left upper lobe. 2. Parapneumonic effusion and empyema left side, resolved. 3. Airspace loculations left upper cupula, resolved. 4. Renal insufficiency recurring probably secondary to diuresis. 5. Subcapsular renal hematoma with compression of the calyx. 6. Hyponatremia. 7. Hypokalemia probably secondary to diuresis. 8. Hyperbilirubinemia. PLAN AND DISCUSSION: As far as his empyema is concerned, it looks to be resolved. He right now is on p.o. dicloxacillin. I will therefore withdraw from the case. From my perspective he can be discharged; however, he still has his renal insufficiency along with the hyperbilirubinemia. His liver functions are normal. I do not yet see the report of his echocardiogram. I will therefore withdraw from the case. The patient should return to see me about 10 days after discharge for post hospitalization follow-up.
--- NOTE | 2020-09-30 15:03 | T-ECHO ---
TRANSESOPHAGEAL ECHOCARDIOGRAM DATE OF PROCEDURE: 09/26/2020 Age: 50 Gender: Male Height: Weight: REFERRING PHYSICIAN: Eliceo Baldwin DO INDICATION: A 50-year-old man with suspected endocarditis, he has Staphylococcal pneumonia and transesophageal echocardiogram was requested by Dr. Sanchez and Dr. Baldwin to rule out endocarditis. Transthoracic study was of insufficient quality. I spoke with the patient the morning of the procedure and then again before the procedure. I explained its nature, indications, potential complications, and expected outcomes. He signed appropriate consent. Initially he signed it in the morning, but then just before the procedure somehow the form got lost from the patient's chart and consequently, I had him sign the form again. PROCEDURE NOTE: The procedure was performed in the operating room. The patient presented in fasting condition. After all appropriate monitors were applied and the appropriate time-out was taken, the patient's posterior pharynx was anesthetized using viscous Lidocaine and Cetacaine spray. The procedure was performed in the sitting position because the patient has a left-sided chest tube, which would make positioning on his left side challenging. After appropriate level of sedation was accomplished, the probe was introduced into the esophagus without difficulty. After appropriate images were obtained, it was withdrawal. I did not enter the patient's stomach because the patient has known esophageal varices, and I did not believe that obtaining transgastric images was worth the risk. The patient tolerated the procedure well and there were no immediate complications. FINDINGS: Left ventricle appears to have normal contractility, I estimate EF around 60% to 65%. Right ventricle also has normal systolic function. Both atria appear normal. The aortic, mitral, tricuspid, and pulmonic valves were all well seen. They all appear structurally normal and there are no apparent vegetation. Trace mitral and trace tricuspid insufficiency is noted. Left atrial appendage is free of thrombus. There is normal flow in both left and right-sided pulmonic veins. Atrial septum is intact based on two-dimensional and color Doppler imaging. Visualized segments of the thoracic aorta appear normal. CONCLUSIONS: 1. Essentially normal transesophageal echocardiogram. 2. No evidence for vegetations. 3. Results of the study were communicated to Dr. Baldwin and Dr. Sanchez. [facility]
[2021-09-28] MEDS ORDERED: SPIRONOLACTONE 25 MG TAB PO SCH (13:00)
== END 2020-09-29 13:19 | disposition home health service (06) | DRG 871 ==
LOC: M ED 23:35 → M ED INP 09-21 01:11 → M PCU 09-21 01:53
PROVIDERS: ADMIT Family Medicine; ATTEND Internal Medicine
PROC: 0W9B00Z Drainage of Left Pleural Cavity with Drainage Device, Open Approach (ICD-10-PCS; principal; 2020-09-21)
PROC: 3E0L3GC Introduction of Other Therapeutic Substance into Pleural Cavity, Percutaneous Approach (ICD-10-PCS; 2020-09-22)
PROC: 3E0L3GC Introduction of Other Therapeutic Substance into Pleural Cavity, Percutaneous Approach (ICD-10-PCS; 2020-09-25)
PROC: B246ZZ4 Ultrasonography of Right and Left Heart, Transesophageal (ICD-10-PCS; 2020-09-26)
DX: A41.9 Sepsis, unspecified organism (principal); J18.9 Pneumonia, unspecified organism; J86.9 Pyothorax without fistula; J90 Pleural effusion, not elsewhere classified; J98.11 Atelectasis; K76.6 Portal hypertension; E87.2 Acidosis; N17.9 Acute kidney failure, unspecified; R65.20 Severe sepsis without septic shock; B95.61 Methicillin susceptible Staphylococcus aureus infection as the cause of diseases classified elsewhere; K59.00 Constipation, unspecified; K76.89 Other specified diseases of liver; I12.9 Hypertensive chronic kidney disease with stage 1 through stage 4 chronic kidney disease, or unspecified chronic kidney disease; E87.6 Hypokalemia; E11.22 Type 2 diabetes mellitus with diabetic chronic kidney disease; N18.30 Chronic kidney disease, stage 3 unspecified; E66.9 Obesity, unspecified; K75.81 Nonalcoholic steatohepatitis (NASH); D63.8 Anemia in other chronic diseases classified elsewhere; K70.30 Alcoholic cirrhosis of liver without ascites; Z79.84 Long term (current) use of oral hypoglycemic drugs; Z79.899 Other long term (current) drug therapy; Y95 Nosocomial condition; Z11.52 Encounter for screening for COVID-19; Z68.37 Body mass index [BMI] 37.0-37.9, adult

== ENCOUNTER → 2020-11-05 | Outpatient (CLI) | payer MEDICARE, MEDICAID ==
[~2020-11-05] MED LIST changes: +ACET1TAB55 PO; +ALDA25TA2 PO; +ALDA50TA2 PO; +BISA10SU PR; +DICL25CA PO; +DOK1CAP7 PO; +FOLI1TAB11 PO; +FURO20TA2 PO; +KLOR10TA76 PO; +LACT20EL PO; +METF500T13 PO; +METO1TAB32 PO; +METO1TAB7 PO; +PANT40TA29 PO; +POTA10CA32 PO; +POTA1TAB14 PO; +SPIR-10 PO; +THIA100TA PO; +TORS20TA2 PO; +XIFA550T PO
--- NOTE | 2020-11-05 15:40 | REPPI ---
INDICATION: PNEUMONIA,PLEURAL EFFUSION. COMPARISON: Comparison chest CT study 27 September 2020. Comparison chest x-ray 29 September 2020. TECHNIQUE: Two views.. FINDINGS: There is linear platelike atelectasis in the left perihilar region and left base. The pleural angles are sharp bilaterally. Aeration is improved in the left lung but there is still some overall volume loss. Right lung remains clear. No acute bony abnormality is seen. Heart is not enlarged. Mediastinal contours unchanged. IMPRESSION: Improving aeration left lung. Some residual pleural thickening. Left-sided platelike atelectasis.. <Electronically signed by Matt Villareal > 11/05/20 [id number]
[2020-11-05 16:00] LABS: HEMATOCRIT 30.8 % (42.0-52.0); HEMOGLOBIN 9.6 g/dl (13.5-17.5); MEAN CORPUSCULAR HEMOGLOBIN 30.3 pg (27.0-33.0); MEAN CORPUSCULAR HGB CONC 31.2 g/dl (32.0-36.5); MEAN CORPUSCULAR VOLUME 97.2 fl (80.0-96.0); PLATELET COUNT, AUTOMATED 176 10^3/uL (150-450); RED BLOOD COUNT 3.17 10^6/uL (4.30-6.10); WHITE BLOOD COUNT 12.4 10^3/uL (4.0-10.0)
[2020-11-05 16:01] LABS: BASO % 0.2 % (0.0-1.0); EOS # 0.1 10^3/uL (0.0-0.5); EOS % 0.5 % (0.0-3.0); HEMATOCRIT 30.2 % (42.0-52.0); HEMOGLOBIN 9.3 g/dl (13.5-17.5); LYMPH # 0.9 10^3/uL (1.5-5.0); LYMPH % 7.2 % (24.0-44.0); MEAN CORPUSCULAR HEMOGLOBIN 30.1 pg (27.0-33.0); MEAN CORPUSCULAR HGB CONC 30.8 g/dl (32.0-36.5); MEAN CORPUSCULAR VOLUME 97.7 fl (80.0-96.0); NEUTROPHILS # 10.1 10^3/uL (1.5-8.5); NEUTROPHILS % 83.5 % (36.0-66.0); PLATELET COUNT, AUTOMATED 160 10^3/uL (150-450); RED BLOOD COUNT 3.09 10^6/uL (4.30-6.10); WHITE BLOOD COUNT 12.1 10^3/uL (4.0-10.0)
[2020-11-05 16:26] LABS: ALBUMIN 1.7 GM/DL (3.2-5.2); BILIRUBIN,TOTAL 1.1 MG/DL (0.2-1.0); C REACTIVE PROTEIN QUANTITATIV 12.6 MG/DL (0.00-0.30); CALCIUM LEVEL 8.4 MG/DL (8.5-10.1); CREATININE FOR GFR 1.43 MG/DL (0.70-1.30); GLOMERULAR FILTRATION RATE 55.5 (>56); POTASSIUM SERUM 3.5 MEQ/L (3.5-5.1); TOTAL PROTEIN 8.1 GM/DL (6.4-8.2)
[2020-11-05 16:28] LABS: ALBUMIN 1.7 GM/DL (3.2-5.2); BILIRUBIN,TOTAL 1.1 MG/DL (0.2-1.0); CALCIUM LEVEL 8.4 MG/DL (8.5-10.1); CREATININE FOR GFR 1.43 MG/DL (0.70-1.30); GLOMERULAR FILTRATION RATE 55.5 (>56); POTASSIUM SERUM 3.4 MEQ/L (3.5-5.1); TOTAL PROTEIN 8.1 GM/DL (6.4-8.2)
[2020-11-05 16:36] LABS: ERYTHROCYTE SEDIMENTATION RATE 89 mm/hr (0-20)
== END ==
LOC: M PLAIMG 12:14
PROVIDERS: ATTEND Thoracic Surgery (Cardiothoracic Vascular Surgery)
DX: J98.11 Atelectasis (principal); J18.9 Pneumonia, unspecified organism; J86.9 Pyothorax without fistula; J90 Pleural effusion, not elsewhere classified; A41.9 Sepsis, unspecified organism; K74.60 Unspecified cirrhosis of liver
CPT/HCPCS: 36415; 71046; 80053; 85025; 85027; 85652; 86140; G0463

== ENCOUNTER 2020-11-14 23:16 | Inpatient (IN) | payer MEDICARE, MEDICAID ==
[~2020-11-14] VITALS: Ht 182.9 cm; Wt 117.9 kg
[~2020-11-14 23:16] MED LIST changes: -ALDA50TA2 PO; -LACT20EL PO; -METF500T13 PO; -POTA1TAB14 PO; -SPIR-10 PO; -THIA100TA PO; -XIFA550T PO
[2020-11-15] VITALS (11 sets, daily range): BP systolic 104–128; BP diastolic 48–74
[2020-11-15 00:25] LABS: BASO % 0.2 % (0.0-1.0); EOS % 0.1 % (0.0-3.0); HEMATOCRIT 28.8 % (42.0-52.0); HEMOGLOBIN 9.1 g/dl (13.5-17.5); LYMPH # 0.5 10^3/uL (1.5-5.0); LYMPH % 3.2 % (24.0-44.0); MEAN CORPUSCULAR HEMOGLOBIN 30.1 pg (27.0-33.0); MEAN CORPUSCULAR HGB CONC 31.6 g/dl (32.0-36.5); MEAN CORPUSCULAR VOLUME 95.4 fl (80.0-96.0); MONO # 0.8 10^3/uL (0.0-0.8); NEUTROPHILS # 14.2 10^3/uL (1.5-8.5); NEUTROPHILS % 90.5 % (36.0-66.0); PLATELET COUNT, AUTOMATED 121 10^3/uL (150-450); RED BLOOD COUNT 3.02 10^6/uL (4.30-6.10); WHITE BLOOD COUNT 15.7 10^3/uL (4.0-10.0)
[2020-11-15 00:31] LABS: INR 1.44; PROTHROMBIN TIME 17.9 SECONDS (12.5-14.3)
[2020-11-15 00:41] LABS: ALBUMIN 1.4 GM/DL (3.2-5.2); BILIRUBIN,DIRECT 0.8 MG/DL (0.0-0.2); BILIRUBIN,TOTAL 1.4 MG/DL (0.2-1.0); CALCIUM LEVEL 7.9 MG/DL (8.5-10.1); CREATININE FOR GFR 1.62 MG/DL (0.70-1.30); GLOMERULAR FILTRATION RATE 48.1 (>56); POTASSIUM SERUM 3.7 MEQ/L (3.5-5.1); TOTAL PROTEIN 7.5 GM/DL (6.4-8.2)
[2020-11-15] MEDS ORDERED: LACTULOSE 20 GM/30 ML SYRUP UD PO ONE (01:20)
--- NOTE | 2020-11-15 01:43 | REPVR ---
PROCEDURE INFORMATION: Exam: XR Chest Exam date and time: 11/15/2020 1:05 AM Age: 50 years old Clinical indication: Other: Fatigue TECHNIQUE: Imaging protocol: XR of the chest Views: 1 view. COMPARISON: CR CHEST 2 VIEWS 11/05/2020 12:38 PM FINDINGS: Lungs: There is decreased inflation of the lungs. No focal infiltrates. There is linear atelectasis or scar in the left lung which is similar. Pleural spaces: Unremarkable. No pleural effusion. No pneumothorax. Heart/Mediastinum: The heart and mediastinum are unchanged. Bones/joints: Unremarkable. Soft tissues: There are generous overlying soft tissues. IMPRESSION: Essentially negative poor inspiratory chest with little change from 11/05/2020 Electronically signed by: Amanuel Olmedo On 11/15/2020 01:43:33 AM
--- NOTE | 2020-11-15 01:53 | REPVR ---
PROCEDURE INFORMATION: Exam: CT Lumbar Spine Without Contrast Exam date and time: 11/15/2020 1:10 AM Age: 50 years old Clinical indication: Pain; Other: Radicular left; Additional info: Left radicular pain R/O spinal stenosis TECHNIQUE: Imaging protocol: Computed tomography images of the lumbar spine without contrast. Radiation optimization: All CT scans at this facility use at least one of these dose optimization techniques: automated exposure control; mA and/or kV adjustment per patient size (includes targeted exams where dose is matched to clinical indication); or iterative reconstruction. COMPARISON: No relevant prior studies available. FINDINGS: Vertebrae: No fracture or compression is seen. L1-L2: There is calcified hypertrophy of the posterior longitudinal ligament with encroachment on the central canal. No significant disc bulge or protrusion. There is mild facet arthropathy with borderline spinal stenosis. The neural foramina within normal limits. L2-L3: Minimal posterior protrusion of the disc with loss of posterior concavity. There is mild facet arthropathy with low normal size of the spinal canal. The neural foramina within normal limits. L3-L4: The disc is within normal limits with mild facet arthropathy. No significant spinal or foraminal stenosis. L4-L5: Bilateral spondylolysis of L4 without significant listhesis. There is moderate interspace narrowing with minimal diffuse bulge of the disc and mild facet arthropathy. The spinal canal and neural foramen are of adequate size. L5-S1: Bilateral spondylolysis of L5 with mild anterolisthesis. There is mild interspace narrowing with vacuum phenomena and minimal right and mild left facet arthropathy. There is no spinal stenosis. There is mild left and moderate right neural foraminal stenosis. Intraperitoneal space: Peritoneal ascites with a Hounsfield measurement of 9. Lymph nodes: Numerous aortocaval and periaortic nodes which are upper normal overall. Retroperitoneal space: There is left retroperitoneal hemorrhage which is primarily in the posterior pararenal space also within Gerota's fascia and posterior subcapsular left renal hemorrhage. There is displacement of the left kidney anteriorly and some hemorrhagic infiltration is noted around the left psoas muscle. IMPRESSION: 1. Left retroperitoneal hemorrhage which includes a left renal subcapsular hematoma posteriorly with some extension into Gerota's fascia and hematoma in the posterior left pararenal space. There is hemorrhagic infiltration within the anterior pararenal space as well with extension along the ileopsoas. 2. Large peritoneal ascites. 3. Bilateral spondylolysis of L4 and L5 with no listhesis at L4-L5 and mild anterolisthesis at L5-S1. 4. Multilevel degenerative changes with calcified hypertrophy of the posterior longitudinal ligament at L1-L2 with borderline spinal stenosis. There is mild left and moderate right neural foraminal stenosis at L5-S1. Otherwise, no significant spinal or foraminal stenosis. Electronically signed by: Amanuel Olmedo On 11/15/2020 01:54:17 AM
[2020-11-15] MEDS ORDERED: METO1TAB7 PO (02:06)
[2020-11-15] MEDS ORDERED: PANT40TA29 PO (02:06)
[2020-11-15] MEDS ORDERED: TORS20TA2 PO (02:06)
[2020-11-15] MEDS ORDERED: FOLI1TAB11 PO (02:06)
[2020-11-15] MEDS ORDERED: POTA1TAB14 PO (02:06)
[2020-11-15] MEDS ORDERED: SPIR-10 PO (02:06)
--- NOTE | 2020-11-15 02:06 | REPVR ---
PROCEDURE INFORMATION: Exam: CT Abdomen And Pelvis Without Contrast Exam date and time: 11/15/2020 1:10 AM Age: 50 years old Clinical indication: Other: Ascites; Patient HX: Renal failure TECHNIQUE: Imaging protocol: Computed tomography of the abdomen and pelvis without contrast. Radiation optimization: All CT scans at this facility use at least one of these dose optimization techniques: automated exposure control; mA and/or kV adjustment per patient size (includes targeted exams where dose is matched to clinical indication); or iterative reconstruction. COMPARISON: CT ABD PELVIS W/O CONTRAST 09/21/2020 1:03 AM FINDINGS: Lungs: Minimal bibasilar fibro-atelectatic change, greatest in the left lower lobe. Pleural spaces: Minimal left pleural effusion, decreased since the prior study. Liver: Relatively small liver with nodular surface. Gallbladder and bile ducts: Normal. No calcified stones. No ductal dilation. Pancreas: Normal. No ductal dilation. Spleen: The spleen measures 13.1 cm. Adrenal glands: Normal. No mass. Kidneys and ureters: Left subcapsular renal hematoma posteriorly with secondary compression of the remaining left renal parenchyma. There is hemorrhagic infiltration into Gerota's fascia and into the posterior left pararenal space. There is hemorrhagic infiltration in the pelvic anterior pararenal space extending around the left ileopsoas muscle. The appearance is decreased since the prior study. Stomach and bowel: Unremarkable. No obstruction. No mucosal thickening. Appendix: A normal appendix is seen. Intraperitoneal space: Mild large volume peritoneal ascites with a Hounsfield measurement of 4 which is increased since the prior study. Vasculature: Unremarkable. No abdominal aortic aneurysm. Lymph nodes: There are numerous small retroperitoneal aortocaval and periaortic nodes which are upper normal and similar to the prior study. Urinary bladder: Unremarkable as visualized. Reproductive: Unremarkable as visualized. Bones/joints: Mild wedge configuration of T9 and T10 and to a lesser degree T11 which appear to be chronic. Prominent degenerative change of the left hip and moderate degenerative change of the right hip. Soft tissues: Subcutaneous edema about the abdomen and pelvis. IMPRESSION: 1. Decreased left pleural effusion since 09/21/2020 with minimal residual present. 2. Minimal bibasilar fibro-atelectatic change, greatest in the left lower lobe with decreased left lower lobe atelectasis since the prior study. 3. Hepatic cirrhosis with mild splenomegaly and mild large volume peritoneal ascites. The ascites is significantly increased since the prior study. 4. Left retroperitoneal hemorrhage which is primarily subcapsular involving the left kidney with hemorrhagic infiltration within Gerota's fascia and in the posterior pararenal space with some hemorrhagic infiltration into the retroperitoneal left pelvis. Overall, there is decreased since the prior study. 5. Upper normal retroperitoneal nodes around the cava and aorta which are similar to the prior study. Electronically signed by: Amanuel Olmedo On 11/15/2020 02:06:36 AM
[2020-11-15] MEDS ORDERED: GLUCOSE 4GM CHEW TABLET PO PRN (02:40)
[2020-11-15] MEDS ORDERED: DEXTROSE 50% 50 ML SYRINGE IV PRN (02:40)
[2020-11-15] MEDS ORDERED: GLUCAGON INJ 1MG VIAL SC PRN (02:40)
--- NOTE | 2020-11-15 03:38 | HPEPDOC ---
[facility] Medical History & Physical Date of Admission Nov 15, 2020 Date of Service: Nov 15, 2020 History and Physical CHIEF COMPLAINT: "My legs are all swollen. I had a hard time walking." HISTORY OF PRESENT ILLNESS: 50-year-old male full code with past medical history significant for CK D stage III, hypertension, diabetes, alcoholic liver cirrhosis with portal hypertension, ascites, recently admitted to the hospital in September 2020 when he was treated for left-sided empyema status post chest tube placement and TPA, MSSA bacteremia secondary to healthcare associated pneumonia, with a left renal subcapsular hematoma present to emergency room today with complaints of inability to walk for the past 3 days, increasing lower extremity edema, abdominal girth and weight gain of about 10 pounds. Patient admits to noncompliance with salt and water restriction and has noted increasing lower extremity edema, exertional dyspnea after walking 20-30 feet, and difficulty ambulating for the past 3 days at home. His girlfriend helped him go down the stairs and he was able to walk to his car today, but returning back into the house. He was unable to walk unassisted and couldn't lift his left leg despite his girlfriend and her brother helping him, prompting them to call EMS. Patient denies any abdominal pain, fever or chills and has had no prior history of spontaneous bacterial peritonitis. Patient denies any back pain, history of spinal stenosis. Urinary or bowel changes or recent traumatic injury to his trish k. Patient denies nausea, vomiting, diarrhea, abdominal pain, dysphagia and aphasia, right red blood per rectum, melena, black tarry stools, shortness of breath, chest pain, pressure, tightness, lightheadedness or dizziness, orthopnea, paroxysmal nocturnal dyspnea, confusion, changes in vision, sore throat, dysuria, urgency, frequency, flank pain, paresthesias, headaches, changes in vision, changes in appetite, changes in sleep, anxiety, depression, polyuria, polydipsia, polyphasia. In the emergency room patient was found to be in decompensated alcoholic liver cirrhosis with large amount of ascites found to clinically with positive fluid wave and 3+ pitting edema to the sacrum. Hospitals was called to admit the patient for anasarca secondary to decompensated alcoholic liver cirrhosis. PAST MEDICAL HISTORY: Alcoholic liver cirrhosis with portal hypertension and ascites, left-sided empyema status post chest tube placement and TPA, MSSA bacteremia secondary to healthcare associated pneumonia, hypertension, type 2 diabetes, iron deficiency anemia, chronic kidney disease stage III, benign prostatic Or atrophy, osteoarthritis, obesity, BMI 31, left renal subcapsular hematoma, hypokalemia, hyponatremia. PAST SURGICAL HISTORY: Chest tube for left-sided empyema September 2020, Status post TPA and pigtail catheter placement. SOCIAL HISTORY: , Alcohol abuse, last drink September 2020, previously drank 12 packs of beer daily. Denies recreational drug use. Lives with his girlfriend, Dunia [phone] healthcare proxy has a 19-year-old daughter. Patient never worked in his life, and has been on disability because "I was slow." FAMILY HISTORY: Father: with cancer, unknown type Mother: with CVA ALLERGIES: Please see below. REVIEW OF SYSTEMS: 10 point system negative aside from positive findings in HPI HOME MEDICATIONS: Please see below. PHYSICAL EXAMINATION: VITAL SIGNS: see below General: Obese, Slightly jaundiced, no conversational dyspnea. Some pallor wit hout cyanosis HEENT: No JVD. Moist mucous membranes. No thyromegaly or cervical lymphadenopathy CARDIOVASCULAR: S1, S2, sinus rhythm, no murmurs, rubs or gallops LUNGS: Diminished bilaterally at the bases. No wheezing, rales or rhonchi ABDOMEN: Distended, obese, positive fluid wave, positive bowel sounds 4 quadrants. No rebound, guarding EXTREMITIES: 3+ pitting edema to the sacrum LABORATORY DATA: See below. IMAGING: Exam: CT Abdomen And Pelvis Without Contrast Exam date and time: 11/15/2020 1:10 AM Age: 50 years old Clinical indication: Other: Ascites; Patient HX: Renal failure TECHNIQUE: Imaging protocol: Computed tomography of the abdomen and pelvis without contrast. Radiation optimization: All CT scans at this facility use at least one of these dose optimization techniques: automated exposure control; mA and/or kV adjustment per patient size (includes targeted exams where dose is matched to clinical indication); or iterative reconstruction. COMPARISON: CT ABD PELVIS W/O CONTRAST 09/21/2020 1:03 AM FINDINGS: Lungs: Minimal bibasilar fibro-atelectatic change, greatest in the left lower lobe. Pleural spaces: Minimal left pleural effusion, decreased since the prior study. Liver: Relatively small liver with nodular surface. Gallbladder and bile ducts: Normal. No calcified stones. No ductal dilation. Pancreas: Normal. No ductal dilation. Spleen: The spleen measures 13.1 cm. Adrenal glands: Normal. No mass. Kidneys and ureters: Left subcapsular renal hematoma posteriorly with secondary compression of the remaining left renal parenchyma. There is hemorrhagic infiltration into Gerota's fascia and into the posterior left pararenal space. There is hemorrhagic infiltration in the pelvic anterior pararenal space extending around the left ileopsoas muscle. The appearance is decreased since the prior study. Stomach and bowel: Unremarkable. No obstruction. No mucosal thickening. Appendix: A normal appendix is seen. Intraperitoneal space: Mild large volume peritoneal ascites with a Hounsfield measurement of 4 which is increased since the prior study. Vasculature: Unremarkable. No abdominal aortic aneurysm. Lymph nodes: There are numerous small retroperitoneal aortocaval and periaortic nodes which are upper normal and similar to the prior study. Urinary bladder: Unremarkable as visualized. Reproductive: Unremarkable as visualized. Bones/joints: Mild wedge configuration of T9 and T10 and to a lesser degree T11 which appear to be chronic. Prominent degenerative change of the left hip and moderate degenerative change of the right hip. Soft tissues: Subcutaneous edema about the abdomen and pelvis. IMPRESSION: 1. Decreased left pleural effusion since 09/21/2020 with minimal residual present. 2. Minimal bibasilar fibro-atelectatic change, greatest in the left lower lobe with decreased left lower lobe atelectasis since the prior study. 3. Hepatic cirrhosis with mild splenomegaly and mild large volume peritoneal ascites. The ascites is significantly increased since the prior study. 4. Left retroperitoneal hemorrhage which is primarily subcapsular involving the left kidney with hemorrhagic infiltration within Gerota's fascia and in the posterior pararenal space with some hemorrhagic infiltration into the retroperitoneal left pelvis. Overall, there is decreased since the prior study. 5. Upper normal retroperitoneal nodes around the cava and aorta which are similar to the prior study. Electronically signed by: Amanuel Olmedo On 11/15/2020 02:06:36 AM MICROBIOLOGY: Please see below. ASSESSMENT/PLAN: 50-year-old male full code with past medical history significant for CK D stage III, hypertension, diabetes, alcoholic liver cirrhosis with portal hypertension, ascites, recently admitted to the hospital in September 2020 when he was treated for left-sided empyema status post chest tube placement and TPA, MSSA bacteremia secondary to healthcare associated pneumonia, with a left renal subcapsular hematoma present to emergency room today with complaints of inab ility to walk for the past 3 days, increasing lower extremity edema, abdominal girth and weight gain of about 10 pounds. Patient admits to noncompliance with salt and water restriction and has noted increasing lower extremity edema and difficulty ambulating for the past 3 days at home. His girlfriend helped him go down the stairs and he was able to walk to his car today, but returning back into the house. He was unable to walk unassisted and couldn't lift his left leg despite his girlfriend and her brother helping him, prompting them to call EMS. Patient denies any abdominal pain, fever or chills and has had no prior history of spontaneous bacterial peritonitis. Patient denies any back pain, history of spinal stenosis. Urinary or bowel changes or recent traumatic injury to his back. Patient denies nausea, vomiting, diarrhea, abdominal pain, dysphagia and aphasia, right red blood per rectum, melena, black tarry stools, shortness of breath, chest pain, pressure, tightness, lightheadedness or dizziness, sore throat, dysuria, urgency, frequency, flank pain, paresthesias, headaches, zayas es in vision, changes in appetite, changes in sleep, anxiety, depression, polyuria, polydipsia, polyphasia. In the emergency room patient was found to be in decompensated alcoholic liver cirrhosis with large amount of ascites found to clinically with positive fluid wave and 3+ pitting edema to the sacrum. Hospitals was called to admit the patient for anasarca secondary to decompensated alcoholic liver cirrhosis. Acute decompensated alcoholic liver cirrhosis with portal hypertension and ascites -Meld score 22 Maddrey's discriminant function 26 -Admitted to medical surgical floor, started on Lasix 40 mg IV every 4 hourly to obtain at negative balance with serial monitoring of potassium, magnesium, ionized calcium to be repleted if needed. Patient will need 25% albumin transfusions if he becomes hypotensive, ultrasound-guided paracentesis for large volume fluid removal until patient is euvolemic. -2 L fluid restriction, strict I's and O's, daily weights, 2 g sodium diet -Due to leukocytosis, elevated ammonia level. Patient will be empirically started on Xifaxan and PPI.Await peritoneal fluid analysis fluid. Acute hepatic encephalopathy with elevated ammonia level due to decompensated alcoholic liver cirrhosis -Given lactulose. Monitor for worsening mental status, confusion Left subcapsular renal hematoma -Smaller as compared to previous imaging. Acute on Chronic kidney disease stage III -Due to decreased circulating blood volume from anasarca due to decompensated liver cirrhosis. -Since the patient needs Lasix for diuresis, avoid hypotension by giving albumin transfusion and holding blood pressure medications Hypoalbuminemia -Secondary to decompensated liver cirrhosis, will need albumin transfusion after paracentesis and during diuresis Hyponatremia -Due to liver cirrhosis History of alcohol abuse -Last drink was September 2020. Anemia -No acute indication for RBC transfusion. May resume iron supplements Thrombocytopenia secondary to liver cirrhosis -After paracentesis, atient may be placed on renally dosed Lovenox for DVT prophylaxis, but we'll need to monitor daily platelet count and signs of bleeding Type 2 diabetes -Consistent carbohydrate diet, insulin sliding scale with coverage and hypoglycemic protocol Hypertension -Holding blood pressure medications while patient is being diuresed to prevent hypotension and further hypoperfusion and decreased circulating volume to the kidneys BPH -Resume home meds Obesity -Complicating care. PCP to refer for outpatient sleep study Bilateral lower extremity weakness secondary to edema -Rule out DVT. Check venous Dopplers bilateral lower extremities CODE STATUS full code Diet 2 g sodium consistent carbohydrate renal diet DVT prophylaxis: May start on renally dosed Lovenox after paracentesis. Monitor patient's platelet count after Lovenox is started Vital Signs Vital Signs Date Time Temp Pulse Resp B/P (MAP) Pulse Ox O2 Delivery O2 Flow Rate FiO2 11/15/20 01:59 96 96 11/15/20 01:46 153/69 (97) 11/15/20 00:39 Room Air 97 11/14/20 23:32 99.8 26 Laboratory Data Labs 24H Laboratory Tests 2 11/15/20 00:01: Immature Granulocyte % (Auto) 1.0, Neutrophils (%) (Auto) 90.5H, Lymphocytes (%) (Auto) 3.2L, Monocytes (%) (Auto) 5.0, Eosinophils (%) (Auto) 0.1, Basophils (%) (Auto) 0.2, Neutrophils # (Auto) 14.2H, Lymphocytes # (Auto) 0.5L, Monocytes # (Auto) 0.8, Eosinophils # (Auto) 0.0, Basophils # (Auto) 0.0, Nucleated Red Blood Cells % (auto) 0.0, Prothrombin Time 17.9H, Prothromb Time International Ratio 1.44, Anion Gap 14, Glomerular Filtration Rate 48.1L, Calcium Level 7.9L, Total Bilirubin 1.4H, Direct Bilirubin 0.8H, Aspartate Amino Transf (AST/SGOT) 13, Alanine Aminotransferase (ALT/SGPT) 8L, Alkaline Phosphatase 101, Ammonia 92H, Total Protein 7.5, Albumin 1.4L, Albumin/Globulin Ratio 0.2 CBC/BMP Laboratory Tests 11/15/20 00:01 Microbiology Microbiology 11/15/20 Respiratory Virus Panel (PCR) ([facility]), Received Pending Home Medications Scheduled Ferrous Gluconate (Ferrous Gluconate) 324 Mg Tablet, 324 MG PO DAILY Folic Acid (Folic Acid) 1 Mg Tablet, 1 MG PO DAILY Metformin HCl (Metformin HCl) 850 Mg Tablet, 850 MG PO TID Metoprolol Succinate (Metoprolol Succinate) 50 Mg Tab.er.24h, 50 MG PO DAILY Pantoprazole Sodium (Pantoprazole Sodium) 40 Mg Tablet.dr, 40 MG PO DAILY Potassium Chloride (Potassium Chloride) 20 Meq Tablet.er, 20 MEQ PO DAILY Spironolactone (Spironolactone) 25 Mg Tablet, 25 MG PO DAILY Terazosin HCl (Terazosin HCl) 5 Mg Capsule, 5 MG PO QHS Torsemide (Torsemide) 20 Mg Tablet, 20 MG PO DAILY Zinc (Zinc) 50 Mg Tablet, 50 MG PO DAILY Allergies Coded Allergies: No Known Allergies (Verified Allergy, Unknown, 09/21/20) A-FIB/CHADSVASC A-FIB History Current/History of A-Fib/PAF?: No Current PO Anticoag Therapy: No Age/Risk Factor Scoring CHADSVASC: CHADSVASC Response (Comments) Value Age Risk Factor Age < 65 years old 0 Gender Risk Factor Male 0 Hx of CHF No 0 Hx of HTN Yes 1 Hx of Stroke/TIA/or VTE No 0 Hx of Diabetes Yes 1 Hx of Vascular Disease No 0 Total 2 Treatment Treatment ordered: NONE NÉSTOR SIFUENTES MD Nov 15, 2020 03:38
--- NOTE | 2020-11-15 03:54 | REPVR ---
PROCEDURE INFORMATION: Exam: US Duplex Lower Extremity Veins, Bilateral Exam date and time: 11/15/2020 3:48 AM Age: 50 years old Clinical indication: Swelling (edema) of limb; Lower extremity, bilateral; Additional info: Le edema R/O dvt TECHNIQUE: Imaging protocol: Real-time duplex ultrasound of the extremities with 2-D howell scale, color Doppler flow and spectral waveform analysis with image documentation. Complete exam focused on the bilateral lower extremity veins. COMPARISON: US Duplex, Ext LOWER veins, bilat 09/22/2020 11:25 AM FINDINGS: Right deep veins: Unremarkable. The common femoral, femoral, proximal profunda femoral and popliteal veins are patent without thrombus. Normal Doppler waveforms. Normal compressibility and/or augmentation response. Right superficial veins: Saphenofemoral junction is patent without thrombus. Left deep veins: Unremarkable. The common femoral, femoral, proximal profunda femoral and popliteal veins are patent without thrombus. Normal Doppler waveforms. Normal compressibility and/or augmentation response. Left superficial veins: Saphenofemoral junction is patent without thrombus. Soft tissues: There is some subcutaneous edema in the region of the knees bilaterally. IMPRESSION: 1. Negative bilateral lower extremity venous duplex exam without evidence of deep venous thrombosis. 2. Subcutaneous edema about the knees bilaterally. Electronically signed by: Amanuel Olmedo On 11/15/2020 03:54:50 AM
[2020-11-15] MEDS: FUROSEMIDE 40MG/4ML VIAL (J1940) IV SCH ×3 (06:29→14:14)
[2020-11-15 06:40] LABS: BASO % 0.1 % (0.0-1.0); EOS % 0.1 % (0.0-3.0); HEMATOCRIT 25.5 % (42.0-52.0); HEMOGLOBIN 8.2 g/dl (13.5-17.5); LYMPH # 1.1 10^3/uL (1.5-5.0); LYMPH % 8.1 % (24.0-44.0); MEAN CORPUSCULAR HEMOGLOBIN 30.4 pg (27.0-33.0); MEAN CORPUSCULAR HGB CONC 32.2 g/dl (32.0-36.5); MEAN CORPUSCULAR VOLUME 94.4 fl (80.0-96.0); MONO # 0.8 10^3/uL (0.0-0.8); MONO % 6.1 % (2.0-8.0); NEUTROPHILS # 11.4 10^3/uL (1.5-8.5); NEUTROPHILS % 85.2 % (36.0-66.0); PLATELET COUNT, AUTOMATED 101 10^3/uL (150-450); WHITE BLOOD COUNT 13.4 10^3/uL (4.0-10.0)
[2020-11-15 06:50] LABS: INR 1.45
[2020-11-15 07:11] LABS: ALBUMIN 1.4 GM/DL (3.2-5.2); BILIRUBIN,TOTAL 1.2 MG/DL (0.2-1.0); CALCIUM LEVEL 8.2 MG/DL (8.5-10.1); CREATININE FOR GFR 1.45 MG/DL (0.70-1.30); GLOMERULAR FILTRATION RATE 54.6 (>56); POTASSIUM SERUM 3.5 MEQ/L (3.5-5.1); TOTAL PROTEIN 7.2 GM/DL (6.4-8.2)
--- NOTE | 2020-11-15 08:22 | ECGEPIP ---
[facility] - ED Test Date: 2020-11-15 Pat Name: BUFFY MCCAIN Department: Room: [place] [address] Gender: Male General Assignment Reporter: mary : 1970 Requested By: Xu Joseph Order Number: [id number] Reading MD: Leonila Carlisle Measurements Intervals [place] Rate: 97 P: 31 NM: 130 QRS: 7 QRSD: 92 T: 23 QT: 404 QTc: 513 Interpretive Statements Normal sinus rhythm Cannot rule out Anterior infarct , age undetermined Prolonged QT decreased rate 09/22/20 Electronically Signed on 11-15-2020 8:22:17 EST by Leonila Carlisle
[2020-11-15] MEDS: POTASSIUM CHLORIDE 10 MEQ SR TABLET PO SCH (09:05)
[2020-11-15] MEDS: FERROUS GLUCONATE 324 MG TAB PO SCH (09:10)
[2020-11-15] MEDS: HumaLOG INSULIN (NovoLOG) PER UNIT SC SCH ×4 (09:10→21:00)
[2020-11-15] MEDS: rifAXIMin 550 MG TAB (XIFAXAN) PO SCH ×2 (09:10→20:37)
[2020-11-15] MEDS: FOLIC ACID 1 MG TAB PO SCH (09:11)
[2020-11-15] MEDS: SPIRONOLACTONE 25 MG TAB PO SCH (09:11)
[2020-11-15] MEDS: PANTOPRAZOLE 40MG TAB (PROTONIX) PO SCH (09:11)
[2020-11-15] MEDS: LACTULOSE 20 GM/30 ML SYRUP UD PO SCH ×2 (09:12→20:39)
[2020-11-15] MEDS ORDERED: LIDOCAINE 1% MDV 20ML VIAL As Ordered ONE (09:18)
[2020-11-15] MEDS ORDERED: SODIUM BICARBONATE 8.4% INJ 50MEQ 50 ML VIAL As Ordered ONE (09:18)
[2020-11-15 10:01] LABS: HEMOGLOBIN A1c 6.2 %
[2020-11-15 10:58] LABS: APPEARANCE, BODY FLUID HAZY (CLEAR); PERITONEAL FL COLOR YELLOW (COLORLESS); SOURCE, BODY FLUID PERITONEAL
[2020-11-15 11:07] LABS: SPEC. GRAVITY BODY FLUIDS 1.015 (NOT ESTABLISHED)
[2020-11-15 11:25] LABS: SOURCE, BODY FLUID ALBUMIN PERITONEAL; SOURCE, BODY FLUID GLUCOSE PERITONEAL; SOURCE, BODY FLUID TOT PROTEIN PERITONEAL; TOTAL PROTEIN, BODY FLUID 1.9 G/DL (NOT ESTABLISHED)
--- NOTE | 2020-11-15 17:04 | REP ---
INDICATION: ASCITES The patient has a history of ascites COMPARISON: None. TECHNIQUE: The procedure was performed by BORIS Fernandez, under the direct supervision of Dr. Looney The risks and benefits of the procedure were explained to the patient and an informed consent was obtained both verbally and written. Directly prior to the start of the procedure a formal time-out was completed in the procedure room. The largest pocket of fluid was localized in the right flank using ultrasound guidance. The skin was prepped and draped in a sterile fashion. Eleven ML of buffered lidocaine was used as a local anesthetic. An 8-Bulgarian multi side-hole catheter was inserted using trocar technique. FINDINGS: 8300 mL of yellow ascites was removed in total, 1300 mL was sent to the lab for further analysis, and the rest was discarded. The patient tolerated the procedure well and there were no immediate complications. After the appropriate amount of monitored convalescence, the patient was discharged from the department. IMPRESSION: Ultrasound-guided paracentesis with removal of 8300 mL of yellow ascites. <Electronically signed by Kathrine Dueñas > 11/15/20 1154 <Electronically signed by Andrey Looney > 11/15/20 1703
[2020-11-15] MEDS: TERAZOSIN 5MG CAPSULE PO SCH (20:39)
[2020-11-16 06:00] VITALS: BP 115/55
[2020-11-16 06:26] LABS: BASO % 0.3 % (0.0-1.0); EOS % 0.5 % (0.0-3.0); HEMATOCRIT 24.6 % (42.0-52.0); HEMOGLOBIN 7.8 g/dl (13.5-17.5); LYMPH % 12.2 % (24.0-44.0); MEAN CORPUSCULAR HEMOGLOBIN 29.5 pg (27.0-33.0); MEAN CORPUSCULAR HGB CONC 31.7 g/dl (32.0-36.5); MEAN CORPUSCULAR VOLUME 93.2 fl (80.0-96.0); MONO # 0.7 10^3/uL (0.0-0.8); MONO % 8.7 % (2.0-8.0); NEUTROPHILS # 6.2 10^3/uL (1.5-8.5); NEUTROPHILS % 77.8 % (36.0-66.0); RED BLOOD COUNT 2.64 10^6/uL (4.30-6.10); WHITE BLOOD COUNT 7.9 10^3/uL (4.0-10.0)
[2020-11-16 06:42] LABS: ALBUMIN 1.4 GM/DL (3.2-5.2); ALT/SGPT 8 U/L (12-78); BLOOD UREA NITROGEN 14 MG/DL (7-18); CALCIUM LEVEL 7.9 MG/DL (8.5-10.1); CARBON DIOXIDE LEVEL 30 MEQ/L (21-32); CHLORIDE LEVEL 97 MEQ/L (98-107); CREATININE FOR GFR 1.23 MG/DL (0.70-1.30); GLOMERULAR FILTRATION RATE > 60.0 (>56); GLUCOSE, FASTING 169 MG/DL (70-100); POTASSIUM SERUM 3.1 MEQ/L (3.5-5.1); SODIUM LEVEL 132 MEQ/L (136-145); TOTAL PROTEIN 6.6 GM/DL (6.4-8.2)
[2020-11-16 07:35] LABS: PLATELET COUNT, AUTOMATED 91 10^3/uL (150-450)
[2020-11-16] MEDS: POTASSIUM CHLORIDE 10 MEQ SR TABLET PO SCH (09:02)
[2020-11-16] MEDS: rifAXIMin 550 MG TAB (XIFAXAN) PO SCH ×2 (09:02→20:58)
[2020-11-16] MEDS: SPIRONOLACTONE 25 MG TAB PO SCH (09:02)
[2020-11-16] MEDS: HumaLOG INSULIN (NovoLOG) PER UNIT SC SCH ×4 (09:02→20:38)
[2020-11-16] MEDS: FOLIC ACID 1 MG TAB PO SCH (09:02)
[2020-11-16] MEDS: PANTOPRAZOLE 40MG TAB (PROTONIX) PO SCH (09:02)
[2020-11-16] MEDS: FERROUS GLUCONATE 324 MG TAB PO SCH (09:02)
[2020-11-16] MEDS: LACTULOSE 20 GM/30 ML SYRUP UD PO SCH ×2 (09:03→20:58)
--- NOTE | 2020-11-16 09:40 | IPN ---
PROGRESS NOTE DATE: 11/16/2020 SUBJECTIVE: Hilario was seen in [address] [place] [address], admitted with decompensated alcohol liver disease with portal hypertension and ascites and a paracentesis yesterday after receiving some albumin infusion. Currently on a sodium and fluid restricted diet. Had acute on chronic stage III kidney disease, hyponatremia from cirrhosis, history of anemia and pancytopenia related to portal hypertension due to his diabetes, hypertension and morbid obesity. He feels better after the paracentesis. They removed 8.3 liters and his abdomen feels much better and he is breathing better. There are only 280 white cells in the ascites and no bacteremia on Gram-stain. Cultures are all pending. PHYSICAL EXAMINATION: 115/55, pulse of 100, respiratory rate 18, 98.2 degrees. General appearance: He is icteric, lying in bed in no distress. Looks much more comfortable than yesterday. No jugular venous distention (JVD). Lungs: Decreased breath sounds. Heart: Regular rhythm. Abdomen: Obese. There is also ascites still present, but significantly improved from yesterday. 1+ peripheral edema. LABORATORY DATA: White count 7.9, hemoglobin 7.8, platelets 91. Sodium 132, potassium 3.1, BUN 14, creatinine is down to 1.2, glucose 169, albumin is 1.4. Hemoglobin A1c was 6.2%. Blood sugars are all below 200. IMPRESSION: 1. Decompensated alcohol cirrhosis with symptomatic ascites, status post 8.3 liter paracentesis. Cultures are pending. Does not look to be infectious. Salt and fluid restriction to continue. 2. Edema. This has improved with diuresis, which we will continue. Looking for about 1 liter in diuresis a day. 3. Anemia secondary to chronic kidney disease. Daily complete blood counts (CBCs) have been ordered. If hemoglobin drops further, he will need a blood transfusion. 4. Acute kidney injury superimposed on stage III chronic kidney disease. Renal function has improved. Continue current diuresis. Watch renal function closely while on the diuretic. 5. Diabetes. Sliding scale insulin. Consistent carbohydrate diet. Blood sugars are well controlled both as an inpatient and an outpatient with outpatient hemoglobin A1c of 66.2%.
[2020-11-16 14:00] VITALS: BP 111/54
[2020-11-16] MEDS: TERAZOSIN 5MG CAPSULE PO SCH (20:58)
[2020-11-16 22:00] VITALS: BP 107/54
[2020-11-17 05:32] LABS: BASO % 0.3 % (0.0-1.0); EOS # 0.1 10^3/uL (0.0-0.5); EOS % 1.3 % (0.0-3.0); HEMATOCRIT 24.5 % (42.0-52.0); HEMOGLOBIN 7.8 g/dl (13.5-17.5); LYMPH # 0.9 10^3/uL (1.5-5.0); LYMPH % 12.8 % (24.0-44.0); MEAN CORPUSCULAR HEMOGLOBIN 29.9 pg (27.0-33.0); MEAN CORPUSCULAR HGB CONC 31.8 g/dl (32.0-36.5); MEAN CORPUSCULAR VOLUME 93.9 fl (80.0-96.0); MONO # 0.7 10^3/uL (0.0-0.8); MONO % 10.6 % (2.0-8.0); NEUTROPHILS # 5.1 10^3/uL (1.5-8.5); NEUTROPHILS % 74.9 % (36.0-66.0); PLATELET COUNT, AUTOMATED 92 10^3/uL (150-450); RED BLOOD COUNT 2.61 10^6/uL (4.30-6.10); WHITE BLOOD COUNT 6.9 10^3/uL (4.0-10.0)
[2020-11-17 05:54] LABS: ALBUMIN 1.3 GM/DL (3.2-5.2); ALT/SGPT 10 U/L (12-78); BILIRUBIN,TOTAL 1.2 MG/DL (0.2-1.0); BLOOD UREA NITROGEN 12 MG/DL (7-18); CALCIUM LEVEL 7.6 MG/DL (8.5-10.1); CARBON DIOXIDE LEVEL 30 MEQ/L (21-32); CHLORIDE LEVEL 99 MEQ/L (98-107); CREATININE FOR GFR 1.09 MG/DL (0.70-1.30); GLOMERULAR FILTRATION RATE > 60.0 (>56); GLUCOSE, FASTING 189 MG/DL (70-100); POTASSIUM SERUM 3.2 MEQ/L (3.5-5.1); SODIUM LEVEL 134 MEQ/L (136-145); TOTAL PROTEIN 6.2 GM/DL (6.4-8.2)
[2020-11-17 06:00] VITALS: BP 111/55
[2020-11-17] MEDS ORDERED: POTASSIUM CHLORIDE 10 MEQ SR TABLET PO ONE ×2 (06:15→10:35)
[2020-11-17] MEDS: POTASSIUM CHLORIDE 10 MEQ SR TABLET PO SCH ×2 (08:09→21:07)
[2020-11-17] MEDS: HumaLOG INSULIN (NovoLOG) PER UNIT SC SCH ×4 (08:09→21:00)
[2020-11-17] MEDS: LACTULOSE 20 GM/30 ML SYRUP UD PO SCH ×2 (08:09→21:07)
[2020-11-17] MEDS: rifAXIMin 550 MG TAB (XIFAXAN) PO SCH ×2 (08:09→21:07)
[2020-11-17] MEDS: SPIRONOLACTONE 25 MG TAB PO SCH (08:09)
[2020-11-17] MEDS: PANTOPRAZOLE 40MG TAB (PROTONIX) PO SCH (08:10)
[2020-11-17] MEDS: FERROUS GLUCONATE 324 MG TAB PO SCH (08:10)
[2020-11-17] MEDS: FOLIC ACID 1 MG TAB PO SCH (08:10)
--- NOTE | 2020-11-17 12:33 | IPN ---
PROGRESS NOTE DATE: 11/17/2020 SUBJECTIVE: Hilario was seen in [address] [place] [address]. He has a pressure ulcer on the back of his left heel that nursing staff identified and is treating with some Optifoam. His edema is improving in his legs. His ascites does not feel like it has reaccumulated yet that he is aware of. PHYSICAL EXAMINATION: VITAL SIGNS: Stable. Alert, conversant. No asterixis. Still jaundiced. LUNGS: Clear. HEART: Regular rhythm. ABDOMEN: Soft. Ascites present. EXTREMITIES: Peripheral edema 1+, but improving. Ulcer on the back of his left heel is dressed. LABORATORY DATA: White count 6.9, hemoglobin 7.8, platelets 92. Sodium 143, potassium 3.2, BUN 12, creatinine 0.9, glucose 189. Bilirubin 1.2. Blood sugars around 200. IMPRESSION: 1. Decompensated alcoholic cirrhosis with symptomatic ascites status post 8.3 liter paracentesis with albumin infusions given with the procedure. Cultures are pending. Probably noninfectious. ADDENDUM: Cultures returned negative for peritonitis. 2. Lower extremity edema. Continue intravenous (IV) Lasix. He seems to be clinically resolving. He is resistant to the 2 gram sodium, 2 liter per day fluid restriction. 3. Anemia secondary to chronic kidney disease. Hemoglobin is stable. If hemoglobin drops significantly, might need a transfusion. 4. Acute kidney injury superimposed on chronic kidney disease. Renal function looks to be back towards baseline. Watch this closely while being diuresed. 5. Diabetes. Sliding scale insulin. Consistent carbohydrate diet. Outpatient control is good. 6. Pressure ulcers, sacral as well as heel. Nursing staff attending to this with routine care. 7. Hypokalemia. Supplemental potassium has been given.
[2020-11-17 14:00] VITALS: BP 119/63
[2020-11-17] MEDS: FUROSEMIDE 40MG/4ML VIAL (J1940) IV SCH ×2 (18:16→23:52)
[2020-11-17 21:07] VITALS: BP 119/62
[2020-11-17] MEDS: TERAZOSIN 5MG CAPSULE PO SCH (21:07)
[2020-11-17 22:00] VITALS: BP 119/62
[2020-11-18 06:00] VITALS: BP 117/62
[2020-11-18] MEDS: FUROSEMIDE 40MG/4ML VIAL (J1940) IV SCH ×2 (06:06→11:57)
[2020-11-18 06:15] LABS: BASO % 0.3 % (0.0-1.0); EOS # 0.1 10^3/uL (0.0-0.5); EOS % 0.9 % (0.0-3.0); HEMATOCRIT 25.6 % (42.0-52.0); HEMOGLOBIN 8.1 g/dl (13.5-17.5); LYMPH # 1.1 10^3/uL (1.5-5.0); LYMPH % 11.9 % (24.0-44.0); MEAN CORPUSCULAR HEMOGLOBIN 29.9 pg (27.0-33.0); MEAN CORPUSCULAR HGB CONC 31.6 g/dl (32.0-36.5); MEAN CORPUSCULAR VOLUME 94.5 fl (80.0-96.0); MONO # 0.8 10^3/uL (0.0-0.8); MONO % 9.3 % (2.0-8.0); NEUTROPHILS # 6.9 10^3/uL (1.5-8.5); NEUTROPHILS % 77.2 % (36.0-66.0); RED BLOOD COUNT 2.71 10^6/uL (4.30-6.10)
[2020-11-18 06:20] LABS: PLATELET COUNT, AUTOMATED 99 10^3/uL (150-450)
[2020-11-18 06:39] LABS: ALBUMIN 1.4 GM/DL (3.2-5.2); ALT/SGPT 9 U/L (12-78); BILIRUBIN,TOTAL 1.4 MG/DL (0.2-1.0); BLOOD UREA NITROGEN 13 MG/DL (7-18); CALCIUM LEVEL 7.6 MG/DL (8.5-10.1); CARBON DIOXIDE LEVEL 31 MEQ/L (21-32); CHLORIDE LEVEL 98 MEQ/L (98-107); CREATININE FOR GFR 1.17 MG/DL (0.70-1.30); GLOMERULAR FILTRATION RATE > 60.0 (>56); GLUCOSE, FASTING 180 MG/DL (70-100); POTASSIUM SERUM 3.8 MEQ/L (3.5-5.1); SODIUM LEVEL 133 MEQ/L (136-145); TOTAL PROTEIN 6.7 GM/DL (6.4-8.2)
[2020-11-18] MEDS: HumaLOG INSULIN (NovoLOG) PER UNIT SC SCH ×2 (07:33→11:56)
[2020-11-18] MEDS: PANTOPRAZOLE 40MG TAB (PROTONIX) PO SCH (09:29)
[2020-11-18] MEDS: FERROUS GLUCONATE 324 MG TAB PO SCH (09:29)
[2020-11-18] MEDS: LACTULOSE 20 GM/30 ML SYRUP UD PO SCH (09:29)
[2020-11-18] MEDS: rifAXIMin 550 MG TAB (XIFAXAN) PO SCH (09:30)
[2020-11-18] MEDS: FOLIC ACID 1 MG TAB PO SCH (09:30)
[2020-11-18] MEDS: SPIRONOLACTONE 25 MG TAB PO SCH (09:30)
[2020-11-18] MEDS: POTASSIUM CHLORIDE 10 MEQ SR TABLET PO SCH (09:31)
--- NOTE | 2020-11-18 10:35 | IPN ---
PROGRESS NOTE DATE: 11/18/2020 SUBJECTIVE: Hilario is seen on [facility], he is getting some increasing abdominal distention, concerned that his ascites is re-accumulating. He has less abdominal pain than he did on admission. He had a greater than 8 liter paracentesis a few days ago. He is not encephalopathic today. His lower extremity edema is getting better everyday with the diuretic. OBJECTIVE: VITAL SIGNS: Blood pressure is 117/62, pulse of 100, respiratory rate is 18, 95% O2 saturation. GENERAL APPEARANCE: Chronically ill-appearing, lying in bed. HEENT: Sclera are icteric. LUNGS: Clear. HEART: Regular rate and rhythm. ABDOMEN: Soft, mildly distended, ascites is palpable. EXTREMITIES: Trace to 1+ peripheral edema. Ulcer on back of his right heel is dressed (mistakenly dictated left heel yesterday, it is his right heel). LABORATORY DATA: White count 9, hemoglobin is 8.1, platelets are 99. Sodium is 133, potassium is 3.8, BUN is 13, creatinine is 1.1. Glucose is 180. Bilirubin is 1.4. Culture of the ascites fluid showed no growth. IMPRESSION: 1. Decompensated alcoholic cirrhosis with symptomatic ascites, status post 8.3 liter paracentesis with negative cultures. He is on spironolactone and diuretics, salt and fluid restriction. 2. Lower extremity edema, this seems to be resolving well. We are looking for about a 1 liter a day net diuresis which we achieved the last few days. He probably can have his diuretics back off tomorrow. 3. Anemia of chronic kidney disease, hemoglobin is stable. 4. Chronic kidney disease Stage III with acute kidney injury. Renal function is back to baseline. 5. Diabetes. Sliding scale insulin, a strict carbohydrate diet advised. Hemoglobin A1c is 6.2 showing good output control of his diabetes. 6. He is being screened for ARU today.
[2020-11-18] MEDS ORDERED: LACT20EL PO (11:14)
[2020-11-18] MEDS ORDERED: KLOR10TA76 PO (11:14)
[2020-11-18] MEDS ORDERED: XIFA550T PO (11:14)
--- NOTE | 2020-11-18 11:36 | DSES ---
DISCHARGE SUMMARY DATE OF ADMISSION: 11/15/2020 DATE OF DISCHARGE: 11/18/2020 PRINCIPAL DIAGNOSES: 1. Alcoholic cirrhosis with symptomatic ascites. 2. Chronic kidney disease stage 3. 3. Anemia of chronic disease. 4. Lower extremity edema. 5. Type 2 diabetes. 6. Hepatic encephalopathy. HISTORY: Patient was admitted with ascites and encephalopathy. Details per history and physical from admission. HOSPITAL COURSE: His course was documented in my inpatient progress notes. DISPOSITION: Today he has been accepted at [facility]. DISCHARGE MEDICATIONS: He will be discharged on: 1. Lactulose 15 mL b.i.d. 2. Potassium chloride 40 mEq b.i.d. (I have ordered daily BMP x5 as I suspect that dose of potassium will need to be reduced or curtailed in a few days). 3. Rifaximin 550 mg b.i.d. 4. Ferrous gluconate 324 mg daily. 5. Folic acid 1 mg daily. 6. Metformin 850 mg t.i.d. 7. Metoprolol succinate 50 mg daily. 8. Protonix 40 mg daily. 9. Spironolactone 25 mg daily, 10. Terazosin 5 mg at bedtime. 11. Torsemide 20 mg daily. 12. Zinc. DIET: He is on a 2 gram sodium diet with 2000 mL per day fluid restriction. PENDING LABORATORY DATA: No pending labs at the time of dictation.
[2020-11-18 14:00] VITALS: BP 112/64
== END 2020-11-18 16:16 | DRG 433 ==
LOC: M ED 23:16 → M ED INP 11-15 02:23 → M MSPAV 11-15 05:30
PROVIDERS: ADMIT General Practice; ATTEND Family Medicine
PROC: 30233J1 Transfusion of Nonautologous Serum Albumin into Peripheral Vein, Percutaneous Approach (ICD-10-PCS; 2020-11-15)
PROC: 0W9G3ZZ Drainage of Peritoneal Cavity, Percutaneous Approach (ICD-10-PCS; principal; 2020-11-15 15:00)
DX: K70.31 Alcoholic cirrhosis of liver with ascites (principal); K76.6 Portal hypertension; E87.1 Hypo-osmolality and hyponatremia; N17.8 Other acute kidney failure; N18.30 Chronic kidney disease, stage 3 unspecified; I12.9 Hypertensive chronic kidney disease with stage 1 through stage 4 chronic kidney disease, or unspecified chronic kidney disease; E11.22 Type 2 diabetes mellitus with diabetic chronic kidney disease; E88.09 Other disorders of plasma-protein metabolism, not elsewhere classified; E87.6 Hypokalemia; N40.0 Benign prostatic hyperplasia without lower urinary tract symptoms; K72.90 Hepatic failure, unspecified without coma; L89.620 Pressure ulcer of left heel, unstageable; L89.152 Pressure ulcer of sacral region, stage 2; D50.9 Iron deficiency anemia, unspecified; E66.9 Obesity, unspecified; Z68.38 Body mass index [BMI] 38.0-38.9, adult; D63.1 Anemia in chronic kidney disease; Z79.84 Long term (current) use of oral hypoglycemic drugs; Z79.899 Other long term (current) drug therapy

== ENCOUNTER 2020-11-18 13:06 | Inpatient (IN) | payer MEDICARE, MEDICAID ==
[~2020-11-18] VITALS: Ht 182.9 cm; Wt 97.7 kg
[~2020-11-18 13:06] MED LIST changes: +LACT20EL PO; +POTA1TAB14 PO; +SPIR-10 PO; +XIFA550T PO
[2020-11-18 16:30] VITALS: BP 118/59
[2020-11-18] MEDS ORDERED: GLUCAGON INJ 1MG VIAL SC PRN (16:40)
[2020-11-18] MEDS ORDERED: BISACODYL 5 MG TAB PO PRN (16:40)
[2020-11-18] MEDS ORDERED: DEXTROSE 50% 50 ML SYRINGE IV PRN (16:40)
[2020-11-18] MEDS ORDERED: ACETAMINOPHEN TAB 650MG DOSE (2X325MG) PO PRN (16:40)
[2020-11-18] MEDS ORDERED: GLUCOSE 4GM CHEW TABLET PO PRN (16:40)
[2020-11-18] MEDS: HumaLOG INSULIN (NovoLOG) PER UNIT SC SCH ×2 (17:42→21:00)
[2020-11-18 20:00] VITALS: BP 119/56
[2020-11-18] MEDS: DOCUSATE SODIUM 100MG CAPSULE PO SCH (21:14)
[2020-11-18] MEDS: SENNA 8.6 MG TAB (SENOKOT) PO SCH (21:14)
[2020-11-18] MEDS: POTASSIUM CHLORIDE 10 MEQ SR TABLET PO SCH (21:14)
[2020-11-18] MEDS: TERAZOSIN 5MG CAPSULE PO SCH (21:15)
[2020-11-18] MEDS: rifAXIMin 550 MG TAB (XIFAXAN) PO SCH (21:15)
[2020-11-18] MEDS: LACTULOSE 20 GM/30 ML SYRUP UD PO SCH (21:16)
[2020-11-18] MEDS: REMEDY PHYTOPLEX Z-GUARD PASTE 113GM TUBE (FROM STOREROOM PRODUCT) TOP SCH (21:17)
[2020-11-18 22:00] VITALS: BP 119/56
[2020-11-19 06:00] VITALS: BP 134/63
[2020-11-19 06:08] LABS: BASO % 0.3 % (0.0-1.0); EOS # 0.2 10^3/uL (0.0-0.5); EOS % 1.7 % (0.0-3.0); HEMATOCRIT 26.1 % (42.0-52.0); HEMOGLOBIN 8.4 g/dl (13.5-17.5); LYMPH # 1.2 10^3/uL (1.5-5.0); LYMPH % 12.2 % (24.0-44.0); MEAN CORPUSCULAR HEMOGLOBIN 30.4 pg (27.0-33.0); MEAN CORPUSCULAR HGB CONC 32.2 g/dl (32.0-36.5); MEAN CORPUSCULAR VOLUME 94.6 fl (80.0-96.0); MONO # 0.9 10^3/uL (0.0-0.8); MONO % 9.4 % (2.0-8.0); NEUTROPHILS # 7.2 10^3/uL (1.5-8.5); NEUTROPHILS % 75.9 % (36.0-66.0); PLATELET COUNT, AUTOMATED 104 10^3/uL (150-450); RED BLOOD COUNT 2.76 10^6/uL (4.30-6.10); WHITE BLOOD COUNT 9.5 10^3/uL (4.0-10.0)
[2020-11-19 06:30] LABS: ALBUMIN 1.4 GM/DL (3.2-5.2); ALT/SGPT 9 U/L (12-78); BILIRUBIN,TOTAL 1.2 MG/DL (0.2-1.0); BLOOD UREA NITROGEN 12 MG/DL (7-18); CALCIUM LEVEL 7.4 MG/DL (8.5-10.1); CARBON DIOXIDE LEVEL 31 MEQ/L (21-32); CHLORIDE LEVEL 99 MEQ/L (98-107); CREATININE FOR GFR 1.14 MG/DL (0.70-1.30); GLOMERULAR FILTRATION RATE > 60.0 (>56); GLUCOSE, FASTING 167 MG/DL (70-100); POTASSIUM SERUM 4.1 MEQ/L (3.5-5.1); SODIUM LEVEL 134 MEQ/L (136-145)
[2020-11-19] MEDS: LACTULOSE 20 GM/30 ML SYRUP UD PO SCH ×2 (09:28→20:33)
[2020-11-19] MEDS: rifAXIMin 550 MG TAB (XIFAXAN) PO SCH ×2 (09:29→20:32)
[2020-11-19] MEDS: FOLIC ACID 1 MG TAB PO SCH (09:29)
[2020-11-19] MEDS: THIAMINE 100 MG TAB PO SCH (09:29)
[2020-11-19] MEDS: TORSEMIDE 20 MG TAB PO SCH (09:29)
[2020-11-19] MEDS: FERROUS GLUCONATE 324 MG TAB PO SCH (09:29)
[2020-11-19] MEDS: POTASSIUM CHLORIDE 10 MEQ SR TABLET PO SCH ×2 (09:29→20:32)
[2020-11-19] MEDS: PANTOPRAZOLE 40MG TAB (PROTONIX) PO SCH (09:31)
[2020-11-19] MEDS: SPIRONOLACTONE 25 MG TAB PO SCH (09:31)
[2020-11-19] MEDS: DOCUSATE SODIUM 100MG CAPSULE PO SCH ×2 (09:31→20:32)
[2020-11-19] MEDS: HumaLOG INSULIN (NovoLOG) PER UNIT SC SCH ×4 (09:31→20:33)
[2020-11-19] MEDS: REMEDY PHYTOPLEX Z-GUARD PASTE 113GM TUBE (FROM STOREROOM PRODUCT) TOP SCH ×3 (09:32→20:34)
--- NOTE | 2020-11-19 11:53 | HPEPDOC ---
[employer] Note DATE OF ADMISSION: 11-18-20 DATE OF SERVICE: 11-19-20 TIME OF ADMISSION: Please refer to physician's admission order. SOURCE OF ADMISSION INFORMATION: [facility] record and patient CHIEF COMPLAINT: decompensated liver cirrhosis HISTORY OF PRESENT ILLNESS: 50M pmh CKD3, HTN, DM, alcoholic liver cirrhosis with portal HTN, left sided renal subcapsular hematoma, ascites, s/p chest tube placed 10-03 for left sided empyema in setting of MSSA HAP PNA with bacteremia presented to [facility] ED on 11-15-20 with difficulty walking and worsening LE edema. He was admitted for decompensated alcoholic liver cirrhosis. CT abdomen pelvis 11-15-20 showed, Decreased left pleural effusion since 09/21/2020 with minimal residual present... Minimal bibasilar fibro-atelectatic change, greatest in the left lower lobe with decreased left lower lobe atelectasis since the prior study Hepatic cirrhosis with mild splenomegaly and mild large volume peritoneal ascites The ascites is significantly increased since the prior study. He underwent paracentesis with cultures negative for bacteria, and treated with fluid restriction in addition to IV diuretics. He had significant ADL and mobility impairments and deemed medically appropriate for discharge to ARU on 11-18-20. REVIEW OF SYSTEMS: The following is a completed review of systems and has been reviewed. Review of systems otherwise unremarkable. PAIN: Patient self reports no pain EYES: mo recent vision changes EARS, NOSE, & THROAT: No throat pain, or dysphagia, or rhinorrhea CARDIOVASCULAR: Denies chest pain or palpitations PULMONARY: Denies shortness of breath GASTROINTESTINAL: Denies constipation/diarrhea GENITOURINARY: denies dysuria MUSCULOSKELETAL: generalized weakness NEUROLOGICAL: +bilat LE paresthesias HEMATOLOGICAL: +anemia SKIN: left heel ulcer, jaundice PSYCHIATRIC: Unremarkable All other review of systems found to be negative. PAST MEDICAL HISTORY: As per HPI PAST SURGICAL HISTORY: As per HPI ALLERGIES: Please see below. MEDICATIONS: Please see below. FAMILY HISTORY:Cancer, stroke SOCIAL HISTORY: ETOH abuse, no illicit drugs DIET: consistent carb, fluid restrict PHYSICAL EXAMINATION: VITAL SIGNS: Please see below. GENERAL: Pleasant and cooperative. No acute distress. icteric HEENT: PERRL. Extraocular movements intact. icteric conjunctiva CARDIOVASCULAR: Regular rate and rhythm. No murmurs, rubs, or gallops LUNGS: Clear to auscultation bilaterally. No wheezes. No rhonchi ABDOMEN: distended, slightly firm, no guarding or rebound tenderness NEUROLOGICAL: Alert and oriented times three. Cranial nerves II through XII grossly intact. Sensation diminished to light touch in stocking pattern EXTREMITIES: 5\5 strength bilateral upper extremities. 4\5 strength right lower extremity. 4/5 strength in left lower extremity. SKIN: left heel with eschar LABORATORY DATA: Please see below. IMAGING:Imaging documentation personally reviewed by record FUNCTIONAL STATUS: Premorbid: Modified Independent with all activities of daily life as well as mobility with RW On Admission: Min assist for ambulation, dressing, toileting, bathing GOALS: Modified independent for ambulation, dressing, toileting, bathing ASSESSMENT:50-year-old M with past medical history of liver cirrhosis who presents status post acute alcoholic liver decompensation with weakness PLAN: 1. Rehab- PT/OT advance gait and ADLs, strengthen/stretch/maintain ROM all 4limbs 2. Neuro- hx of ETOH abuse, c/u thiamine and folic acid for neuroprotection 3. CArdiac- hx of HTN c/u BP meds, LE edema due to liver cirrhosis c/u fluid restriction and daily weights 4. Resp- monitor for infection, duonebs 5. GI- hx of liver cirrohsis s/p paracentisis, c/u spironolactone, rifaximine and lactulose, monitor for worsening ascites 6. Renal- hx of CKD, will consult renal who follows patient as outpatient to hel p monitor fluid status 7. DVT ppx- Acewrap preferred to TEDs to avoid skin breakdown in setting of LE edema, will avoid AC due to anemia, thrombocytopenia and concern bleeding disorder due to cirrhosis -will order dopplers to r/o DVT 8. Heme- anemia of chronic disease and iron deficiency, c/u supplement 9. Endo- hx of DM c/u insulin and ISS 10. Pain- tylenol q8h prn 11. Dispo- tbd POST ADMISSION PHYSICIAN EVALUATION: Medical and functional status: Description of medical status, medical assessment: As above. Rehabilitation diagnosis and current and prior cold morbid medical conditions as above. Risk of complications and plans to mitigate them as above. Description of functional status current status is as above. Prior status as above. Status compared to preadmission: There are no clinically significant differences between the patient's current status and the information described on the preadmission screening document. Treatment plan anticipated: Treatment plan is as described above. Required disciplines including physical therapy, occupational therapy, others as noted above. Intensity of services: 3 hours a day, 6 days a week. Special considerations: There are no specific special or safety considerations that would likely preclude immediate implementation of an intensive rehabilitation program or subsequently influence the plan of care ATTESTATION: Considering all the information above, it is my best judgment that this patient requires intensive rehabilitation therapy as described above and an inpatient hospital environment due to the complexity of nursing, medical, and rehabilitation needs required by the patient. Furthermore, this patient can reasonably be expected to participate in an benefit from an inpatient rehabilitation stay with an interdisciplinary team approach to the delivery of rehabilitation care under the direction and supervision of rehabilitation physician. PROGNOSIS: fair ESTIMATED LENGTH OF STAY:12-14 days. PROJECTED DISCHARGE DESTINATION: Home with family support and any durable medical equipment required to increase functional safety and mobility. TIME SPENT COUNSELING AND COORDINATING INITIAL CARE: Greater than 70 minutes. Vital Signs Vital Sign - Last 24 Hours 11/18/20 11/18/20 11/18/20 11/18/20 16:30 20:00 21:15 22:00 Temp 98.1 99.0 99.0 Pulse 97 99 99 Resp 18 19 19 B/P (MAP) 118/59 (78) 119/56 (77) 119/56 119/56 (77) Pulse Ox 95 95 95 O2 Delivery Room Air 11/19/20 11/19/20 06:00 06:00 Temp 98.9 98.9 Pulse 101 101 Resp 19 19 B/P (MAP) 134/63 (86) 134/63 (86) Pulse Ox 93 93 Laboratory Data CBC/BMP Laboratory Tests 11/19/20 05:50 Labs 24H Laboratory Tests 2 11/18/20 19:47: Bedside Glucose (Misc Panel) 214H 11/19/20 05:25: Bedside Glucose (Misc Panel) 150H 11/19/20 05:50: Immature Granulocyte % (Auto) 0.5, Neutrophils (%) (Auto) 75.9H, Lymphocytes (%) (Auto) 12.2L, Monocytes (%) (Auto) 9.4H, Eosinophils (%) (Auto) 1.7, Basophils (%) (Auto) 0.3, Neutrophils # (Auto) 7.2, Lymphocytes # (Auto) 1.2L, Monocytes # (Auto) 0.9H, Eosinophils # (Auto) 0.2, Basophils # (Auto) 0.0, Nucleated Red Blood Cells % (auto) 0.0, Anion Gap 4L, Glomerular Filtration Rate > 60.0, Calcium Level 7.4L, Total Bilirubin 1.2H, Aspartate Amino Transf (AST/SGOT) 14, Alanine Aminotransferase (ALT/SGPT) 9L, Alkaline Phosphatase 94, Total Protein 7.0, Albumin 1.4L, Albumin/Globulin Ratio 0.3 11/19/20 11:17: Bedside Glucose (Misc Panel) 230H FSBS Laboratory Tests Test 11/18/20 19:47 11/19/20 05:25 11/19/20 11:17 Range/Units Bedside Glucose (Misc Panel) 214 150 230 70-105 MG/DL Home Medications Scheduled Ferrous Gluconate (Ferrous Gluconate) 324 Mg Tablet, 324 MG PO DAILY, (Reported) Folic Acid (Folic Acid) 1 Mg Tablet, 1 MG PO DAILY, (Reported) Lactulose (Lactulose) 10 Gm/15 Ml Solution, 15 ML PO BID Metformin HCl (Metformin HCl) 850 Mg Tablet, 850 MG PO TID, (Reported) Metoprolol Succinate (Metoprolol Succinate) 50 Mg Tab.er.24h, 50 MG PO DAILY, (Reported) Pantoprazole Sodium (Pantoprazole Sodium) 40 Mg Tablet.dr, 40 MG PO DAILY, (Reported) Potassium Chloride (Potassium Chloride) 20 Meq Tablet.er, 20 MEQ PO DAILY, (Reported) Rifaximin (Xifaxan) 550 Mg Tablet, 550 MG PO BID Spironolactone (Spironolactone) 25 Mg Tablet, 25 MG PO DAILY, (Reported) Terazosin HCl (Terazosin HCl) 5 Mg Capsule, 5 MG PO QHS, (Reported) Torsemide (Torsemide) 20 Mg Tablet, 20 MG PO DAILY, (Reported) Zinc (Zinc) 50 Mg Tablet, 50 MG PO DAILY, (Reported) Allergies Coded Allergies: No Known Allergies (Verified Allergy, Unknown, 09/21/20) A-FIB/CHADSVASC A-FIB History Current/History of A-Fib/PAF?: No Current PO Anticoag Therapy: No SALLY KRISHNA MD Nov 19, 2020 11:53
[2020-11-19 14:00] VITALS: BP 135/66
--- NOTE | 2020-11-19 16:31 | REP ---
INDICATION: swelling and immobility COMPARISON: None. TECHNIQUE: Real time compression and duplex Doppler interrogation of the bilateral lower extremity deep venous system is performed. FINDINGS: Bilaterally, the common femoral, superficial femoral and popliteal veins are fully compressible with transducer pressure and demonstrate normal spontaneous and phasic flow, without evidence of deep venous thrombosis. IMPRESSION: No evidence of deep venous thrombosis of the bilateral lower extremity femoral popliteal venous system. <Electronically signed by Andrey Looney > 11/19/20 [id number]
[2020-11-19 20:00] VITALS: BP 131/60
[2020-11-19] MEDS: TERAZOSIN 5MG CAPSULE PO SCH (20:32)
[2020-11-19] MEDS: SENNA 8.6 MG TAB (SENOKOT) PO SCH (20:32)
--- NOTE | 2020-11-19 20:37 | CR.PDOC ---
General Date of Consultation: Nov 19, 2020 Consultation REASON FOR CONSULTATION/CHIEF COMPLAINT: Decompensated cirrhosis HISTORY OF PRESENT ILLNESS: Mr. Higuera is a 50 year old male with alcoholic cirrhosis, CKD stage 3, and DM2 who was admitted from 11/15/2020 to 11/18/2020 for decompensated cirrhosis. He had paracentesis and removed 8.3L of fluid which was culture negative. He was given albumin afterwards. Otherwise, he was diuresed and put on a 2L fluid restriction. He was stabilized and sent to ARU for rehab. When I saw him early afternoon, he was feeling better. His legs still feel weak, but he is motivated to get stronger through physical rehab. Denies any fever, chest pain, or dyspnea. ALLERGIES: Please see below. HOME MEDICATIONS: Please see below. PAST MEDICAL HISTORY: 1. Alcoholic liver cirrhosis with portal hypertension and ascites 2. Hypertension 3. Type 2 diabetes 4. Iron deficiency anemia 5. Chronic kidney disease stage III 6. BPH 7. Osteoarthritis 8. Obesity, BMI 31 PAST SURGICAL HISTORY: 1. Chest tube for left-sided empyema Sep 2020 2. S/P TPA and pigtail catheter placement FAMILY HISTORY: Father: . History of cancer of unknown type Mother: . History of CVA SOCIAL HISTORY: ETOH: Alcoholic, Drank 12 packs of beer daily, last drink was September 2020 Illicit drug use: Denies REVIEW OF SYSTEMS: CONSTITUTIONAL: Denies any fever/chills, reports fatigue HEENT: Denies changes in vision CARDIOVASCULAR: Denies chest pain RESPIRATORY: Denies dyspnea or cough GASTROINTESTINAL: Denies abdominal pain or fecal incontinence GENITOURINARY: Denies dysuria or urinary incontinence SKIN: Denies any rash NEUROLOGICAL: Denies paresthesias PSYCHIATRIC: Denies depression HEMATOLOGIC/LYMPHATIC: Denies bruises PHYSICAL EXAMINATION: VITAL SIGNS: Please see below. GENERAL APPEARANCE: Comfortable, in no apparent distress HEENT: EOMI, sclera clear CARDIOVASCULAR: Regular rate and rhythm LUNGS: Clear to auscultation bilaterally ABDOMEN: Distended, but soft, non-tender, normal bowel sounds MUSCULOSKELETAL: Muscle strength felt weaker in the legs than in the arms. symmetric bilaterally EXTREMITIES: No pitting edema NEUROLOGICAL: CN 3-12 grossly intact PSYCHIATRIC: Normal mood and affect LABORATORY DATA: Please see below. ASSESSMENT/PLAN: 1. Physical debility -Reports weakness in legs which started prior to hospitalization -Motivated to work with physical therapy 2. Alcoholic cirrhosis -Continue lactulose, rifaximin, spironolactone, and torsemide -Continue thiamine and folic acid 3. Anemia of chronic disease -Stable -Continue folic acid and iron -Monitor CBC 4. Chronic kidney disease -Creatinine close to baseline at 1.14 -Monitor BMP 5. Diabetes mellitus -Continue sliding scale insulin 6. DVT ppx -Ambulation and physical therapy Vital Signs/I&O Vital Signs Date Time Temp Pulse Resp B/P (MAP) Pulse Ox O2 Delivery O2 Flow Rate FiO2 11/19/20 14:00 98.6 107 18 135/66 (89) 93 Room Air I&O- Last 24 Hours up to 6 AM 11/19/20 06:00 Intake Total 830 ml Balance 830 ml Laboratory Data Labs 24H Laboratory Tests 2 11/19/20 05:25: Bedside Glucose (Misc Panel) 150H 11/19/20 05:50: Immature Granulocyte % (Auto) 0.5, Neutrophils (%) (Auto) 75.9H, Lymphocytes (%) (Auto) 12.2L, Monocytes (%) (Auto) 9.4H, Eosinophils (%) (Auto) 1.7, Basophils (%) (Auto) 0.3, Neutrophils # (Auto) 7.2, Lymphocytes # (Auto) 1.2L, Monocytes # (Auto) 0.9H, Eosinophils # (Auto) 0.2, Basophils # (Auto) 0.0, Nucleated Red Blood Cells % (auto) 0.0, Anion Gap 4L, Glomerular Filtration Rate > 60.0, Calcium Level 7.4L, Total Bilirubin 1.2H, Aspartate Amino Transf (AST/SGOT) 14, Alanine Aminotransferase (ALT/SGPT) 9L, Alkaline Phosphatase 94, Total Protein 7.0, Albumin 1.4L, Albumin/Globulin Ratio 0.3 11/19/20 11:17: Bedside Glucose (Misc Panel) 230H 11/19/20 16:33: Bedside Glucose (Misc Panel) 167H 11/19/20 19:18: Bedside Glucose (Misc Panel) 188H CBC/BMP Laboratory Tests 11/19/20 05:50 Allergies Coded Allergies: No Known Allergies (Verified Allergy, Unknown, 09/21/20) Home Medications Scheduled Ferrous Gluconate (Ferrous Gluconate) 324 Mg Tablet, 324 MG PO DAILY, (Reported) Folic Acid (Folic Acid) 1 Mg Tablet, 1 MG PO DAILY, (Reported) Lactulose (Lactulose) 10 Gm/15 Ml Solution, 15 ML PO BID for 1 Days, #1 Metformin HCl (Metformin HCl) 850 Mg Tablet, 850 MG PO TID, (Reported) Metoprolol Succinate (Metoprolol Succinate) 50 Mg Tab.er.24h, 50 MG PO DAILY, (R eported) Pantoprazole Sodium (Pantoprazole Sodium) 40 Mg Tablet.dr, 40 MG PO DAILY, (Reported) Potassium Chloride (Potassium Chloride) 20 Meq Tablet.er, 20 MEQ PO DAILY, (Reported) Rifaximin (Xifaxan) 550 Mg Tablet, 550 MG PO BID for 1 Days, #1 Spironolactone (Spironolactone) 25 Mg Tablet, 25 MG PO DAILY, (Reported) Terazosin HCl (Terazosin HCl) 5 Mg Capsule, 5 MG PO QHS, (Reported) Torsemide (Torsemide) 20 Mg Tablet, 20 MG PO DAILY, (Reported) Zinc (Zinc) 50 Mg Tablet, 50 MG PO DAILY, (Reported) ALICE BERNARD DO Nov 19, 2020 20:37
[2020-11-20 05:17] VITALS: BP 120/63
[2020-11-20 06:30] LABS: BASO % 0.4 % (0.0-1.0); EOS # 0.1 10^3/uL (0.0-0.5); EOS % 1.3 % (0.0-3.0); HEMATOCRIT 25.5 % (42.0-52.0); HEMOGLOBIN 8.2 g/dl (13.5-17.5); LYMPH # 1.2 10^3/uL (1.5-5.0); LYMPH % 14.3 % (24.0-44.0); MEAN CORPUSCULAR HGB CONC 32.2 g/dl (32.0-36.5); MEAN CORPUSCULAR VOLUME 93.4 fl (80.0-96.0); MONO # 0.9 10^3/uL (0.0-0.8); MONO % 10.6 % (2.0-8.0); NEUTROPHILS # 6.2 10^3/uL (1.5-8.5); NEUTROPHILS % 72.9 % (36.0-66.0); PLATELET COUNT, AUTOMATED 102 10^3/uL (150-450); RED BLOOD COUNT 2.73 10^6/uL (4.30-6.10); WHITE BLOOD COUNT 8.5 10^3/uL (4.0-10.0)
[2020-11-20 06:57] LABS: BLOOD UREA NITROGEN 12 MG/DL (7-18); CALCIUM LEVEL 7.2 MG/DL (8.5-10.1); CARBON DIOXIDE LEVEL 31 MEQ/L (21-32); CHLORIDE LEVEL 98 MEQ/L (98-107); CREATININE FOR GFR 1.09 MG/DL (0.70-1.30); GLOMERULAR FILTRATION RATE > 60.0 (>56); GLUCOSE, FASTING 158 MG/DL (70-100); POTASSIUM SERUM 3.8 MEQ/L (3.5-5.1); SODIUM LEVEL 133 MEQ/L (136-145)
[2020-11-20] MEDS: HumaLOG INSULIN (NovoLOG) PER UNIT SC SCH ×4 (08:11→20:57)
[2020-11-20] MEDS: DOCUSATE SODIUM 100MG CAPSULE PO SCH ×2 (08:11→20:56)
[2020-11-20] MEDS: REMEDY PHYTOPLEX Z-GUARD PASTE 113GM TUBE (FROM STOREROOM PRODUCT) TOP SCH ×3 (08:11→20:56)
[2020-11-20] MEDS: SPIRONOLACTONE 25 MG TAB PO SCH (08:11)
[2020-11-20] MEDS: THIAMINE 100 MG TAB PO SCH (08:11)
[2020-11-20] MEDS: TORSEMIDE 20 MG TAB PO SCH (08:11)
[2020-11-20] MEDS: FOLIC ACID 1 MG TAB PO SCH (08:11)
[2020-11-20] MEDS: PANTOPRAZOLE 40MG TAB (PROTONIX) PO SCH (08:11)
[2020-11-20] MEDS: LACTULOSE 20 GM/30 ML SYRUP UD PO SCH ×2 (08:11→20:55)
[2020-11-20] MEDS: rifAXIMin 550 MG TAB (XIFAXAN) PO SCH ×2 (08:11→20:56)
[2020-11-20] MEDS: FERROUS GLUCONATE 324 MG TAB PO SCH (08:11)
[2020-11-20] MEDS: POTASSIUM CHLORIDE 10 MEQ SR TABLET PO SCH ×2 (08:12→20:55)
[2020-11-20] MEDS: FLUTICASONE PROP 0.05% NASAL SPRAY 16 GM (FLONASE) NARES SCH ×2 (09:00→20:56)
--- NOTE | 2020-11-20 12:59 | IPNPDOC ---
PM&R Progress Note DATE OF SERVICE: Nov 20, 2020 Human Resources Administrator Progress Note Subjective: Patient reporting he would like to stay as long as possible so that he can be able to help his girlfriend at home. He thinks his legs are less swollen today, but that his abdomen feels about the same. He reports a mild cough and would like to try some flonase and nasal saline drops. REVIEW OF SYSTEMS: The following is a completed review of systems and has been reviewed. Review of systems otherwise unremarkable. PAIN: Patient self reports no pain EYES: no recent vision changes EARS, NOSE, & THROAT: No throat pain, or dysphagia, or rhinorrhea CARDIOVASCULAR: Denies chest pain or palpitations PULMONARY: Denies shortness of breath GASTROINTESTINAL: Denies constipation/diarrhea GENITOURINARY: denies dysuria MUSCULOSKELETAL: generalized weakness NEUROLOGICAL: +bilat LE paresthesias HEMATOLOGICAL: +anemia SKIN: left heel ulcer, jaundice PSYCHIATRIC: Unremarkable All other review of systems found to be negative. PHYSICAL EXAMINATION: VITAL SIGNS: Please see below. GENERAL: Pleasant and cooperative. No acute distress. icteric HEENT: PERRL. Extraocular movements intact. icteric conjunctiva CARDIOVASCULAR: Regular rate and rhythm. No murmurs, rubs, or gallops LUNGS: Clear to auscultation bilaterally. No wheezes. No rhonchi ABDOMEN: distended, slightly firm, no guarding or rebound tenderness NEUROLOGICAL: Alert and oriented times three. Cranial nerves II through XII grossly intact. Sensation diminished to light touch in stocking pattern EXTREMITIES: 5\5 strength bilateral upper extremities. 4\5 strength right lower extremity. 4/5 strength in left lower extremity. (+) bilat LE SKIN: left heel with eschar ASSESSMENT:50-year-old M with past medical history of liver cirrhosis who presents status post acute alcoholic liver decompensation with weakness PLAN: 1. Rehab- PT/OT advance gait and ADLs, strengthen/stretch/maintain ROM all 4limbs 2. Neuro- hx of ETOH abuse, c/u thiamine and folic acid for neuroprotection -peripheral polyneuropathy due to longstanding ETOH-abuse contributing to overall weakness and mobility impairments 3. CArdiac- hx of HTN c/u BP meds, LE edema due to liver cirrhosis c/u fluid restriction and daily weights 4. Resp- monitor for infection, duonebs -probable post-nasal drip will start flonase and nasal saline drops 5. GI- hx of liver cirrohsis s/p paracentisis, c/u spironolactone, rifaximine and lactulose, monitor for worsening ascites 6. Renal- hx of CKD, will consult renal who follows patient as outpatient to help monitor fluid status 7. DVT ppx- Acewrap preferred to TEDs to avoid skin breakdown in setting of LE edema, will avoid AC due to anemia, thrombocytopenia and concern bleeding disorder due to cirrhosis -dopplers negative for DVT 8. Heme- anemia of chronic disease and iron deficiency, c/u supplement 9. Endo- hx of DM c/u insulin and ISS 10. Pain- tylenol q8h prn 11. Dispo- tbd Allergies Coded Allergies: No Known Allergies (Verified Allergy, Unknown, 09/21/20) Vital Signs Vital Signs Date Time Temp Pulse Resp B/P (MAP) Pulse Ox O2 Delivery O2 Flow Rate FiO2 11/20/20 05:17 99.0 103 19 120/63 (82) 92 Room Air Laboratory Data CBC/BMP Laboratory Tests 11/20/20 06:03 Labs 24H Laboratory Tests 2 11/19/20 16:33: Bedside Glucose (Misc Panel) 167H 11/19/20 19:18: Bedside Glucose (Misc Panel) 188H 11/20/20 04:41: Bedside Glucose (Misc Panel) 157H 11/20/20 06:03: Immature Granulocyte % (Auto) 0.5, Neutrophils (%) (Auto) 72.9H, Lymphocytes (%) (Auto) 14.3L, Monocytes (%) (Auto) 10.6H, Eosinophils (%) (Auto) 1.3, Basophils (%) (Auto) 0.4, Neutrophils # (Auto) 6.2, Lymphocytes # (Auto) 1.2L, Monocytes # (Auto) 0.9H, Eosinophils # (Auto) 0.1, Basophils # (Auto) 0.0, Nucleated Red Blood Cells % (auto) 0.0, Anion Gap 4L, Glomerular Filtration Rate > 60.0, Calcium Level 7.2L 11/20/20 11:22: Bedside Glucose (Misc Panel) 229H Current Medications Current Medications Current Medications Medications (Trade) Dose Ordered Sig/Mayelin Route PRN Reason Start Time Stop Time Status Last Admin Dose Admin Acetaminophen (Tylenol Tab) 650 mg Q4HP PRN PO fever/MILD PAIN (PS 1-4) 11/18/20 16:40 11/19/20 15:22 DC Acetaminophen (Tylenol Tab) 650 mg Q8HP PRN PO fever/MILD PAIN (PS 1-4) 11/19/20 21:00 Bisacodyl (Dulcolax Tab) 5 mg DAILYPRN PRN PO CONSTIPATION 11/18/20 16:40 Dextrose (Dextrose 50%) 25 ml ASDIRECTED PRN IV SEE LABEL COMMENTS 11/18/20 16:40 Docusate Sodium (Colace) 100 mg BID PO 11/18/20 21:00 11/20/20 08:11 Ferrous Gluconate (Fergon) 324 mg DAILY PO 11/19/20 09:00 11/20/20 08:11 Folic Acid (Folic Acid) 1 mg DAILY PO 11/19/20 09:00 11/20/20 08:11 Glucagon (Glucagon) 1 mg ASDIRECTED PRN SC SEE LABEL COMMENTS 11/18/20 16:40 Glucose (Glucose) 16 GM ASDIRECTED PRN PO SEE LABEL COMMENTS 11/18/20 16:40 Home Med (Med Rec Complete!) ASDIRECTED XX 11/18/20 17:15 11/18/20 17:23 DC Insulin Human Lispro (HumaLOG INSULIN) SEE PROTOCOL TABLE AC SC 11/18/20 17:30 11/20/20 12:40 Insulin Human Lispro (HumaLOG INSULIN) SEE PROTOCOL TABLE QHS SC 11/18/20 21:00 Lactulose (Cephulac) 15 ml BID PO 11/18/20 21:00 11/20/20 08:11 Pantoprazole Sodium (Protonix) 40 mg DAILY PO 11/19/20 09:00 11/20/20 08:11 Potassium Chloride (Micro-K Extencaps) 40 meq BID PO 11/18/20 21:00 11/20/20 08:12 Rifaximin (Xifaxan) 550 mg BID PO 11/18/20 21:00 11/20/20 08:11 Senna (Senokot) 1 tab QHS PO 11/18/20 21:00 11/19/20 20:32 Spironolactone (Aldactone) 25 mg QAM PO 11/19/20 09:00 11/20/20 08:11 Terazosin HCl (Hytrin) 5 mg QHS PO 11/18/20 21:00 11/19/20 20:32 Thiamine HCl (Thiamine HCl) 100 mg DAILY PO 11/19/20 09:00 11/20/20 08:11 Torsemide (Demadex) 20 mg QAM PO 11/19/20 09:00 11/20/20 08:11 SALLY KRISHNA MD Nov 20, 2020 12:59
[2020-11-20 14:00] VITALS: BP 145/73
[2020-11-20] MEDS: SODIUM CHLORIDE NASAL 0.65% SPRAY BTL (OCEAN) SCH ×2 (17:34→20:57)
[2020-11-20 20:00] VITALS: BP 132/63
[2020-11-20] MEDS: TERAZOSIN 5MG CAPSULE PO SCH (20:55)
[2020-11-20] MEDS: SENNA 8.6 MG TAB (SENOKOT) PO SCH (20:55)
--- NOTE | 2020-11-20 21:36 | CR ---
NEPHROLOGY CONSULTATION DATE: 11/20/2020 REASON FOR CONSULTATION: Decompensated cirrhosis and chronic kidney disease. HISTORY OF PRESENT ILLNESS: Mr. Higuera is a complicated gentleman with multiple chronic medical problems. He has longstanding diabetes, history of alcoholic cirrhosis with recurrent ascites and history of stage 3 chronic kidney disease. He was admitted to [facility] with decompensated cirrhosis and underwent a paracentesis of 8.3 liters of fluid. He was treated with intravenous albumin infusion. The patient also reports severe weakness in his left lower extremity and has been unable to walk. He is now admitted to acute rehab. A Nephrology consultation was requested due to his hepatorenal problems. PAST MEDICAL HISTORY: The patient's past medical history is significant for: 1. Alcoholic cirrhosis with recurrent ascites and portal hypertension. 2. Type 2 diabetes. 3. Iron deficiency anemia. 4. Stage 3 of chronic kidney disease. 5. Benign prostatic hyperplasia. 6. Osteoarthritis. 7. History of obesity. 8. History of iron deficiency anemia. PAST SURGICAL HISTORY: The patient's past surgical history is significant for 1. Chest tube placement for left sided empyema in September 2020. 2. History of TPA and pigtail catheter placement. 3. He also had a paracentesis just a few days ago. FAMILY HISTORY: Father with cancer of unknown type. Mother with a stroke. PERSONAL AND SOCIAL HISTORY: The patient has a history of drinking 12 packs of beer daily. Last drink was October 03. He denies any illicit drug use. REVIEW OF SYSTEMS: The patient is generally not feeling well but denies any fever or chills. Ears, nose and throat are unremarkable. He denies any headache. Cardiovascular system is significant for leg edema. He denies any chest pain or difficulty breathing. Respiratory system is significant for a recent history of empyema for which he required a chest tube placement. GI system is significant for cirrhosis of liver with recent ascites requiring paracentesis. He denies any vomiting or diarrhea at present. Genitourinary system is significant for a history of benign prostatic hypertrophy. The patient denies any dysuria or hematuria. Musculoskeletal system is significant for weakness of left lower extremity and inability to ambulate. He is mostly in the wheelchair. He also has lower extremity edema. Hematological system is significant for iron deficiency anemia. Neurologic system is significant for weakness of the lower extremities, particularly left lower extremity. Psychosocial system is negative for depression or anxiety. Skin is negative for rash or ulcers. PHYSICAL EXAMINATION: VITAL SIGNS: Temperature 99 degrees Fahrenheit, heart rate 102 per minute, respiratory rate 18 per minute, blood pressure 120/63 mm of mercury and oxygen saturation 92% on room air. GENERAL APPEARANCE: The patient is examined in the wheelchair during his physical therapy session. HEENT: His head is atraumatic. NECK: Supple and JVD does not seem to be abnormally elevated sitting upright. He is pale looking but not in any acute distress. HEART: Somewhat tachycardic but regular. LUNGS: Diminished breath sounds at the bases. ABDOMEN: Mildly distended with ascites and bowel sounds are present. There is no tenderness and palpable organomegaly. EXTREMITIES: Without any cyanosis or clubbing. Bilateral lower extremity edema is at least 1+. NEUROLOGICAL: His strength in the lower extremities is only 1/5 in the left leg and 2/5 in the right leg. Upper extremities strength is 5/5. He is awake and alert otherwise. LABORATORY DATA: Yesterday his sodium was 134, potassium 4.1, BUN 12, and creatinine 1.14, glucose 167 and calcium 7.4. Total protein 7.0 and albumin only 1.4. Today sodium is 133 and potassium 3.8. BUN is 12 and creatinine 1.09. MEDICATIONS: The patient's medications in the hospital include: 1. Saline nasal spray three times daily. 2. Flonase nasal spray twice daily. 3. Tylenol as needed for pain. 4. Ferrous Gluconate 324 mg daily. 5. Folic Acid one mg daily. 6. Thiamine 100 mg daily. 7. Protonix 40 mg daily. 8. Spironolactone 25 mg daily. 9. Demadex 20 mg daily. 10. Colace 100 mg twice daily. 11. Senokot one tablet at bedtime. 12. Lactulose 13 mL twice daily. 13. Xifaxan 500 mg twice daily. 14. Potassium Chloride 40 mEq twice daily. Humalog insulin per sliding scale. ALLERGIES: He has no known drug allergies. PROBLEMS: 1. Chronic kidney disease he has a known history of stage 3 of chronic kidney disease and kidney function seems to be at baseline or slightly better. His volume status is probably decompensated and he will likely benefit from some further diuresis. 2. Cirrhosis of liver with recurrent ascites - The patient already had a paracentesis of a large amount of 8.3 liters. He has significant reaccumulation of ascites and is likely to require further paracentesis. 3. Hyponatremia This is related to liver and kidney problems. He is also on diuretics and he needs to continue with diuretic therapy at this point. His hyperglycemia seems reasonably well controlled and probably not contributing to hyponatremia. At present we will monitor his electrolytes and continue with fluid restriction of about 1,500 mL per day. 4. Anemia - The patient does have anemia with iron deficiency. He is already receiving iron supplement. Thank you for involving me in the care of Mr. Higuera. I will follow him along with you.
[2020-11-21 06:00] VITALS: BP 129/67
[2020-11-21] MEDS: rifAXIMin 550 MG TAB (XIFAXAN) PO SCH ×2 (08:40→21:53)
[2020-11-21] MEDS: DOCUSATE SODIUM 100MG CAPSULE PO SCH ×2 (08:40→21:53)
[2020-11-21] MEDS: PANTOPRAZOLE 40MG TAB (PROTONIX) PO SCH (08:40)
[2020-11-21] MEDS: FERROUS GLUCONATE 324 MG TAB PO SCH (08:41)
[2020-11-21] MEDS: TORSEMIDE 20 MG TAB PO SCH (08:41)
[2020-11-21] MEDS: LACTULOSE 20 GM/30 ML SYRUP UD PO SCH ×2 (08:41→21:53)
[2020-11-21] MEDS: SPIRONOLACTONE 25 MG TAB PO SCH (08:41)
[2020-11-21] MEDS: POTASSIUM CHLORIDE 10 MEQ SR TABLET PO SCH ×2 (08:41→21:54)
[2020-11-21] MEDS: THIAMINE 100 MG TAB PO SCH (08:41)
[2020-11-21] MEDS: FOLIC ACID 1 MG TAB PO SCH (08:41)
[2020-11-21] MEDS: FLUTICASONE PROP 0.05% NASAL SPRAY 16 GM (FLONASE) NARES SCH ×2 (08:46→21:54)
[2020-11-21] MEDS: HumaLOG INSULIN (NovoLOG) PER UNIT SC SCH ×4 (08:46→21:00)
[2020-11-21] MEDS: REMEDY PHYTOPLEX Z-GUARD PASTE 113GM TUBE (FROM STOREROOM PRODUCT) TOP SCH ×3 (08:47→21:54)
[2020-11-21] MEDS: SODIUM CHLORIDE NASAL 0.65% SPRAY BTL (OCEAN) SCH ×3 (09:00→21:54)
--- NOTE | 2020-11-21 10:45 | IPNPDOC ---
PM&R Progress Note DATE OF SERVICE: Nov 21, 2020 Sergeant Missile Crewman Progress Note Subjective: Patient reporting he walked further today in therapy and was happy to be feeling stronger. REVIEW OF SYSTEMS: The following is a completed review of systems and has been reviewed. Review of systems otherwise unremarkable. PAIN: Patient self reports no pain EYES: no recent vision changes EARS, NOSE, & THROAT: No throat pain, or dysphagia, or rhinorrhea CARDIOVASCULAR: Denies chest pain or palpitations PULMONARY: Denies shortness of breath GASTROINTESTINAL: Denies constipation/diarrhea GENITOURINARY: denies dysuria MUSCULOSKELETAL: generalized weakness NEUROLOGICAL: +bilat LE paresthesias HEMATOLOGICAL: +anemia SKIN: left heel ulcer, jaundice PSYCHIATRIC: Unremarkable All other review of systems found to be negative. PHYSICAL EXAMINATION: VITAL SIGNS: Please see below. GENERAL: Pleasant and cooperative. No acute distress. icteric HEENT: PERRL. Extraocular movements intact. icteric conjunctiva CARDIOVASCULAR: Regular rate and rhythm. No murmurs, rubs, or gallops LUNGS: Clear to auscultation bilaterally. No wheezes. No rhonchi ABDOMEN: distended, slightly firm, no guarding or rebound tenderness NEUROLOGICAL: Alert and oriented times three. Cranial nerves II through XII grossly intact. Sensation diminished to light touch in stocking pattern EXTREMITIES: 5\5 strength bilateral upper extremities. 4\5 strength right lower extremity. 4/5 strength in left lower extremity. (+) bilat LE SKIN: left heel with eschar ASSESSMENT:50-year-old M with past medical history of liver cirrhosis who presents status post acute alcoholic liver decompensation with weakness PLAN: 1. Rehab- PT/OT advance gait and ADLs, strengthen/stretch/maintain ROM all 4limbs 2. Neuro- hx of ETOH abuse, c/u thiamine and folic acid for neuroprotection -peripheral polyneuropathy due to longstanding ETOH-abuse contributing to overall weakness and mobility impairments 3. CArdiac- hx of HTN c/u BP meds, LE edema due to liver cirrhosis c/u fluid restriction and daily weights 4. Resp- monitor for infection, duonebs -probable post-nasal drip, c/u flonase and nasal saline drops 5. GI- hx of liver cirrohsis s/p paracentisis, c/u spironolactone, rifaximine and lactulose, monitor for worsening ascites 6. Renal- hx of CKD, will consult renal who follows patient as outpatient to help monitor fluid status 7. DVT ppx- Acewrap preferred to TEDs to avoid skin breakdown in setting of LE edema, will avoid AC due to anemia, thrombocytopenia and concern bleeding disorder due to cirrhosis -dopplers negative for DVT 8. Heme- anemia of chronic disease and iron deficiency, c/u supplement 9. Endo- hx of DM c/u insulin and ISS 10. Pain- tylenol q8h prn 11. Dispo- tbd Allergies Coded Allergies: No Known Allergies (Verified Allergy, Unknown, 09/21/20) Vital Signs Vital Signs Date Time Temp Pulse Resp B/P (MAP) Pulse Ox O2 Delivery O2 Flow Rate FiO2 11/21/20 06:00 100.0 97 19 129/67 (87) 97 Room Air Laboratory Data Labs 24H Laboratory Tests 2 11/20/20 11:22: Bedside Glucose (Misc Panel) 229H 11/20/20 16:26: Bedside Glucose (Misc Panel) 210H 11/20/20 20:20: Bedside Glucose (Misc Panel) 229H 11/21/20 07:53: Bedside Glucose (Misc Panel) 140H Current Medications Current Medications Current Medications Medications (Trade) Dose Ordered Sig/Mayelin Route PRN Reason Start Time Stop Time Status Last Admin Dose Admin Acetaminophen (Tylenol Tab) 650 mg Q4HP PRN PO fever/MILD PAIN (PS 1-4) 11/18/20 16:40 11/19/20 15:22 DC Acetaminophen (Tylenol Tab) 650 mg Q8HP PRN PO fever/MILD PAIN (PS 1-4) 11/19/20 21:00 Bisacodyl (Dulcolax Tab) 5 mg DAILYPRN PRN PO CONSTIPATION 11/18/20 16:40 Dextrose (Dextrose 50%) 25 ml ASDIRECTED PRN IV SEE LABEL COMMENTS 11/18/20 16:40 Docusate Sodium (Colace) 100 mg BID PO 11/18/20 21:00 11/21/20 08:40 Ferrous Gluconate (Fergon) 324 mg DAILY PO 11/19/20 09:00 11/21/20 08:41 Fluticasone Propionate (Flonase 0.05% Nasal [place]) 1 spray BID NARES 11/20/20 09:00 11/21/20 08:46 Folic Acid (Folic Acid) 1 mg DAILY PO 11/19/20 09:00 11/21/20 08:41 Glucagon (Glucagon) 1 mg ASDIRECTED PRN SC SEE LABEL COMMENTS 11/18/20 16:40 Glucose (Glucose) 16 GM ASDIRECTED PRN PO SEE LABEL COMMENTS 11/18/20 16:40 Home Med (Med Rec Complete!) ASDIRECTED XX 11/18/20 17:15 11/18/20 17:23 DC Insulin Human Lispro (HumaLOG INSULIN) SEE PROTOCOL TABLE AC SC 11/18/20 17:30 11/21/20 08:46 Insulin Human Lispro (HumaLOG INSULIN) SEE PROTOCOL TABLE QHS SC 11/18/20 21:00 Lactulose (Cephulac) 15 ml BID PO 11/18/20 21:00 11/21/20 08:41 Pantoprazole Sodium (Protonix) 40 mg DAILY PO 11/19/20 09:00 11/21/20 08:40 Potassium Chloride (Micro-K Extencaps) 40 meq BID PO 11/18/20 21:00 11/21/20 08:41 Rifaximin (Xifaxan) 550 mg BID PO 11/18/20 21:00 11/21/20 08:40 Senna (Senokot) 1 tab QHS PO 11/18/20 21:00 11/20/20 20:55 Sodium Chloride ([place] Nasal [place]) 2 spray TID NA 11/20/20 16:00 11/21/20 09:00 Spironolactone (Aldactone) 25 mg QAM PO 11/19/20 09:00 11/21/20 08:41 Terazosin HCl (Hytrin) 5 mg QHS PO 11/18/20 21:00 11/20/20 20:55 Thiamine HCl (Thiamine HCl) 100 mg DAILY PO 11/19/20 09:00 11/21/20 08:41 Torsemide (Demadex) 20 mg QAM PO 11/19/20 09:00 11/21/20 08:41 SALLY KRISHNA MD Nov 21, 2020 10:45
[2020-11-21 14:00] VITALS: BP 114/58
[2020-11-21 20:20] VITALS: BP 133/62
[2020-11-21] MEDS: SENNA 8.6 MG TAB (SENOKOT) PO SCH (21:53)
[2020-11-21] MEDS: TERAZOSIN 5MG CAPSULE PO SCH (21:53)
[2020-11-22 06:00] VITALS: BP 126/64
[2020-11-22 06:06] LABS: BASO % 0.4 % (0.0-1.0); EOS # 0.1 10^3/uL (0.0-0.5); EOS % 1.6 % (0.0-3.0); HEMATOCRIT 25.7 % (42.0-52.0); HEMOGLOBIN 8.3 g/dl (13.5-17.5); LYMPH # 1.1 10^3/uL (1.5-5.0); MEAN CORPUSCULAR HEMOGLOBIN 30.5 pg (27.0-33.0); MEAN CORPUSCULAR HGB CONC 32.3 g/dl (32.0-36.5); MEAN CORPUSCULAR VOLUME 94.5 fl (80.0-96.0); MONO # 0.9 10^3/uL (0.0-0.8); MONO % 10.7 % (2.0-8.0); NEUTROPHILS % 73.9 % (36.0-66.0); PLATELET COUNT, AUTOMATED 110 10^3/uL (150-450); RED BLOOD COUNT 2.72 10^6/uL (4.30-6.10); WHITE BLOOD COUNT 8.1 10^3/uL (4.0-10.0)
[2020-11-22 06:28] LABS: BLOOD UREA NITROGEN 12 MG/DL (7-18); CALCIUM LEVEL 7.6 MG/DL (8.5-10.1); CARBON DIOXIDE LEVEL 30 MEQ/L (21-32); CHLORIDE LEVEL 99 MEQ/L (98-107); CREATININE FOR GFR 1.24 MG/DL (0.70-1.30); GLOMERULAR FILTRATION RATE > 60.0 (>56); GLUCOSE, FASTING 160 MG/DL (70-100); MAGNESIUM LEVEL 1.9 MG/DL (1.8-2.4); POTASSIUM SERUM 4.1 MEQ/L (3.5-5.1); SODIUM LEVEL 134 MEQ/L (136-145)
--- NOTE | 2020-11-22 08:12 | IPN ---
NEPHROLOGY PROGRESS NOTE DATE: 11/21/2020 SUBJECTIVE: Mr. Higuera was seen this morning at his bedside. He is sitting in the chair at the time of my visit. He reports some improvement in his lower extremity strength and continues with physical therapy. His abdominal distention is gradually worsening following his paracentesis a couple of days ago. He still reports some leaking from the paracentesis site. The patient denies any nausea or vomiting. OBJECTIVE: PHYSICAL EXAMINATION: VITAL SIGNS: Temperature 100 degrees Fahrenheit this morning, heart rate 97 per minute and respiratory rate 18 per minute. Blood pressure 128/68 mm of mercury and oxygen saturation 97% on room air. HEENT: His head is atraumatic. NECK: Supple and without JVD or thyroid enlargement. HEART: Regular. LUNGS: Diminished breath sounds at the bases. ABDOMEN: Distended with ascites and nontender. Bowel sounds are normal. EXTREMITIES: Without any cyanosis or clubbing. Lower extremity edema is 1+ and legs are wrapped in dante bandages. LABORATORY STUDIES: The patient did not have any new labs done today. His prior labs were reviewed yesterday. PROBLEMS: 1. Cirrhosis of liver with recurrent ascites - The patient had a paracentesis done a few days ago and ascites is slowly accumulating. He is likely to require another paracentesis, possibly next week. His volume status remains slightly decompensated. He remains on Spironolactone 25 mg daily. 2. Kidney disease he has mild chronic kidney disease which is essentially stable. We will need to continue monitoring his renal function. 3. Anemia his anemia is relatively stable without any acute blood loss. CBC should be checked again tomorrow. 4. Lower extremity weakness - The patient is improving with physical rehab. His electrolytes are stable. We will add a magnesium level for tomorrow.
[2020-11-22] MEDS: rifAXIMin 550 MG TAB (XIFAXAN) PO SCH ×2 (09:41→20:54)
[2020-11-22] MEDS: FERROUS GLUCONATE 324 MG TAB PO SCH (09:41)
[2020-11-22] MEDS: PANTOPRAZOLE 40MG TAB (PROTONIX) PO SCH (09:41)
[2020-11-22] MEDS: FOLIC ACID 1 MG TAB PO SCH (09:41)
[2020-11-22] MEDS: SPIRONOLACTONE 25 MG TAB PO SCH (09:41)
[2020-11-22] MEDS: THIAMINE 100 MG TAB PO SCH (09:41)
[2020-11-22] MEDS: LACTULOSE 20 GM/30 ML SYRUP UD PO SCH ×2 (09:41→20:54)
[2020-11-22] MEDS: POTASSIUM CHLORIDE 10 MEQ SR TABLET PO SCH ×2 (09:42→20:54)
[2020-11-22] MEDS: SODIUM CHLORIDE NASAL 0.65% SPRAY BTL (OCEAN) SCH ×3 (09:42→20:55)
[2020-11-22] MEDS: FLUTICASONE PROP 0.05% NASAL SPRAY 16 GM (FLONASE) NARES SCH ×2 (09:42→20:55)
[2020-11-22] MEDS: TORSEMIDE 20 MG TAB PO SCH (09:42)
[2020-11-22] MEDS: DOCUSATE SODIUM 100MG CAPSULE PO SCH ×2 (09:43→20:54)
[2020-11-22] MEDS: REMEDY PHYTOPLEX Z-GUARD PASTE 113GM TUBE (FROM STOREROOM PRODUCT) TOP SCH ×3 (09:43→20:55)
[2020-11-22] MEDS: HumaLOG INSULIN (NovoLOG) PER UNIT SC SCH ×4 (09:47→20:42)
[2020-11-22] MEDS: ACETAMINOPHEN TAB 650MG DOSE (2X325MG) PO PRN (09:48)
[2020-11-22 14:00] VITALS: BP 153/80
[2020-11-22 20:00] VITALS: BP 135/66
--- NOTE | 2020-11-22 20:19 | IPN ---
NEPHROLOGY PROGRESS NOTE DATE: 11/22/2020 SUBJECTIVE: Mr. Higuera is seen this morning in the gym during his physical therapy. He is in the wheelchair. He feels that his lower extremity weakness is improving. His abdominal distention is increasing again, but denies any increase in lower extremity edema. He has no vomiting or diarrhea. He did have one paracentesis and continues to have some leakage of fluid from the paracentesis site. PHYSICAL EXAMINATION: Temperature 97.6 degrees Fahrenheit, heart rate 78 per minute, respiratory rate 18 per minute, blood pressure 126/64 mmHg, oxygen saturation 94% on room air. HEAD: Atraumatic. NECK: Supple and jugular venous distention (JVD) not elevated sitting upright in the chair. LUNGS: Diminished breath sounds at the bases. HEART SOUNDS: Somewhat irregular. ABDOMEN: Markedly distended with ascites. There is minimal leakage of fluid from the right side of abdomen where he had paracentesis done several days ago. LABORATORY STUDIES: Today's labs show sodium 134, potassium 4.1, chloride 99, CO2 30, BUN 12, creatinine 1.24, glucose 160, calcium 7.6. PROBLEMS: 1. Acute on chronic kidney disease. Kidney function is more or less stable. At present, we will continue to monitor closely while we are diuresing him. 2. Generalized edema and ascites. Patient is currently on spironolactone 25 mg daily and torsemide 20 mg daily. We will continue with the same while monitoring his fluid status and renal function. 3. Recurrent ascites with cirrhosis of liver. Patient had a paracentesis done a few days ago and likely will require another paracentesis early next week. 4. Hyponatremia. Mild hyponatremia is unchanged and most likely related to cirrhosis of liver. 5. Anemia. His anemia is essentially unchanged over the last three days. No urgent need for a transfusion at this point. 6. Generalized weakness. Patient is improving and he feels that his lower extremity weakness is already slightly improved.
[2020-11-22] MEDS: TERAZOSIN 5MG CAPSULE PO SCH (20:54)
[2020-11-22] MEDS: SENNA 8.6 MG TAB (SENOKOT) PO SCH (20:54)
[2020-11-23 05:21] VITALS: BP 120/68
[2020-11-23] MEDS: HumaLOG INSULIN (NovoLOG) PER UNIT SC SCH ×4 (08:51→20:15)
[2020-11-23] MEDS: LACTULOSE 20 GM/30 ML SYRUP UD PO SCH ×2 (08:51→20:13)
[2020-11-23] MEDS: rifAXIMin 550 MG TAB (XIFAXAN) PO SCH ×2 (08:51→20:14)
[2020-11-23] MEDS: POTASSIUM CHLORIDE 10 MEQ SR TABLET PO SCH ×2 (08:52→20:14)
[2020-11-23] MEDS: FERROUS GLUCONATE 324 MG TAB PO SCH (08:52)
[2020-11-23] MEDS: FOLIC ACID 1 MG TAB PO SCH (08:52)
[2020-11-23] MEDS: DOCUSATE SODIUM 100MG CAPSULE PO SCH ×2 (08:52→20:13)
[2020-11-23] MEDS: TORSEMIDE 20 MG TAB PO SCH ×2 (08:52→20:14)
[2020-11-23] MEDS: SPIRONOLACTONE 25 MG TAB PO SCH ×2 (08:53→20:14)
[2020-11-23] MEDS: FLUTICASONE PROP 0.05% NASAL SPRAY 16 GM (FLONASE) NARES SCH ×2 (08:53→20:15)
[2020-11-23] MEDS: PANTOPRAZOLE 40MG TAB (PROTONIX) PO SCH (08:53)
[2020-11-23] MEDS: THIAMINE 100 MG TAB PO SCH (08:53)
[2020-11-23] MEDS: SODIUM CHLORIDE NASAL 0.65% SPRAY BTL (OCEAN) SCH ×3 (08:53→20:15)
[2020-11-23] MEDS: REMEDY PHYTOPLEX Z-GUARD PASTE 113GM TUBE (FROM STOREROOM PRODUCT) TOP SCH ×3 (08:54→20:15)
[2020-11-23 20:00] VITALS: BP 123/66
[2020-11-23] MEDS: TERAZOSIN 5MG CAPSULE PO SCH (20:13)
[2020-11-23] MEDS: SENNA 8.6 MG TAB (SENOKOT) PO SCH (20:13)
--- NOTE | 2020-11-23 23:09 | IPN ---
NEPHROLOGY PROGRESS NOTE DATE: 11/23/2020 SUBJECTIVE: Patient was seen and examined at the bedside today morning in the rehab unit. He was getting ready to do his physical therapy when I saw him in the morning. He still reports bilateral lower extremity edema. He continues to be on diuretics. OBJECTIVE: VITAL SIGNS: Temperature 98.7 degrees Fahrenheit, blood pressure 123/66, pulse 102, respiratory rate 18, sating 96% on room air. INTAKE/OUTPUT: Urine output recorded as 750 mL yesterday and about 1 liter so far today since overnight. Weight in the bed scale is 120.6 kg. PHYSICAL EXAMINATION: GENERAL: Patient is awake, alert, oriented x3, sitting up in the bed, in no apparent distress. HEAD AND NECK: Extraocular muscles intact. Pupils equally round and reactive to light. Mucous membranes are moist. Neck is supple. Mildly elevated JVD. RESPIRATORY: Chest is clear to auscultation bilaterally. Bilateral equal air entry. No rales or rhonchi. CARDIOVASCULAR: S1, S2, regular rate. 2+ edema of the bilateral lower extremities. ABDOMEN: Soft, distended, moderate amount of ascites was noted. Abdominal wall edema was noted. GENITOURINARY: Bladder is not palpable. MUSCULOSKELETAL: No clubbing or cyanosis. 2+ edema of the bilateral lower extremities as mentioned above. ACID PAINTER: No focal deficit. Power is 5/5 in all extremities. LABORATORY DATA: Labs were all reviewed by myself. Latest labs are from yesterday; there are no new labs available from today. His creatinine yesterday was 1.24. CURRENT INPATIENT MEDICATIONS: Patient's medications were all reviewed by myself. I increased his Spironolactone to 25 mg p.o. twice a day and Torsemide was increased to 20 mg p.o. twice a day. No other significant change in the medications today. ASSESSMENT AND PLAN: 1. Generalized edema and ascites: Patient has significant lower extremity edema. Diuretic dose has been increased today. Continue to monitor intake and output. Renal profile will be checked in the morning. 2. Chronic kidney disease stage 2: Patient's renal function is stable. Creatinine has been fluctuating between 1.1 to 1.2. Continue current dose of diuretics. 3. Cirrhosis with recurrent ascites: Diuretic dose has been increased as mentioned above. Continue current dose of lactulose and Rifaximin. 4. Hyponatremia: Patient has hypervolemic hyponatremia. Sodium level should improve with further diuresis.
[2020-11-24 05:22] VITALS: BP 127/68
[2020-11-24 07:18] LABS: ALBUMIN 1.5 GM/DL (3.2-5.2); BLOOD UREA NITROGEN 13 MG/DL (7-18); CALCIUM LEVEL 8.1 MG/DL (8.5-10.1); CARBON DIOXIDE LEVEL 29 MEQ/L (21-32); CHLORIDE LEVEL 99 MEQ/L (98-107); CREATININE FOR GFR 1.33 MG/DL (0.70-1.30); GLOMERULAR FILTRATION RATE > 60.0 (>56); GLUCOSE, FASTING 145 MG/DL (70-100); PHOSPHORUS LEVEL 3.5 MG/DL (2.5-4.9); POTASSIUM SERUM 3.8 MEQ/L (3.5-5.1); SODIUM LEVEL 132 MEQ/L (136-145)
[2020-11-24] MEDS: HumaLOG INSULIN (NovoLOG) PER UNIT SC SCH ×4 (08:54→20:21)
[2020-11-24] MEDS: FOLIC ACID 1 MG TAB PO SCH (08:55)
[2020-11-24] MEDS: FERROUS GLUCONATE 324 MG TAB PO SCH (08:55)
[2020-11-24] MEDS: POTASSIUM CHLORIDE 10 MEQ SR TABLET PO SCH ×2 (08:55→20:34)
[2020-11-24] MEDS: rifAXIMin 550 MG TAB (XIFAXAN) PO SCH ×2 (08:55→20:32)
[2020-11-24] MEDS: SPIRONOLACTONE 25 MG TAB PO SCH (08:55)
[2020-11-24] MEDS: LACTULOSE 20 GM/30 ML SYRUP UD PO SCH ×2 (08:55→20:32)
[2020-11-24] MEDS: THIAMINE 100 MG TAB PO SCH (08:55)
[2020-11-24] MEDS: REMEDY PHYTOPLEX Z-GUARD PASTE 113GM TUBE (FROM STOREROOM PRODUCT) TOP SCH ×3 (08:56→20:37)
[2020-11-24] MEDS: DOCUSATE SODIUM 100MG CAPSULE PO SCH ×2 (08:56→20:33)
[2020-11-24] MEDS: PANTOPRAZOLE 40MG TAB (PROTONIX) PO SCH (08:56)
[2020-11-24] MEDS: TORSEMIDE 20 MG TAB PO SCH ×2 (08:56→20:32)
[2020-11-24] MEDS: SODIUM CHLORIDE NASAL 0.65% SPRAY BTL (OCEAN) SCH ×3 (08:57→20:35)
[2020-11-24] MEDS: FLUTICASONE PROP 0.05% NASAL SPRAY 16 GM (FLONASE) NARES SCH ×2 (08:57→20:35)
[2020-11-24 14:00] VITALS: BP 125/65
[2020-11-24 20:00] VITALS: BP 138/61
[2020-11-24] MEDS: TERAZOSIN 5MG CAPSULE PO SCH (20:33)
[2020-11-24] MEDS: SENNA 8.6 MG TAB (SENOKOT) PO SCH (20:33)
[2020-11-24] MEDS: SPIRONOLACTONE 50 MG TAB PO SCH (20:33)
--- NOTE | 2020-11-24 22:26 | IPN ---
PROGRESS NOTE DATE: 11/24/2020 SUBJECTIVE: Patient was seen and examined at the bedside today morning in the rehabilitation unit. His diuretic regimen was increased yesterday. He is having good urine output. Renal function is stable despite the high diuretic dose. OBJECTIVE: Vital signs: Temperature is 97.9 degrees Fahrenheit, blood pressure 125/65, pulse is 104, respiratory rate of 20, saturating 97% on room air. Intake and output: Urine output recorded is 2.3 liters yesterday, 2.5 liters so far today since overnight. Weight in the bed scale is 116.8 kg. PHYSICAL EXAMINATION: General: Patient is awake, alert, oriented times three, obese body habitus, laying in the bed. Head and neck exam: Extraocular muscles intact. Pupils equally round and reactive to light. Mucous membranes are moist. Neck is supple. There is no jugular venous distension (JVD). Cardiovascular: S1, S2, regular rate. 2+ edema of the bilateral lower extremities. Respiratory: Chest is clear to auscultation bilaterally. Bilateral equal air entry. No rales or rhonchi. Abdomen: Soft, distended, abdominal wall edema is noted. Musculoskeletal: 2+ edema of the extremities as noted above. Central nervous system (COVERAGE SPECIALIST RN): No focal deficit. Power is 5/5 in all extremities. LABORATORY REVIEW: CBC is from 2 days ago. BMP done today showed sodium 132, potassium 3.8, chloride 99, bicarbonate 29, BUN 13, creatinine is 1.3, it was 1.2 yesterday. CURRENT INPATIENT MEDICATIONS: Patient's medications were all reviewed by myself. Spironolactone dose has been increased to 50 mg by mouth twice a day. He continues to be on torsemide 20 mg by mouth twice a day. ASSESSMENT AND PLAN: 1. Generalized edema and ascites. Patient's diuretic dose was increased yesterday. I am going to further increase his spironolactone today. Urine output is better now and edema is improving. 2. Chronic kidney disease stage II. Renal function is stable. Diuretic dose is slowly being adjusted up. Continue to monitor renal function daily. 3. Hyponatremia. It is secondary to hypervolemia and cirrhosis. Continue the diuretics at this time. 4. Cirrhosis and ascites. Diuretic dose as mentioned above. Continue lactulose and rifaximin. Paracentesis as needed.
[2020-11-25 06:00] VITALS: BP 127/60
[2020-11-25 06:36] LABS: BASO % 0.4 % (0.0-1.0); EOS # 0.1 10^3/uL (0.0-0.5); EOS % 1.1 % (0.0-3.0); HEMATOCRIT 25.3 % (42.0-52.0); HEMOGLOBIN 8.1 g/dl (13.5-17.5); LYMPH % 12.6 % (24.0-44.0); MEAN CORPUSCULAR HEMOGLOBIN 30.1 pg (27.0-33.0); MEAN CORPUSCULAR VOLUME 94.1 fl (80.0-96.0); MONO # 0.9 10^3/uL (0.0-0.8); MONO % 10.8 % (2.0-8.0); NEUTROPHILS # 5.9 10^3/uL (1.5-8.5); NEUTROPHILS % 74.3 % (36.0-66.0); PLATELET COUNT, AUTOMATED 144 10^3/uL (150-450); RED BLOOD COUNT 2.69 10^6/uL (4.30-6.10); WHITE BLOOD COUNT 7.9 10^3/uL (4.0-10.0)
[2020-11-25 07:05] LABS: BLOOD UREA NITROGEN 13 MG/DL (7-18); CARBON DIOXIDE LEVEL 30 MEQ/L (21-32); CHLORIDE LEVEL 98 MEQ/L (98-107); GLOMERULAR FILTRATION RATE > 60.0 (>56); GLUCOSE, FASTING 148 MG/DL (70-100); POTASSIUM SERUM 3.6 MEQ/L (3.5-5.1); SODIUM LEVEL 133 MEQ/L (136-145)
[2020-11-25] MEDS: HumaLOG INSULIN (NovoLOG) PER UNIT SC SCH ×4 (08:58→20:26)
[2020-11-25] MEDS: POTASSIUM CHLORIDE 10 MEQ SR TABLET PO SCH ×2 (08:59→20:20)
[2020-11-25] MEDS: REMEDY PHYTOPLEX Z-GUARD PASTE 113GM TUBE (FROM STOREROOM PRODUCT) TOP SCH ×3 (08:59→20:21)
[2020-11-25] MEDS: FERROUS GLUCONATE 324 MG TAB PO SCH (08:59)
[2020-11-25] MEDS: rifAXIMin 550 MG TAB (XIFAXAN) PO SCH ×2 (08:59→20:20)
[2020-11-25] MEDS: PANTOPRAZOLE 40MG TAB (PROTONIX) PO SCH (08:59)
[2020-11-25] MEDS: SPIRONOLACTONE 50 MG TAB PO SCH ×2 (09:00→20:20)
[2020-11-25] MEDS: DOCUSATE SODIUM 100MG CAPSULE PO SCH ×2 (09:00→20:19)
[2020-11-25] MEDS: FOLIC ACID 1 MG TAB PO SCH (09:00)
[2020-11-25] MEDS: TORSEMIDE 20 MG TAB PO SCH ×2 (09:00→20:20)
[2020-11-25] MEDS: LACTULOSE 20 GM/30 ML SYRUP UD PO SCH ×2 (09:00→20:19)
[2020-11-25] MEDS: THIAMINE 100 MG TAB PO SCH (09:00)
[2020-11-25] MEDS: FLUTICASONE PROP 0.05% NASAL SPRAY 16 GM (FLONASE) NARES SCH ×2 (09:01→20:21)
[2020-11-25] MEDS: SODIUM CHLORIDE NASAL 0.65% SPRAY BTL (OCEAN) SCH ×3 (09:01→20:21)
[2020-11-25] MEDS ORDERED: SODIUM BICARBONATE 8.4% INJ 50MEQ 50 ML VIAL As Ordered ONE (13:38)
[2020-11-25 14:00] VITALS: BP 144/79
--- NOTE | 2020-11-25 17:32 | REP ---
INDICATION: Ascites, therapeutic paracentesis The patient has a history of ascites COMPARISON: None. TECHNIQUE: The procedure was performed by Dr. Mock under the personal supervision of Kathrine uDeñas [facility], and under the direct supervision of Dr. Villareal The risks and benefits of the procedure were explained to the patient and an informed consent was obtained both verbally and written. Directly prior to the start of the procedure a formal time-out was completed in the procedure room. The largest pocket of fluid was localized in the right flank using ultrasound guidance. The skin was prepped and draped in a sterile fashion. Eleven ML of buffered lidocaine was used as a local anesthetic. An 8-Turkmen multi side-hole catheter was inserted using trocar technique. FINDINGS: 4850 mL of yellow ascites was removed and discarded. The patient tolerated the procedure well and there were no immediate complications. After the appropriate amount of monitored convalescence, the patient was discharged from the department. IMPRESSION: Ultrasound-guided paracentesis with removal of 4850 mL of yellow ascites. <Electronically signed by Kathrine Dueñas > 11/25/20 1612 <Electronically signed by Matt Villareal > 11/25/20 [id number]
[2020-11-25 20:00] VITALS: BP 118/56
[2020-11-25] MEDS: SENNA 8.6 MG TAB (SENOKOT) PO SCH (20:20)
[2020-11-25] MEDS: TERAZOSIN 5MG CAPSULE PO SCH (20:20)
--- NOTE | 2020-11-25 22:59 | IPN ---
NEPHROLOGY PROGRESS NOTE DATE: 11/25/2020 SUBJECTIVE: Patient was seen and examined at the bedside today morning. He is afebrile, hemodynamically stable. He denies any other active complaints apart from abdominal bloating and distention. He reports that his leg edema is getting better. OBJECTIVE: VITAL SIGNS: Temperature 98.2 degrees Fahrenheit, blood pressure 144/79, pulse 104, respiratory rate 18, sating 98% on room air. INTAKE/OUTPUT: Urine output recorded as 3.5 liters yesterday and 675 mL so far today since overnight. Weight in the bed scale is 116.4 kg. PHYSICAL EXAMINATION: GENERAL: Patient is awake, alert, oriented x3, sitting up in the bed, in no apparent distress. HEAD AND NECK: Extraocular muscles intact. Pupils equally round and reactive to light. Mucous membranes are moist. Neck is supple. There is no JVD. RESPIRATORY: Chest is clear to auscultation bilaterally. Bilateral equal air entry. No rales or rhonchi. CARDIOVASCULAR: S1, S2, regular rate. 1+ edema of the bilateral lower extremities. ABDOMEN: Soft, abdominal wall edema was noted. A moderate amount of ascites was also noted. MUSCULOSKELETAL: No clubbing or cyanosis. Pulses 2+. RECOATING MACHINE OPERATOR: No focal deficit. Power is 5/5 in all extremities. LABORATORY DATA: CBC showed WBC 7.9, hemoglobin 8.1, platelets 444,000. BMP showed sodium 144, potassium 3.6, chloride 98, bicarb 30, BUN 13, creatinine 1.3. CURRENT INPATIENT MEDICATIONS: Patient's medications were all reviewed by myself. He continues to be on Spironolactone 50 mg p.o. twice a day and Torsemide 20 mg p.o. twice a day. ASSESSMENT AND PLAN: 1. Anasarca and ascites: Patient is being sent for a paracentesis today. Continue current dose of Spironolactone and Torsemide. Continue low salt diet. 2. Chronic kidney disease stage 3: Patient is tolerating current dose of diuretic. Continue to monitor. 3. Hyponatremia: Patient has hypervolemic hyponatremia. Sodium level is stable. 4. Cirrhosis with ascites: Continue lactulose and Rifaximin. Diuretic dose as mentioned above.
[2020-11-26 06:00] VITALS: BP 119/66
[2020-11-26] MEDS: LACTULOSE 20 GM/30 ML SYRUP UD PO SCH ×2 (10:48→21:04)
[2020-11-26] MEDS: POTASSIUM CHLORIDE 10 MEQ SR TABLET PO SCH ×2 (10:48→21:04)
[2020-11-26] MEDS: HumaLOG INSULIN (NovoLOG) PER UNIT SC SCH ×4 (10:48→20:53)
[2020-11-26] MEDS: DOCUSATE SODIUM 100MG CAPSULE PO SCH ×2 (10:49→21:06)
[2020-11-26] MEDS: TORSEMIDE 20 MG TAB PO SCH ×2 (10:49→21:05)
[2020-11-26] MEDS: FERROUS GLUCONATE 324 MG TAB PO SCH (10:49)
[2020-11-26] MEDS: rifAXIMin 550 MG TAB (XIFAXAN) PO SCH ×2 (10:49→21:05)
[2020-11-26] MEDS: THIAMINE 100 MG TAB PO SCH (10:49)
[2020-11-26] MEDS: PANTOPRAZOLE 40MG TAB (PROTONIX) PO SCH (10:49)
[2020-11-26] MEDS: FLUTICASONE PROP 0.05% NASAL SPRAY 16 GM (FLONASE) NARES SCH ×2 (10:50→21:08)
[2020-11-26] MEDS: SPIRONOLACTONE 50 MG TAB PO SCH ×2 (10:50→21:06)
[2020-11-26] MEDS: SODIUM CHLORIDE NASAL 0.65% SPRAY BTL (OCEAN) SCH ×3 (10:50→21:08)
[2020-11-26] MEDS: FOLIC ACID 1 MG TAB PO SCH (10:50)
[2020-11-26] MEDS: REMEDY PHYTOPLEX Z-GUARD PASTE 113GM TUBE (FROM STOREROOM PRODUCT) TOP SCH ×4 (10:50→23:57)
--- NOTE | 2020-11-26 12:46 | IPNPDOC ---
PM&R Progress Note DATE OF SERVICE: Nov 26, 2020 Belt Tender Progress Note Subjective: Patient reporting he walked further today in therapy and was happy to be feeling stronger. Subjective: Patient reporting his stomach feels much sifter and he is feeling stronger each day. REVIEW OF SYSTEMS: The following is a completed review of systems and has been reviewed. Review of systems otherwise unremarkable. PAIN: Patient self reports no pain EYES: no recent vision changes EARS, NOSE, & THROAT: No throat pain, or dysphagia, or rhinorrhea CARDIOVASCULAR: Denies chest pain or palpitations PULMONARY: Denies shortness of breath GASTROINTESTINAL: Denies constipation/diarrhea GENITOURINARY: denies dysuria MUSCULOSKELETAL: generalized weakness NEUROLOGICAL: +bilat LE paresthesias HEMATOLOGICAL: +anemia SKIN: left heel ulcer, jaundice PSYCHIATRIC: Unremarkable All other review of systems found to be negative. PHYSICAL EXAMINATION: VITAL SIGNS: Please see below. GENERAL: Pleasant and cooperative. No acute distress. icteric HEENT: PERRL. Extraocular movements intact. icteric conjunctiva CARDIOVASCULAR: Regular rate and rhythm. No murmurs, rubs, or gallops LUNGS: Clear to auscultation bilaterally. No wheezes. No rhonchi ABDOMEN: non-distended, soft, no guarding or rebound tenderness NEUROLOGICAL: Alert and oriented times three. Cranial nerves II through XII grossly intact. Sensation diminished to light touch in stocking pattern EXTREMITIES: 5\5 strength bilateral upper extremities. 4\5 strength right lower extremity. 4/5 strength in left lower extremity. (+) bilat LE SKIN: left heel with eschar ASSESSMENT:50-year-old M with past medical history of liver cirrhosis who presents status post acute alcoholic liver decompensation with weakness PLAN: 1. Rehab- PT/OT advance gait and ADLs, strengthen/stretch/maintain ROM all 4limbs 2. Neuro- hx of ETOH abuse, c/u thiamine and folic acid for neuroprotection -peripheral polyneuropathy due to longstanding ETOH-abuse contributing to overall weakness and mobility impairments 3. CArdiac- hx of HTN c/u BP meds, LE edema due to liver cirrhosis c/u fluid restriction and daily weights 4. Resp- monitor for infection, duonebs -probable post-nasal drip, c/u flonase and nasal saline drops 5. GI- hx of liver cirrohsis- repeat paracentesis performed 11-25-20, patient stating he feels much better-renal intervention appreciated, c/u spironolactone, rifaximine and lactulose, monitor for worsening ascites 6. Renal- hx of CKD, renal following and assisting with ascites-appreciated 7. DVT ppx- Acewrap preferred to TEDs to avoid skin breakdown in setting of LE edema, will avoid AC due to anemia, thrombocytopenia and concern bleeding disorder due to cirrhosis -dopplers negative for DVT 8. Heme- anemia of chronic disease and iron deficiency, c/u supplement 9. Endo- hx of DM c/u insulin and ISS 10. Pain- tylenol q8h prn 11. Dispo- tbd Allergies Coded Allergies: No Known Allergies (Verified Allergy, Unknown, 09/21/20) Vital Signs Vital Signs Date Time Temp Pulse Resp B/P (MAP) Pulse Ox O2 Delivery O2 Flow Rate FiO2 11/26/20 06:00 98.9 90 18 119/66 (83) 100 Room Air Laboratory Data Labs 24H Laboratory Tests 2 11/25/20 16:27: Bedside Glucose (Misc Panel) 189H 11/25/20 19:51: Bedside Glucose (Misc Panel) 241H 11/26/20 06:03: Bedside Glucose (Misc Panel) 132H 11/26/20 11:27: Bedside Glucose (Misc Panel) 243H Current Medications Current Medications Current Medications Medications (Trade) Dose Ordered Sig/Mayelin Route PRN Reason Start Time Stop Time Status Last Admin Dose Admin Acetaminophen (Tylenol Tab) 650 mg Q4HP PRN PO fever/MILD PAIN (PS 1-4) 11/18/20 16:40 11/19/20 15:22 DC Acetaminophen (Tylenol Tab) 650 mg Q8HP PRN PO fever/MILD PAIN (PS 1-4) 11/19/20 21:00 11/22/20 09:48 Bisacodyl (Dulcolax Tab) 5 mg DAILYPRN PRN PO CONSTIPATION 11/18/20 16:40 Dextrose (Dextrose 50%) 25 ml ASDIRECTED PRN IV SEE LABEL COMMENTS 11/18/20 16:40 Docusate Sodium (Colace) 100 mg BID PO 11/18/20 21:00 11/26/20 10:49 Ferrous Gluconate (Fergon) 324 mg DAILY PO 11/19/20 09:00 11/26/20 10:49 Fluticasone Propionate (Flonase 0.05% Nasal [place]) 1 spray BID NARES 11/20/20 09:00 11/26/20 10:50 Folic Acid (Folic Acid) 1 mg DAILY PO 11/19/20 09:00 11/26/20 10:50 Glucagon (Glucagon) 1 mg ASDIRECTED PRN SC SEE LABEL COMMENTS 11/18/20 16:40 Glucose (Glucose) 16 GM ASDIRECTED PRN PO SEE LABEL COMMENTS 11/18/20 16:40 Home Med (Med Rec Complete!) ASDIRECTED XX 11/18/20 17:15 11/18/20 17:23 DC Insulin Human Lispro (HumaLOG INSULIN) SEE PROTOCOL TABLE AC SC 11/18/20 17:30 11/26/20 12:12 Insulin Human Lispro (HumaLOG INSULIN) SEE PROTOCOL TABLE QHS SC 11/18/20 21:00 Lactulose (Cephulac) 15 ml BID PO 11/18/20 21:00 11/26/20 10:48 Pantoprazole Sodium (Protonix) 40 mg DAILY PO 11/19/20 09:00 11/26/20 10:49 Potassium Chloride (Micro-K Extencaps) 40 meq BID PO 11/18/20 21:00 11/26/20 10:48 Rifaximin (Xifaxan) 550 mg BID PO 11/18/20 21:00 11/26/20 10:49 Senna (Senokot) 1 tab QHS PO 11/18/20 21:00 11/25/20 20:20 Sodium Chloride ([place] Nasal [place]) 2 spray TID NA 11/20/20 16:00 11/26/20 10:50 Spironolactone (Aldactone) 25 mg BID PO 11/23/20 21:00 11/24/20 11:53 DC 11/24/20 08:55 Spironolactone (Aldactone) 25 mg QAM PO 11/19/20 09:00 11/23/20 12:18 DC 11/23/20 08:53 Spironolactone (Aldactone) 50 mg BID PO 11/24/20 21:00 11/26/20 10:50 Terazosin HCl (Hytrin) 5 mg QHS PO 11/18/20 21:00 3/15/21 20:20 Thiamine HCl (Thiamine HCl) 100 mg DAILY PO 11/19/20 09:00 11/26/20 10:49 Torsemide (Demadex) 20 mg BID PO 11/23/20 21:00 11/26/20 10:49 Torsemide (Demadex) 20 mg QAM PO 11/19/20 09:00 11/23/20 12:18 DC 11/23/20 08:52 SALLY KRISHNA MD Nov 26, 2020 12:46
[2020-11-26 14:00] VITALS: BP 135/73
[2020-11-26 20:15] VITALS: BP 130/64
[2020-11-26] MEDS: TERAZOSIN 5MG CAPSULE PO SCH (21:05)
[2020-11-26] MEDS: SENNA 8.6 MG TAB (SENOKOT) PO SCH (21:08)
--- NOTE | 2020-11-26 23:50 | IPN ---
NEPHROLOGY PROGRESS NOTE DATE: 11/26/2020 SUBJECTIVE: Patient was seen and examined at the bedside today morning. He is afebrile, hemodynamically stable. Ascitic tap was done yesterday. He reports abdominal distention is significantly better. He continues to be on oral diuretics as well. He reports edema is getting better. OBJECTIVE: VITAL SIGNS: Temperature 98.1 degrees Fahrenheit, blood pressure 130/64, pulse 88, respiratory rate 18, sating 96% on room air. INTAKE AND OUTPUT: Urine output recorded as 450 mL. Weight in the bed scale is 105.7 kg. PHYSICAL EXAMINATION: GENERAL: Patient is awake, alert, oriented x3, lying in the bed in no apparent distress. HEAD AND NECK: Extraocular muscles intact. Pupils equally round and reactive to light. Mucous membranes are moist. Neck is supple. There is no JVD. RESPIRATORY: Chest is clear to auscultation bilaterally. Bilateral equal air entry. No rales or rhonchi. CARDIOVASCULAR: S1, S2, regular rate. 1+ edema of the bilateral lower extremities. ABDOMEN: Soft, positive bowel sounds. No significant ascites was noted. MUSCULOSKELETAL: No clubbing or cyanosis. Pulses are 2+. BOTTLE GAUGER: No focal deficit. Power is 5/5 in all extremities. LABORATORY DATA: CBC and BMP is from yesterday. There are no new labs available today. IMAGING STUDIES: A paracentesis was done yesterday and 4.8 liters of fluid was removed. CURRENT INPATIENT MEDICATIONS: Patient's medications were all reviewed by myself. He is currently on Torsemide 20 mg p.o. twice a day and Spironolactone 50 mg p.o. twice a day. ASSESSMENT AND PLAN: 1. Anasarca and ascites: Patient is on Torsemide and Spironolactone, edema is significantly getting better, continue current dose. 2. Cirrhosis with portal hypertension and ascites: Continue lactulose and Rifaximin. Ascitic tap was done yesterday and 4.8 liters of fluid was removed. 3. Chronic kidney disease stage 3: Patient's renal function is stable. Continue current dose of diuretics at this time. 4. Anemia: Patient continues to be on oral iron. Hemoglobin level is stable. Transfuse p.r.n. for hemoglobin below 8.
[2020-11-27] MEDS: REMEDY PHYTOPLEX Z-GUARD PASTE 113GM TUBE (FROM STOREROOM PRODUCT) TOP SCH ×5 (04:00→20:46)
[2020-11-27 06:20] VITALS: BP 120/66
[2020-11-27 06:43] LABS: BASO % 0.5 % (0.0-1.0); EOS # 0.1 10^3/uL (0.0-0.5); EOS % 1.2 % (0.0-3.0); HEMATOCRIT 26.1 % (42.0-52.0); HEMOGLOBIN 8.4 g/dl (13.5-17.5); LYMPH # 1.3 10^3/uL (1.5-5.0); LYMPH % 14.7 % (24.0-44.0); MEAN CORPUSCULAR HEMOGLOBIN 29.7 pg (27.0-33.0); MEAN CORPUSCULAR HGB CONC 32.2 g/dl (32.0-36.5); MEAN CORPUSCULAR VOLUME 92.2 fl (80.0-96.0); MONO % 11.8 % (2.0-8.0); NEUTROPHILS # 6.2 10^3/uL (1.5-8.5); NEUTROPHILS % 71.5 % (36.0-66.0); PLATELET COUNT, AUTOMATED 152 10^3/uL (150-450); RED BLOOD COUNT 2.83 10^6/uL (4.30-6.10); WHITE BLOOD COUNT 8.6 10^3/uL (4.0-10.0)
[2020-11-27 07:06] LABS: ALBUMIN 1.5 GM/DL (3.2-5.2); BLOOD UREA NITROGEN 15 MG/DL (7-18); CALCIUM LEVEL 7.9 MG/DL (8.5-10.1); CARBON DIOXIDE LEVEL 31 MEQ/L (21-32); CHLORIDE LEVEL 97 MEQ/L (98-107); GLOMERULAR FILTRATION RATE > 60.0 (>56); GLUCOSE, FASTING 144 MG/DL (70-100); PHOSPHORUS LEVEL 3.5 MG/DL (2.5-4.9); POTASSIUM SERUM 3.9 MEQ/L (3.5-5.1); SODIUM LEVEL 132 MEQ/L (136-145)
[2020-11-27] MEDS: HumaLOG INSULIN (NovoLOG) PER UNIT SC SCH ×4 (08:32→20:42)
[2020-11-27] MEDS: LACTULOSE 20 GM/30 ML SYRUP UD PO SCH ×2 (08:32→20:42)
[2020-11-27] MEDS: DOCUSATE SODIUM 100MG CAPSULE PO SCH ×2 (08:33→20:40)
[2020-11-27] MEDS: POTASSIUM CHLORIDE 10 MEQ SR TABLET PO SCH ×2 (08:33→20:40)
[2020-11-27] MEDS: rifAXIMin 550 MG TAB (XIFAXAN) PO SCH ×2 (08:33→20:40)
[2020-11-27] MEDS: FERROUS GLUCONATE 324 MG TAB PO SCH (08:33)
[2020-11-27] MEDS: PANTOPRAZOLE 40MG TAB (PROTONIX) PO SCH (08:34)
[2020-11-27] MEDS: FOLIC ACID 1 MG TAB PO SCH (08:34)
[2020-11-27] MEDS: THIAMINE 100 MG TAB PO SCH (08:34)
[2020-11-27] MEDS: TORSEMIDE 20 MG TAB PO SCH ×2 (08:34→20:41)
[2020-11-27] MEDS: SODIUM CHLORIDE NASAL 0.65% SPRAY BTL (OCEAN) SCH ×3 (08:34→20:46)
[2020-11-27] MEDS: SPIRONOLACTONE 50 MG TAB PO SCH ×2 (08:34→20:42)
[2020-11-27] MEDS: FLUTICASONE PROP 0.05% NASAL SPRAY 16 GM (FLONASE) NARES SCH ×2 (08:35→20:46)
--- NOTE | 2020-11-27 10:37 | IPNPDOC ---
PM&R Progress Note DATE OF SERVICE: Nov 27, 2020 Environmental Services Floor Tech Progress Note Subjective: Patient reporting he feels well, he understands it is important to offload his bottom and the importance of applying barrier cream regularly. He is open to seeing a energy management specialist once he leaves. REVIEW OF SYSTEMS: The following is a completed review of systems and has been reviewed. Review of systems otherwise unremarkable. PAIN: Patient self reports no pain EYES: no recent vision changes EARS, NOSE, & THROAT: No throat pain, or dysphagia, or rhinorrhea CARDIOVASCULAR: Denies chest pain or palpitations PULMONARY: Denies shortness of breath GASTROINTESTINAL: Denies constipation/diarrhea GENITOURINARY: denies dysuria MUSCULOSKELETAL: generalized weakness NEUROLOGICAL: +bilat LE paresthesias HEMATOLOGICAL: +anemia SKIN: left heel ulcer, jaundice PSYCHIATRIC: Unremarkable All other review of systems found to be negative. PHYSICAL EXAMINATION: VITAL SIGNS: Please see below. GENERAL: Pleasant and cooperative. No acute distress. icteric HEENT: PERRL. Extraocular movements intact. icteric conjunctiva CARDIOVASCULAR: Regular rate and rhythm. No murmurs, rubs, or gallops LUNGS: Clear to auscultation bilaterally. No wheezes. No rhonchi ABDOMEN: non-distended, soft, no guarding or rebound tenderness NEUROLOGICAL: Alert and oriented times three. Cranial nerves II through XII grossly intact. Sensation diminished to light touch in stocking pattern EXTREMITIES: 5\5 strength bilateral upper extremities. 4\5 strength right lower extremity. 4/5 strength in left lower extremity. (+) bilat LE SKIN: left heel with eschar, 2 sacral ulcers ASSESSMENT:50-year-old M with past medical history of liver cirrhosis who presents status post acute alcoholic liver decompensation with weakness PLAN: 1. Rehab- PT/OT advance gait and ADLs, strengthen/stretch/maintain ROM all 4limbs 2. Neuro- hx of ETOH abuse, c/u thiamine and folic acid for neuroprotection -peripheral polyneuropathy due to longstanding ETOH-abuse contributing to overall weakness and mobility impairments 3. CArdiac- hx of HTN c/u BP meds, LE edema due to liver cirrhosis c/u fluid restriction and daily weights 4. Resp- monitor for infection, duonebs -probable post-nasal drip, c/u flonase and nasal saline drops 5. GI- hx of liver cirrohsis- repeat paracentesis performed 3-15-21, patient stating he feels much better-renal intervention appreciated, c/u spironolactone, rifaximine and lactulose, monitor for worsening ascites 6. Renal- hx of CKD, renal following and assisting with ascites-appreciated 7. DVT ppx- Acewrap preferred to TEDs to avoid skin breakdown in setting of LE edema, will avoid AC due to anemia, thrombocytopenia and concern bleeding disorder due to cirrhosis -dopplers negative for DVT 8. Heme- anemia of chronic disease and iron deficiency, c/u supplement 9. Endo- hx of DM c/u insulin and ISS 10. Pain- tylenol q8h prn 11. Skin- patient with stage 2 sacral ulcers, frequency of zinc oxide paste increased, patient educated on offloading and on applying cream himself once he gets home 12. Dispo- 12-02-20 to home, progressing towards goals Allergies Coded Allergies: No Known Allergies (Verified Allergy, Unknown, 09/21/20) Vital Signs Vital Signs Date Time Temp Pulse Resp B/P (MAP) Pulse Ox O2 Delivery O2 Flow Rate FiO2 11/27/20 06:20 98.1 90 18 120/66 (84) 98 Room Air Laboratory Data CBC/BMP Laboratory Tests 11/27/20 06:10 Labs 24H Laboratory Tests 2 11/26/20 11:27: Bedside Glucose (Misc Panel) 243H 11/26/20 16:35: Bedside Glucose (Misc Panel) 159H 11/26/20 20:29: Bedside Glucose (Misc Panel) 186H 11/27/20 06:10: Immature Granulocyte % (Auto) 0.3, Neutrophils (%) (Auto) 71.5H, Lymphocytes (%) (Auto) 14.7L, Monocytes (%) (Auto) 11.8H, Eosinophils (%) (Auto) 1.2, Basophils (%) (Auto) 0.5, Neutrophils # (Auto) 6.2, Lymphocytes # (Auto) 1.3L, Monocytes # (Auto) 1.0H, Eosinophils # (Auto) 0.1, Basophils # (Auto) 0.0, Nucleated Red Blood Cells % (auto) 0.0, Anion Gap 4L, Glomerular Filtration Rate > 60.0, Calcium Level 7.9L, Phosphorus Level 3.5, Albumin 1.5L 11/27/20 06:20: Bedside Glucose (Misc Panel) 127H Current Medications Current Medications Current Medications Medications (Trade) Dose Ordered Sig/Mayelin Route PRN Reason Start Time Stop Time Status Last Admin Dose Admin Acetaminophen (Tylenol Tab) 650 mg Q4HP PRN PO fever/MILD PAIN (PS 1-4) 11/18/20 16:40 11/19/20 15:22 DC Acetaminophen (Tylenol Tab) 650 mg Q8HP PRN PO fever/MILD PAIN (PS 1-4) 11/19/20 21:00 11/22/20 09:48 Bisacodyl (Dulcolax Tab) 5 mg DAILYPRN PRN PO CONSTIPATION 11/18/20 16:40 Dextrose (Dextrose 50%) 25 ml ASDIRECTED PRN IV SEE LABEL COMMENTS 11/18/20 16:40 Docusate Sodium (Colace) 100 mg BID PO 11/18/20 21:00 11/27/20 08:33 Ferrous Gluconate (Fergon) 324 mg DAILY PO 11/19/20 09:00 11/27/20 08:33 Fluticasone Propionate (Flonase 0.05% Nasal [place]) 1 spray BID NARES 11/20/20 09:00 11/27/20 08:35 Folic Acid (Folic Acid) 1 mg DAILY PO 11/19/20 09:00 11/27/20 08:34 Glucagon (Glucagon) 1 mg ASDIRECTED PRN SC SEE LABEL COMMENTS 11/18/20 16:40 Glucose (Glucose) 16 GM ASDIRECTED PRN PO SEE LABEL COMMENTS 11/18/20 16:40 Home Med (Med Rec Complete!) ASDIRECTED XX 11/18/20 17:15 11/18/20 17:23 DC Insulin Human Lispro (HumaLOG INSULIN) SEE PROTOCOL TABLE AC SC 11/18/20 17:30 11/27/20 08:32 Insulin Human Lispro (HumaLOG INSULIN) SEE PROTOCOL TABLE QHS SC 11/18/20 21:00 Lactulose (Cephulac) 15 ml BID PO 11/18/20 21:00 11/27/20 08:32 Pantoprazole Sodium (Protonix) 40 mg DAILY PO 11/19/20 09:00 11/27/20 08:34 Potassium Chloride (Micro-K Extencaps) 40 meq BID PO 11/18/20 21:00 11/27/20 08:33 Rifaximin (Xifaxan) 550 mg BID PO 11/18/20 21:00 11/27/20 08:33 Senna (Senokot) 1 tab QHS PO 11/18/20 21:00 11/26/20 21:08 Sodium Chloride ([place] Nasal [place]) 2 spray TID NA 11/20/20 16:00 11/27/20 08:34 Spironolactone (Aldactone) 25 mg BID PO 11/23/20 21:00 11/24/20 11:53 DC 11/24/20 08:55 Spironolactone (Aldactone) 25 mg QAM PO 11/19/20 09:00 11/23/20 12:18 DC 11/23/20 08:53 Spironolactone (Aldactone) 50 mg BID PO 11/24/20 21:00 11/27/20 08:34 Terazosin HCl (Hytrin) 5 mg QHS PO 11/18/20 21:00 11/26/20 21:05 Thiamine HCl (Thiamine HCl) 100 mg DAILY PO 11/19/20 09:00 11/27/20 08:34 Torsemide (Demadex) 20 mg BID PO 11/23/20 21:00 11/27/20 08:34 Torsemide (Demadex) 20 mg QAM PO 11/19/20 09:00 11/23/20 12:18 DC 11/23/20 08:52 SALLY KRISHNA MD Nov 27, 2020 10:37
[2020-11-27 14:00] VITALS: BP 133/67
[2020-11-27 20:00] VITALS: BP 112/59
[2020-11-27] MEDS: TERAZOSIN 5MG CAPSULE PO SCH (20:40)
[2020-11-27] MEDS: SENNA 8.6 MG TAB (SENOKOT) PO SCH (20:40)
[2020-11-27 21:48] VITALS: BP 112/59
--- NOTE | 2020-11-27 22:57 | IPN ---
NEPHROLOGY PROGRESS NOTE DATE: 11/27/2020 SUBJECTIVE: Patient was seen and examined at the bedside today morning. He is afebrile, hemodynamically stable, lying in bed in no apparent distress. He denies any active complaints. His leg swelling is getting better. OBJECTIVE: VITAL SIGNS: Temperature 99.1 degrees Fahrenheit, blood pressure 1__/59, pulse 91, respiratory rate 18, sating 94% on room air. INTAKE AND OUTPUT: Urine output recorded as 450 mL yesterday; some of them are incontinent voids that were not recorded and 90 to 100 mL so far today since overnight.. Weight in the bed scale is 105.4 kg. PHYSICAL EXAMINATION: GENERAL: Patient is awake, alert, oriented x3, lying in the bed in no apparent distress. HEAD AND NECK: Extraocular muscles intact. Pupils equally round and reactive to light. Mucous membranes are moist. Neck is supple. There is no JVD. RESPIRATORY: Chest is clear to auscultation bilaterally. Bilateral equal air entry. No rales or rhonchi. CARDIOVASCULAR: S1, S2, regular rate. 1+ edema of the bilateral lower extremities. ABDOMEN: Soft, positive bowel sounds. Abdominal wall edema was noted. MUSCULOSKELETAL: No clubbing or cyanosis. Pulses are 2+. BRICK STACKER: No focal deficit. Power is 5/5 in all extremities. LABORATORY DATA: CBC showed WBC 8.6, hemoglobin 8.4, platelets 452,000. BMP showed sodium 132, potassium 3.9, chloride 97, bicarb 31, BUN 15, creatinine 1.2. CURRENT INPATIENT MEDICATIONS: Patient's medications were all reviewed by myself. He is currently on Torsemide 20 mg p.o. twice a day and Spironolactone 50 mg p.o. twice a day. No other significant change in the medications today. ASSESSMENT AND PLAN: 1. Ascites and anasarca: Patient's volume status is getting better. Continue current dose of Torsemide and Spironolactone. 2. Cirrhosis with portal hypertension and ascites: Patient is status post ascitic tap. His diuretic regimen is optimized. He continues to be on lactulose and Rifaximin. 3. Chronic kidney disease stage 3: Renal function is stable with the current dose of diuretics. DISPOSITION: Patient's renal function is stable. Diuretics are optimized at this time. Nephrology service is going to sign off at this moment. Please call nephrology service for any help in the management of this patient during this rehab stay.
[2020-11-28] MEDS: REMEDY PHYTOPLEX Z-GUARD PASTE 113GM TUBE (FROM STOREROOM PRODUCT) TOP SCH ×6 (04:52→20:54)
[2020-11-28 05:20] VITALS: BP 133/66
[2020-11-28] MEDS: FOLIC ACID 1 MG TAB PO SCH (08:58)
[2020-11-28] MEDS: HumaLOG INSULIN (NovoLOG) PER UNIT SC SCH ×4 (08:58→21:00)
[2020-11-28] MEDS: DOCUSATE SODIUM 100MG CAPSULE PO SCH ×2 (08:59→20:57)
[2020-11-28] MEDS: TORSEMIDE 20 MG TAB PO SCH ×2 (08:59→20:56)
[2020-11-28] MEDS: rifAXIMin 550 MG TAB (XIFAXAN) PO SCH ×2 (08:59→20:56)
[2020-11-28] MEDS: FERROUS GLUCONATE 324 MG TAB PO SCH (08:59)
[2020-11-28] MEDS: THIAMINE 100 MG TAB PO SCH (08:59)
[2020-11-28] MEDS: SPIRONOLACTONE 50 MG TAB PO SCH ×2 (08:59→20:57)
[2020-11-28] MEDS: POTASSIUM CHLORIDE 10 MEQ SR TABLET PO SCH ×2 (08:59→20:57)
[2020-11-28] MEDS: SODIUM CHLORIDE NASAL 0.65% SPRAY BTL (OCEAN) SCH ×3 (09:00→20:57)
[2020-11-28] MEDS: LACTULOSE 20 GM/30 ML SYRUP UD PO SCH ×2 (09:00→20:55)
[2020-11-28] MEDS: FLUTICASONE PROP 0.05% NASAL SPRAY 16 GM (FLONASE) NARES SCH ×2 (09:01→20:57)
[2020-11-28] MEDS: PANTOPRAZOLE 40MG TAB (PROTONIX) PO SCH (09:02)
[2020-11-28 14:00] VITALS: BP 131/71
[2020-11-28 20:00] VITALS: BP 118/58
[2020-11-28] MEDS: SENNA 8.6 MG TAB (SENOKOT) PO SCH (20:56)
[2020-11-28] MEDS: TERAZOSIN 5MG CAPSULE PO SCH (20:56)
[2020-11-29] MEDS: REMEDY PHYTOPLEX Z-GUARD PASTE 113GM TUBE (FROM STOREROOM PRODUCT) TOP SCH ×6 (04:00→21:14)
[2020-11-29 05:33] VITALS: BP 124/67
[2020-11-29 06:46] LABS: BASO % 0.5 % (0.0-1.0); EOS # 0.1 10^3/uL (0.0-0.5); EOS % 1.5 % (0.0-3.0); HEMATOCRIT 26.7 % (42.0-52.0); HEMOGLOBIN 8.6 g/dl (13.5-17.5); LYMPH # 1.1 10^3/uL (1.5-5.0); LYMPH % 14.8 % (24.0-44.0); MEAN CORPUSCULAR HEMOGLOBIN 29.9 pg (27.0-33.0); MEAN CORPUSCULAR HGB CONC 32.2 g/dl (32.0-36.5); MEAN CORPUSCULAR VOLUME 92.7 fl (80.0-96.0); MONO # 0.9 10^3/uL (0.0-0.8); MONO % 11.4 % (2.0-8.0); NEUTROPHILS # 5.3 10^3/uL (1.5-8.5); NEUTROPHILS % 71.4 % (36.0-66.0); PLATELET COUNT, AUTOMATED 163 10^3/uL (150-450); RED BLOOD COUNT 2.88 10^6/uL (4.30-6.10); WHITE BLOOD COUNT 7.5 10^3/uL (4.0-10.0)
[2020-11-29 07:20] LABS: POTASSIUM SERUM 3.8 MEQ/L (3.5-5.1)
[2020-11-29 07:21] LABS: CALCIUM LEVEL 8.3 MG/DL (8.5-10.1); CREATININE FOR GFR 1.36 MG/DL (0.70-1.30); GLOMERULAR FILTRATION RATE 58.8 (>56)
[2020-11-29] MEDS: HumaLOG INSULIN (NovoLOG) PER UNIT SC SCH ×4 (08:56→20:28)
[2020-11-29] MEDS: FERROUS GLUCONATE 324 MG TAB PO SCH (08:56)
[2020-11-29] MEDS: LACTULOSE 20 GM/30 ML SYRUP UD PO SCH ×2 (08:56→21:08)
[2020-11-29] MEDS: POTASSIUM CHLORIDE 10 MEQ SR TABLET PO SCH ×2 (08:56→21:09)
[2020-11-29] MEDS: rifAXIMin 550 MG TAB (XIFAXAN) PO SCH ×2 (08:56→21:14)
[2020-11-29] MEDS: FOLIC ACID 1 MG TAB PO SCH (08:56)
[2020-11-29] MEDS: SODIUM CHLORIDE NASAL 0.65% SPRAY BTL (OCEAN) SCH ×3 (08:57→21:11)
[2020-11-29] MEDS: PANTOPRAZOLE 40MG TAB (PROTONIX) PO SCH (08:57)
[2020-11-29] MEDS: SPIRONOLACTONE 50 MG TAB PO SCH ×2 (08:57→21:10)
[2020-11-29] MEDS: THIAMINE 100 MG TAB PO SCH (08:57)
[2020-11-29] MEDS: FLUTICASONE PROP 0.05% NASAL SPRAY 16 GM (FLONASE) NARES SCH ×2 (08:57→21:11)
[2020-11-29] MEDS: TORSEMIDE 20 MG TAB PO SCH ×2 (08:57→21:10)
[2020-11-29] MEDS: DOCUSATE SODIUM 100MG CAPSULE PO SCH ×2 (08:57→21:09)
[2020-11-29 14:00] VITALS: BP 127/68
[2020-11-29 20:00] VITALS: BP 122/58
[2020-11-29] MEDS: TERAZOSIN 5MG CAPSULE PO SCH (21:08)
[2020-11-29] MEDS: SENNA 8.6 MG TAB (SENOKOT) PO SCH (21:09)
[2020-11-30] MEDS: REMEDY PHYTOPLEX Z-GUARD PASTE 113GM TUBE (FROM STOREROOM PRODUCT) TOP SCH ×7 (00:45→23:54)
[2020-11-30 06:14] VITALS: BP 118/66
[2020-11-30] MEDS: HumaLOG INSULIN (NovoLOG) PER UNIT SC SCH ×4 (06:45→20:42)
[2020-11-30 07:55] LABS: CALCIUM LEVEL 8.5 MG/DL (8.5-10.1); CREATININE FOR GFR 1.5 MG/DL (0.70-1.30); GLOMERULAR FILTRATION RATE 52.5 (>56); POTASSIUM SERUM 3.8 MEQ/L (3.5-5.1)
[2020-11-30] MEDS: FERROUS GLUCONATE 324 MG TAB PO SCH (08:36)
[2020-11-30] MEDS: LACTULOSE 20 GM/30 ML SYRUP UD PO SCH ×2 (08:36→20:43)
[2020-11-30] MEDS: SPIRONOLACTONE 50 MG TAB PO SCH ×2 (08:36→20:44)
[2020-11-30] MEDS: rifAXIMin 550 MG TAB (XIFAXAN) PO SCH ×2 (08:36→20:43)
[2020-11-30] MEDS: FOLIC ACID 1 MG TAB PO SCH (08:37)
[2020-11-30] MEDS: DOCUSATE SODIUM 100MG CAPSULE PO SCH ×2 (08:37→20:43)
[2020-11-30] MEDS: PANTOPRAZOLE 40MG TAB (PROTONIX) PO SCH (08:37)
[2020-11-30] MEDS: THIAMINE 100 MG TAB PO SCH (08:37)
[2020-11-30] MEDS: TORSEMIDE 20 MG TAB PO SCH (08:38)
[2020-11-30] MEDS: POTASSIUM CHLORIDE 10 MEQ SR TABLET PO SCH ×2 (08:38→20:43)
[2020-11-30] MEDS: FLUTICASONE PROP 0.05% NASAL SPRAY 16 GM (FLONASE) NARES SCH ×2 (08:39→20:44)
[2020-11-30] MEDS: SODIUM CHLORIDE NASAL 0.65% SPRAY BTL (OCEAN) SCH ×3 (08:39→20:44)
[2020-11-30 10:06] LABS: PERCENT SATURATION 40.5 % (19.7-50.0)
[2020-11-30 14:00] VITALS: BP 134/72
[2020-11-30 20:00] VITALS: BP 120/68
[2020-11-30] MEDS: SENNA 8.6 MG TAB (SENOKOT) PO SCH (20:43)
[2020-11-30] MEDS: TERAZOSIN 5MG CAPSULE PO SCH (20:44)
--- NOTE | 2020-11-30 23:22 | IPN ---
NEPHROLOGY PROGRESS NOTE DATE: 11/30/2020 SUBJECTIVE: Patient was seen and examined at the bedside today morning in the rehabilitation unit. Patient's diuretics were adjusted by nephrology service and nephrology had signed off. However, with the current diuretic dose, patient's edema is getting better. His renal function is deteriorating. His creatinine is 1.5 today, so nephrology service was asked to see the patient again. When I saw the patient in the morning, he denied any edema in the lower extremities. He still reports some edema in the abdominal wall. Otherwise, he is asymptomatic. OBJECTIVE: VITAL SIGNS: Temperature 98.2 degrees Fahrenheit, blood pressure 134/72, pulse 98, respiratory rate 17, saturating 96% on room air. INTAKE AND OUTPUT: Urine output is not recorded well. He has had six incontinent voids since overnight. Weight in the bed scale is 101.9 kg, which is significantly lower than his admission weight. PHYSICAL EXAMINATION: GENERAL: Patient is awake, alert, oriented times three, obese body habitus, laying in bed. HEAD AND NECK EXAM: Extraocular muscles intact. Pupils equally round and reactive to light. Mucous membranes are moist. Neck is supple. There is no jugular venous distention (JVD). CARDIOVASCULAR: S1, S2. Regular rate. No edema of the bilateral lower extremities. RESPIRATORY: Chest is clear to auscultation bilaterally. Bilateral equal air entry. No rales or rhonchi. ABDOMEN: Obese. Positive abdominal wall edema, especially on the right side. No ascites was noted. MUSCULOSKELETAL: No clubbing or cyanosis. Pulses were 2+. CENTRAL NERVOUS SYSTEM (PEDIATRIC CARDIOLOGIST): No focal deficits. Power is 5/5 in all extremities. LABORATORY REVIEW: CBC is from yesterday. Hemoglobin of 8.6. BMP is sodium 133, potassium 3.8, chloride 96, bicarbonate 30, BUN 16, creatinine 1.5 (it was 1.3 yesterday), calcium 8.5. Iron 66, total iron binding capacity (TIBC) 163, transferrin saturation 40.5, ferritin 576. CURRENT INPATIENT MEDICATIONS: Patient's medications were all reviewed by myself. He is currently on spironolactone 50 mg by mouth twice a day and he was on torsemide 20 mg by mouth twice a day. I have changed that torsemide dose to 20 mg by mouth daily. ASSESSMENT AND PLAN: 1. Acute renal failure superimposed on chronic kidney disease stage III. Patient's creatinine has bumped up slightly to 1.5, which is higher than baseline. I have decreased the diuretic dose as mentioned above. Torsemide dose will be once a day only. Continue current dose of spironolactone. 2. Ascites and anasarca. It is significantly better. Patient is below his weight. Now his creatinine is slightly bumping up and torsemide is once a day only. 3. Cirrhosis with portal hypertension. Patient continues to be on lactulose and rifaximin. Lower extremity edema is significantly better. He has mild abdominal wall edema, which is improving with current diuretic dose.
[2020-12-01] MEDS: REMEDY PHYTOPLEX Z-GUARD PASTE 113GM TUBE (FROM STOREROOM PRODUCT) TOP SCH ×5 (03:49→20:00)
[2020-12-01 05:46] VITALS: BP 126/72
[2020-12-01] MEDS: HumaLOG INSULIN (NovoLOG) PER UNIT SC SCH ×4 (06:30→20:53)
[2020-12-01 08:00] LABS: ALBUMIN 1.7 GM/DL (3.2-5.2); CALCIUM LEVEL 8.2 MG/DL (8.5-10.1); CREATININE FOR GFR 1.35 MG/DL (0.70-1.30); GLOMERULAR FILTRATION RATE 59.3 (>56); PHOSPHORUS LEVEL 3.2 MG/DL (2.5-4.9); POTASSIUM SERUM 3.8 MEQ/L (3.5-5.1)
[2020-12-01] MEDS: rifAXIMin 550 MG TAB (XIFAXAN) PO SCH ×2 (09:06→20:52)
[2020-12-01] MEDS: PANTOPRAZOLE 40MG TAB (PROTONIX) PO SCH (09:06)
[2020-12-01] MEDS: POTASSIUM CHLORIDE 10 MEQ SR TABLET PO SCH ×2 (09:06→20:52)
[2020-12-01] MEDS: ACETAMINOPHEN TAB 650MG DOSE (2X325MG) PO PRN (09:06)
[2020-12-01] MEDS: FOLIC ACID 1 MG TAB PO SCH (09:06)
[2020-12-01] MEDS: SPIRONOLACTONE 50 MG TAB PO SCH ×2 (09:06→20:53)
[2020-12-01] MEDS: THIAMINE 100 MG TAB PO SCH (09:07)
[2020-12-01] MEDS: LACTULOSE 20 GM/30 ML SYRUP UD PO SCH ×2 (09:07→20:53)
[2020-12-01] MEDS: TORSEMIDE 20 MG TAB PO SCH (09:07)
[2020-12-01] MEDS: DOCUSATE SODIUM 100MG CAPSULE PO SCH ×2 (09:07→20:52)
[2020-12-01] MEDS: FERROUS GLUCONATE 324 MG TAB PO SCH (09:07)
[2020-12-01] MEDS: FLUTICASONE PROP 0.05% NASAL SPRAY 16 GM (FLONASE) NARES SCH ×2 (09:08→20:54)
[2020-12-01] MEDS: SODIUM CHLORIDE NASAL 0.65% SPRAY BTL (OCEAN) SCH ×3 (09:08→20:54)
[2020-12-01 14:00] VITALS: BP 123/63
--- NOTE | 2020-12-01 19:21 | IPN ---
NEPHROLOGY PROGRESS NOTE DATE: 12/01/2020 SUBJECTIVE: Patient was seen and examined at the bedside today morning. He is afebrile, hemodynamically stable. He denies any significant edema. His diuretic dose was decreased yesterday. Creatinine has improved to 1.3 today. OBJECTIVE: VITAL SIGNS: Temperature 98.6 degrees Fahrenheit, blood pressure 123/63, pulse 103, respiratory rate 17, sating 94% on room air. INTAKE AND OUTPUT: Urine output recorded as 800 mL since overnight. Weight in the bed scale is not available. PHYSICAL EXAMINATION: GENERAL: Patient is awake, alert, oriented x3, obese body habitus, lying in bed in no apparent distress. HEAD AND NECK: Extraocular muscles intact. Pupils equally round and reactive to light. Mucous membranes are moist. Neck is supple. There is no JVD. RESPIRATORY: Chest is clear to auscultation bilaterally. Bilateral equal air entry. No rales or rhonchi. CARDIOVASCULAR: S1, S2, regular rate. No edema of the bilateral lower extremities. ABDOMEN: Soft, positive bowel sounds. Mild abdominal wall edema is noted. MUSCULOSKELETAL: No clubbing or cyanosis. Pulses are 2+. THREAD CHECKER: No focal deficit. Power is 5/5 in all extremities. LABORATORY DATA: BMP showed sodium 133, potassium 3.8, chloride 100, bicarb 30, BUN 15, creatinine 1.3; it was 1.5 yesterday. available today. CURRENT INPATIENT MEDICATIONS: Patient's medications were all reviewed by myself. Patient is currently on Torsemide 20 mg p.o. daily and Spironolactone 50 mg p.o. twice a day. ASSESSMENT AND PLAN: 1. Acute renal failure superimposed on chronic kidney disease: Patient's diuretic dose was decreased yesterday. Creatinine has improved to 1.3, which is close to his baseline. 2. Ascites and anasarca: Volume status is optimized with current dose of Torsemide 20 mg and Spironolactone 50 b.i.d. 3. Cirrhosis with portal hypertension: Continue lactulose and Rifaximin. Diuretic dose is as mentioned above.
[2020-12-01 20:00] VITALS: BP 127/55
[2020-12-01] MEDS: SENNA 8.6 MG TAB (SENOKOT) PO SCH (20:52)
[2020-12-01 20:53] VITALS: BP 127/55
[2020-12-01] MEDS: TERAZOSIN 5MG CAPSULE PO SCH (20:53)
[2020-12-02] MEDS: REMEDY PHYTOPLEX Z-GUARD PASTE 113GM TUBE (FROM STOREROOM PRODUCT) TOP SCH ×5 (00:02→12:31)
[2020-12-02 05:19] VITALS: BP 113/67
[2020-12-02] MEDS: HumaLOG INSULIN (NovoLOG) PER UNIT SC SCH ×2 (09:15→12:31)
[2020-12-02] MEDS: POTASSIUM CHLORIDE 10 MEQ SR TABLET PO SCH (09:15)
[2020-12-02] MEDS: DOCUSATE SODIUM 100MG CAPSULE PO SCH (09:15)
[2020-12-02] MEDS: FOLIC ACID 1 MG TAB PO SCH (09:15)
[2020-12-02] MEDS: PANTOPRAZOLE 40MG TAB (PROTONIX) PO SCH (09:15)
[2020-12-02] MEDS: rifAXIMin 550 MG TAB (XIFAXAN) PO SCH (09:15)
[2020-12-02] MEDS: SPIRONOLACTONE 50 MG TAB PO SCH (09:16)
[2020-12-02] MEDS: LACTULOSE 20 GM/30 ML SYRUP UD PO SCH (09:16)
[2020-12-02] MEDS: TORSEMIDE 20 MG TAB PO SCH (09:16)
[2020-12-02] MEDS: THIAMINE 100 MG TAB PO SCH (09:16)
[2020-12-02] MEDS: FERROUS GLUCONATE 324 MG TAB PO SCH (09:16)
[2020-12-02] MEDS: SODIUM CHLORIDE NASAL 0.65% SPRAY BTL (OCEAN) SCH (09:17)
[2020-12-02] MEDS: FLUTICASONE PROP 0.05% NASAL SPRAY 16 GM (FLONASE) NARES SCH (09:17)
[2020-12-02] MEDS ORDERED: KLOR10TA76 PO (09:54)
[2020-12-02] MEDS ORDERED: ALDA50TA2 PO (09:54)
[2020-12-02] MEDS ORDERED: TORS20TA2 PO (09:54)
[2020-12-02] MEDS ORDERED: PANT40TA29 PO (09:54)
[2020-12-02] MEDS ORDERED: TERA5CAP3 PO (09:54)
[2020-12-02] MEDS ORDERED: XIFA550T PO (09:54)
[2020-12-02] MEDS ORDERED: THIA100TA PO (09:54)
[2020-12-02] MEDS ORDERED: LACT20EL PO (09:54)
[2020-12-02] MEDS ORDERED: METF500T13 PO (09:55)
--- NOTE | 2020-12-02 10:02 | IPNPDOC ---
PM&R Progress Note DATE OF SERVICE: Nov 28, [address] Progress Note Subjective: Patient stating he feels good, has no pain, no fevers, and no complaints. He reports his abdomen continues to feel soft. REVIEW OF SYSTEMS: The following is a completed review of systems and has been reviewed. Review of systems otherwise unremarkable. PAIN: Patient self reports no pain EYES: no recent vision changes EARS, NOSE, & THROAT: No throat pain, or dysphagia, or rhinorrhea CARDIOVASCULAR: Denies chest pain or palpitations PULMONARY: Denies shortness of breath GASTROINTESTINAL: Denies constipation/diarrhea GENITOURINARY: denies dysuria MUSCULOSKELETAL: generalized weakness NEUROLOGICAL: +bilat LE paresthesias HEMATOLOGICAL: +anemia SKIN: left heel ulcer, jaundice PSYCHIATRIC: Unremarkable All other review of systems found to be negative. PHYSICAL EXAMINATION: VITAL SIGNS: Please see below. GENERAL: Pleasant and cooperative. No acute distress. icteric HEENT: PERRL. Extraocular movements intact. icteric conjunctiva CARDIOVASCULAR: Regular rate and rhythm. No murmurs, rubs, or gallops LUNGS: Clear to auscultation bilaterally. No wheezes. No rhonchi ABDOMEN: non-distended, soft, no guarding or rebound tenderness NEUROLOGICAL: Alert and oriented times three. Cranial nerves II through XII grossly intact. Sensation diminished to light touch in stocking pattern EXTREMITIES: 5\5 strength bilateral upper extremities. 4\5 strength right lower extremity. 4/5 strength in left lower extremity. (+) bilat LE SKIN: left heel with eschar, 2 sacral ulcers ASSESSMENT:50-year-old M with past medical history of liver cirrhosis who presents status post acute alcoholic liver decompensation with weakness PLAN: 1. Rehab- PT/OT advance gait and ADLs, strengthen/stretch/maintain ROM all 4limbs, ambulating with RW 2. Neuro- hx of ETOH abuse, c/u thiamine and folic acid for neuroprotection -peripheral polyneuropathy due to longstanding ETOH-abuse contributing to overall weakness and mobility impairments 3. CArdiac- hx of HTN c/u BP meds, LE edema due to liver cirrhosis c/u fluid restriction and daily weights 4. Resp- monitor for infection, duonebs -probable post-nasal drip, c/u flonase and nasal saline drops 5. GI- hx of liver cirrohsis- repeat paracentesis performed 11-25-20, patient stating he feels much better-renal intervention appreciated, c/u spironolactone, rifaximine and lactulose, monitor for worsening ascites 6. Renal- hx of CKD, renal following and assisting with ascites-appreciated 7. DVT ppx- Acewrap preferred to TEDs to avoid skin breakdown in setting of LE edema, will avoid AC due to anemia, thrombocytopenia and concern bleeding disorder due to cirrhosis -dopplers negative for DVT 8. Heme- anemia of chronic disease and iron deficiency, c/u supplement 9. Endo- hx of DM c/u insulin and ISS 10. Pain- tylenol q8h prn 11. Skin- patient with stage 2 sacral ulcers, frequency of zinc oxide paste increased, patient educated on offloading and on applying cream himself once he gets home 12. Dispo- 12-02-20 to home, progressing towards goals Allergies Coded Allergies: No Known Allergies (Verified Allergy, Unknown, 09/21/20) Vital Signs Vital Signs Date Time Temp Pulse Resp B/P (MAP) Pulse Ox O2 Delivery O2 Flow Rate FiO2 12/02/20 05:19 97.7 76 18 113/67 (82) 98 Room Air Laboratory Data Labs 24H Laboratory Tests 2 12/01/20 11:36: Bedside Glucose (Misc Panel) 281H 12/01/20 16:39: Bedside Glucose (Misc Panel) 193H 12/01/20 19:36: Bedside Glucose (Misc Panel) 372H 12/02/20 04:48: Bedside Glucose (Misc Panel) 125H Current Medications Current Medications Current Medications Medications (Trade) Dose Ordered Sig/Mayelin Route PRN Reason Start Time Stop Time Status Last Admin Dose Admin Acetaminophen (Tylenol Tab) 650 mg Q4HP PRN PO fever/MILD PAIN (PS 1-4) 11/18/20 16:40 11/19/20 15:22 DC Acetaminophen (Tylenol Tab) 650 mg Q8HP PRN PO fever/MILD PAIN (PS 1-4) 11/19/20 21:00 12/01/20 09:06 Bisacodyl (Dulcolax Tab) 5 mg DAILYPRN PRN PO CONSTIPATION 11/18/20 16:40 Dextrose (Dextrose 50%) 25 ml ASDIRECTED PRN IV SEE LABEL COMMENTS 11/18/20 16:40 Docusate Sodium (Colace) 100 mg BID PO 11/18/20 21:00 12/02/20 09:15 Ferrous Gluconate (Fergon) 324 mg DAILY PO 11/19/20 09:00 12/02/20 09:16 Fluticasone Propionate (Flonase 0.05% Nasal [place]) 1 spray BID NARES 11/20/20 09:00 12/02/20 09:17 Folic Acid (Folic Acid) 1 mg DAILY PO 11/19/20 09:00 12/02/20 09:15 Glucagon (Glucagon) 1 mg ASDIRECTED PRN SC SEE LABEL COMMENTS 11/18/20 16:40 Glucose (Glucose) 16 GM ASDIRECTED PRN PO SEE LABEL COMMENTS 11/18/20 16:40 Home Med (Med Rec Complete!) ASDIRECTED XX 11/18/20 17:15 11/18/20 17:23 DC Insulin Human Lispro (HumaLOG INSULIN) SEE PROTOCOL TABLE AC SC 11/18/20 17:30 12/02/20 09:15 Insulin Human Lispro (HumaLOG INSULIN) SEE PROTOCOL TABLE QHS SC 11/18/20 21:00 12/01/20 20:53 Lactulose (Cephulac) 15 ml BID PO 11/18/20 21:00 12/02/20 09:16 Pantoprazole Sodium (Protonix) 40 mg DAILY PO 11/19/20 09:00 12/02/20 09:15 Potassium Chloride (Micro-K Extencaps) 40 meq BID PO 11/18/20 21:00 12/02/20 09:15 Rifaximin (Xifaxan) 550 mg BID PO 11/18/20 21:00 12/02/20 09:15 Senna (Senokot) 1 tab QHS PO 11/18/20 21:00 12/01/20 20:52 Sodium Chloride ([place] Nasal [place]) 2 spray TID NA 11/20/20 16:00 12/02/20 09:17 Spironolactone (Aldactone) 25 mg BID PO 11/23/20 21:00 11/24/20 11:53 DC 11/24/20 08:55 Spironolactone (Aldactone) 25 mg QAM PO 11/19/20 09:00 11/23/20 12:18 DC 11/23/20 08:53 Spironolactone (Aldactone) 50 mg BID PO 11/24/20 21:00 12/02/20 09:16 Terazosin HCl (Hytrin) 5 mg QHS PO 11/18/20 21:00 12/01/20 20:53 Thiamine HCl (Thiamine HCl) 100 mg DAILY PO 11/19/20 09:00 12/02/20 09:16 Torsemide (Demadex) 20 mg BID PO 11/23/20 21:00 11/30/20 11:16 DC 11/30/20 08:38 Torsemide (Demadex) 20 mg DAILY PO 12/01/20 09:00 12/02/20 09:16 Torsemide (Demadex) 20 mg QAM PO 11/19/20 09:00 11/23/20 12:18 DC 11/23/20 08:52 SALLY KRISHNA MD Dec 02, 2020 10:02
--- NOTE | 2020-12-02 10:26 | PMRDS ---
NAME: BUFFY MCCAIN [facility] WT ID#: [id number] : 1970 JOB: [id number] SUSAN: 12/02/2020 ACCT: [id number] DOCTOR: SALLY KRISHNA MD PMR DISCHARGE SUMMARY DATE OF ADMISSION: 11/18/2020 DATE OF ANTICIPATED DISCHARGE: 12/02/2020 CHIEF COMPLAINT/DISCHARGE DIAGNOSIS: Decompensated liver cirrhosis with peripheral polyneuropathy. HISTORY OF PRESENT ILLNESS: This is a 50-year-old man with a past medical history of chronic kidney disease (CKD) III, hypertension, diabetes, alcoholic liver cirrhosis with portal hypertension, left-sided renal subcapsular hematoma, ascites status post chest tube placed 09/2020 for left-sided empyema in setting of methicillin-sensitive Staphylococcus aureus (MSSA) hospital-acquired pneumonia with bacteremia, presented to [facility]) Emergency Department (ED) on 11/15/2020 with difficulty walking and worsening lower extremity edema. He was admitted for decompensated alcoholic liver cirrhosis. CT abdomen and pelvis on 11/15/2020 showed "decreased left pleural effusion since 09/21/2020 with minimal residual presence . . . minimal bibasilar fibro-atelectatic change, greatest in the left lower lobe with decreased left lower lobe atelectasis since the prior study . . . hepatic cirrhosis with mild splenomegaly and mild large volume peritoneal ascites . . . the ascites is significantly increased since the prior study." He underwent paracentesis with cultures negative for bacteria and treated with fluid restriction in addition to IV diuretics. He had significant activities of daily living (ADL) and mobility impairments and was deemed medically appropriate for discharge to acute rehabilitation unit (ARU) on 11/18/2020. PAST MEDICAL HISTORY: As per history of present illness (HPI). HOSPITAL COURSE: Patient was admitted and enrolled in a comprehensive physical therapy/occupational therapy (PT/OT) program. He received 24 hour nursing supervision and weekly team meetings were held to discuss his progress. Patient was maintained on a fluid restriction in addition to diuretics, the dosing was adjusted per renal who was following patient closely. He underwent a repeat paracentesis on 11/25/2020 with overall improvement in his pain and abdominal swelling. Patient developed stage II sacral ulcers during his hospital course for which zinc oxide paste was applied. Patient was educated on the importance of offloading in addition to frequent skin checks. His finger sticks were relatively well controlled on insulin sliding scale and he made steady gains in therapy and was deemed medically and functionally stable to remove home. DISCHARGE MEDICATIONS: As per instructions. FUNCTIONAL HISTORY ON DISCHARGE: Patient was modified independent for ambulation 150 feet, able to negotiate stairs standby assist, modified independent for functional transfers and dressing. Thank you for this referral.
== END 2020-12-02 13:15 | disposition home health service (06) | DRG 948 ==
LOC: M PM&R 16:23
PROVIDERS: ADMIT Physical Medicine & Rehabilitation; ATTEND Physical Medicine & Rehabilitation
PROC: 0W9G3ZZ Drainage of Peritoneal Cavity, Percutaneous Approach (ICD-10-PCS; principal; 2020-11-25 13:58)
DX: R53.1 Weakness (principal); K76.6 Portal hypertension; E87.0 Hyperosmolality and hypernatremia; N18.30 Chronic kidney disease, stage 3 unspecified; I12.9 Hypertensive chronic kidney disease with stage 1 through stage 4 chronic kidney disease, or unspecified chronic kidney disease; K70.31 Alcoholic cirrhosis of liver with ascites; D50.9 Iron deficiency anemia, unspecified; E11.621 Type 2 diabetes mellitus with foot ulcer; F10.20 Alcohol dependence, uncomplicated; M19.90 Unspecified osteoarthritis, unspecified site; L97.529 Non-pressure chronic ulcer of other part of left foot with unspecified severity; L89.152 Pressure ulcer of sacral region, stage 2; R26.89 Other abnormalities of gait and mobility; N40.0 Benign prostatic hyperplasia without lower urinary tract symptoms; D63.1 Anemia in chronic kidney disease; E11.42 Type 2 diabetes mellitus with diabetic polyneuropathy; E66.9 Obesity, unspecified; E11.22 Type 2 diabetes mellitus with diabetic chronic kidney disease; Z74.09 Other reduced mobility; Z74.1 Need for assistance with personal care; Z79.84 Long term (current) use of oral hypoglycemic drugs; Z68.31 Body mass index [BMI] 31.0-31.9, adult

== ENCOUNTER 2021-01-27 15:06 | Emergency (ER) | payer MEDICARE, MEDICAID ==
[~2021-01-27] VITALS: Ht 182.9 cm; Wt 104.5 kg
[~2021-01-27 15:06] MED LIST changes: +ALDA50TA2 PO; +METF500T13 PO; +THIA100TA PO
[2021-01-27] MEDS ORDERED: FURO20TA2 PO (15:23)
[2021-01-27] MEDS ORDERED: NOXI1TAB PO (15:29)
[2021-01-27] MEDS ORDERED: CVS5000S2 PO (15:29)
[2021-01-27] MEDS ORDERED: MAGN400T2 PO (15:29)
[2021-01-27] MEDS ORDERED: BASA100I SC (15:29)
[2021-01-27] MEDS ORDERED: KETOROLAC 30 MG/ML 1ML VIAL IV ONE (16:20)
[2021-01-27] MEDS ORDERED: NS 1,000 ML IV ONE (16:20)
--- NOTE | 2021-01-27 16:51 | REP ---
INDICATION: Abdominal Pain. COMPARISON: Comparison portable chest x-ray November 15, 2020.. TECHNIQUE: Three views including upright chest x-ray. FINDINGS: Upright chest radiograph shows no evidence of infiltrate or free subdiaphragmatic air. Heart is not enlarged. Monitoring electrodes are seen. There are arthropathy changes the right shoulder. Supine and erect views of the abdomen show nonspecific small bowel air in the central abdomen without small bowel dilation. There is formed stool in a nondilated colon throughout. Psoas margins are partially obscured bilaterally. Flank stripes appear intact. No mass, organomegaly, or pathologic calcification is seen. 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 IMPRESSION: No acute intra-abnormality. Moderate formed stool without large or small bowel dilation. No free air or obstruction seen.. <Electronically signed by Matt Villareal > 01/27/21 [id number]
[2021-01-27 17:33] LABS: BASO % 0.4 % (0.0-1.0); EOS % 0.4 % (0.0-3.0); HEMATOCRIT 29.5 % (42.0-52.0); HEMOGLOBIN 9.8 g/dl (13.5-17.5); LYMPH % 13.6 % (24.0-44.0); MEAN CORPUSCULAR HEMOGLOBIN 29.8 pg (27.0-33.0); MEAN CORPUSCULAR HGB CONC 33.2 g/dl (32.0-36.5); MEAN CORPUSCULAR VOLUME 89.7 fl (80.0-96.0); MONO # 0.7 10^3/uL (0.0-0.8); NEUTROPHILS # 5.5 10^3/uL (1.5-8.5); NEUTROPHILS % 75.3 % (36.0-66.0); PLATELET COUNT, AUTOMATED 133 10^3/uL (150-450); RED BLOOD COUNT 3.29 10^6/uL (4.30-6.10); WHITE BLOOD COUNT 7.3 10^3/uL (4.0-10.0)
[2021-01-27 18:00] LABS: ACETONE/KETONE 0.98 MG/DL (<2.81); ALBUMIN 2.2 GM/DL (3.2-5.2); ALT/SGPT 15 U/L (12-78); BILIRUBIN,DIRECT 0.5 MG/DL (0.0-0.2); BILIRUBIN,TOTAL 1.2 MG/DL (0.2-1.0); BLOOD UREA NITROGEN 13 MG/DL (7-18); CALCIUM LEVEL 8.2 MG/DL (8.5-10.1); CARBON DIOXIDE LEVEL 25 MEQ/L (21-32); CHLORIDE LEVEL 97 MEQ/L (98-107); CK-MB VALUE MASS < 1.0 NG/ML (<3.6); CPK CREATINE PHOSPHOKINASE 22 U/L (39-308); CREATININE FOR GFR 1.06 MG/DL (0.70-1.30); GLOMERULAR FILTRATION RATE > 60.0 (>56); GLUCOSE, FASTING 228 MG/DL (70-100); LIPASE 209 U/L (73-393); MAGNESIUM LEVEL 1.9 MG/DL (1.8-2.4); MB/CK RELATIVE INDEX 4.55 (< OR =4); POTASSIUM SERUM 3.9 MEQ/L (3.5-5.1); SODIUM LEVEL 131 MEQ/L (136-145); TOTAL PROTEIN 7.5 GM/DL (6.4-8.2); TROPONIN I < 0.02 NG/ML (< 0.10)
[2021-01-27] MEDS ORDERED: CEFD1CAP8 PO (18:37)
[2021-01-27] MEDS ORDERED: cefTRIAXone SOD 1 GM in D5W MINI-BAG PLUS 50 ML IV ONE (18:50)
[2021-01-27 20:00] VITALS: BP 125/70
--- NOTE | 2021-01-28 05:57 | ECGEPIP ---
[facility] - ED Test Date: 2021-01-27 Pat Name: BUFFY MCCAIN Department: Room: - Gender: Male Shoeblack: : 1970 Requested By: Trent Cao Order Number: [id number] Reading MD: Xu Berrios Measurements Intervals [place] Rate: 96 P: 39 GA: 156 QRS: -1 QRSD: 94 T: 11 QT: 396 QTc: 500 Interpretive Statements Normal sinus rhythm Prolonged QT NONSPECIFIC T WAVE ABNORMALITY(S) SIMILAR TO 11/15/20 Electronically Signed on 01-28-2021 5:56:38 EDT by Xu Berrios
== END 2021-01-27 20:08 | disposition home or self-care (01) ==
LOC: M ED 15:06 → EDBD 15:06 → M ED 20:08
DX: N10 Acute pyelonephritis (principal); E11.9 Type 2 diabetes mellitus without complications; I10 Essential (primary) hypertension; J45.909 Unspecified asthma, uncomplicated; N40.0 Benign prostatic hyperplasia without lower urinary tract symptoms; K74.60 Unspecified cirrhosis of liver; Z79.84 Long term (current) use of oral hypoglycemic drugs; Z79.899 Other long term (current) drug therapy
CPT/HCPCS: 74021; 80048; 80076; 81001; 82010; 82550; 82553; 83690; 83735; 84484; 85025; 87088; 87186; 87798; 93005; 93041; 96361; 96365; 96375; 99285; J0696; J1885

== ENCOUNTER 2021-04-19 00:41 | Emergency (ER) | payer MEDICARE, MEDICAID ==
[~2021-04-19] VITALS: Ht 182.9 cm; Wt 105.9 kg
[~2021-04-19 00:41] MED LIST changes: +BASA100I SC; +CEFD300C41 PO; +CVS5000S2 PO; +DOK1CAP4 PO; -DOK1CAP7 PO; +GNP99TAB3 PO; -KLOR10TA76 PO; -LISI-898 PO; +LISI5TAB11 PO; +MAGN400T2 PO; +METF-1191 PO; -METF-954 PO; +NOXI1TAB PO; +POTA-136 PO; -SM P99TA PO
[2021-04-19] MEDS ORDERED: BASA100I SC (00:58)
[2021-04-19 08:41] LABS: BASO % 0.4 % (0.0-1.0); EOS # 0.1 10^3/uL (0.0-0.5); EOS % 1.3 % (0.0-3.0); HEMATOCRIT 30.8 % (42.0-52.0); HEMOGLOBIN 10.5 g/dl (13.5-17.5); LYMPH # 1.2 10^3/uL (1.5-5.0); LYMPH % 17.1 % (24.0-44.0); MEAN CORPUSCULAR HEMOGLOBIN 31.3 pg (27.0-33.0); MEAN CORPUSCULAR HGB CONC 34.1 g/dl (32.0-36.5); MEAN CORPUSCULAR VOLUME 91.9 fl (80.0-96.0); MONO # 0.8 10^3/uL (0.0-0.8); MONO % 12.2 % (2.0-8.0); NEUTROPHILS # 4.7 10^3/uL (1.5-8.5); NEUTROPHILS % 68.6 % (36.0-66.0); PLATELET COUNT, AUTOMATED 118 10^3/uL (150-450); RED BLOOD COUNT 3.35 10^6/uL (4.30-6.10); WHITE BLOOD COUNT 6.9 10^3/uL (4.0-10.0)
[2021-04-19 09:01] LABS: ALBUMIN 2.6 GM/DL (3.2-5.2); ALT/SGPT 15 U/L (12-78); BILIRUBIN,DIRECT 0.5 MG/DL (0.0-0.2); BILIRUBIN,TOTAL 1.1 MG/DL (0.2-1.0); CPK CREATINE PHOSPHOKINASE 42 U/L (39-308); LIPASE 173 U/L (73-393); NT-PRO BNP 278 PG/ML (<125)
[2021-04-19] MEDS ORDERED: ISOVUE-370 76% 100ML VIAL As Ordered ONE (11:49)
[2021-04-19 12:01] LABS: CK-MB VALUE MASS < 1.0 NG/ML (<3.6); MB/CK RELATIVE INDEX 2.38 (< OR =4)
[2021-04-19 15:19] VITALS: BP 110/53
== END 2021-04-19 15:22 | disposition home or self-care (01) ==
LOC: M ED 00:41
DX: J90 Pleural effusion, not elsewhere classified (principal); R22.41 Localized swelling, mass and lump, right lower limb; M25.561 Pain in right knee; R16.1 Splenomegaly, not elsewhere classified; K40.30 Unilateral inguinal hernia, with obstruction, without gangrene, not specified as recurrent; R06.02 Shortness of breath; E11.9 Type 2 diabetes mellitus without complications; N40.0 Benign prostatic hyperplasia without lower urinary tract symptoms; N18.30 Chronic kidney disease, stage 3 unspecified; Z87.01 Personal history of pneumonia (recurrent); K74.60 Unspecified cirrhosis of liver; Z79.84 Long term (current) use of oral hypoglycemic drugs; Z79.899 Other long term (current) drug therapy
CPT/HCPCS: 71275; 73564; 74176; 80047; 80076; 81001; 82550; 82553; 83690; 83880; 85025; 93005; 93971; 99284; Q9967

== ENCOUNTER 2021-06-01 04:08 | Emergency (ER) | payer MEDICARE, MEDICAID ==
[~2021-06-01] VITALS: Ht 182.9 cm; Wt 110.0 kg
[~2021-06-01 04:08] MED LIST changes: +CEFD1CAP8 PO; -CEFD300C41 PO; -GNP99TAB3 PO; +LISI-898 PO; -LISI5TAB11 PO; -METF-1191 PO; +METF-954 PO; +SM P99TA PO
[2021-06-01] MEDS ORDERED: EPLE50TA PO (04:33)
[2021-06-01] MEDS ORDERED: POTA1TAB14 PO (04:33)
[2021-06-01] MEDS ORDERED: VITA100T98 PO (04:34)
--- NOTE | 2021-06-01 05:27 | REPVR ---
PROCEDURE INFORMATION: Exam: CT Head Without Contrast Exam date and time: 06/01/2021 4:55 AM Age: 50 years old Clinical indication: Syncope and collapse; Additional info: Presyncope TECHNIQUE: Imaging protocol: Computed tomography of the head without contrast. Radiation optimization: All CT scans at this facility use at least one of these dose optimization techniques: automated exposure control; mA and/or kV adjustment per patient size (includes targeted exams where dose is matched to clinical indication); or iterative reconstruction. COMPARISON: No relevant prior studies available. FINDINGS: Brain: The cortical/white matter interfaces are preserved throughout the brain. There is no evidence of intracranial hemorrhage. No parenchymal mass lesions identified. Cerebral ventricles: The ventricular system is normal in size and configuration. Paranasal sinuses: The visualized paranasal sinuses are clear. Mastoid air cells: The mastoid air cells are clear. Bones/joints: No acute fractures of the skull are identified. Soft tissues: The soft tissues appear unremarkable. IMPRESSION: Normal appearance of the brain. No evidence of acute infarct, mass, or hemorrhage. Electronically signed by: Trini Correia On 06/01/2021 05:27:08 AM
--- NOTE | 2021-06-01 05:28 | REPVR ---
PROCEDURE INFORMATION: Exam: XR Chest Exam date and time: 06/01/2021 5:05 AM Age: 50 years old Clinical indication: Other: Syncope, dizziness; Additional info: Syncope/near-syncope TECHNIQUE: Imaging protocol: XR of the chest. Views: 1 view. COMPARISON: CR Abdomen,Flat Upright,PA CHEST 01/27/2021 4:18 PM FINDINGS: Lungs: The lungs are clear. Pleural spaces: No pleural effusions or pneumothorax identified. Heart/Mediastinum: The cardiac silhouette is accentuated by the apical lordotic projection and AP technique. The heart is likely within normal size limits. Bones/joints: No suspicious osseous lesions. No acute fractures. IMPRESSION: No evidence of acute pleural or parenchymal disease. Electronically signed by: Trini Correia On 06/01/2021 05:28:20 AM
[2021-06-01 05:53] LABS: BASO % 0.5 % (0.0-1.0); EOS # 0.2 10^3/uL (0.0-0.5); EOS % 3.9 % (0.0-3.0); HEMATOCRIT 25.3 % (42.0-52.0); HEMOGLOBIN 8.2 g/dl (13.5-17.5); LYMPH % 25.1 % (24.0-44.0); MEAN CORPUSCULAR HEMOGLOBIN 29.8 pg (27.0-33.0); MEAN CORPUSCULAR HGB CONC 32.4 g/dl (32.0-36.5); MONO # 0.7 10^3/uL (0.0-0.8); MONO % 16.7 % (2.0-8.0); NEUTROPHILS # 2.2 10^3/uL (1.5-8.5); NEUTROPHILS % 53.6 % (36.0-66.0); PLATELET COUNT, AUTOMATED 100 10^3/uL (150-450); RED BLOOD COUNT 2.75 10^6/uL (4.30-6.10); WHITE BLOOD COUNT 4.1 10^3/uL (4.0-10.0)
[2021-06-01 06:04] LABS: INR 1.04
[2021-06-01 06:05] LABS: PARTIAL THROMBOPLASTIN TIME 32.4 SECONDS (25.9-37.0)
[2021-06-01 06:27] LABS: BLOOD UREA NITROGEN 11 MG/DL (7-18); CALCIUM LEVEL 8.4 MG/DL (8.5-10.1); CARBON DIOXIDE LEVEL 25 MEQ/L (21-32); CHLORIDE LEVEL 108 MEQ/L (98-107); CK-MB VALUE MASS 1.1 NG/ML (<3.6); CPK CREATINE PHOSPHOKINASE 37 U/L (39-308); ETHYL ALCOHOL (ETHANOL) < 0.003 % (0.000-0.010); FREE T4 1.05 NG/DL (0.76-1.46); GLOMERULAR FILTRATION RATE > 60.0 (>56); GLUCOSE, FASTING 161 MG/DL (70-100); MB/CK RELATIVE INDEX 2.97 (< OR =4); POTASSIUM SERUM 3.6 MEQ/L (3.5-5.1); SODIUM LEVEL 141 MEQ/L (136-145); TROPONIN I < 0.02 NG/ML (< 0.10)
[2021-06-01] MEDS ORDERED: KETOROLAC 30 MG/ML 1ML VIAL IV ONE (06:40)
[2021-06-01] MEDS ORDERED: AZEL1SPR3 NARES (07:27)
[2021-06-01 07:38] VITALS: BP 117/58
--- NOTE | 2021-06-01 17:20 | ECGEPIP ---
[facility] - ED Test Date: 2021-06-01 Pat Name: BUFFY MCCAIN Department: Room: - Gender: Male Research/Program Director: : 1970 Requested By: RICK Harrison Order Number: [id number] Reading MD: Rick Guadarrama Measurements Intervals [place] Rate: 81 P: 77 MA: 156 QRS: -12 QRSD: 96 T: 32 QT: 440 QTc: 511 Interpretive Statements Normal sinus rhythm Prolonged QTc interval extensive artifact limits interpretation Electronically Signed on 06-01-2021 17:20:28 EDT by Rick Guadarrama
== END 2021-06-01 07:44 | disposition home or self-care (01) ==
LOC: M ED 04:08
DX: R51.9 Headache, unspecified (principal); R42 Dizziness and giddiness; N18.30 Chronic kidney disease, stage 3 unspecified; Z79.899 Other long term (current) drug therapy
CPT/HCPCS: 70450; 71045; 80048; 81001; 82077; 82140; 82550; 82553; 84439; 84443; 84484; 85025; 85610; 85730; 93005; 93041; 94760; 96374; 99285; J1885

== ENCOUNTER 2021-11-10 18:36 | Emergency (ER) | payer MEDICARE, MEDICAID ==
[~2021-11-10] VITALS: Ht 182.9 cm; Wt 95.5 kg
[~2021-11-10 18:36] MED LIST changes: +AZEL1SPR3 NARES; -CEFD1CAP8 PO; +CEFD300C41 PO; +EPLE50TA PO; +GNP99TAB3 PO; -LISI-898 PO; +LISI5TAB11 PO; +METF-1191 PO; -METF-954 PO; -SM P99TA PO; +VITA100T98 PO
[2021-11-10 20:35] LABS: BASO % 0.5 % (0.0-1.0); EOS # 0.1 10^3/uL (0.0-0.5); EOS % 2.8 % (0.0-3.0); HEMATOCRIT 31.7 % (42.0-52.0); HEMOGLOBIN 10.4 g/dl (13.5-17.5); LYMPH # 1.4 10^3/uL (1.5-5.0); LYMPH % 31.5 % (24.0-44.0); MEAN CORPUSCULAR HEMOGLOBIN 30.5 pg (27.0-33.0); MEAN CORPUSCULAR HGB CONC 32.8 g/dl (32.0-36.5); MONO # 0.8 10^3/uL (0.0-0.8); MONO % 18.2 % (2.0-8.0); NEUTROPHILS % 46.8 % (36.0-66.0); RED BLOOD COUNT 3.41 10^6/uL (4.30-6.10); WHITE BLOOD COUNT 4.3 10^3/uL (4.0-10.0)
[2021-11-10 20:38] LABS: BLOOD UREA NITROGEN 15 MG/DL (7-18); CALCIUM LEVEL 8.6 MG/DL (8.5-10.1); CARBON DIOXIDE LEVEL 25 MEQ/L (21-32); CHLORIDE LEVEL 110 MEQ/L (98-107); CREATININE FOR GFR 0.98 MG/DL (0.70-1.30); GLOMERULAR FILTRATION RATE > 60.0 (>56); GLUCOSE, FASTING 126 MG/DL (70-100); POTASSIUM SERUM 3.9 MEQ/L (3.5-5.1); SODIUM LEVEL 141 MEQ/L (136-145)
[2021-11-10 21:25] LABS: PLATELET COUNT, AUTOMATED 77 10^3/uL (150-450)
[2021-11-10 22:07] VITALS: BP 153/65
== END 2021-11-10 22:10 | disposition home or self-care (01) ==
LOC: M ED 18:36 → EDBD 18:36 → M ED 22:10
DX: S39.011A Strain of muscle, fascia and tendon of abdomen, initial encounter (principal); X58.XXXA Exposure to other specified factors, initial encounter; Y92.9 Unspecified place or not applicable; Y93.9 Activity, unspecified; Y99.9 Unspecified external cause status; M16.9 Osteoarthritis of hip, unspecified; E11.9 Type 2 diabetes mellitus without complications; K21.9 Gastro-esophageal reflux disease without esophagitis; N18.30 Chronic kidney disease, stage 3 unspecified; K74.60 Unspecified cirrhosis of liver; Z79.899 Other long term (current) drug therapy

== ENCOUNTER 2022-03-07 22:52 | Inpatient (IN) | payer MEDICARE, MEDICAID ==
[~2022-03-07] VITALS: Ht 182.9 cm; Wt 126.7 kg
[2022-03-08 01:57] LABS: BASO % 0.6 % (0.0-1.0); EOS # 0.1 10^3/uL (0.0-0.5); EOS % 1.8 % (0.0-3.0); HEMATOCRIT 34.3 % (42.0-52.0); HEMOGLOBIN 11.4 g/dl (13.5-17.5); LYMPH # 0.6 10^3/uL (1.5-5.0); LYMPH % 11.2 % (24.0-44.0); MEAN CORPUSCULAR HEMOGLOBIN 31.7 pg (27.0-33.0); MEAN CORPUSCULAR HGB CONC 33.2 g/dl (32.0-36.5); MEAN CORPUSCULAR VOLUME 95.3 fl (80.0-96.0); MONO # 0.7 10^3/uL (0.0-0.8); MONO % 13.1 % (2.0-8.0); NEUTROPHILS # 3.7 10^3/uL (1.5-8.5); NEUTROPHILS % 73.1 % (36.0-66.0)
[2022-03-08 01:58] LABS: PLATELET COUNT, AUTOMATED 86 10^3/uL (150-450)
[2022-03-08 02:27] LABS: ALT/SGPT 50 U/L (12-78); BILIRUBIN,TOTAL 1.9 MG/DL (0.2-1.0); BLOOD UREA NITROGEN 14 MG/DL (7-18); CALCIUM LEVEL 8.8 MG/DL (8.5-10.1); CARBON DIOXIDE LEVEL 24 MEQ/L (21-32); CHLORIDE LEVEL 111 MEQ/L (98-107); CREATININE FOR GFR 1.04 MG/DL (0.70-1.30); GLOMERULAR FILTRATION RATE > 60.0 (>56); GLUCOSE, FASTING 133 MG/DL (70-100); LIPASE 148 U/L (73-393); NT-PRO BNP 59 PG/ML (<125); POTASSIUM SERUM 4.1 MEQ/L (3.5-5.1); SODIUM LEVEL 141 MEQ/L (136-145); TOTAL PROTEIN 6.9 GM/DL (6.4-8.2)
[2022-03-08] MEDS ORDERED: MORPHINE 2 MG/ML 1ML VIAL IV ONE (04:00)
[2022-03-08] MEDS ORDERED: ONDANSETRON 4MG/2ML VIAL IV ONE (04:00)
[2022-03-08] MEDS ORDERED: ACETAMINOPHEN TAB 650MG DOSE (2X325MG) PO PRN (05:15)
[2022-03-08] MEDS ORDERED: MOM 30ML SUSPENSION UDC PO PRN (05:15)
[2022-03-08] MEDS ORDERED: MAALOX 30 ML SUSP *UDC PO PRN (05:15)
[2022-03-08] MEDS ORDERED: HOME MED LIST COMPLETE! XX SCH (05:20)
[2022-03-08 05:58] LABS: RSV AMPLIFICATION NEGATIVE (NEGATIVE)
[2022-03-08] MEDS: FUROSEMIDE 40MG/4ML VIAL (J1940) IV SCH ×3 (06:29→21:18)
[2022-03-08] MEDS ORDERED: GLUCOSE 4GM CHEW TABLET PO PRN (06:55)
[2022-03-08] MEDS ORDERED: DEXTROSE 50% 50 ML SYRINGE IV PRN (06:55)
[2022-03-08] MEDS ORDERED: GLUCAGON INJ 1MG VIAL SC PRN (06:55)
[2022-03-08] MEDS: INSULIN LISPRO (NovoLOG) PER UNIT SC SCH ×3 (07:30→18:31)
[2022-03-08 08:14] LABS: INR 1.09; PROTHROMBIN TIME 14.5 SECONDS (12.7-14.5)
[2022-03-08 08:15] LABS: PARTIAL THROMBOPLASTIN TIME 33.4 SECONDS (25.9-37.0)
[2022-03-08] MEDS: HEPARIN SOD (PORCINE) 5000UNITS/ML 1ML VIAL/SYRINGE SC SCH ×2 (08:15→20:31)
[2022-03-08] MEDS: LACTULOSE 20 GM/30 ML SYRUP UD PO SCH ×3 (08:15→20:31)
[2022-03-08 08:44] VITALS: BP 142/72
[2022-03-08] MEDS: SPIRONOLACTONE 50 MG TAB PO SCH (10:39)
[2022-03-08 10:40] VITALS: BP 138/77
[2022-03-08 13:44] VITALS: BP 124/70
[2022-03-08 19:58] VITALS: BP 128/72
[2022-03-08] MEDS ORDERED: INSULIN LISPRO (NovoLOG) PER UNIT SC SCH (21:00)
[2022-03-09 04:37] VITALS: BP 117/68
[2022-03-09 07:39] LABS: HEMATOCRIT 36.8 % (42.0-52.0); HEMOGLOBIN 12.2 g/dl (13.5-17.5); MEAN CORPUSCULAR HEMOGLOBIN 32.1 pg (27.0-33.0); MEAN CORPUSCULAR HGB CONC 33.2 g/dl (32.0-36.5); MEAN CORPUSCULAR VOLUME 96.8 fl (80.0-96.0); WHITE BLOOD COUNT 3.1 10^3/uL (4.0-10.0)
[2022-03-09 07:40] LABS: PLATELET COUNT, AUTOMATED 83 10^3/uL (150-450)
[2022-03-09 08:05] LABS: ALT/SGPT 54 U/L (12-78); BILIRUBIN,TOTAL 1.5 MG/DL (0.2-1.0); BLOOD UREA NITROGEN 17 MG/DL (7-18); CALCIUM LEVEL 8.3 MG/DL (8.5-10.1); CARBON DIOXIDE LEVEL 28 MEQ/L (21-32); CHLORIDE LEVEL 104 MEQ/L (98-107); CREATININE FOR GFR 1.27 MG/DL (0.70-1.30); GLOMERULAR FILTRATION RATE > 60.0 (>56); GLUCOSE, FASTING 127 MG/DL (70-100); POTASSIUM SERUM 3.6 MEQ/L (3.5-5.1); SODIUM LEVEL 139 MEQ/L (136-145); TOTAL PROTEIN 6.9 GM/DL (6.4-8.2)
[2022-03-09] MEDS: INSULIN LISPRO (NovoLOG) PER UNIT SC SCH ×3 (08:49→12:00)
[2022-03-09] MEDS: HEPARIN SOD (PORCINE) 5000UNITS/ML 1ML VIAL/SYRINGE SC SCH (09:00)
[2022-03-09] MEDS ORDERED: FUROSEMIDE 20 MG TAB PO SCH (09:00)
[2022-03-09] MEDS ORDERED: FLUBLOK(EGG FREE)(QUAD)INFLUENZA VACC 0.5ML SYRINGE 18YRS & OLDER IM.IMMUN ONE (09:00)
[2022-03-09] MEDS: LACTULOSE 20 GM/30 ML SYRUP UD PO SCH (10:00)
[2022-03-09] MEDS: SPIRONOLACTONE 50 MG TAB PO SCH (10:01)
[2022-03-09] MEDS ORDERED: FURO20TA2 PO ×2 (10:47→11:22)
[2022-03-09] MEDS ORDERED: ALDA50TA2 PO (10:47)
[2022-03-09] MEDS ORDERED: LACT20EL PO (10:47)
== END 2022-03-09 12:48 | disposition home or self-care (01) | DRG 433 ==
LOC: EDBD 22:52 → M ED 22:52 → M ED INP 03-08 05:13 → ENRESERV 03-08 08:12 → M MSPAV 03-08 08:44
PROVIDERS: ADMIT Family Medicine; ATTEND Family Medicine
DX: K70.31 Alcoholic cirrhosis of liver with ascites (principal); K76.6 Portal hypertension; R60.0 Localized edema; E11.22 Type 2 diabetes mellitus with diabetic chronic kidney disease; N18.30 Chronic kidney disease, stage 3 unspecified; I12.9 Hypertensive chronic kidney disease with stage 1 through stage 4 chronic kidney disease, or unspecified chronic kidney disease; M62.81 Muscle weakness (generalized); D50.9 Iron deficiency anemia, unspecified; N40.0 Benign prostatic hyperplasia without lower urinary tract symptoms; E66.9 Obesity, unspecified; F10.10 Alcohol abuse, uncomplicated; E80.6 Other disorders of bilirubin metabolism; Z91.11 Patient's noncompliance with dietary regimen; Z68.34 Body mass index [BMI] 34.0-34.9, adult

== ENCOUNTER 2022-05-11 20:22 | Emergency (ER) | payer MEDICARE, MEDICAID ==
[~2022-05-11] VITALS: Ht 182.9 cm; Wt 126.8 kg
[2022-05-11 23:01] LABS: BASO % 0.6 % (0.0-1.0); EOS # 0.1 10^3/uL (0.0-0.5); EOS % 2.3 % (0.0-3.0); HEMATOCRIT 37.6 % (42.0-52.0); HEMOGLOBIN 12.5 g/dl (13.5-17.5); LYMPH # 1.2 10^3/uL (1.5-5.0); LYMPH % 25.8 % (24.0-44.0); MEAN CORPUSCULAR HEMOGLOBIN 31.9 pg (27.0-33.0); MEAN CORPUSCULAR HGB CONC 33.2 g/dl (32.0-36.5); MEAN CORPUSCULAR VOLUME 95.9 fl (80.0-96.0); MONO # 0.7 10^3/uL (0.0-0.8); MONO % 15.4 % (2.0-8.0); NEUTROPHILS # 2.6 10^3/uL (1.5-8.5); NEUTROPHILS % 55.7 % (36.0-66.0); RED BLOOD COUNT 3.92 10^6/uL (4.30-6.10); WHITE BLOOD COUNT 4.7 10^3/uL (4.0-10.0)
[2022-05-11 23:02] LABS: PLATELET COUNT, AUTOMATED 87 10^3/uL (150-450)
[2022-05-11 23:11] LABS: INR 1.07; PROTHROMBIN TIME 14.3 SECONDS (12.7-14.5)
[2022-05-11 23:12] LABS: PARTIAL THROMBOPLASTIN TIME 31.3 SECONDS (25.9-37.0)
[2022-05-11 23:42] LABS: ALBUMIN 3.1 GM/DL (3.2-5.2); ALT/SGPT 33 U/L (12-78); AMYLASE 69 U/L (25-115); BILIRUBIN,DIRECT 0.6 MG/DL (0.0-0.2); BILIRUBIN,TOTAL 0.9 MG/DL (0.2-1.0); BLOOD UREA NITROGEN 15 MG/DL (7-18); CARBON DIOXIDE LEVEL 26 MEQ/L (21-32); CHLORIDE LEVEL 107 MEQ/L (98-107); CREATININE FOR GFR 1.33 MG/DL (0.70-1.30); GLOMERULAR FILTRATION RATE > 60.0 (>56); GLUCOSE, FASTING 219 MG/DL (70-100); LIPASE 180 U/L (73-393); NT-PRO BNP 18 PG/ML (<125); POTASSIUM SERUM 3.9 MEQ/L (3.5-5.1); SODIUM LEVEL 139 MEQ/L (136-145)
[2022-05-12 07:00] VITALS: BP 122/57
== END 2022-05-12 07:04 | disposition home or self-care (01) ==
LOC: M ED 20:22
DX: K74.60 Unspecified cirrhosis of liver (principal); R22.43 Localized swelling, mass and lump, lower limb, bilateral; R10.9 Unspecified abdominal pain; R63.5 Abnormal weight gain

== ENCOUNTER → 2022-11-02 | Outpatient (CLI) | payer MEDICARE, MEDICAID ==
[~2022-11-02] MED LIST changes: +FURO40TA2 PO; +LACT10SO3 PO; -POTA10CA32 PO; +POTA10CA33 PO
== END ==
LOC: M LABSMTC 09:28
PROVIDERS: ATTEND Anesthesiology
DX: Z01.812 Encounter for preprocedural laboratory examination (principal); Z11.52 Encounter for screening for COVID-19

== ENCOUNTER 2022-11-06 06:46 | Day surgery (SDC) | payer MEDICARE, MEDICAID ==
[~2022-11-06] VITALS: Ht 182.9 cm; Wt 122.5 kg
[~2022-11-06 06:46] MED LIST changes: +NS 1,000 ML IV ONE
[2022-11-06] MEDS ORDERED: LIDOCAINE 2% 100MG/5ML SDV (FOR ANES.) As Ordered ONE (07:42)
[2022-11-06] MEDS ORDERED: propofoL 200 MG/20 ML VIAL As Ordered ONE ×4 (07:42→08:07)
[2022-11-06 09:00] VITALS: BP 168/82
== END 2022-11-06 09:21 | disposition home or self-care (01) ==
LOC: M OPP 06:46
PROVIDERS: ATTEND Internal Medicine Gastroenterology
DX: Z12.11 Encounter for screening for malignant neoplasm of colon (principal); K63.5 Polyp of colon; K57.30 Diverticulosis of large intestine without perforation or abscess without bleeding; K64.4 Residual hemorrhoidal skin tags; K64.8 Other hemorrhoids; K22.89 Other specified disease of esophagus; K74.60 Unspecified cirrhosis of liver; I85.10 Secondary esophageal varices without bleeding; K29.70 Gastritis, unspecified, without bleeding; I10 Essential (primary) hypertension; F32.9 Major depressive disorder, single episode, unspecified; N40.0 Benign prostatic hyperplasia without lower urinary tract symptoms; E11.9 Type 2 diabetes mellitus without complications; F17.228 Nicotine dependence, chewing tobacco, with other nicotine-induced disorders; Z79.84 Long term (current) use of oral hypoglycemic drugs; Z79.899 Other long term (current) drug therapy; Z80.1 Family history of malignant neoplasm of trachea, bronchus and lung; Z80.3 Family history of malignant neoplasm of breast

== ENCOUNTER → 2022-11-12 | Outpatient (CLI) | payer MEDICARE, OTHER ==
[~2022-11-12] MED LIST changes: -NS 1,000 ML IV ONE
== END ==
LOC: M RAD 08:55
PROVIDERS: ATTEND Internal Medicine Gastroenterology
DX: K74.60 Unspecified cirrhosis of liver (principal)

== ENCOUNTER 2023-01-07 06:20 | Observation (INO) | payer MEDICARE, MEDICAID ==
[~2023-01-07] VITALS: Ht 182.9 cm; Wt 123.5 kg
[~2023-01-07 06:20] MED LIST changes: +POTA-298 PO; -POTA1TAB14 PO
[2023-01-07] MEDS ORDERED: MORPHINE 2 MG/ML 1ML VIAL IV ONE (07:05)
[2023-01-07 07:25] LABS: BASO % 0.7 % (0.0-1.0); EOS # 0.2 10^3/uL (0.0-0.5); EOS % 2.8 % (0.0-3.0); HEMATOCRIT 43.5 % (42.0-52.0); HEMOGLOBIN 14.7 g/dl (13.5-17.5); LYMPH # 1.8 10^3/uL (1.5-5.0); LYMPH % 32.6 % (24.0-44.0); MEAN CORPUSCULAR HEMOGLOBIN 32.7 pg (27.0-33.0); MEAN CORPUSCULAR HGB CONC 33.8 g/dl (32.0-36.5); MEAN CORPUSCULAR VOLUME 96.7 fl (80.0-96.0); MONO # 0.7 10^3/uL (0.0-0.8); MONO % 12.7 % (2.0-8.0); NEUTROPHILS # 2.8 10^3/uL (1.5-8.5); NEUTROPHILS % 51.2 % (36.0-66.0); WHITE BLOOD COUNT 5.4 10^3/uL (4.0-10.0)
[2023-01-07 07:26] LABS: LIPASE 43 U/L (12-53)
[2023-01-07 07:27] LABS: ETHYL ALCOHOL (ETHANOL) < 0.003 % (0.000-0.010)
[2023-01-07 07:28] LABS: SALICYLATE LEVEL < 3.0 MG/DL (<30)
[2023-01-07 07:29] LABS: ALBUMIN 3.3 G/DL (3.2-5.2); ALKALINE PHOSPHATASE 111 U/L (46-116); ALT/SGPT 26 U/L (7.0-40); AST/SGOT 30 U/L (<34); BILIRUBIN,DIRECT 0.7 MG/DL (<0.4); BILIRUBIN,TOTAL 1.9 MG/DL (0.3-1.2); BLOOD UREA NITROGEN 13 MG/DL (9-23); CALCIUM LEVEL 9.4 MG/DL (8.5-10.1); CARBON DIOXIDE LEVEL 24 MMOL/L (20-31); CHLORIDE LEVEL 106 MMOL/L (98-107); CREATININE FOR GFR 0.94 MG/DL (0.70-1.30); GLOMERULAR FILTRATION RATE > 60.0 (>56); GLUCOSE, FASTING 123 MG/DL (60-100); POTASSIUM SERUM 3.6 MMOL/L (3.5-5.1); SODIUM LEVEL 142 MMOL/L (136-145); TOTAL PROTEIN 7.4 G/DL (5.7-8.2)
[2023-01-07 07:31] LABS: THYROID STIMULATING HORMONE 2.081 uIU/ML (0.55-4.78)
[2023-01-07 07:34] LABS: ACETAMINOPHEN LEVEL < 2.0 UG/ML (10.0-20.0)
[2023-01-07 07:43] LABS: INR 1.1; PARTIAL THROMBOPLASTIN TIME 29.9 SECONDS (24.8-34.2); PROTHROMBIN TIME 14.4 SECONDS (12.5-14.5)
[2023-01-07] MEDS ORDERED: ISOVUE-370 76% 100ML VIAL As Ordered ONE (07:44)
[2023-01-07 07:48] LABS: PLATELET COUNT, AUTOMATED 86 10^3/uL (150-450)
[2023-01-07 08:46] LABS: AMPHETAMINES LEVEL URINE NEGATIVE (NEGATIVE); BARBITURATES URINE NEGATIVE (NEGATIVE); BENZODIAZEPINES URINE NEGATIVE (NEGATIVE); CANNABINOIDS URINE NEGATIVE (NEGATIVE); COCAINE METABOLITE URINE NEGATIVE (NEGATIVE); METHADONE URINE NEGATIVE (NEGATIVE); OPIATES URINE NEGATIVE (NEGATIVE); PHENCYCLIDINE URINE NEGATIVE (NEGATIVE)
[2023-01-07] MEDS: metFORMIN (GLUCOPHAGE) 500MG TAB PO SCH ×2 (09:00→20:39)
[2023-01-07] MEDS: LACTULOSE 20GM/30ML SYRUP UDC PO SCH ×2 (12:00→18:03)
[2023-01-07] MEDS ORDERED: FURO40TA2 PO (12:58)
[2023-01-07] MEDS ORDERED: ACET1TAB55 PO (12:58)
[2023-01-07] MEDS ORDERED: FOLI1TAB11 PO (12:58)
[2023-01-07] MEDS ORDERED: B-1100TA2 PO (12:58)
[2023-01-07] MEDS ORDERED: ACETAMINOPHEN 325 MG TAB PO PRN (13:00)
[2023-01-07] MEDS ORDERED: HOME MED LIST COMPLETE! XX SCH (13:00)
[2023-01-07 15:45] VITALS: BP 92/54
[2023-01-07 18:50] VITALS: BP 138/68
[2023-01-07] MEDS: THIAMINE 100 MG TAB PO SCH (20:39)
[2023-01-07] MEDS: FOLIC ACID 1MG TAB PO SCH (20:39)
[2023-01-07 20:40] VITALS: BP 135/67
[2023-01-08] MEDS: LACTULOSE 20GM/30ML SYRUP UDC PO SCH ×5 (00:14→23:31)
[2023-01-08 05:30] VITALS: BP 130/67
[2023-01-08 06:31] LABS: HEMATOCRIT 39.1 % (42.0-52.0); HEMOGLOBIN 13.2 g/dl (13.5-17.5); MEAN CORPUSCULAR HEMOGLOBIN 32.2 pg (27.0-33.0); MEAN CORPUSCULAR HGB CONC 33.8 g/dl (32.0-36.5); MEAN CORPUSCULAR VOLUME 95.4 fl (80.0-96.0); WHITE BLOOD COUNT 5.4 10^3/uL (4.0-10.0)
[2023-01-08 06:32] LABS: PLATELET COUNT, AUTOMATED 85 10^3/uL (150-450)
[2023-01-08 07:06] LABS: ALKALINE PHOSPHATASE 99 U/L (46-116); ALT/SGPT 23 U/L (7.0-40); AST/SGOT 26 U/L (<34); BILIRUBIN,TOTAL 1.9 MG/DL (0.3-1.2); BLOOD UREA NITROGEN 12 MG/DL (9-23); CALCIUM LEVEL 8.8 MG/DL (8.5-10.1); CARBON DIOXIDE LEVEL 25 MMOL/L (20-31); CHLORIDE LEVEL 105 MMOL/L (98-107); GLOMERULAR FILTRATION RATE > 60.0 (>56); GLUCOSE, FASTING 101 MG/DL (60-100); POTASSIUM SERUM 3.4 MMOL/L (3.5-5.1); SODIUM LEVEL 139 MMOL/L (136-145); TOTAL PROTEIN 6.4 G/DL (5.7-8.2)
[2023-01-08] MEDS ORDERED: POTASSIUM CHLORIDE 10MEQ SR TABLET PO ONE (07:20)
[2023-01-08] MEDS: metFORMIN (GLUCOPHAGE) 500MG TAB PO SCH ×2 (09:43→20:17)
[2023-01-08] MEDS: FUROSEMIDE 40 MG TAB PO SCH (09:43)
[2023-01-08 14:00] VITALS: BP 132/66
[2023-01-08] MEDS: THIAMINE 100 MG TAB PO SCH (20:17)
[2023-01-08] MEDS: FOLIC ACID 1MG TAB PO SCH (20:18)
[2023-01-08 22:00] VITALS: BP 132/68
[2023-01-09 05:44] LABS: BASO % 0.7 % (0.0-1.0); EOS # 0.2 10^3/uL (0.0-0.5); EOS % 2.9 % (0.0-3.0); HEMATOCRIT 36.2 % (42.0-52.0); HEMOGLOBIN 12.6 g/dl (13.5-17.5); LYMPH # 1.5 10^3/uL (1.5-5.0); LYMPH % 27.5 % (24.0-44.0); MEAN CORPUSCULAR HEMOGLOBIN 32.9 pg (27.0-33.0); MEAN CORPUSCULAR HGB CONC 34.8 g/dl (32.0-36.5); MEAN CORPUSCULAR VOLUME 94.5 fl (80.0-96.0); MONO # 0.8 10^3/uL (0.0-0.8); MONO % 14.9 % (2.0-8.0); NEUTROPHILS # 2.9 10^3/uL (1.5-8.5); NEUTROPHILS % 53.8 % (36.0-66.0); RED BLOOD COUNT 3.83 10^6/uL (4.30-6.10); WHITE BLOOD COUNT 5.5 10^3/uL (4.0-10.0)
[2023-01-09 06:00] VITALS: BP 121/52
[2023-01-09] MEDS: LACTULOSE 20GM/30ML SYRUP UDC PO SCH ×4 (06:05→23:44)
[2023-01-09 06:13] LABS: ALBUMIN 2.8 G/DL (3.2-5.2); ALKALINE PHOSPHATASE 95 U/L (46-116); ALT/SGPT 23 U/L (7.0-40); AST/SGOT 26 U/L (<34); BILIRUBIN,TOTAL 1.3 MG/DL (0.3-1.2); BLOOD UREA NITROGEN 13 MG/DL (9-23); CALCIUM LEVEL 8.8 MG/DL (8.5-10.1); CARBON DIOXIDE LEVEL 23 MMOL/L (20-31); CHLORIDE LEVEL 107 MMOL/L (98-107); CREATININE FOR GFR 0.97 MG/DL (0.70-1.30); GLOMERULAR FILTRATION RATE > 60.0 (>56); GLUCOSE, FASTING 123 MG/DL (60-100); PLATELET COUNT, AUTOMATED 75 10^3/uL (150-450); POTASSIUM SERUM 3.4 MMOL/L (3.5-5.1); SODIUM LEVEL 139 MMOL/L (136-145); TOTAL PROTEIN 6.2 G/DL (5.7-8.2)
[2023-01-09] MEDS: FUROSEMIDE 40 MG TAB PO SCH (08:51)
[2023-01-09] MEDS: metFORMIN (GLUCOPHAGE) 500MG TAB PO SCH ×2 (08:51→20:31)
[2023-01-09] MEDS ORDERED: POTASSIUM CHLORIDE 10MEQ SR TABLET PO SCH (09:00)
[2023-01-09 14:00] VITALS: BP 135/65
[2023-01-09] MEDS: EPLERENONE 50 MG PO SCH (16:16)
[2023-01-09] MEDS: SERTRALINE HCL 25 MG TABLET PO SCH (20:31)
[2023-01-09] MEDS: THIAMINE 100 MG TAB PO SCH (20:31)
[2023-01-09] MEDS: FOLIC ACID 1MG TAB PO SCH (20:31)
[2023-01-09 22:00] VITALS: BP 133/65
[2023-01-10 06:00] VITALS: BP 129/63
[2023-01-10] MEDS: LACTULOSE 20GM/30ML SYRUP UDC PO SCH ×3 (06:07→17:39)
[2023-01-10 06:13] LABS: BASO % 0.8 % (0.0-1.0); EOS # 0.2 10^3/uL (0.0-0.5); EOS % 3.6 % (0.0-3.0); HEMATOCRIT 35.9 % (42.0-52.0); HEMOGLOBIN 12.4 g/dl (13.5-17.5); LYMPH # 1.5 10^3/uL (1.5-5.0); LYMPH % 29.4 % (24.0-44.0); MEAN CORPUSCULAR HEMOGLOBIN 32.8 pg (27.0-33.0); MEAN CORPUSCULAR HGB CONC 34.5 g/dl (32.0-36.5); MONO # 0.7 10^3/uL (0.0-0.8); MONO % 14.7 % (2.0-8.0); NEUTROPHILS # 2.6 10^3/uL (1.5-8.5); NEUTROPHILS % 51.3 % (36.0-66.0); RED BLOOD COUNT 3.78 10^6/uL (4.30-6.10)
[2023-01-10 06:28] LABS: PLATELET COUNT, AUTOMATED 71 10^3/uL (150-450)
[2023-01-10 06:37] LABS: ALBUMIN 2.8 G/DL (3.2-5.2); ALKALINE PHOSPHATASE 90 U/L (46-116); ALT/SGPT 23 U/L (7.0-40); AST/SGOT 28 U/L (<34); BILIRUBIN,TOTAL 1.6 MG/DL (0.3-1.2); BLOOD UREA NITROGEN 9 MG/DL (9-23); CALCIUM LEVEL 8.4 MG/DL (8.5-10.1); CARBON DIOXIDE LEVEL 22 MMOL/L (20-31); CHLORIDE LEVEL 107 MMOL/L (98-107); CREATININE FOR GFR 0.93 MG/DL (0.70-1.30); GLOMERULAR FILTRATION RATE > 60.0 (>56); GLUCOSE, FASTING 123 MG/DL (60-100); MAGNESIUM LEVEL 1.9 MG/DL (1.8-2.4); POTASSIUM SERUM 3.3 MMOL/L (3.5-5.1); SODIUM LEVEL 139 MMOL/L (136-145); TOTAL PROTEIN 6.2 G/DL (5.7-8.2)
[2023-01-10] MEDS: POTASSIUM CHLORIDE 10MEQ SR TABLET PO SCH (09:15)
[2023-01-10] MEDS: FUROSEMIDE 40 MG TAB PO SCH (09:15)
[2023-01-10] MEDS: metFORMIN (GLUCOPHAGE) 500MG TAB PO SCH ×2 (09:15→20:43)
[2023-01-10] MEDS: EPLERENONE 50 MG PO SCH (09:16)
[2023-01-10] MEDS ORDERED: HYDROCORTISONE 1% CREAM 30GM TOP PRN (09:35)
[2023-01-10 14:00] VITALS: BP 144/65
[2023-01-10 20:00] VITALS: BP 143/71
[2023-01-10] MEDS: FOLIC ACID 1MG TAB PO SCH (20:43)
[2023-01-10] MEDS: SERTRALINE HCL 25 MG TABLET PO SCH (20:43)
[2023-01-10] MEDS: THIAMINE 100 MG TAB PO SCH (20:43)
[2023-01-11] MEDS: LACTULOSE 20GM/30ML SYRUP UDC PO SCH ×2 (00:24→05:01)
[2023-01-11 06:00] VITALS: BP 140/69
[2023-01-11 06:01] LABS: BASO % 0.6 % (0.0-1.0); EOS # 0.2 10^3/uL (0.0-0.5); EOS % 4.2 % (0.0-3.0); HEMATOCRIT 36.5 % (42.0-52.0); HEMOGLOBIN 12.7 g/dl (13.5-17.5); LYMPH # 1.4 10^3/uL (1.5-5.0); LYMPH % 29.6 % (24.0-44.0); MEAN CORPUSCULAR HEMOGLOBIN 32.8 pg (27.0-33.0); MEAN CORPUSCULAR HGB CONC 34.8 g/dl (32.0-36.5); MEAN CORPUSCULAR VOLUME 94.3 fl (80.0-96.0); MONO # 0.7 10^3/uL (0.0-0.8); NEUTROPHILS # 2.5 10^3/uL (1.5-8.5); NEUTROPHILS % 51.4 % (36.0-66.0); RED BLOOD COUNT 3.87 10^6/uL (4.30-6.10); WHITE BLOOD COUNT 4.8 10^3/uL (4.0-10.0)
[2023-01-11 06:08] LABS: PLATELET COUNT, AUTOMATED 71 10^3/uL (150-450)
[2023-01-11 06:26] LABS: ALBUMIN 2.8 G/DL (3.2-5.2); ALKALINE PHOSPHATASE 92 U/L (46-116); ALT/SGPT 24 U/L (7.0-40); AST/SGOT 30 U/L (<34); BLOOD UREA NITROGEN 8 MG/DL (9-23); CALCIUM LEVEL 8.4 MG/DL (8.5-10.1); CARBON DIOXIDE LEVEL 24 MMOL/L (20-31); CHLORIDE LEVEL 107 MMOL/L (98-107); CREATININE FOR GFR 0.93 MG/DL (0.70-1.30); GLOMERULAR FILTRATION RATE > 60.0 (>56); GLUCOSE, FASTING 109 MG/DL (60-100); POTASSIUM SERUM 3.4 MMOL/L (3.5-5.1); SODIUM LEVEL 138 MMOL/L (136-145); TOTAL PROTEIN 6.1 G/DL (5.7-8.2)
[2023-01-11] MEDS: FUROSEMIDE 40 MG TAB PO SCH (08:52)
[2023-01-11] MEDS: POTASSIUM CHLORIDE 10MEQ SR TABLET PO SCH (08:53)
[2023-01-11] MEDS: EPLERENONE 50 MG PO SCH (08:53)
[2023-01-11] MEDS: metFORMIN (GLUCOPHAGE) 500MG TAB PO SCH (08:53)
[2023-01-11 14:00] VITALS: BP 137/65
[2023-01-11] MEDS ORDERED: LACTULOSE 20GM/30ML SYRUP UDC PO SCH (14:00)
[2023-01-11] MEDS ORDERED: SERT25TA21 PO (15:04)
[2023-01-11] MEDS ORDERED: K-TA1TAB PO (15:04)
== END 2023-01-11 18:23 ==
LOC: EDBD 06:20 → M ED 06:20 → M ED INP 06:21 → ENRESERV 12:54 → M MSPAV 15:21
PROVIDERS: ADMIT Internal Medicine; ATTEND Internal Medicine
DX: R53.1 Weakness (principal); K76.82 Hepatic encephalopathy; K70.31 Alcoholic cirrhosis of liver with ascites; R10.12 Left upper quadrant pain; D69.59 Other secondary thrombocytopenia; E87.6 Hypokalemia; F32.A Depression, unspecified; R45.851 Suicidal ideations; I85.10 Secondary esophageal varices without bleeding; N18.30 Chronic kidney disease, stage 3 unspecified; I12.9 Hypertensive chronic kidney disease with stage 1 through stage 4 chronic kidney disease, or unspecified chronic kidney disease; E11.22 Type 2 diabetes mellitus with diabetic chronic kidney disease; M19.90 Unspecified osteoarthritis, unspecified site; R16.1 Splenomegaly, not elsewhere classified; Z79.899 Other long term (current) drug therapy; Z79.84 Long term (current) use of oral hypoglycemic drugs
CPT/HCPCS: 71045; 74177; 80048; 80076; 80143; 80307; 81001; 82077; 82140; 83690; 83880; 84443; 85025; 85049; 85055; 85610; 85730; 87635; 93005; 93041; 96374; 97161; 97165; 97530; 99285; Q9967

== ENCOUNTER 2023-01-11 13:18 | Inpatient (IN) | payer MEDICARE, MEDICAID ==
[~2023-01-11 13:18] MED LIST changes: +B-1100TA2 PO
[2023-01-11] MEDS ORDERED: traZODone 50 MG TAB PO PRN (14:00)
[2023-01-11] MEDS ORDERED: IBUPROFEN 400MG TAB PO PRN (14:00)
[2023-01-11] MEDS ORDERED: MOM 30ML SUSPENSION UDC PO PRN (14:00)
[2023-01-11] MEDS ORDERED: MAALOX 30 ML SUSP *UDC PO PRN (14:00)
[2023-01-11] MEDS ORDERED: SERT25TA21 PO (15:04)
[2023-01-11] MEDS ORDERED: K-TA1TAB PO (15:04)
[2023-01-11] MEDS ORDERED: HOME MED LIST COMPLETE! XX SCH (18:55)
[2023-01-11 19:01] VITALS: BP 156/73
[2023-01-11] MEDS: metFORMIN (GLUCOPHAGE) 500MG TAB PO SCH (19:34)
[2023-01-11] MEDS: FOLIC ACID 1MG TAB PO SCH (21:24)
[2023-01-11] MEDS: THIAMINE 100 MG TAB PO SCH (21:24)
[2023-01-11] MEDS: SERTRALINE HCL 50 MG TAB PO SCH (21:24)
[2023-01-12 06:16] VITALS: BP 125/60
[2023-01-12] MEDS: FUROSEMIDE 40 MG TAB PO SCH (09:35)
[2023-01-12] MEDS: metFORMIN (GLUCOPHAGE) 500MG TAB PO SCH ×2 (09:35→17:56)
[2023-01-12 17:17] VITALS: BP 112/59
[2023-01-12] MEDS: FOLIC ACID 1MG TAB PO SCH (20:47)
[2023-01-12] MEDS: THIAMINE 100 MG TAB PO SCH (20:47)
[2023-01-12] MEDS: SERTRALINE HCL 50 MG TAB PO SCH (20:47)
[2023-01-13 06:00] VITALS: BP 131/60
[2023-01-13] MEDS: FUROSEMIDE 40 MG TAB PO SCH (08:15)
[2023-01-13] MEDS: metFORMIN (GLUCOPHAGE) 500MG TAB PO SCH ×2 (08:16→18:00)
[2023-01-13 18:22] VITALS: BP 146/67
[2023-01-13] MEDS: FOLIC ACID 1MG TAB PO SCH (21:27)
[2023-01-13] MEDS: SERTRALINE HCL 50 MG TAB PO SCH (21:27)
[2023-01-13] MEDS: THIAMINE 100 MG TAB PO SCH (21:27)
[2023-01-14 06:34] VITALS: BP 138/65
[2023-01-14] MEDS: FUROSEMIDE 40 MG TAB PO SCH (08:26)
[2023-01-14] MEDS: metFORMIN (GLUCOPHAGE) 500MG TAB PO SCH ×2 (08:26→17:06)
[2023-01-14] MEDS: POTASSIUM CHLORIDE 10MEQ SR TABLET PO SCH (17:06)
[2023-01-14] MEDS: LACTULOSE 20GM/30ML SYRUP UDC PO SCH ×2 (17:07→21:58)
[2023-01-14 18:31] VITALS: BP 120/78
[2023-01-14] MEDS: THIAMINE 100 MG TAB PO SCH (21:57)
[2023-01-14] MEDS: FOLIC ACID 1MG TAB PO SCH (21:57)
[2023-01-14] MEDS: SERTRALINE HCL 50 MG TAB PO SCH (21:57)
[2023-01-15 06:25] VITALS: BP 142/66
[2023-01-15] MEDS: FUROSEMIDE 40 MG TAB PO SCH (08:29)
[2023-01-15] MEDS: metFORMIN (GLUCOPHAGE) 500MG TAB PO SCH (08:29)
[2023-01-15] MEDS: LACTULOSE 20GM/30ML SYRUP UDC PO SCH (08:29)
[2023-01-15] MEDS ORDERED: EPLERENONE 50 MG PO SCH ×2 (09:00→10:00)
[2023-01-15] MEDS: POTASSIUM CHLORIDE 10MEQ SR TABLET PO SCH (09:14)
[2023-01-15] MEDS ORDERED: POTA-136 PO (11:50)
[2023-01-15] MEDS ORDERED: METF500T13 PO (11:50)
[2023-01-15] MEDS ORDERED: SERT50TA29 PO (11:50)
[2023-01-15] MEDS ORDERED: FURO40TA2 PO (11:50)
[2023-01-15] MEDS ORDERED: LACT20EL PO (11:50)
[2023-01-15 13:02] VITALS: BP 152/88
== END 2023-01-15 13:05 | disposition home or self-care (01) | DRG 881 ==
LOC: M PSY 18:21 → UNDODISIN 01-15 09:49
PROVIDERS: ADMIT Psychiatry & Neurology Psychiatry; ATTEND Psychiatry & Neurology Psychiatry
DX: F32.A Depression, unspecified (principal); I85.10 Secondary esophageal varices without bleeding; R45.851 Suicidal ideations; K76.6 Portal hypertension; K70.31 Alcoholic cirrhosis of liver with ascites; K76.82 Hepatic encephalopathy; E11.22 Type 2 diabetes mellitus with diabetic chronic kidney disease; N18.30 Chronic kidney disease, stage 3 unspecified; I12.9 Hypertensive chronic kidney disease with stage 1 through stage 4 chronic kidney disease, or unspecified chronic kidney disease; D69.59 Other secondary thrombocytopenia; M19.90 Unspecified osteoarthritis, unspecified site; R53.1 Weakness; D50.9 Iron deficiency anemia, unspecified; N40.0 Benign prostatic hyperplasia without lower urinary tract symptoms; E66.9 Obesity, unspecified; Z79.84 Long term (current) use of oral hypoglycemic drugs; Z79.899 Other long term (current) drug therapy

== ENCOUNTER 2023-02-20 00:05 | Emergency (ER) | payer MEDICAID, MEDICARE, OTHER ==
[~2023-02-20 00:05] MED LIST changes: +K-TA1TAB PO; -POTA10CA33 PO; +POTA10CA60 PO; +SERT25TA21 PO; +SERT50TA29 PO
[2023-02-20 01:21] LABS: BASO % 0.8 % (0.0-1.0); EOS # 0.2 10^3/uL (0.0-0.5); EOS % 3.3 % (0.0-3.0); HEMATOCRIT 35.2 % (42.0-52.0); HEMOGLOBIN 12.1 g/dl (13.5-17.5); LYMPH # 1.4 10^3/uL (1.5-5.0); LYMPH % 27.1 % (24.0-44.0); MEAN CORPUSCULAR HEMOGLOBIN 33.1 pg (27.0-33.0); MEAN CORPUSCULAR HGB CONC 34.4 g/dl (32.0-36.5); MEAN CORPUSCULAR VOLUME 96.2 fl (80.0-96.0); MONO # 0.8 10^3/uL (0.0-0.8); MONO % 14.9 % (2.0-8.0); NEUTROPHILS # 2.8 10^3/uL (1.5-8.5); NEUTROPHILS % 53.7 % (36.0-66.0); RED BLOOD COUNT 3.66 10^6/uL (4.30-6.10); WHITE BLOOD COUNT 5.2 10^3/uL (4.0-10.0)
[2023-02-20 01:29] LABS: PLATELET COUNT, AUTOMATED 88 10^3/uL (150-450)
[2023-02-20 01:30] LABS: INR 1.06
[2023-02-20 01:31] LABS: PARTIAL THROMBOPLASTIN TIME 30.3 SECONDS (24.8-34.2)
[2023-02-20 01:43] LABS: BLOOD UREA NITROGEN 10 MG/DL (9-23); CALCIUM LEVEL 8.3 MG/DL (8.5-10.1); CARBON DIOXIDE LEVEL 26 MMOL/L (20-31); CHLORIDE LEVEL 104 MMOL/L (98-107); GLOMERULAR FILTRATION RATE > 60.0 (>56); GLUCOSE, FASTING 239 MG/DL (60-100); MAGNESIUM LEVEL 1.9 MG/DL (1.8-2.4); POTASSIUM SERUM 3.7 MMOL/L (3.5-5.1); SODIUM LEVEL 137 MMOL/L (136-145)
[2023-02-20 01:50] VITALS: TEMP 98.9
[2023-02-20 02:00] LABS: RSV AMPLIFICATION NEGATIVE (NEGATIVE)
[2023-02-20 05:45] VITALS: BP 114/60; O2SAT 97
[2023-02-20] MEDS ORDERED: POTA10CA60 PO (06:04)
[2023-02-20] MEDS ORDERED: LASI40TA9 PO (06:04)
== END 2023-02-20 06:30 | disposition home or self-care (01) ==
LOC: M ED 00:05 → EDBD 00:05 → M ED 06:30
DX: R22.43 Localized swelling, mass and lump, lower limb, bilateral (principal); E11.9 Type 2 diabetes mellitus without complications; K74.5 Biliary cirrhosis, unspecified; F32.A Depression, unspecified; Z79.899 Other long term (current) drug therapy; Z79.84 Long term (current) use of oral hypoglycemic drugs

== ENCOUNTER 2023-04-17 21:46 | Emergency (ER) | payer OTHER ==
[~2023-04-17] VITALS: Ht 182.9 cm; Wt 136.4 kg
[~2023-04-17 21:46] MED LIST changes: +LASI40TA9 PO
[2023-04-18 04:44] LABS: BASO % 0.7 % (0.0-1.0); EOS # 0.2 10^3/uL (0.0-0.5); EOS % 2.9 % (0.0-3.0); HEMATOCRIT 34.9 % (42.0-52.0); HEMOGLOBIN 11.5 g/dl (13.5-17.5); LYMPH # 1.4 10^3/uL (1.5-5.0); LYMPH % 24.6 % (24.0-44.0); MEAN CORPUSCULAR HEMOGLOBIN 32.1 pg (27.0-33.0); MEAN CORPUSCULAR VOLUME 97.5 fl (80.0-96.0); MONO # 0.8 10^3/uL (0.0-0.8); MONO % 14.6 % (2.0-8.0); NEUTROPHILS # 3.1 10^3/uL (1.5-8.5); RED BLOOD COUNT 3.58 10^6/uL (4.30-6.10); WHITE BLOOD COUNT 5.5 10^3/uL (4.0-10.0)
[2023-04-18 04:49] LABS: PLATELET COUNT, AUTOMATED 84 10^3/uL (150-450)
[2023-04-18 05:18] LABS: CK-MB VALUE MASS 1.4 NG/ML (<3.6); MB/CK RELATIVE INDEX 1.18 (< OR =4)
[2023-04-18 05:19] LABS: ALBUMIN 2.8 G/DL (3.2-5.2); ALKALINE PHOSPHATASE 108 U/L (46-116); ALT/SGPT 25 U/L (7.0-40); AST/SGOT 44 U/L (<34); BILIRUBIN,TOTAL 1.2 MG/DL (0.3-1.2); BLOOD UREA NITROGEN 12 MG/DL (9-23); CALCIUM LEVEL 8.2 MG/DL (8.5-10.1); CARBON DIOXIDE LEVEL 22 MMOL/L (20-31); CHLORIDE LEVEL 111 MMOL/L (98-107); CREATININE FOR GFR 0.89 MG/DL (0.70-1.30); GLOMERULAR FILTRATION RATE > 60.0 (>56); GLUCOSE, FASTING 101 MG/DL (60-100); POTASSIUM SERUM 4.8 MMOL/L (3.5-5.1); SODIUM LEVEL 140 MMOL/L (136-145)
[2023-04-18] MEDS ORDERED: FUROSEMIDE 100MG/10ML VIAL IV ONE (06:20)
[2023-04-18] MEDS ORDERED: MAG SULF 1GM/100ML (MAG RUN) 1 GM in IV 1 EA IV ONE (06:20)
[2023-04-18] MEDS ORDERED: MAGN400T2 PO (07:05)
[2023-04-18] MEDS ORDERED: FURO40TA2 PO (07:05)
[2023-04-18 07:43] VITALS: BP 136/58; TEMP 96.9; O2SAT 98
== END 2023-04-18 08:37 | disposition home or self-care (01) ==
LOC: M ED 21:46 → EDBD 21:46 → M ED 04-18 08:37
DX: R22.43 Localized swelling, mass and lump, lower limb, bilateral (principal); I45.81 Long QT syndrome; E11.9 Type 2 diabetes mellitus without complications; I12.9 Hypertensive chronic kidney disease with stage 1 through stage 4 chronic kidney disease, or unspecified chronic kidney disease; N18.30 Chronic kidney disease, stage 3 unspecified; J45.909 Unspecified asthma, uncomplicated; K70.30 Alcoholic cirrhosis of liver without ascites; Z79.899 Other long term (current) drug therapy
CPT/HCPCS: 71045; 80053; 82550; 82553; 83735; 83880; 85025; 85049; 85055; 93005; 93041; 93970; 96365; 96375; 99285; J1940; J3475

== ENCOUNTER → 2023-09-21 | Outpatient (CLI) | payer MEDICARE, MEDICAID ==
[~2023-09-21] MED LIST changes: +CEFD1CAP9 PO; -CEFD300C41 PO
== END ==
LOC: M RAD 08:42
PROVIDERS: ATTEND Internal Medicine Gastroenterology
DX: K74.60 Unspecified cirrhosis of liver (principal)

== ENCOUNTER 2023-09-27 13:58 | Emergency (ER) | payer MEDICAID, MEDICARE, OTHER ==
[~2023-09-27] VITALS: Ht 182.9 cm; Wt 113.6 kg
[2023-09-27 14:58] VITALS: BP 148/67; TEMP 97.9; O2SAT 99
[2023-09-27 15:11] LABS: BASO % 0.6 % (0.0-1.0); EOS # 0.2 10^3/uL (0.0-0.5); HEMATOCRIT 37.3 % (42.0-52.0); HEMOGLOBIN 12.5 g/dl (13.5-17.5); LYMPH # 1.1 10^3/uL (1.5-5.0); LYMPH % 20.2 % (24.0-44.0); MEAN CORPUSCULAR HGB CONC 33.5 g/dl (32.0-36.5); MEAN CORPUSCULAR VOLUME 98.4 fl (80.0-96.0); MONO # 0.8 10^3/uL (0.0-0.8); MONO % 14.3 % (2.0-8.0); NEUTROPHILS # 3.3 10^3/uL (1.5-8.5); NEUTROPHILS % 61.7 % (36.0-66.0); RED BLOOD COUNT 3.79 10^6/uL (4.30-6.10); WHITE BLOOD COUNT 5.4 10^3/uL (4.0-10.0)
[2023-09-27 15:15] LABS: PLATELET COUNT, AUTOMATED 77 10^3/uL (150-450)
[2023-09-27 15:30] LABS: INR 1.19; PROTHROMBIN TIME 14.8 SECONDS (12.5-14.5)
[2023-09-27 15:33] LABS: LIPASE 42 U/L (12-53)
[2023-09-27 15:34] LABS: ALBUMIN 2.9 G/DL (3.2-5.2); ALKALINE PHOSPHATASE 103 U/L (46-116); ALT/SGPT 35 U/L (7.0-40); AST/SGOT 51 U/L (<34); BILIRUBIN,DIRECT 0.6 MG/DL (<0.4); BILIRUBIN,TOTAL 2.2 MG/DL (0.3-1.2); BLOOD UREA NITROGEN 14 MG/DL (9-23); CALCIUM LEVEL 8.1 MG/DL (8.5-10.1); CARBON DIOXIDE LEVEL 24 MMOL/L (20-31); CHLORIDE LEVEL 106 MMOL/L (98-107); CK-MB VALUE MASS 1.5 NG/ML (<3.6); CREATININE FOR GFR 1.06 MG/DL (0.70-1.30); GLOMERULAR FILTRATION RATE > 60.0 (>56); GLUCOSE, FASTING 303 MG/DL (60-100); POTASSIUM SERUM 4.9 MMOL/L (3.5-5.1); SODIUM LEVEL 136 MMOL/L (136-145); TOTAL PROTEIN 6.5 G/DL (5.7-8.2)
[2023-09-27 15:36] LABS: CPK CREATINE PHOSPHOKINASE 282 U/L (46-171); MB/CK RELATIVE INDEX 0.53 (< OR =4)
[2023-09-27] MEDS ORDERED: ISOVUE-370 76% 100ML VIAL As Ordered ONE (16:01)
== END 2023-09-27 17:31 | disposition home or self-care (01) ==
LOC: M ED 13:58
DX: R16.1 Splenomegaly, not elsewhere classified (principal); E11.9 Type 2 diabetes mellitus without complications; I12.9 Hypertensive chronic kidney disease with stage 1 through stage 4 chronic kidney disease, or unspecified chronic kidney disease; J44.9 Chronic obstructive pulmonary disease, unspecified; K74.60 Unspecified cirrhosis of liver; R18.8 Other ascites; K76.82 Hepatic encephalopathy
CPT/HCPCS: 71045; 71275; 74177; 80048; 80076; 82550; 82553; 83605; 83690; 84484; 85025; 85049; 85055; 85610; 87040; 87077; 87186; 87486; 87581; 87633; 87798; 93005; 93041; 99284; Q9967

== ENCOUNTER 2023-10-02 14:15 | Emergency (ER) | payer MEDICARE ==
[~2023-10-02] VITALS: Ht 182.9 cm; Wt 105.9 kg
[2023-10-02 15:34] LABS: BASO % 0.8 % (0.0-1.0); EOS # 0.2 10^3/uL (0.0-0.5); EOS % 3.2 % (0.0-3.0); HEMATOCRIT 37.2 % (42.0-52.0); HEMOGLOBIN 12.2 g/dl (13.5-17.5); LYMPH % 20.3 % (24.0-44.0); MEAN CORPUSCULAR HEMOGLOBIN 32.8 pg (27.0-33.0); MEAN CORPUSCULAR HGB CONC 32.8 g/dl (32.0-36.5); MONO # 0.6 10^3/uL (0.0-0.8); MONO % 12.9 % (2.0-8.0); NEUTROPHILS # 2.9 10^3/uL (1.5-8.5); NEUTROPHILS % 62.2 % (36.0-66.0); RED BLOOD COUNT 3.72 10^6/uL (4.30-6.10); WHITE BLOOD COUNT 4.7 10^3/uL (4.0-10.0)
[2023-10-02 15:44] LABS: PLATELET COUNT, AUTOMATED 87 10^3/uL (150-450)
[2023-10-02 15:58] LABS: LIPASE 53 U/L (12-53)
[2023-10-02 16:00] LABS: ALBUMIN 2.9 G/DL (3.2-5.2); ALKALINE PHOSPHATASE 118 U/L (46-116); ALT/SGPT 36 U/L (7.0-40); AST/SGOT 36 U/L (<34); BILIRUBIN,DIRECT 0.7 MG/DL (<0.4); BILIRUBIN,TOTAL 1.8 MG/DL (0.3-1.2); BLOOD UREA NITROGEN 11 MG/DL (9-23); CALCIUM LEVEL 8.3 MG/DL (8.5-10.1); CARBON DIOXIDE LEVEL 27 MMOL/L (20-31); CHLORIDE LEVEL 109 MMOL/L (98-107); CREATININE FOR GFR 0.96 MG/DL (0.70-1.30); GLOMERULAR FILTRATION RATE > 60.0 (>56); GLUCOSE, FASTING 300 MG/DL (60-100); POTASSIUM SERUM 4.3 MMOL/L (3.5-5.1); SODIUM LEVEL 140 MMOL/L (136-145); TOTAL PROTEIN 6.7 G/DL (5.7-8.2)
[2023-10-02] MEDS ORDERED: IPRATROPIUM 0.5MG/ALBUTEROL 2.5MG INH SOL UD 3ML (DUONEB) NEB ONE (17:30)
[2023-10-02] MEDS ORDERED: VENTAER INH (18:20)
[2023-10-02 18:26] VITALS: BP 169/77; TEMP 97.5; O2SAT 96
== END 2023-10-02 18:41 | disposition home or self-care (01) ==
LOC: EDBD 14:15 → M ED 14:15
DX: M94.0 Chondrocostal junction syndrome [Tietze] (principal); J98.01 Acute bronchospasm; E11.9 Type 2 diabetes mellitus without complications; I10 Essential (primary) hypertension; F10.10 Alcohol abuse, uncomplicated; J45.909 Unspecified asthma, uncomplicated; K70.31 Alcoholic cirrhosis of liver with ascites; Z87.01 Personal history of pneumonia (recurrent)

== ENCOUNTER → 2025-01-26 | Outpatient (CLI) | payer MEDICARE, MEDICAID ==
[~2025-01-26] MED LIST changes: -EPLE50TA PO; +EPLE50TA12 PO; -LACT10SO3 PO; +LACT10SO94 PO; -POTA10CA60 PO; +POTA10CA70 PO; +VENTAER INH
== END ==
LOC: M RAD 10:20
PROVIDERS: ATTEND Nurse Practitioner Family
DX: K74.60 Unspecified cirrhosis of liver (principal)

== ENCOUNTER → 2025-05-04 | Outpatient (CLI) | payer MEDICARE, MEDICAID ==
[2025-05-04 10:45] LABS: INR 1.15
[2025-05-04 10:54] LABS: ALT/SGPT 36.0 U/L (7.0-40); AST/SGOT 45.0 U/L (<34); CALCIUM LEVEL 8.7 MG/DL (8.5-10.1); CARBON DIOXIDE LEVEL 27.0 MMOL/L (20-31); CHLORIDE LEVEL 106.0 MMOL/L (98-107); CREATININE FOR GFR 1.03 MG/DL (0.70-1.30); GLOMERULAR FILTRATION RATE 85.8 (>56); MAGNESIUM LEVEL 1.8 MG/DL (1.8-2.4); POTASSIUM SERUM 4.3 MMOL/L (3.5-5.1); SODIUM LEVEL 141.0 MMOL/L (136-145)
[2025-05-04 11:29] LABS: PLATELET COUNT, AUTOMATED 78 10^3/uL (150-450)
== END ==
LOC: M LAB 09:33
PROVIDERS: ATTEND Internal Medicine Gastroenterology
DX: K74.60 Unspecified cirrhosis of liver (principal)

== ENCOUNTER 2025-05-16 14:12 | Observation (INO) | payer MEDICARE, MEDICAID ==
[2025-05-16] MEDS ORDERED: HOME MED LIST COMPLETE! XX SCH (15:35)
[2025-05-16 15:36] LABS: CK-MB VALUE MASS 3.1 NG/ML (<3.6)
[2025-05-16 15:40] LABS: ALT/SGPT 39 U/L (7.0-40); AST/SGOT 55 U/L (<34); CALCIUM LEVEL 9.3 MG/DL (8.5-10.1); CARBON DIOXIDE LEVEL 26 MMOL/L (20-31); CHLORIDE LEVEL 105 MMOL/L (98-107); CPK CREATINE PHOSPHOKINASE 109 U/L (46-171); CREATININE FOR GFR 0.96 MG/DL (0.70-1.30); GLOMERULAR FILTRATION RATE > 90.0 (>56); MB/CK RELATIVE INDEX 2.84 (< OR =4); POTASSIUM SERUM 4.4 MMOL/L (3.5-5.1); SODIUM LEVEL 142 MMOL/L (136-145); THYROXINE (T4) 7.3 UG/DL (4.5-10.9)
[2025-05-16 16:19] LABS: BASO # 0.0 10^3/uL (0.0-0.2); BASO % 0.6 % (0.0-1.0); EOS # 0.1 10^3/uL (0.0-0.5); EOS % 2.6 % (0.0-3.0); LYMPH # 0.8 10^3/uL (1.5-5.0); LYMPH % 15.6 % (24.0-44.0); MONO # 0.7 10^3/uL (0.0-0.8); MONO % 13.5 % (2.0-8.0); NEUTROPHILS # 3.6 10^3/uL (1.5-8.5); NEUTROPHILS % 67.3 % (36.0-66.0)
[2025-05-16 16:23] LABS: PLATELET COUNT, AUTOMATED 78 10^3/uL (150-450)
[2025-05-16 16:38] LABS: CK-MB VALUE MASS 3.0 NG/ML (<3.6)
[2025-05-16 16:41] LABS: CPK CREATINE PHOSPHOKINASE 103.0 U/L (46-171); MB/CK RELATIVE INDEX 2.91 (< OR =4)
[2025-05-16] MEDS: FUROSEMIDE 40 MG/4 ML VIAL IV ONE (17:27)
[2025-05-16] MEDS ORDERED: GLUCAGON INJ 1 MG VIAL SC PRN (19:45)
[2025-05-16] MEDS ORDERED: DEXTROSE 50% 50 ML SYRINGE IV PRN (19:45)
[2025-05-16] MEDS ORDERED: GLUCOSE 4 GM CHEW PO PRN (19:45)
[2025-05-16 19:46] LABS: INR 1.91
[2025-05-16 20:15] LABS: HEPATITIS C VIRUS ABY INDEX 0.07 INDEX (<0.8)
[2025-05-16 20:20] LABS: APPEARANCE, URINE CLEAR (CLEAR); BACTERIA, URINE AUTO NEGATIVE (NEGATIVE); BILIRUBIN, URINE AUTO NEGATIVE (NEGATIVE); BLOOD, URINE BLOOD NEGATIVE (NEGATIVE); GLUCOSE, URINE (UA) AUTO NEGATIVE (NEGATIVE); KETONE, URINE AUTO NEGATIVE (NEGATIVE); LEUKOCYTE ESTERASE, URINE AUTO NEGATIVE (NEGATIVE); NITRITE, URINE AUTO NEGATIVE (NEGATIVE); PROTEIN, URINE AUTO NEGATIVE (NEGATIVE); RBC, URINE AUTO 0 /HPF (0-3); SPECIFIC GRAVITY URINE AUTO 1.004 (1.002-1.035); SQUAMOUS EPITHELIAL CELL UR AU 0 /HPF (0-6); UROBILINOGEN, URINE AUTO 0.2 mg/dL (0.0-2.0); WBC, URINE AUTO 0 /HPF (0-3)
[2025-05-16] MEDS ORDERED: SPIRONOLACTONE 50 MG TAB PO SCH (20:40)
[2025-05-16 20:43] LABS: ETHYL ALCOHOL (ETHANOL) 0.003 % (0.000-0.010)
[2025-05-16 20:59] LABS: AMPHETAMINES LEVEL URINE NEGATIVE (NEGATIVE); BARBITURATES URINE NEGATIVE (NEGATIVE); BENZODIAZEPINES URINE NEGATIVE (NEGATIVE); CANNABINOIDS URINE NEGATIVE (NEGATIVE); COCAINE METABOLITE URINE NEGATIVE (NEGATIVE); METHADONE URINE NEGATIVE (NEGATIVE); OPIATES URINE NEGATIVE (NEGATIVE); PHENCYCLIDINE URINE NEGATIVE (NEGATIVE)
[2025-05-16] MEDS: INSULIN LISPRO (NovoLOG) PER UNIT SC SCH (21:00)
[2025-05-16] MEDS ORDERED: HEPARIN SOD 5000 UNITS/ML 1 ML VIAL/SYRINGE SC SCH (21:00)
[2025-05-16 21:02] LABS: ESTIMATED AVERAGE GLUCOSE 137.0 MG/DL (60-110)
[2025-05-16 21:15] VITALS: BP 157/81; TEMP 98.9; O2SAT 98
[2025-05-17] VITALS: BP 145/66; TEMP 98.9; O2SAT 90
[2025-05-17 04:00] VITALS: BP 137/63; TEMP 98.3; O2SAT 92
[2025-05-17 06:57] LABS: PLATELET COUNT, AUTOMATED 79 10^3/uL (150-450)
[2025-05-17 07:09] LABS: INR 1.18
[2025-05-17] MEDS: INSULIN LISPRO (NovoLOG) PER UNIT SC SCH (07:30)
[2025-05-17 07:39] LABS: ALT/SGPT 33.0 U/L (7.0-40); AST/SGOT 46.0 U/L (<34); CALCIUM LEVEL 8.7 MG/DL (8.5-10.1); CARBON DIOXIDE LEVEL 27.0 MMOL/L (20-31); CHLORIDE LEVEL 106.0 MMOL/L (98-107); CREATININE FOR GFR 0.99 MG/DL (0.70-1.30); GLOMERULAR FILTRATION RATE 90.0 (>56); MAGNESIUM LEVEL 2.0 MG/DL (1.8-2.4); POTASSIUM SERUM 4.5 MMOL/L (3.5-5.1); SODIUM LEVEL 141.0 MMOL/L (136-145)
[2025-05-17] MEDS ORDERED: FUROSEMIDE 20 MG TAB PO SCH (09:00)
[2025-05-17] MEDS ORDERED: FUROSEMIDE 40 MG TAB PO SCH (09:00)
[2025-05-17 09:13] VITALS: BP 122/58
[2025-05-17] MEDS: FUROSEMIDE 40 MG/4 ML VIAL IV ONE (09:13)
[2025-05-17] MEDS: SPIRONOLACTONE 50 MG TAB PO SCH (09:13)
[2025-05-17] MEDS: PANTOPRAZOLE 40MG TAB PO SCH (09:13)
[2025-05-17] MEDS ORDERED: FURO40TA2 PO (11:19)
[2025-05-17] MEDS ORDERED: ALDA50TA2 PO (11:19)
[2025-05-17 12:13] VITALS: BP 133/63; TEMP 98.9; O2SAT 96
== END 2025-05-17 13:12 | disposition home or self-care (01) ==
LOC: EDBD 14:12 → M ED 14:12 → M ED INP 14:13 → M MS4PR 21:20
PROVIDERS: ADMIT Student in an Organized Health Care Education/Training Program; ATTEND Student in an Organized Health Care Education/Training Program
DX: E87.70 Fluid overload, unspecified (principal); K70.30 Alcoholic cirrhosis of liver without ascites; K76.6 Portal hypertension; E11.22 Type 2 diabetes mellitus with diabetic chronic kidney disease; I12.9 Hypertensive chronic kidney disease with stage 1 through stage 4 chronic kidney disease, or unspecified chronic kidney disease; E66.9 Obesity, unspecified; F32.A Depression, unspecified; K25.9 Gastric ulcer, unspecified as acute or chronic, without hemorrhage or perforation; D50.9 Iron deficiency anemia, unspecified; N18.30 Chronic kidney disease, stage 3 unspecified; N40.0 Benign prostatic hyperplasia without lower urinary tract symptoms; M19.90 Unspecified osteoarthritis, unspecified site; J90 Pleural effusion, not elsewhere classified; Z79.899 Other long term (current) drug therapy; R06.02 Shortness of breath; R60.0 Localized edema
CPT/HCPCS: 36415; 71045; 71046; 76700; 80048; 80053; 80074; 80076; 80307; 81001; 82077; 82550; 82553; 83036; 83735; 83880; 84436; 84443; 84484; 85025; 85027; 85049; 85055; 85610; 93005; 93041; 93971; 94760; 96374; 96376; 99285; G0378; J1938

== ENCOUNTER 2025-06-26 08:54 | Inpatient (IN) | payer MEDICARE, MEDICAID ==
[~2025-06-26] VITALS: Ht 177.8 cm; Wt 141.7 kg
[2025-06-26 09:48] LABS: BASO # 0.0 10^3/uL (0.0-0.2); BASO % 0.1 % (0.0-1.0); EOS # 0.0 10^3/uL (0.0-0.5); EOS % 0.0 % (0.0-3.0); LYMPH # 0.3 10^3/uL (1.5-5.0); LYMPH % 3.2 % (24.0-44.0); MONO # 0.7 10^3/uL (0.0-0.8); MONO % 7.6 % (2.0-8.0); NEUTROPHILS # 7.8 10^3/uL (1.5-8.5); NEUTROPHILS % 88.6 % (36.0-66.0)
[2025-06-26 09:49] LABS: PLATELET COUNT, AUTOMATED 63 10^3/uL (150-450)
[2025-06-26 10:31] LABS: CK-MB VALUE MASS 3.6 NG/ML (<3.6); FREE T4 1.09 NG/DL (0.89-1.76)
[2025-06-26 10:40] LABS: ALT/SGPT 43.0 U/L (7.0-40); AST/SGOT 39.0 U/L (<34); MAGNESIUM LEVEL 1.8 MG/DL (1.8-2.4)
[2025-06-26 10:51] LABS: CPK CREATINE PHOSPHOKINASE 357.0 U/L (46-171); MB/CK RELATIVE INDEX 1.0 (< OR =4)
[2025-06-26 11:45] LABS: CK-MB VALUE MASS 3.2 NG/ML (<3.6)
[2025-06-26 11:53] LABS: CPK CREATINE PHOSPHOKINASE 420.0 U/L (46-171); MB/CK RELATIVE INDEX 0.76 (< OR =4)
[2025-06-26] MEDS ORDERED: ISOVUE-370 76% 100 ML VIAL As Ordered ONE (13:21)
[2025-06-26] MEDS ORDERED: SPIR50TA4 PO (14:23)
[2025-06-26] MEDS ORDERED: HOME MED LIST COMPLETE! XX SCH (14:25)
[2025-06-26 14:37] LABS: CALCIUM LEVEL 9.5 MG/DL (8.5-10.1); CARBON DIOXIDE LEVEL 14.0 MMOL/L (20-31); CHLORIDE LEVEL 107.0 MMOL/L (98-107); CREATININE FOR GFR 1.16 MG/DL (0.70-1.30); GLOMERULAR FILTRATION RATE 73.9 (>56); POTASSIUM SERUM 4.6 MMOL/L (3.5-5.1); SODIUM LEVEL 142.0 MMOL/L (136-145)
[2025-06-26 15:31] LABS: ACETONE/KETONE 0.12 MMOL/L (0.02-0.27)
[2025-06-26 15:35] LABS: VENOUS BASE EXCESS -1.6 (-2.0-2.0); VENOUS HCO3 22.8 MMOL/L (23.0-27.0); VENOUS O2 SATURATION 95.4 % (60.0-80.0); VENOUS PARTIAL PRESSURE CO2 37.3 mmHg (38.0-50.0); VENOUS PARTIAL PRESSURE O2 82.4 mmHg (30.0-50.0); VENOUS PH 7.404 UNITS (7.330-7.430); VENOUS STANDARD HCO3 23.1 MMOL/L; VENOUS TOTAL CO2 23.9 MMOL/L (24.0-28.0)
[2025-06-26] MEDS ORDERED: DEXTROSE 50% 50 ML SYRINGE IV PRN (16:20)
[2025-06-26] MEDS ORDERED: GLUCOSE 4 GM CHEW PO PRN (16:20)
[2025-06-26] MEDS ORDERED: GLUCAGON INJ 1 MG VIAL SC PRN (16:20)
[2025-06-26] MEDS: PIPERACILLIN/TAZOBACTAM SOD 4.5 GM in DEXTROSE 5% (D5W) ADV/MINI-BAG 50 ML IV SCH (16:58)
[2025-06-26 17:27] LABS: C REACTIVE PROTEIN QUANTITATIV 1.19 MG/DL (<1.0)
[2025-06-26] MEDS: INSULIN LISPRO (NovoLOG) PER UNIT SC SCH ×2 (17:41→22:31)
[2025-06-26 17:42] LABS: ESTIMATED AVERAGE GLUCOSE 148.0 MG/DL (60-110)
[2025-06-26 18:28] LABS: INR 1.25
[2025-06-26] MEDS: SODIUM BICARBONATE 75 MEQ in NS 0.45% 1,000 ML IV SCH (19:03)
[2025-06-26 21:10] LABS: CALCIUM LEVEL 8.5 MG/DL (8.5-10.1); CARBON DIOXIDE LEVEL 22.0 MMOL/L (20-31); CHLORIDE LEVEL 109.0 MMOL/L (98-107); CREATININE FOR GFR 1.1 MG/DL (0.70-1.30); GLOMERULAR FILTRATION RATE 78.8 (>56); POTASSIUM SERUM 4.2 MMOL/L (3.5-5.1); SODIUM LEVEL 143.0 MMOL/L (136-145)
[2025-06-26 22:15] VITALS: BP 133/59; TEMP 98.7; O2SAT 100
[2025-06-26] MEDS: LACTULOSE 20 GM/30 ML SYRUP UDC PO SCH (22:32)
[2025-06-27 00:16] VITALS: BP 115/53; TEMP 99; O2SAT 93
[2025-06-27 04:05] VITALS: BP 107/49; TEMP 98.6; O2SAT 97
[2025-06-27 05:24] LABS: BASO # 0.0 10^3/uL (0.0-0.2); BASO % 0.4 % (0.0-1.0); EOS # 0.1 10^3/uL (0.0-0.5); EOS % 1.9 % (0.0-3.0); LYMPH # 1.0 10^3/uL (1.5-5.0); LYMPH % 20.5 % (24.0-44.0); MONO # 0.7 10^3/uL (0.0-0.8); MONO % 15.3 % (2.0-8.0); NEUTROPHILS # 2.9 10^3/uL (1.5-8.5); NEUTROPHILS % 61.7 % (36.0-66.0)
[2025-06-27 05:34] LABS: PLATELET COUNT, AUTOMATED 58 10^3/uL (150-450)
[2025-06-27 05:48] LABS: ALT/SGPT 32.0 U/L (7.0-40); AST/SGOT 48.0 U/L (<34); CALCIUM LEVEL 8.1 MG/DL (8.5-10.1); CARBON DIOXIDE LEVEL 25.0 MMOL/L (20-31); CHLORIDE LEVEL 109.0 MMOL/L (98-107); CREATININE FOR GFR 1.2 MG/DL (0.70-1.30); GLOMERULAR FILTRATION RATE 71.0 (>56); MAGNESIUM LEVEL 1.7 MG/DL (1.8-2.4); POTASSIUM SERUM 3.6 MMOL/L (3.5-5.1); SODIUM LEVEL 143.0 MMOL/L (136-145)
[2025-06-27 07:39] VITALS: BP 123/59; TEMP 98.8; O2SAT 97
[2025-06-27] MEDS: LACTULOSE 20 GM/30 ML SYRUP UDC PO SCH ×2 (08:42→21:00)
[2025-06-27] MEDS: PANTOPRAZOLE 40MG TAB PO SCH (08:42)
[2025-06-27] MEDS: MAG SULF 1GM/100ML (MAG RUN) 1 GM in IV 1 EA IV ONE (08:43)
[2025-06-27] MEDS ORDERED: ENOXAPARIN 40 MG/0.4 ML SYRINGE (J1650 PER 10MG) SC SCH (09:00)
[2025-06-27 11:43] VITALS: BP 122/56; TEMP 98.4; O2SAT 93
[2025-06-27] MEDS: NS (Normal Saline) 0.9% 1,000 ML IV SCH (17:48)
[2025-06-27 19:34] VITALS: BP 129/58; TEMP 98.1; O2SAT 99
[2025-06-27 23:53] VITALS: BP 120/54; TEMP 97.9; O2SAT 97
[2025-06-28 04:27] VITALS: BP 112/56; TEMP 97.3; O2SAT 97
[2025-06-28 06:06] LABS: BASO # 0.0 10^3/uL (0.0-0.2); BASO % 0.5 % (0.0-1.0); EOS # 0.1 10^3/uL (0.0-0.5); EOS % 3.6 % (0.0-3.0); LYMPH # 1.1 10^3/uL (1.5-5.0); LYMPH % 29.0 % (24.0-44.0); MONO # 0.6 10^3/uL (0.0-0.8); MONO % 17.5 % (2.0-8.0); NEUTROPHILS # 1.8 10^3/uL (1.5-8.5); NEUTROPHILS % 49.4 % (36.0-66.0)
[2025-06-28 06:09] LABS: PLATELET COUNT, AUTOMATED 55 10^3/uL (150-450)
[2025-06-28 06:24] LABS: INR 1.26
[2025-06-28 06:34] LABS: ALT/SGPT 34.0 U/L (7.0-40); AST/SGOT 60.0 U/L (<34); CALCIUM LEVEL 8.1 MG/DL (8.5-10.1); CARBON DIOXIDE LEVEL 24.0 MMOL/L (20-31); CHLORIDE LEVEL 106.0 MMOL/L (98-107); CREATININE FOR GFR 1.12 MG/DL (0.70-1.30); GLOMERULAR FILTRATION RATE 77.1 (>56); MAGNESIUM LEVEL 1.8 MG/DL (1.8-2.4); POTASSIUM SERUM 3.6 MMOL/L (3.5-5.1); SODIUM LEVEL 141.0 MMOL/L (136-145)
[2025-06-28 08:16] VITALS: BP 131/61; TEMP 98; O2SAT 96
[2025-06-28] MEDS: SPIRONOLACTONE 50 MG TAB PO SCH (09:00)
[2025-06-28] MEDS: FUROSEMIDE 40 MG TAB PO SCH (11:53)
[2025-06-28 12:00] VITALS: BP 133/60; TEMP 97.8; O2SAT 97
[2025-06-28 15:53] VITALS: BP 122/58; TEMP 98; O2SAT 97
[2025-06-28 19:43] VITALS: BP 129/61; TEMP 97.3; O2SAT 100
[2025-06-29 00:02] VITALS: BP 124/58; TEMP 97.4; O2SAT 97
[2025-06-29 03:28] VITALS: BP 129/61; TEMP 97.6; O2SAT 98
[2025-06-29 05:53] LABS: BASO # 0.0 10^3/uL (0.0-0.2); BASO % 0.9 % (0.0-1.0); EOS # 0.1 10^3/uL (0.0-0.5); EOS % 3.6 % (0.0-3.0); LYMPH # 1.0 10^3/uL (1.5-5.0); LYMPH % 28.5 % (24.0-44.0); MONO # 0.5 10^3/uL (0.0-0.8); MONO % 13.9 % (2.0-8.0); NEUTROPHILS # 1.8 10^3/uL (1.5-8.5); NEUTROPHILS % 52.8 % (36.0-66.0)
[2025-06-29 06:11] LABS: PLATELET COUNT, AUTOMATED 64 10^3/uL (150-450)
[2025-06-29 06:22] LABS: ALT/SGPT 44.0 U/L (7.0-40); AST/SGOT 68.0 U/L (<34); CALCIUM LEVEL 8.4 MG/DL (8.5-10.1); CARBON DIOXIDE LEVEL 27.0 MMOL/L (20-31); CHLORIDE LEVEL 105.0 MMOL/L (98-107); CREATININE FOR GFR 1.19 MG/DL (0.70-1.30); GLOMERULAR FILTRATION RATE 71.7 (>56); MAGNESIUM LEVEL 1.8 MG/DL (1.8-2.4); POTASSIUM SERUM 3.5 MMOL/L (3.5-5.1); SODIUM LEVEL 141.0 MMOL/L (136-145)
[2025-06-29 08:00] VITALS: BP 139/61; TEMP 98.6; O2SAT 97
[2025-06-29] MEDS: HEPARIN SOD 5000 UNITS/ML 1 ML VIAL/SYRINGE SQ SCH (09:00)
[2025-06-29 09:13] VITALS: BP 139/61
[2025-06-29] MEDS ORDERED: AMOXTAB PO (10:43)
[2025-06-29] MEDS ORDERED: LACT20EL PO (10:43)
[2025-06-29] MEDS ORDERED: AMOX875T2 PO (10:55)
[2025-06-29] MEDS ORDERED: METF500T13 PO ×2 (10:55→11:23)
[2025-06-29] MEDS ORDERED: LANC1KIT MC (11:23)
[2025-06-29] MEDS ORDERED: GLUCMIS7 XX (11:23)
[2025-06-29] MEDS ORDERED: LANC1COM MC (11:23)
== END 2025-06-29 13:25 | disposition home or self-care (01) | DRG 391 ==
LOC: EDBD 08:54 → M ED 08:54 → M ED INP 16:12 → M PCU 21:51
PROVIDERS: ADMIT Student in an Organized Health Care Education/Training Program; ATTEND Student in an Organized Health Care Education/Training Program
DX: K52.9 Noninfective gastroenteritis and colitis, unspecified (principal); J18.9 Pneumonia, unspecified organism; K76.6 Portal hypertension; R18.8 Other ascites; E87.20 Acidosis, unspecified; L97.929 Non-pressure chronic ulcer of unspecified part of left lower leg with unspecified severity; L97.919 Non-pressure chronic ulcer of unspecified part of right lower leg with unspecified severity; Z68.41 Body mass index [BMI] 40.0-44.9, adult; K70.30 Alcoholic cirrhosis of liver without ascites; E11.9 Type 2 diabetes mellitus without complications; I10 Essential (primary) hypertension; F32.A Depression, unspecified; N40.0 Benign prostatic hyperplasia without lower urinary tract symptoms; R29.6 Repeated falls; D50.9 Iron deficiency anemia, unspecified; F17.220 Nicotine dependence, chewing tobacco, uncomplicated; G47.33 Obstructive sleep apnea (adult) (pediatric); R53.1 Weakness; E66.9 Obesity, unspecified; I87.8 Other specified disorders of veins; Z79.84 Long term (current) use of oral hypoglycemic drugs; Z79.899 Other long term (current) drug therapy

== ENCOUNTER 2025-07-01 02:10 | Emergency (ER) | payer MEDICARE, MEDICAID ==
[~2025-07-01] VITALS: Ht 182.9 cm; Wt 140.6 kg
[~2025-07-01 02:10] MED LIST changes: +AMOX875T2 PO; +AMOXTAB PO; +GLUCMIS7 XX; +LANC1COM MC; +LANC1KIT MC; +SPIR50TA4 PO
[2025-07-01 04:28] VITALS: BP 135/62; TEMP 98.3; O2SAT 98
== END 2025-07-01 06:49 | disposition home or self-care (01) ==
LOC: M ED 02:10
DX: S80.211A Abrasion, right knee, initial encounter (principal); S80.212A Abrasion, left knee, initial encounter; Y92.9 Unspecified place or not applicable; Y93.9 Activity, unspecified; Y99.9 Unspecified external cause status; W19.XXXA Unspecified fall, initial encounter; E11.9 Type 2 diabetes mellitus without complications; I50.22 Chronic systolic (congestive) heart failure; I11.0 Hypertensive heart disease with heart failure; E78.5 Hyperlipidemia, unspecified; F10.10 Alcohol abuse, uncomplicated

== ENCOUNTER 2025-07-27 06:56 | Inpatient (IN) | payer MEDICARE, MEDICAID ==
[~2025-07-27] VITALS: Ht 182.9 cm; Wt 128.1 kg
[2025-07-27 07:33] LABS: VENOUS BASE EXCESS -2.0 (-2.0-2.0); VENOUS HCO3 23.2 MMOL/L (23.0-27.0); VENOUS O2 SATURATION 72.7 % (60.0-80.0); VENOUS PARTIAL PRESSURE CO2 41.2 mmHg (38.0-50.0); VENOUS PARTIAL PRESSURE O2 40.5 mmHg (30.0-50.0); VENOUS PH 7.368 UNITS (7.330-7.430); VENOUS STANDARD HCO3 22.2 MMOL/L; VENOUS TOTAL CO2 24.4 MMOL/L (24.0-28.0)
[2025-07-27 07:44] LABS: BASO # 0.0 10^3/uL (0.0-0.2); BASO % 0.8 % (0.0-1.0); EOS # 0.1 10^3/uL (0.0-0.5); EOS % 3.3 % (0.0-3.0); KETONE, URINE AUTO RFX NEGATIVE (NEGATIVE); LEUKOCYTE ESTERASE UR AUTO RFX NEGATIVE (NEGATIVE); LYMPH # 0.7 10^3/uL (1.5-5.0); LYMPH % 17.6 % (24.0-44.0); MONO # 0.5 10^3/uL (0.0-0.8); MONO % 12.0 % (2.0-8.0); NEUTROPHILS # 2.6 10^3/uL (1.5-8.5); NEUTROPHILS % 66.0 % (36.0-66.0); NITRITE, URINE AUTO RFX NEGATIVE (NEGATIVE); RBC, URINE AUTO RFX 0 /HPF (0-3); SQUAM EPITHELIAL CELL UR AURFX 0 /HPF (0-6); WBC, URINE AUTO RFX 1 /HPF (0-3)
[2025-07-27 07:47] LABS: PLATELET COUNT, AUTOMATED 77 10^3/uL (150-450)
[2025-07-27 08:05] LABS: CK-MB VALUE MASS 4.3 NG/ML (<3.6)
[2025-07-27 08:07] LABS: ALT/SGPT 34 U/L (7.0-40); AST/SGOT 39 U/L (<34); CALCIUM LEVEL 8.8 MG/DL (8.5-10.1); CARBON DIOXIDE LEVEL 25 MMOL/L (20-31); CHLORIDE LEVEL 104 MMOL/L (98-107); CPK CREATINE PHOSPHOKINASE 103 U/L (46-171); CREATININE FOR GFR 1.28 MG/DL (0.70-1.30); GLOMERULAR FILTRATION RATE 65.7 (>56); MAGNESIUM LEVEL 2.0 MG/DL (1.8-2.4); MB/CK RELATIVE INDEX 4.17 (< OR =4); POTASSIUM SERUM 4.2 MMOL/L (3.5-5.1); SODIUM LEVEL 140 MMOL/L (136-145)
[2025-07-27] MEDS: NS (Normal Saline) 0.9% 1,000 ML IV ONE (08:20)
[2025-07-27] MEDS ORDERED: ISOVUE-370 76% 100 ML VIAL As Ordered ONE (08:53)
[2025-07-27 09:17] LABS: ETHYL ALCOHOL (ETHANOL) < 0.003 % (0.000-0.010)
[2025-07-27 09:32] LABS: AMPHETAMINES LEVEL URINE NEGATIVE (NEGATIVE); BARBITURATES URINE NEGATIVE (NEGATIVE); BENZODIAZEPINES URINE NEGATIVE (NEGATIVE)
[2025-07-27 09:33] LABS: CANNABINOIDS URINE NEGATIVE (NEGATIVE); COCAINE METABOLITE URINE NEGATIVE (NEGATIVE); METHADONE URINE NEGATIVE (NEGATIVE); OPIATES URINE NEGATIVE (NEGATIVE); PHENCYCLIDINE URINE NEGATIVE (NEGATIVE)
[2025-07-27] MEDS ORDERED: AMOX875T2 PO (10:18)
[2025-07-27] MEDS ORDERED: SPIR100T3 PO (10:18)
[2025-07-27] MEDS ORDERED: METF500T13 PO (10:18)
[2025-07-27] MEDS ORDERED: HOME MED LIST COMPLETE! XX SCH (10:20)
[2025-07-27 13:11] LABS: INR 1.27
[2025-07-27] MEDS: LACTULOSE 20 GM/30 ML SYRUP UDC PO SCH (16:29)
[2025-07-27 16:56] VITALS: BP 144/66; TEMP 99.5; O2SAT 99
[2025-07-27 19:47] VITALS: BP 142/62; TEMP 97.8; O2SAT 97
[2025-07-27] MEDS: HEPARIN SOD 5000 UNITS/ML 1 ML VIAL/SYRINGE SC SCH (20:56)
[2025-07-27] MEDS ORDERED: DEXTROSE 50% 50 ML SYRINGE IV PRN (21:15)
[2025-07-27] MEDS ORDERED: GLUCOSE 4 GM CHEW PO PRN (21:15)
[2025-07-27] MEDS ORDERED: GLUCAGON INJ 1 MG VIAL SC PRN (21:15)
[2025-07-27] MEDS ORDERED: ACETAMINOPHEN 325 MG TAB PO PRN (21:30)
[2025-07-27] MEDS: INSULIN LISPRO (NovoLOG) PER UNIT SC SCH (21:47)
[2025-07-27] MEDS: DICLOFENAC EPOLAMINE 1.3% PATCH TOP SCH (21:48)
[2025-07-27 22:08] LABS: FREE T4 1.12 NG/DL (0.89-1.76)
[2025-07-27 23:59] VITALS: BP 131/58; TEMP 98.6; O2SAT 97
[2025-07-28] MEDS: LACTULOSE 20 GM/30 ML SYRUP UDC PO SCH (00:53)
[2025-07-28 05:59] VITALS: BP 120/58; TEMP 98.8; O2SAT 96
[2025-07-28 06:14] LABS: PLATELET COUNT, AUTOMATED 68 10^3/uL (150-450)
[2025-07-28 06:32] LABS: INR 1.19
[2025-07-28 06:44] LABS: ALT/SGPT 33.0 U/L (7.0-40); AST/SGOT 42.0 U/L (<34); CALCIUM LEVEL 8.4 MG/DL (8.5-10.1); CARBON DIOXIDE LEVEL 25.0 MMOL/L (20-31); CHLORIDE LEVEL 105.0 MMOL/L (98-107); CREATININE FOR GFR 1.07 MG/DL (0.70-1.30); GLOMERULAR FILTRATION RATE 81.4 (>56); POTASSIUM SERUM 3.9 MMOL/L (3.5-5.1); SODIUM LEVEL 139.0 MMOL/L (136-145)
[2025-07-28 08:00] VITALS: BP 145/65; TEMP 99.8; O2SAT 98
[2025-07-28] MEDS: INSULIN LISPRO (NovoLOG) PER UNIT SC SCH (08:12)
[2025-07-28 08:14] VITALS: BP 145/65
[2025-07-28] MEDS: PANTOPRAZOLE 40MG TAB PO SCH (08:14)
[2025-07-28] MEDS: FUROSEMIDE 40 MG TAB PO SCH (08:14)
[2025-07-28] MEDS: SPIRONOLACTONE 50 MG TAB PO SCH (08:15)
[2025-07-28] MEDS ORDERED: LEVO75TAB PO (11:21)
[2025-07-28] MEDS ORDERED: LACT10SO94 PO (11:21)
[2025-07-28 12:00] VITALS: BP 152/71; TEMP 99.2; O2SAT 98
[2025-07-31] MEDS ORDERED: DICL1PAT6 TD (15:06)
== END 2025-07-28 13:47 | disposition home health service (06) | DRG 433 ==
LOC: M ED 06:56 → M ED INP 06:57 → M MSPAV 16:35 → OBSVTOIN 07-28 11:05
PROVIDERS: ADMIT Student in an Organized Health Care Education/Training Program; ATTEND Student in an Organized Health Care Education/Training Program
DX: K70.31 Alcoholic cirrhosis of liver with ascites (principal); K76.6 Portal hypertension; I85.10 Secondary esophageal varices without bleeding; E87.20 Acidosis, unspecified; L97.819 Non-pressure chronic ulcer of other part of right lower leg with unspecified severity; L97.829 Non-pressure chronic ulcer of other part of left lower leg with unspecified severity; N39.0 Urinary tract infection, site not specified; R53.1 Weakness; I10 Essential (primary) hypertension; E11.9 Type 2 diabetes mellitus without complications; F32.A Depression, unspecified; N40.0 Benign prostatic hyperplasia without lower urinary tract symptoms; D50.9 Iron deficiency anemia, unspecified; F17.220 Nicotine dependence, chewing tobacco, uncomplicated; K76.82 Hepatic encephalopathy; M16.11 Unilateral primary osteoarthritis, right hip; R42 Dizziness and giddiness; M25.551 Pain in right hip; R29.6 Repeated falls; E66.9 Obesity, unspecified; I87.8 Other specified disorders of veins; Z79.84 Long term (current) use of oral hypoglycemic drugs; Z79.899 Other long term (current) drug therapy; Z68.38 Body mass index [BMI] 38.0-38.9, adult

== ENCOUNTER 2025-08-17 07:35 | Emergency (ER) | payer MEDICARE, MEDICAID ==
[~2025-08-17] VITALS: Ht 182.9 cm; Wt 113.6 kg
[~2025-08-17 07:35] MED LIST changes: +DICL1PAT6 TD; +LEVO75TAB PO; +SPIR100T3 PO; +SULF-7 PO; -SULF1TAB23 PO
[2025-08-17 10:48] LABS: KETONE, URINE AUTO RFX NEGATIVE (NEGATIVE); LEUKOCYTE ESTERASE UR AUTO RFX NEGATIVE (NEGATIVE); MUCUS, URINE RFX SMALL (NEGATIVE); NITRITE, URINE AUTO RFX NEGATIVE (NEGATIVE); RBC, URINE AUTO RFX 0 /HPF (0-3); SQUAM EPITHELIAL CELL UR AURFX 0 /HPF (0-6); WBC, URINE AUTO RFX 0 /HPF (0-3)
[2025-08-17 10:55] LABS: BASO # 0.0 10^3/uL (0.0-0.2); BASO % 0.8 % (0.0-1.0); EOS # 0.1 10^3/uL (0.0-0.5); EOS % 3.0 % (0.0-3.0); LYMPH # 0.8 10^3/uL (1.5-5.0); LYMPH % 20.1 % (24.0-44.0); MONO # 0.6 10^3/uL (0.0-0.8); MONO % 14.6 % (2.0-8.0); NEUTROPHILS # 2.4 10^3/uL (1.5-8.5); NEUTROPHILS % 61.0 % (36.0-66.0)
[2025-08-17 11:00] LABS: PLATELET COUNT, AUTOMATED 66 10^3/uL (150-450)
[2025-08-17 11:15] LABS: ALT/SGPT 43.0 U/L (7.0-40); AST/SGOT 57.0 U/L (<34)
[2025-08-17 11:27] LABS: INR 1.11
[2025-08-17 11:35] VITALS: TEMP 97.4
[2025-08-17] MEDS ORDERED: ASPE4PAD TOP (11:59)
[2025-08-17] MEDS ORDERED: TRAM50TA2 PO (11:59)
[2025-08-17 12:00] VITALS: BP 112/54; O2SAT 100
[2025-08-17] MEDS: LIDOCAINE 5% PATCH TD ONE (12:35)
== END 2025-08-17 12:14 | disposition home or self-care (01) ==
LOC: M ED 07:35
DX: M16.11 Unilateral primary osteoarthritis, right hip (principal); E11.65 Type 2 diabetes mellitus with hyperglycemia; D50.9 Iron deficiency anemia, unspecified; K74.60 Unspecified cirrhosis of liver; D69.6 Thrombocytopenia, unspecified; Z79.84 Long term (current) use of oral hypoglycemic drugs; Z79.899 Other long term (current) drug therapy; R60.0 Localized edema

== ENCOUNTER 2025-08-23 14:48 | Emergency (ER) | payer MEDICARE, MEDICAID ==
[~2025-08-23 14:48] MED LIST changes: +ASPE4PAD TOP; +TRAM50TA2 PO
[2025-08-23 15:45] LABS: BASO # 0.0 10^3/uL (0.0-0.2); BASO % 0.5 % (0.0-1.0); EOS # 0.1 10^3/uL (0.0-0.5); EOS % 2.9 % (0.0-3.0); LYMPH # 0.9 10^3/uL (1.5-5.0); LYMPH % 23.9 % (24.0-44.0); MONO # 0.5 10^3/uL (0.0-0.8); MONO % 13.0 % (2.0-8.0); NEUTROPHILS # 2.3 10^3/uL (1.5-8.5); NEUTROPHILS % 59.4 % (36.0-66.0)
[2025-08-23 15:51] LABS: PLATELET COUNT, AUTOMATED 56 10^3/uL (150-450)
[2025-08-23 16:09] LABS: ALT/SGPT 48 U/L (7.0-40); AST/SGOT 56 U/L (<34); CALCIUM LEVEL 8.8 MG/DL (8.5-10.1); CARBON DIOXIDE LEVEL 28 MMOL/L (20-31); CHLORIDE LEVEL 104 MMOL/L (98-107); CREATININE FOR GFR 0.91 MG/DL (0.70-1.30); GLOMERULAR FILTRATION RATE > 90.0 (>56); POTASSIUM SERUM 3.6 MMOL/L (3.5-5.1); SODIUM LEVEL 140 MMOL/L (136-145)
[2025-08-23 16:57] VITALS: BP 134/63; TEMP 98.1
[2025-08-23] MEDS: KETOROLAC 30 MG/ML 1 ML VIAL IV ONE (17:39)
[2025-08-23 18:03] LABS: KETONE, URINE AUTO RFX NEGATIVE (NEGATIVE); LEUKOCYTE ESTERASE UR AUTO RFX NEGATIVE (NEGATIVE); MUCUS, URINE RFX SMALL (NEGATIVE); NITRITE, URINE AUTO RFX NEGATIVE (NEGATIVE); RBC, URINE AUTO RFX 1 /HPF (0-3); SQUAM EPITHELIAL CELL UR AURFX 0 /HPF (0-6); WBC, URINE AUTO RFX 1 /HPF (0-3)
[2025-08-23 18:33] VITALS: O2SAT 98
[2025-08-23] MEDS ORDERED: PRED20TA PO (18:49)
== END 2025-08-23 19:04 | disposition home or self-care (01) ==
LOC: EDBD 14:48 → M ED 14:48
DX: I88.0 Nonspecific mesenteric lymphadenitis (principal); E11.9 Type 2 diabetes mellitus without complications; I10 Essential (primary) hypertension; N40.0 Benign prostatic hyperplasia without lower urinary tract symptoms; D50.9 Iron deficiency anemia, unspecified; F17.290 Nicotine dependence, other tobacco product, uncomplicated; Z79.84 Long term (current) use of oral hypoglycemic drugs; Z79.899 Other long term (current) drug therapy; Z79.52 Long term (current) use of systemic steroids
CPT/HCPCS: 74177; 80048; 80076; 81001; 83690; 85025; 85049; 85055; 96374; 99284; J1885

== ENCOUNTER 2025-08-25 08:37 | Emergency (ER) | payer MEDICARE, MEDICAID ==
[~2025-08-25] VITALS: Ht 182.9 cm; Wt 140.2 kg
[~2025-08-25 08:37] MED LIST changes: +PRED20TA PO
[2025-08-25 10:00] LABS: BASO # 0.0 10^3/uL (0.0-0.2); BASO % 0.4 % (0.0-1.0); EOS # 0.2 10^3/uL (0.0-0.5); EOS % 2.9 % (0.0-3.0); LYMPH # 0.9 10^3/uL (1.5-5.0); LYMPH % 18.0 % (24.0-44.0); MONO # 0.6 10^3/uL (0.0-0.8); MONO % 11.9 % (2.0-8.0); NEUTROPHILS # 3.4 10^3/uL (1.5-8.5); NEUTROPHILS % 66.6 % (36.0-66.0)
[2025-08-25 10:01] LABS: PLATELET COUNT, AUTOMATED 53 10^3/uL (150-450)
[2025-08-25] MEDS: KETOROLAC 30 MG/ML 1 ML VIAL IV ONE (10:15)
[2025-08-25 10:28] LABS: KETONE, URINE AUTO RFX NEGATIVE (NEGATIVE); LEUKOCYTE ESTERASE UR AUTO RFX NEGATIVE (NEGATIVE); MUCUS, URINE RFX SMALL (NEGATIVE); NITRITE, URINE AUTO RFX NEGATIVE (NEGATIVE); RBC, URINE AUTO RFX 2 /HPF (0-3); SQUAM EPITHELIAL CELL UR AURFX 0 /HPF (0-6); WBC, URINE AUTO RFX 0 /HPF (0-3)
[2025-08-25 10:34] LABS: ALT/SGPT 38 U/L (7.0-40); AST/SGOT 44 U/L (<34); CALCIUM LEVEL 8.1 MG/DL (8.5-10.1); CARBON DIOXIDE LEVEL 24 MMOL/L (20-31); CHLORIDE LEVEL 108 MMOL/L (98-107); CREATININE FOR GFR 0.96 MG/DL (0.70-1.30); GLOMERULAR FILTRATION RATE > 90.0 (>56); POTASSIUM SERUM 4.0 MMOL/L (3.5-5.1); SODIUM LEVEL 139 MMOL/L (136-145)
[2025-08-25 10:57] VITALS: BP 129/58; TEMP 97.1; O2SAT 98
== END 2025-08-25 11:00 | disposition home or self-care (01) ==
LOC: EDBD 08:37 → M ED 08:37
DX: I88.0 Nonspecific mesenteric lymphadenitis (principal); K70.30 Alcoholic cirrhosis of liver without ascites; E11.9 Type 2 diabetes mellitus without complications; I10 Essential (primary) hypertension; N40.0 Benign prostatic hyperplasia without lower urinary tract symptoms; Z79.84 Long term (current) use of oral hypoglycemic drugs; Z79.52 Long term (current) use of systemic steroids; Z79.899 Other long term (current) drug therapy
CPT/HCPCS: 80048; 80076; 81001; 83605; 83690; 85025; 85049; 85055; 96374; 99284; J1885

== ENCOUNTER 2025-08-27 11:31 | Inpatient (IN) | payer MEDICARE, MEDICAID ==
[2025-08-27 12:26] LABS: BASO # 0.0 10^3/uL (0.0-0.2); BASO % 0.4 % (0.0-1.0); EOS # 0.2 10^3/uL (0.0-0.5); EOS % 4.1 % (0.0-3.0); LYMPH # 1.1 10^3/uL (1.5-5.0); LYMPH % 21.4 % (24.0-44.0); MONO # 0.7 10^3/uL (0.0-0.8); MONO % 13.7 % (2.0-8.0); NEUTROPHILS # 2.9 10^3/uL (1.5-8.5); NEUTROPHILS % 59.8 % (36.0-66.0); PLATELET COUNT, AUTOMATED 68 10^3/uL (150-450)
[2025-08-27 12:52] LABS: CPK CREATINE PHOSPHOKINASE 132 U/L (46-171)
[2025-08-27 12:53] LABS: ALT/SGPT 48 U/L (7.0-40); AST/SGOT 56 U/L (<34); CALCIUM LEVEL 8.3 MG/DL (8.5-10.1); CARBON DIOXIDE LEVEL 24 MMOL/L (20-31); CHLORIDE LEVEL 107 MMOL/L (98-107); CK-MB VALUE MASS 4.8 NG/ML (<3.6); CREATININE FOR GFR 0.96 MG/DL (0.70-1.30); GLOMERULAR FILTRATION RATE > 90.0 (>56); MB/CK RELATIVE INDEX 3.63 (< OR =4); POTASSIUM SERUM 4.0 MMOL/L (3.5-5.1); SODIUM LEVEL 139 MMOL/L (136-145)
[2025-08-27] MEDS ORDERED: ISOVUE-370 76% 100 ML VIAL As Ordered ONE (13:03)
[2025-08-27 14:59] LABS: CK-MB VALUE MASS 4.3 NG/ML (<3.6)
[2025-08-27 15:00] LABS: CPK CREATINE PHOSPHOKINASE 117.0 U/L (46-171); MB/CK RELATIVE INDEX 3.67 (< OR =4)
[2025-08-27] MEDS ORDERED: ASPE4PAD2 TOP (16:39)
[2025-08-27] MEDS ORDERED: PRED20TA PO (16:43)
[2025-08-27] MEDS ORDERED: HOME MED LIST COMPLETE! XX SCH (16:45)
[2025-08-27] MEDS ORDERED: FUROSEMIDE 100 MG/10 ML VIAL IV SCH (17:00)
[2025-08-27 17:01] VITALS: BP 159/74; TEMP 99.2; O2SAT 98
[2025-08-27] MEDS: FUROSEMIDE 100 MG/10 ML VIAL IV SCH (17:20)
[2025-08-27] MEDS ORDERED: GLUCOSE 4 GM CHEW PO PRN (17:50)
[2025-08-27] MEDS ORDERED: GLUCAGON INJ 1 MG VIAL SC PRN (17:50)
[2025-08-27] MEDS: INSULIN LISPRO (NovoLOG) PER UNIT SC SCH (18:09)
[2025-08-27 19:52] VITALS: BP 142/63; TEMP 98.9; O2SAT 97
[2025-08-27] MEDS: LACTULOSE 20 GM/30 ML SYRUP UDC PO SCH (20:20)
[2025-08-27] MEDS: LIDOCAINE 5% PATCH TD SCH (23:05)
[2025-08-28] VITALS (7 sets, daily range): BP systolic 119–143; BP diastolic 56–66; TEMP 98.2–99.2; O2SAT 93–97
[2025-08-28] MEDS: PANTOPRAZOLE 40MG TAB PO SCH (08:45)
[2025-08-28] MEDS: predniSONE 20 MG TAB PO SCH (08:46)
[2025-08-28] MEDS: SPIRONOLACTONE 50 MG TAB PO SCH (08:51)
[2025-08-28 13:14] LABS: PH BODY FLUID 7.772 UNITS (NOT ESTABLISHED); SOURCE, BODY FLUID pH PLEURAL
[2025-08-28 13:20] LABS: PLEURAL FL COLOR YELLOW (COLORLESS); SOURCE, BODY FLUID PLEURAL
[2025-08-28 13:21] LABS: APPEARANCE, BODY FLUID HAZY (CLEAR)
[2025-08-29 00:25] VITALS: BP 116/54; TEMP 98.4; O2SAT 95
[2025-08-29 03:59] VITALS: BP 119/56; TEMP 98.2; O2SAT 95
[2025-08-29 06:06] VITALS: BP 119/56
[2025-08-29 08:28] LABS: BASO # 0.0 10^3/uL (0.0-0.2); BASO % 0.3 % (0.0-1.0); EOS # 0.2 10^3/uL (0.0-0.5); EOS % 2.6 % (0.0-3.0); LYMPH # 1.4 10^3/uL (1.5-5.0); LYMPH % 19.9 % (24.0-44.0); MONO # 1.0 10^3/uL (0.0-0.8); MONO % 13.7 % (2.0-8.0); NEUTROPHILS # 4.6 10^3/uL (1.5-8.5); NEUTROPHILS % 63.2 % (36.0-66.0)
[2025-08-29 08:29] LABS: PLATELET COUNT, AUTOMATED 75 10^3/uL (150-450)
[2025-08-29 09:01] LABS: ALT/SGPT 50.0 U/L (7.0-40); AST/SGOT 48.0 U/L (<34); CALCIUM LEVEL 8.8 MG/DL (8.5-10.1); CARBON DIOXIDE LEVEL 28.0 MMOL/L (20-31); CHLORIDE LEVEL 99.0 MMOL/L (98-107); CREATININE FOR GFR 1.28 MG/DL (0.70-1.30); GLOMERULAR FILTRATION RATE 65.7 (>56); POTASSIUM SERUM 3.4 MMOL/L (3.5-5.1); SODIUM LEVEL 138.0 MMOL/L (136-145)
[2025-08-29] MEDS: PNEUMOC 21-VAL CONJ-DIP CRM/PF 0.5 ML SYRINGE IM.IMMUN ONE (09:26)
[2025-08-29] MEDS: POTASSIUM CHLORIDE 10MEQ SR TABLET PO ONE (10:50)
[2025-08-29 11:49] VITALS: BP 137/65; TEMP 98.8; O2SAT 97
[2025-08-29 12:15] LABS: LDH LACTATE DEHYDROGENASE 212.0 U/L (120-246)
[2025-08-29 19:03] VITALS: BP 139/65
[2025-08-29 20:40] VITALS: TEMP 98.2; O2SAT 98
[2025-08-30 00:35] VITALS: BP 128/59
[2025-08-30 04:03] VITALS: BP 132/63; TEMP 98.7; O2SAT 92
[2025-08-30 06:53] LABS: BASO # 0.0 10^3/uL (0.0-0.2); BASO % 0.3 % (0.0-1.0); EOS # 0.2 10^3/uL (0.0-0.5); EOS % 3.2 % (0.0-3.0); LYMPH # 1.3 10^3/uL (1.5-5.0); LYMPH % 20.0 % (24.0-44.0); MONO # 0.9 10^3/uL (0.0-0.8); MONO % 13.3 % (2.0-8.0); NEUTROPHILS # 4.1 10^3/uL (1.5-8.5); NEUTROPHILS % 62.7 % (36.0-66.0)
[2025-08-30 06:55] LABS: PLATELET COUNT, AUTOMATED 78 10^3/uL (150-450)
[2025-08-30 07:06] LABS: ALT/SGPT 45.0 U/L (7.0-40); AST/SGOT 39.0 U/L (<34); CALCIUM LEVEL 8.4 MG/DL (8.5-10.1); CARBON DIOXIDE LEVEL 30.0 MMOL/L (20-31); CHLORIDE LEVEL 100.0 MMOL/L (98-107); CREATININE FOR GFR 1.27 MG/DL (0.70-1.30); GLOMERULAR FILTRATION RATE 66.3 (>56); MAGNESIUM LEVEL 1.8 MG/DL (1.8-2.4); POTASSIUM SERUM 3.3 MMOL/L (3.5-5.1); SODIUM LEVEL 141.0 MMOL/L (136-145)
[2025-08-30] MEDS: POTASSIUM CHLORIDE 10MEQ SR TABLET PO ONE (08:19)
[2025-08-30 08:23] VITALS: BP 143/69
== END 2025-08-30 14:00 | disposition home health service (06) | DRG 187 ==
LOC: EDBD 11:31 → M ED 11:31 → M ED INP 15:46 → M MSPAV 17:10
PROVIDERS: ADMIT Internal Medicine Nephrology; ATTEND Internal Medicine
PROC: 0W993ZZ Drainage of Right Pleural Cavity, Percutaneous Approach (ICD-10-PCS; principal; 2025-08-28 12:00)
DX: J90 Pleural effusion, not elsewhere classified (principal); K76.6 Portal hypertension; K65.4 Sclerosing mesenteritis; J94.8 Other specified pleural conditions; K70.30 Alcoholic cirrhosis of liver without ascites; R16.1 Splenomegaly, not elsewhere classified; D69.6 Thrombocytopenia, unspecified; E11.22 Type 2 diabetes mellitus with diabetic chronic kidney disease; I12.9 Hypertensive chronic kidney disease with stage 1 through stage 4 chronic kidney disease, or unspecified chronic kidney disease; E66.9 Obesity, unspecified; F32.A Depression, unspecified; R59.0 Localized enlarged lymph nodes; I86.8 Varicose veins of other specified sites; N18.30 Chronic kidney disease, stage 3 unspecified; F17.220 Nicotine dependence, chewing tobacco, uncomplicated; D50.9 Iron deficiency anemia, unspecified; N40.0 Benign prostatic hyperplasia without lower urinary tract symptoms; M16.0 Bilateral primary osteoarthritis of hip; F10.21 Alcohol dependence, in remission; Z79.84 Long term (current) use of oral hypoglycemic drugs; Z79.52 Long term (current) use of systemic steroids; Z79.899 Other long term (current) drug therapy

== ENCOUNTER 2025-09-03 10:27 | Emergency (ER) | payer MEDICARE, MEDICAID ==
[~2025-09-03 10:27] MED LIST changes: +ASPE4PAD2 TOP
[2025-09-03 11:11] LABS: BASO # 0.0 10^3/uL (0.0-0.2); BASO % 0.7 % (0.0-1.0); EOS # 0.1 10^3/uL (0.0-0.5); EOS % 1.4 % (0.0-3.0); LYMPH # 0.8 10^3/uL (1.5-5.0); LYMPH % 19.1 % (24.0-44.0); MONO # 0.7 10^3/uL (0.0-0.8); MONO % 17.2 % (2.0-8.0); NEUTROPHILS # 2.6 10^3/uL (1.5-8.5); NEUTROPHILS % 61.1 % (36.0-66.0)
[2025-09-03 11:15] LABS: PLATELET COUNT, AUTOMATED 65 10^3/uL (150-450)
[2025-09-03 11:31] LABS: INR 1.14
[2025-09-03 11:38] LABS: ALT/SGPT 55.0 U/L (7.0-40); AST/SGOT 106.0 U/L (<34); CALCIUM LEVEL 8.7 MG/DL (8.5-10.1); CARBON DIOXIDE LEVEL 24.0 MMOL/L (20-31); CHLORIDE LEVEL 103.0 MMOL/L (98-107); CK-MB VALUE MASS 6.5 NG/ML (<3.6); CPK CREATINE PHOSPHOKINASE 562.0 U/L (46-171); CREATININE FOR GFR 1.07 MG/DL (0.70-1.30); GLOMERULAR FILTRATION RATE 81.4 (>56); MB/CK RELATIVE INDEX 1.15 (< OR =4); POTASSIUM SERUM 4.5 MMOL/L (3.5-5.1); SODIUM LEVEL 137.0 MMOL/L (136-145)
[2025-09-03 12:27] VITALS: BP 154/67
[2025-09-03] MEDS: FUROSEMIDE 100 MG/10 ML VIAL IV ONE (12:27)
[2025-09-03] MEDS: NS (Normal Saline) 0.9% 1,000 ML IV ONE (14:16)
[2025-09-03] MEDS ORDERED: LACT20EL PO (21:05)
[2025-09-03] MEDS ORDERED: HOME MED LIST COMPLETE! XX SCH (21:05)
[2025-09-04 00:39] VITALS: O2SAT 95
[2025-09-04 00:45] VITALS: BP 140/65; TEMP 99
[2025-09-16] MEDS ORDERED: CIPR500T39 PO (19:02)
[2025-09-16] MEDS ORDERED: FREEMIS42 TOP (19:03)
[2025-09-16] MEDS ORDERED: BLOO-76 MC (19:03)
== END 2025-09-04 00:56 | disposition short-term general hospital (02) ==
LOC: M ED 10:57
DX: K80.50 Calculus of bile duct without cholangitis or cholecystitis without obstruction (principal); K80.20 Calculus of gallbladder without cholecystitis without obstruction; I50.22 Chronic systolic (congestive) heart failure; E11.9 Type 2 diabetes mellitus without complications; I11.0 Hypertensive heart disease with heart failure; N18.30 Chronic kidney disease, stage 3 unspecified; K70.30 Alcoholic cirrhosis of liver without ascites; Z79.84 Long term (current) use of oral hypoglycemic drugs; Z79.899 Other long term (current) drug therapy
CPT/HCPCS: 71045; 74181; 76705; 80048; 80076; 82550; 82553; 83690; 83880; 84484; 85025; 85049; 85055; 85610; 93005; 93041; 93970; 94760; 96361; 96374; 99285; J1938

== ENCOUNTER 2025-09-06 15:17 | Observation (INO) | payer MEDICARE, MEDICAID ==
[~2025-09-06] VITALS: Ht 182.9 cm; Wt 127.2 kg
[2025-09-06] MEDS ORDERED: ISOVUE-370 76% 100 ML VIAL As Ordered ONE (15:55)
[2025-09-06 16:06] LABS: BASO # 0.0 10^3/uL (0.0-0.2); BASO % 0.6 % (0.0-1.0); EOS # 0.1 10^3/uL (0.0-0.5); EOS % 2.5 % (0.0-3.0); LYMPH # 0.8 10^3/uL (1.5-5.0); LYMPH % 22.5 % (24.0-44.0); MONO # 0.7 10^3/uL (0.0-0.8); MONO % 19.4 % (2.0-8.0); NEUTROPHILS # 2.0 10^3/uL (1.5-8.5); NEUTROPHILS % 54.7 % (36.0-66.0)
[2025-09-06 16:29] LABS: INR 1.19
[2025-09-06 16:36] LABS: CK-MB VALUE MASS 3.6 NG/ML (<3.6)
[2025-09-06 16:38] LABS: ALT/SGPT 50.0 U/L (7.0-40); AST/SGOT 63.0 U/L (<34); CALCIUM LEVEL 8.6 MG/DL (8.5-10.1); CARBON DIOXIDE LEVEL 25.0 MMOL/L (20-31); CHLORIDE LEVEL 105.0 MMOL/L (98-107); CPK CREATINE PHOSPHOKINASE 438.0 U/L (46-171); CREATININE FOR GFR 1.04 MG/DL (0.70-1.30); GLOMERULAR FILTRATION RATE 84.3 (>56); MB/CK RELATIVE INDEX 0.82 (< OR =4); PLATELET COUNT, AUTOMATED 63 10^3/uL (150-450); POTASSIUM SERUM 4.0 MMOL/L (3.5-5.1); SODIUM LEVEL 139.0 MMOL/L (136-145)
[2025-09-06 17:45] LABS: CK-MB VALUE MASS 3.2 NG/ML (<3.6)
[2025-09-06 17:46] LABS: CPK CREATINE PHOSPHOKINASE 410.0 U/L (46-171); MB/CK RELATIVE INDEX 0.78 (< OR =4)
[2025-09-06] MEDS ORDERED: MED REC COMMENT (18:25)
[2025-09-06] MEDS ORDERED: HOME MED LIST COMPLETE! XX SCH (18:25)
[2025-09-06] MEDS ORDERED: GLUCAGON INJ 1 MG VIAL SC PRN (18:50)
[2025-09-06] MEDS ORDERED: GLUCOSE 4 GM CHEW PO PRN (18:50)
[2025-09-06] MEDS ORDERED: DEXTROSE 50% 50 ML SYRINGE IV PRN (18:50)
[2025-09-06] MEDS ORDERED: LACTULOSE 20 GM/30 ML SYRUP UDC PO PRN (18:50)
[2025-09-06] MEDS: ATORVASTATIN 20 MG TAB PO ONE (20:30)
[2025-09-06] MEDS: PANTOPRAZOLE 40MG TAB PO SCH (20:30)
[2025-09-06] MEDS: ASPIRIN 81 MG CHEWABLE TABLET PO ONE (20:30)
[2025-09-06] MEDS: CLOPIDOGREL 75 MG TAB PO ONE (20:30)
[2025-09-06] MEDS: NS 500 ML IV ONE ×2 (20:31→21:06)
[2025-09-06 21:52] VITALS: BP 134/87; TEMP 99; O2SAT 99
[2025-09-07 05:06] VITALS: BP 133/61; TEMP 98.8; O2SAT 97
[2025-09-07 07:24] LABS: BASO # 0.0 10^3/uL (0.0-0.2); BASO % 0.9 % (0.0-1.0); EOS # 0.2 10^3/uL (0.0-0.5); EOS % 5.1 % (0.0-3.0); LYMPH # 1.0 10^3/uL (1.5-5.0); LYMPH % 28.1 % (24.0-44.0); MONO # 0.7 10^3/uL (0.0-0.8); MONO % 20.7 % (2.0-8.0); NEUTROPHILS # 1.6 10^3/uL (1.5-8.5); NEUTROPHILS % 44.9 % (36.0-66.0)
[2025-09-07 07:41] LABS: ESTIMATED AVERAGE GLUCOSE 137.0 MG/DL (60-110)
[2025-09-07 07:46] LABS: VITAMIN B12 LEVEL 1011.0 PG/ML (211-911)
[2025-09-07 07:47] LABS: CALCIUM LEVEL 8.2 MG/DL (8.5-10.1); CARBON DIOXIDE LEVEL 25.0 MMOL/L (20-31); CHLORIDE LEVEL 109.0 MMOL/L (98-107); CHOLESTEROL LEVEL 209.0 MG/DL (<200); CHOLESTEROL RISK RATIO 4.0 (<5); CREATININE FOR GFR 1.08 MG/DL (0.70-1.30); GLOMERULAR FILTRATION RATE 80.5 (>56); LDL CHOLESTEROL 137.0 MG/DL (<100); NON-HDL-C 156.8 MG/DL; POTASSIUM SERUM 4.2 MMOL/L (3.5-5.1); SODIUM LEVEL 142.0 MMOL/L (136-145); TRIGLYCERIDES LEVEL 99.0 MG/DL (<150)
[2025-09-07 07:52] LABS: PLATELET COUNT, AUTOMATED 58 10^3/uL (150-450)
[2025-09-07] MEDS: LACTULOSE 20 GM/30 ML SYRUP UDC PO SCH (08:53)
[2025-09-07] MEDS: CLOPIDOGREL 75 MG TAB PO SCH (09:32)
[2025-09-07] MEDS: ASPIRIN 81 MG ENTERIC TABLET PO SCH (09:32)
[2025-09-07] MEDS: INSULIN LISPRO (NovoLOG) PER UNIT SC SCH (09:33)
[2025-09-07 12:00] VITALS: BP 146/65; TEMP 98.9; O2SAT 99
[2025-09-07] MEDS: FLUZONE VACCINE TRI PF(25-26) 0.5ML SYRINGE IM.IMMUN ONE (17:00)
[2025-09-07] MEDS ORDERED: CLOP75TA2 PO (17:42)
[2025-09-07] MEDS ORDERED: ASPI81TAEC PO (17:42)
[2025-09-07] MEDS ORDERED: PANT40TA29 PO (17:42)
[2025-09-07] MEDS ORDERED: ATOR1TAB21 PO (17:42)
[2025-09-07] MEDS ORDERED: CLOP75TA99 PO (18:00)
[2025-09-07] MEDS ORDERED: ATOR-398 PO (18:00)
[2025-09-07] MEDS ORDERED: ATORVASTATIN 20 MG TAB PO SCH (21:00)
[2025-09-16] MEDS ORDERED: CIPR500T39 PO (19:02)
[2025-09-16] MEDS ORDERED: FREEMIS42 TOP (19:03)
[2025-09-16] MEDS ORDERED: BLOO-76 MC (19:03)
== END 2025-09-07 18:30 | disposition home or self-care (01) ==
LOC: EDBD 15:17 → M ED 15:17 → M ED INP 15:18 → M MSPAV 21:44
PROVIDERS: ADMIT Student in an Organized Health Care Education/Training Program; ATTEND Student in an Organized Health Care Education/Training Program
DX: G45.9 Transient cerebral ischemic attack, unspecified (principal); K70.31 Alcoholic cirrhosis of liver with ascites; E11.9 Type 2 diabetes mellitus without complications; Z86.79 Personal history of other diseases of the circulatory system; F32.A Depression, unspecified; N40.0 Benign prostatic hyperplasia without lower urinary tract symptoms; K76.6 Portal hypertension; D69.6 Thrombocytopenia, unspecified; I83.90 Asymptomatic varicose veins of unspecified lower extremity; F10.21 Alcohol dependence, in remission; D50.9 Iron deficiency anemia, unspecified; Z87.09 Personal history of other diseases of the respiratory system; Z86.14 Personal history of Methicillin resistant Staphylococcus aureus infection; M19.90 Unspecified osteoarthritis, unspecified site; Z87.448 Personal history of other diseases of urinary system; Z83.3 Family history of diabetes mellitus; Z84.19 Family history of other disorders of kidney and ureter; Z82.49 Family history of ischemic heart disease and other diseases of the circulatory system; F17.220 Nicotine dependence, chewing tobacco, uncomplicated; Z79.899 Other long term (current) drug therapy; Z79.84 Long term (current) use of oral hypoglycemic drugs; Z23 Encounter for immunization
CPT/HCPCS: 36415; 70450; 70496; 70498; 70551; 71045; 80047; 80048; 80061; 80076; 82140; 82550; 82553; 82607; 83036; 84443; 84484; 85025; 85049; 85055; 85610; 85730; 86850; 86900; 86901; 90656; 92610; 93005; 93041; 93306; 94760; 96361; 96374; 97116; 97161; 97165; 97535; 99285; G0008; G0378; J1815; J2060; Q9967